=== PATIENT | female | born 1955 | race Caucasian/White ===

== ENCOUNTER 2020-03-15 11:16 | Inpatient (IN) | payer BC, MEDICARE ==
[~2020-03-15] VITALS: Ht 162.6 cm; Wt 62.5 kg
[2020-03-15] VITALS (8 sets, daily range): BP systolic 112–173; BP diastolic 43–66
--- NOTE | 2020-03-15 11:23 | PHYS DOC ---
General Adult EDM: Chief Complaint: AMS HPI: HPI: Patient is a 64 year old female who was brought here by EMS from local [facility] due to altered mental status. stated that they were out shopping when she became unresponsive, patient'S was able to catch her and let her down on the floor. Patient did not hit her head. stated that patient has been having a headache for the last 2 days. He is sure that she is not on any blood thinner. Patient's stated that she is on multiple medications but he is not sure what they are. He does not know much about her medical history except that she has been on multiple medications. EMS stated that she was able to protect her airway but her GCS was about 3 initially. Review of Systems: Review of Systems: Unable to obtain due to her condition. Heart Score: Risk Factors: Risk Factors: DM, Current or recent (<one month) smoker, HTN, HLP, family history of CAD, obesity. Risk Scores: Score 0 - 3: 2.5% MACE over next 6 weeks - Discharge Home Score 4 - 6: 20.3% MACE over next 6 weeks - Admit for Clinical Observation Score 7 - 10: 72.7% MACE over next 6 weeks - Early Invasive Strategies Physical Exam: PE: Constitutional: Well developed, well nourished,moderate acute distress, non- toxic appearance. [] HENT: Normocephalic, atraumatic, bilateral external ears normal, oropharynx moist, no oral exudates, nose normal. [] Eyes: PERRLA, EOMI, conjunctiva normal, no discharge. [] Neck: atraumatic Cardiovascular:Heart rate regular rhythm, no murmur [] Lungs & Thorax: Bilateral breath sounds clear to auscultation [] Abdomen: Bowel sounds normal, soft, no tenderness, no masses, no pulsatile masses. [] Skin: Warm, dry, no erythema, no rash. [] Back: atraumatic Extremities: No injury, no cyanosis, no clubbing, ROM intact, no edema. [] Neurologic: patient is unresponsive to pain or verbal, she was observed moving her left side but not the right side. POOR GAG REFLEX. Psychologic: not able to evaluate due to condition. Current Patient Data: Labs: Laboratory Tests Test 03/15/20 11:19 White Blood Count 11.7 x10^3/uL Red Blood Count 4.01 x10^6/uL Hemoglobin 12.3 g/dL Hematocrit 35.8 % Mean Corpuscular Volume 89 fL Mean Corpuscular Hemoglobin 31 pg Mean Corpuscular Hemoglobin Concent 34 g/dL Red Cell Distribution Width 12.5 % Platelet Count 308 x10^3/uL Neutrophils (%) (Auto) 54 % Lymphocytes (%) (Auto) 39 % Monocytes (%) (Auto) 6 % Eosinophils (%) (Auto) 1 % Basophils (%) (Auto) 0 % Neutrophils # (Auto) 6.3 x10^3/uL Lymphocytes # (Auto) 4.6 x10^3/uL Monocytes # (Auto) 0.7 x10^3/uL Eosinophils # (Auto) 0.1 x10^3/uL Basophils # (Auto) 0.0 x10^3/uL Sodium Level 138 mmol/L Potassium Level 3.3 mmol/L Chloride Level 102 mmol/L Carbon Dioxide Level 24 mmol/L Anion Gap 12 Blood Urea Nitrogen 12 mg/dL Creatinine 0.8 mg/dL Estimated GFR (Cockcroft-Gault) 72.7 BUN/Creatinine Ratio 15 Glucose Level 115 mg/dL Calcium Level 9.1 mg/dL Magnesium Level 1.7 mg/dL Total Bilirubin 0.3 mg/dL Aspartate Amino Transf (AST/SGOT) 28 U/L Alanine Aminotransferase (ALT/SGPT) 22 U/L Alkaline Phosphatase 83 U/L Troponin I Quantitative < 0.017 ng/mL DX-Gli-C-Type Natriuretic Peptide 100 pg/mL Total Protein 7.6 g/dL Albumin 4.0 g/dL Albumin/Globulin Ratio 1.1 Current Medications Medications (Trade) Dose Ordered Sig/Arnel Route PRN Reason Start Time Stop Time Status Last Admin Dose Admin Propofol (Diprivan) 200 mg 1X ONCE IV 03/15/20 11:30 03/15/20 11:31 DC 03/15/20 11:47 Propofol 50 ml @ As Directed STK-MED ONCE IV 03/15/20 11:45 03/15/20 11:45 DC Propofol 20 ml @ 0 mls/hr 1X ONCE IV 03/15/20 11:45 03/15/20 11:50 DC Potassium Chloride 40 meq/ Dextrose 1,020 ml @ 75 mls/hr [id number] PRN IV 0 03/15/20 12:00 Etomidate (Amidate) 20 mg 1X ONCE IV 03/15/20 11:40 03/15/20 12:00 DC Succinylcholine Chloride (Anectine) 100 mg 1X ONCE IV 03/15/20 11:40 03/15/20 12:00 DC EKG: EKG: [] Radiology/Procedures: Radiology/Procedures: [][facility] [address] [place] [address] IMAGING REPORT Signed PATIENT: JESSENIA CHIN ACCOUNT: [id number] : 1955 LOCATION: ER AGE: 64 SEX: F EXAM STATUS: PRE ER ORD. PHYSICIAN: JANY KRAUSE DO REASON: AMS, RIGHT SIDE WEAKNESS PROCEDURE: CT CODE STROKE HEAD WO CT head without contrast HISTORY: Code stroke. Altered mental status. Right-sided weakness. COMPARISON: CT head December 19, 2009. FINDINGS: At the left frontal lobe there is a large parenchymal hematoma which measures 5.5 cm AP by 6 cm parenchymal by 3 cm transverse with surrounding vasogenic edema, hemorrhage involvement of the white matter as well as extends to the overlying cortical enriquez matter at the superior and middle frontal gyri and extends to the dural margin of the falx cerebri. There is no obvious extra-axial extension of the hemorrhage although given the extensive cortical involvement there is likely risk of extra-axial extension. There is no extension of the ventricles. Mass effect from the hematoma and edema deforms the corpus callosum and left lateral ventricle which is mildly compressed and narrowed and results in 10 mm of [id number] subfalcine midline shift. No transtentorial herniation evident. Basilar cisterns are patent. No hydrocephalus. Orbits, mastoids and bones are unremarkable. IMPRESSION: Left frontal lobe 5.5 x 6.0 x 3.0 cm large parenchymal hematoma and surrounding edema involving both the superior and middle frontal cortical gyri as well as extensive involvement of the white matter, with mass effect and 10 mm midline shift as described above. It is possible this is hemorrhagic transformation of a cortical infarct although given the extensive white matter involvement, other etiologies such as tumoral hemorrhage, hemorrhage associated with an aneurysm or vascular anomaly, or hemorrhage due to venous or superior sagittal sinus thrombosis would also be considerations. FOR INTERNAL CODING PURPOSES Critical result: Findings discussed with JANY KRAUSE at 03/15/2020 11:30 AM. RESULT CODE: (C) Exposure: One or more of the following individualized dose reduction Intubation Procedure: Indication: Respiratory failure, AMS Consent: Unable to give consent due to emergent nature. Medications Used: ETOMIDATE, SUCCINYCHOLINE Procedure: The patient was placed in the appropriate position. Intubation was performed BY THIS physician, using [place] scope, 7.5 endotracheal tube. ET tube was secured 24 at lip, later it was pulled out to 22 at lip. Initial confirmation of placement included bilateral breath sounds, tube fogging, adequate chest rise, adequate pulse oximetry reading. A chest x-ray to verify correct placement of the tube showed ET just above the karthik, it was pulled out to 22 at lip. The patient tolerated the procedure well. Complications: none. Course & Med Decision Making: Course & Med Decision Making Pertinent Labs and Imaging studies reviewed. (See chart for details) Patient is a 64-year-old female with spontaneous left parenchymal hematoma, hypertension, has been having a headache for the last 2 days. Patient was consulted by Dr. Everette Kearney, neurosurgeon who will take patient to the operating room to have an emergent craniotomy. Patient's was updated on her condition and plan of treatment. Dr. Tucker Reece, hospitalist, agreed to admit the patient to ICU. Dragon Disclaimer: Jacoby Disclaimer: This electronic medical record was generated, in whole or in part, using a voice recognition dictation system. Departure Departure Impression: Primary Impression: Cerebral parenchymal hemorrhage Additional Impression: HTN (hypertension) Disposition: 09 ADMITTED INPATIENT Admitting Physician: LIZZY (DR. REECE) Condition: CRITICAL JIMIJANY Ho DO March 15, 2020 11:23
[2020-03-15] MEDS ORDERED: PROPOFOL 10 MG/ML (20ML) VIAL. IV ONE ×2 (11:30→12:33)
--- NOTE | 2020-03-15 11:36 | RAD ---
CT head without contrast HISTORY: Code stroke. Altered mental status. Right-sided weakness. COMPARISON: CT head December 19, 2009. FINDINGS: At the left frontal lobe there is a large parenchymal hematoma which measures 5.5 cm AP by 6 cm parenchymal by 3 cm transverse with surrounding vasogenic edema, hemorrhage involvement of the white matter as well as extends to the overlying cortical enriquez matter at the superior and middle frontal gyri and extends to the dural margin of the falx cerebri. There is no obvious extra-axial extension of the hemorrhage although given the extensive cortical involvement there is likely risk of extra-axial extension. There is no extension of the ventricles. Mass effect from the hematoma and edema deforms the corpus callosum and left lateral ventricle which is mildly compressed and narrowed and results in 10 mm of [id number]-qc-[id number] subfalcine midline shift. No transtentorial herniation evident. Basilar cisterns are patent. No hydrocephalus. Orbits, mastoids and bones are unremarkable. IMPRESSION: Left frontal lobe 5.5 x 6.0 x 3.0 cm large parenchymal hematoma and surrounding edema involving both the superior and middle frontal cortical gyri as well as extensive involvement of the white matter, with mass effect and 10 mm midline shift as described above. It is possible this is hemorrhagic transformation of a cortical infarct although given the extensive white matter involvement, other etiologies such as tumoral hemorrhage, hemorrhage associated with an aneurysm or vascular anomaly, or hemorrhage due to venous or superior sagittal sinus thrombosis would also be considerations. FOR INTERNAL CODING PURPOSES Critical result: Findings discussed with JANY KRAUSE at 03/15/2020 11:30 AM. RESULT CODE: (C) Exposure: One or more of the following individualized dose reduction techniques were utilized for this examination: 1. Automated exposure control 2. Adjustment of the mA and/or kV according to patient size 3. Use of iterative reconstruction technique Electronically signed by: Levi Smith MD (03/15/2020 11:34 AM) [id number]
[2020-03-15 11:37] LABS: BASO % 0 % (0-3); EOS # 0.1 x10^3/uL (0.0-0.7); EOS % 1 % (0-3); HEMATOCRIT 35.8 % (36.0-47.0); HEMOGLOBIN 12.3 g/dL (12.0-15.5); LYMPH # 4.6 x10^3/uL (1.0-4.8); LYMPH % 39 % (24-48); MEAN CORPUSCULAR HEMOGLOBIN 31 pg (25-35); MEAN CORPUSCULAR HGB CONC 34 g/dL (31-37); MEAN CORPUSCULAR VOLUME 89 fL (79-100); MONO # 0.7 x10^3/uL (0.0-1.1); MONO % 6 % (0-9); NEUT # 6.3 x10^3/uL (1.8-7.7); NEUT % 54 % (31-73); PLATELET COUNT 308 x10^3/uL (140-400); RED BLOOD COUNT 4.01 x10^6/uL (3.50-5.40); RED CELL DISTRIBUTION WIDTH 12.5 % (11.5-14.5); WHITE BLOOD COUNT 11.7 x10^3/uL (4.0-11.0)
[2020-03-15] MEDS ORDERED: SUCCINYLCHOLINE 200 MG/10 ML VIAL. IV ONE (11:40)
[2020-03-15] MEDS ORDERED: ETOMIDATE 20 MG/10 ML VIAL. IV ONE (11:40)
[2020-03-15] MEDS ORDERED: PROPOFOL 20 ML IV ONE (11:45)
[2020-03-15] MEDS ORDERED: PROPOFOL 50 ML IV ONE ×2 (11:45→16:02)
[2020-03-15 11:47] LABS: CALCIUM 9.1 mg/dL (8.5-10.1); CREATININE 0.8 mg/dL (0.6-1.0); GFR 72.7; POTASSIUM 3.3 mmol/L (3.5-5.1)
[2020-03-15 11:52] LABS: ALBUMIN/GLOBULIN RATIO 1.1 (1.0-1.7); MAGNESIUM 1.7 mg/dL (1.8-2.4); TOTAL BILIRUBIN 0.3 mg/dL (0.2-1.0); TOTAL PROTEIN 7.6 g/dL (6.4-8.2)
[2020-03-15 11:53] LABS: PROTHROMBIN TIME PATIENT 12.2 SEC (11.7-14.0)
--- NOTE | 2020-03-15 12:09 | RAD ---
Study: CR CHEST AP ONLY Indication: Intubation. Comparison: None. Findings: Endotracheal tube tip terminates approximately 1.2 cm from the karthik. The cardiomediastinal silhouette is within normal limits for size. Mildly plethoric central vasculature. No layering effusion, pneumothorax or dense lobar infiltrate. Probable mild basilar volume loss. Impression: 1. Endotracheal tube tip terminates approximately 1.2 cm from the karthik. Retraction of the tube by [address] the tip at the level of the clavicles. 2. Mildly plethoric central vasculature but without findings of overt failure/volume overload. Electronically signed by: LUIS EDUARDO GONGORA MD (03/15/2020 12:06 PM) [id number]
--- NOTE | 2020-03-15 12:10 | EKG ---
[facility] [address] [place] [address] Test Date: 2020-03-15 Test Time: 11:28:50 Pat Name: JESSENIA CHIN Department: Room: Gender: F Plow Shaker: : 1955 Requested By: JANY KRAUSE Order Number: [id number] Reading MD: Rex Campbell Measurements Intervals [place] Rate: 72 P: 56 DE: 192 QRS: 67 QRSD: 88 T: 60 QT: 438 QTc: 487 Interpretive Statements SINUS RHYTHM PROLONGED QT Electronically Signed On 03-16-2020 15:49:19 CDT by Rex Campbell
--- NOTE | 2020-03-15 12:12 | PDOC1 ---
History and Physical Date of Admission Date of Admission DATE: 03/15/20 TIME: 12:10 Identification/Chief Complaint Chief Complaint Syncope and collapse Source Source: Caregiver, Chart review History of Present Illness History of Present Illness Ms Mathew is a 64 yo F w/ PMHx HLD who was brought here by EMS from local [facility] due to altered mental status around 1030 on 03/15/2020. noted that they were out shopping when she became unresponsive and fell to the ground, though he was able to catch her and guide her down on the floor. Patient did not hit her head. stated that patient has been having a headache for the last 2-3 days. He is sure that she is not on any blood thinner. Patient's stated that she is on multiple medications but he is not sure what they are.. EMS stated that she was able to protect her airway but her GCS was about [address] head revealed a left frontal lobe 5.5 x 6.0 x 3.0 cm large parenchymal hematoma and surrounding edema involving both the superior and middle frontal cortical gyri as well as extensive involvement of the white matter, with mass effect and 10 mm midline shift. Neurosurgery was urgently contacted. She underwent RSI with ED with etomidate and succinylcholine with 7.5 ET tube and went urgently to OR for craniotomy and hematoma evacuation which was large and invaded the ventricular and she is transferred to ICU for closer monitoring. I was able to evaluated patient prior to intubation and after surgery. Past Medical History Cardiovascular: Hyperlipidemia Past Surgical History Past Surgical History: Other Family History Family History: Family History Unknown Social History Smoke: No ALCOHOL: none Drugs: None Current Medications Current Medications Current Medications Propofol (Diprivan) 200 mg 1X ONCE IV Last administered on 03/15/20at 11:47; Start 03/15/20 at 11:30; Stop 03/15/20 at 11:31; Status DC Propofol 50 ml @ As Directed STK-MED ONCE IV ; Start 03/15/20 at 11:45; Stop 03/15/20 at 11:45; Status DC Propofol 20 ml @ 0 mls/hr 1X ONCE IV ; Start 03/15/20 at 11:45; Stop 03/15/20 at 11:50; Status DC Potassium Chloride 40 meq/ Dextrose 1,020 ml @ 75 mls/hr [id number] PRN IV 0; Start 03/15/20 at 12:00 Etomidate (Amidate) 20 mg 1X ONCE IV ; Start 03/15/20 at 11:40; Stop 03/15/20 at 12:00; Status DC Succinylcholine Chloride (Anectine) 100 mg 1X ONCE IV ; Start 03/15/20 at 11:40; Stop 03/15/20 at 12:00; Status DC Allergies Allergies: Coded Allergies: No Known Drug Allergies (Unverified , 03/15/20) ROS Review of System Unable to obtain due to obtundation, then sedation on reevaluation Physical Exam General: Other (Obtunded, GCS 3) HEENT: Mucous membr. moist/pink Lungs: Clear to auscultation, Normal air movement Heart: S1S2, RRR, no thrills, no rubs, no gallops, no murmurs Abdomen: Normal bowel sounds, Soft, No tenderness, No hepatosplenomegaly, No masses Rectal Exam: not examined Extremities: No clubbing, No cyanosis, No edema, Normal pulses, No tenderness/swelling Skin: No rashes, No breakdown, No significant lesion Neuro: Other (GCS 3) Labs Labs Laboratory Tests Test 03/15/20 11:19 White Blood Count 11.7 x10^3/uL (4.0-11.0) Red Blood Count 4.01 x10^6/uL (3.50-5.40) Hemoglobin 12.3 g/dL (12.0-15.5) Hematocrit 35.8 % (36.0-47.0) Mean Corpuscular Volume 89 fL (79-100) Mean Corpuscular Hemoglobin 31 pg (25-35) Mean Corpuscular Hemoglobin Concent 34 g/dL (31-37) Red Cell Distribution Width 12.5 % (11.5-14.5) Platelet Count 308 x10^3/uL (140-400) Neutrophils (%) (Auto) 54 % (31-73) Lymphocytes (%) (Auto) 39 % (24-48) Monocytes (%) (Auto) 6 % (0-9) Eosinophils (%) (Auto) 1 % (0-3) Basophils (%) (Auto) 0 % (0-3) Neutrophils # (Auto) 6.3 x10^3/uL (1.8-7.7) Lymphocytes # (Auto) 4.6 x10^3/uL (1.0-4.8) Monocytes # (Auto) 0.7 x10^3/uL (0.0-1.1) Eosinophils # (Auto) 0.1 x10^3/uL (0.0-0.7) Basophils # (Auto) 0.0 x10^3/uL (0.0-0.2) Sodium Level 138 mmol/L (136-145) Potassium Level 3.3 mmol/L (3.5-5.1) Chloride Level 102 mmol/L (98-107) Carbon Dioxide Level 24 mmol/L (21-32) Anion Gap 12 (6-14) Blood Urea Nitrogen 12 mg/dL (7-20) Creatinine 0.8 mg/dL (0.6-1.0) Estimated GFR (Cockcroft-Gault) 72.7 BUN/Creatinine Ratio 15 (6-20) Glucose Level 115 mg/dL (70-99) Calcium Level 9.1 mg/dL (8.5-10.1) Magnesium Level 1.7 mg/dL (1.8-2.4) Total Bilirubin 0.3 mg/dL (0.2-1.0) Aspartate Amino Transf (AST/SGOT) 28 U/L (15-37) Alanine Aminotransferase (ALT/SGPT) 22 U/L (14-59) Alkaline Phosphatase 83 U/L (46-116) Troponin I Quantitative < 0.017 ng/mL (0.000-0.055) FM-Mub-O-Type Natriuretic Peptide 100 pg/mL (0-124) Total Protein 7.6 g/dL (6.4-8.2) Albumin 4.0 g/dL (3.4-5.0) Albumin/Globulin Ratio 1.1 (1.0-1.7) Laboratory Tests Test 03/15/20 11:19 White Blood Count 11.7 x10^3/uL (4.0-11.0) Red Blood Count 4.01 x10^6/uL (3.50-5.40) Hemoglobin 12.3 g/dL (12.0-15.5) Hematocrit 35.8 % (36.0-47.0) Mean Corpuscular Volume 89 fL (79-100) Mean Corpuscular Hemoglobin 31 pg (25-35) Mean Corpuscular Hemoglobin Concent 34 g/dL (31-37) Red Cell Distribution Width 12.5 % (11.5-14.5) Platelet Count 308 x10^3/uL (140-400) Neutrophils (%) (Auto) 54 % (31-73) Lymphocytes (%) (Auto) 39 % (24-48) Monocytes (%) (Auto) 6 % (0-9) Eosinophils (%) (Auto) 1 % (0-3) Basophils (%) (Auto) 0 % (0-3) Neutrophils # (Auto) 6.3 x10^3/uL (1.8-7.7) Lymphocytes # (Auto) 4.6 x10^3/uL (1.0-4.8) Monocytes # (Auto) 0.7 x10^3/uL (0.0-1.1) Eosinophils # (Auto) 0.1 x10^3/uL (0.0-0.7) Basophils # (Auto) 0.0 x10^3/uL (0.0-0.2) Sodium Level 138 mmol/L (136-145) Potassium Level 3.3 mmol/L (3.5-5.1) Chloride Level 102 mmol/L (98-107) Carbon Dioxide Level 24 mmol/L (21-32) Anion Gap 12 (6-14) Blood Urea Nitrogen 12 mg/dL (7-20) Creatinine 0.8 mg/dL (0.6-1.0) Estimated GFR (Cockcroft-Gault) 72.7 BUN/Creatinine Ratio 15 (6-20) Glucose Level 115 mg/dL (70-99) Calcium Level 9.1 mg/dL (8.5-10.1) Magnesium Level 1.7 mg/dL (1.8-2.4) Total Bilirubin 0.3 mg/dL (0.2-1.0) Aspartate Amino Transf (AST/SGOT) 28 U/L (15-37) Alanine Aminotransferase (ALT/SGPT) 22 U/L (14-59) Alkaline Phosphatase 83 U/L (46-116) Troponin I Quantitative < 0.017 ng/mL (0.000-0.055) MC-Ztk-O-Type Natriuretic Peptide 100 pg/mL (0-124) Total Protein 7.6 g/dL (6.4-8.2) Albumin 4.0 g/dL (3.4-5.0) Albumin/Globulin Ratio 1.1 (1.0-1.7) Images Images CT head - At the left frontal lobe there is a large parenchymal hematoma which measures 5.5 cm AP by 6 cm parenchymal by 3 cm transverse with surrounding vasogenic edema, hemorrhage involvement of the white matter as well as extends to the overlying cortical enriquez matter at the superior and middle frontal gyri and extends to the dural margin of the falx cerebri. There is no obvious extra- axial extension of the hemorrhage although given the extensive cortical involvement there is likely risk of extra-axial extension. There is no extension of the ventricles. Mass effect from the hematoma and edema deforms the corpus callosum and left lateral ventricle which is mildly compressed and narrowed and results in 10 mm of [id number]-[id number] subfalcine midline shift. No transtentorial herniation evident. Basilar cisterns are patent. No hydrocephalus. Orbits, mastoids and bones are unremarkable. IMPRESSION: Left frontal lobe 5.5 x 6.0 x 3.0 cm large parenchymal hematoma and surrounding edema involving both the superior and middle frontal cortical gyri as well as extensive involvement of the white matter, with mass effect and 10 mm midline shift as described above. It is possible this is hemorrhagic transformation of a cortical infarct although given the extensive white matter involvement, other etiologies such as tumoral hemorrhage, hemorrhage associated with an aneurysm or vascular anomaly, or hemorrhage due to venous or superior sagittal sinus thrombosis would also be considerations. VTE Prophylaxis Ordered VTE Prophylaxis Devices: Yes VTE Pharmacological Prophylaxi: Contraindicated Assessment/Plan Assessment/Plan A/P: Acute encephalopathy - due to intracranial hemorrhage Syncope and collapse - 2/2 intraparenchymal bleed Left front intracranial hemorrhage - awaiting biopsy results. per d/w neurosurgery likely aneursymal, possibly bleeding prior to presentation. left frontal lobe 5.5 x 6.0 x 3.0 cm large parenchymal hematoma and surrounding edema. S/p craniotomy. BP monitoring with a-line, hugh Ann HLD - on statin Respiratory failure - likely 2/2 intracranial bleed. Pulm to see in AM for vent management Leukocytosis - likely 2/2 bleed. will monitor Hypokalemia and hypomagnesemia - will replace IV. monitor FEN - NPO PPX - SCDs, Pepcid FULL CODE Dispo - ICU for above. Will need to reconcile home medications with . D/w neurosurgery to check CTA in AM to assess for aneursym with low threshold for tertiary center transfer if further neuro intervention is necessary. CC time 47 min GRAY REECE MD March 15, 2020 12:12
[2020-03-15] MEDS: POTASSIUM CHLORIDE 40 MEQ in IV DEXTROSE 5% 1,000 ML IV PRN ×2 (12:13→19:35)
[2020-03-15] MEDS ORDERED: FLUO40CA2 PO (12:19)
[2020-03-15] MEDS ORDERED: ESTR0.62 PO (12:19)
[2020-03-15] MEDS ORDERED: OXYB10TA26 PO (12:19)
[2020-03-15] MEDS ORDERED: ATOR40TA59 PO (12:19)
[2020-03-15] MEDS ORDERED: PENT100C PO (12:19)
[2020-03-15 12:26] LABS: BASE EXCESS COOX -1 mmol/L (-3-3); HCO3 COOX 22 mmol/L (21-28); METHEMOGLOBIN 0.3 % (0.0-1.9); OXYHEMOGLOBIN 96.6 %; PCO2 COOX 33 mmHg (35-46); PO2 COOX 471 mmHg (65-108); SAT O2 COOX 99 % (92-99)
[2020-03-15] MEDS ORDERED: ROCURONIUM 50 MG/5 ML VIAL. ONE ×2 (12:33→15:34)
[2020-03-15] MEDS ORDERED: PHENYLEPHRINE in 0.9% NACL PF 1 MG/10 ML SYRINGE. IV ONE (12:33)
[2020-03-15] MEDS ORDERED: DEXAMETHASONE SOD PHOS 20 MG/5 ML VIAL. ONE (12:36)
[2020-03-15] MEDS ORDERED: GELATIN SPONGE SIZE 100. ONE (12:42)
[2020-03-15] MEDS ORDERED: THROMBIN TOPICAL 20,000 UNIT SPRAY.SYRN KIT TP ONE (12:42)
[2020-03-15] MEDS ORDERED: SURGICEL HEMOSTAT 4X8 EACH. ONE (12:42)
[2020-03-15] MEDS ORDERED: BUPIVACAINE-EPI 0.5%-1:200000 MPF 30 ML VIAL. ONE ×2 (12:42→12:44)
[2020-03-15] MEDS ORDERED: MANNITOL 25% 12.5 G/50 ML VIAL FOR OR. ONE ×2 (12:42→14:28)
[2020-03-15 12:56] LABS: BILIRUBIN,URINE NEGATIVE (NEG); CLARITY,URINE CLEAR; COLOR,URINE YELLOW; NITRITE,URINE NEGATIVE (NEG); PH,URINE 7.5 (<5.0-8.0); PROTEIN,URINE NEGATIVE (NEG-TRACE); UROBILINOGEN,URINE 0.2 mg/dL (0.2 mg/dL)
[2020-03-15] MEDS ORDERED: BUPIVACAINE-EPI 0.5%-1:200000 MPF 30 ML VIAL. INJ ONE (13:00)
[2020-03-15] MEDS ORDERED: BACITRACIN 50,000 UNIT in IV NORMAL SALINE 1000ML BAG 1,000 ML IRR ONE (13:00)
[2020-03-15 13:05] LABS: AMORPHOUS SEDIMENT,UR PRESENT /HPF; BACTERIA,URINE 0 /HPF (0-FEW); RBC,URINE 0 /HPF (0-2); SQUAMOUS EPITHELIAL CELL,UR FEW /LPF; WBC,URINE 0 /HPF (0-4)
[2020-03-15 13:07] LABS: BARBITURATES NEG (NEG); BENZODIAZEPINES NEG (NEG); CANNABINOIDS NEG (NEG); COCAINE NEG (NEG); METHADONE NEG (NEG); OPIATES NEG (NEG); PHENCYCLIDINE NEG (NEG)
[2020-03-15 13:10] LABS: AMPHETAMINE/METHAMPHETAMINE NEG (NEG)
[2020-03-15] MEDS ORDERED: IV RINGERS,LACTATED 1000ML 1,000 ML IV SCH (13:31)
[2020-03-15] MEDS ORDERED: ONDANSETRON PF 4 MG/2 ML VIAL. IV PRN ×2 (13:45→16:45)
[2020-03-15] MEDS ORDERED: HYDROmorphone 2 MG/ML VIAL IV PRN (13:45)
[2020-03-15] MEDS ORDERED: MORPHINE SULFATE 2 MG/ML VIAL. IV PRN (13:45)
[2020-03-15] MEDS ORDERED: fentaNYL PF VIAL 100 MCG/2 ML VIAL IV PRN ×2 (13:45)
[2020-03-15] MEDS ORDERED: PROCHLORPERAZINE 10 MG/2 ML VIAL. IV PRN (13:45)
[2020-03-15] MEDS ORDERED: PHENYLEPHRINE 10 MG/ML VIAL. ONE (14:43)
[2020-03-15] MEDS ORDERED: fentaNYL PF VIAL 100 MCG/2 ML VIAL ONE (15:08)
[2020-03-15] MEDS ORDERED: SEVOFLURANE > 120 MINUTES. IH ONE (15:44)
[2020-03-15] MEDS ORDERED: POTASSIUM CL 20MEQ D5-0.45NACL 1,000 ML IV SCH (16:19)
[2020-03-15] MEDS ORDERED: 0.9 % SODIUM CHLORIDE 10 ML DISP.SYRIN. IV PRN (16:30)
[2020-03-15] MEDS ORDERED: DEXTROSE 50% 25 GM / 50ML DISP.SYRIN. IV PRN (16:30)
[2020-03-15] MEDS ORDERED: DOCUSATE SODIUM 283 MG/5 ML ENEMA. PR PRN (16:45)
[2020-03-15] MEDS ORDERED: ACETAMINOPHEN 650 MG SUPP.RECT. PR PRN (16:45)
[2020-03-15] MEDS ORDERED: MAGNESIUM SULFATE 2GM 50 ML IV ONE (17:00)
[2020-03-15 17:41] LABS: BASE EXCESS ABG -3 mmol/L (-3-3); HCO3 ABG 22 mmol/L (21-28); PCO2 ABG 38 mmHg (35-46); PO2 ABG 235 mmHg (65-108); SAT O2 ABG 99 % (92-99)
[2020-03-15 17:44] LABS: FIO2 ABG 60%+5
[2020-03-15] MEDS ORDERED: PROPOFOL 100 ML IV ONE (19:37)
[2020-03-15] MEDS: PROPOFOL 100 ML IV PRN (20:56)
[2020-03-15] MEDS: ceFAZolin SODIUM IV Push 1 GM VIAL. IVP SCH (21:40)
[2020-03-16] VITALS (24 sets, daily range): BP systolic 55–146; BP diastolic 47–58
[2020-03-16] MEDS: ceFAZolin SODIUM IV Push 1 GM VIAL. IVP SCH ×2 (05:30→14:52)
[2020-03-16 06:17] LABS: BASO % 0 % (0-3); EOS % 0 % (0-3); HEMATOCRIT 30.3 % (36.0-47.0); HEMOGLOBIN 10.3 g/dL (12.0-15.5); LYMPH # 0.9 x10^3/uL (1.0-4.8); LYMPH % 6 % (24-48); MEAN CORPUSCULAR HEMOGLOBIN 30 pg (25-35); MEAN CORPUSCULAR HGB CONC 34 g/dL (31-37); MEAN CORPUSCULAR VOLUME 90 fL (79-100); MONO # 0.8 x10^3/uL (0.0-1.1); MONO % 5 % (0-9); NEUT % 89 % (31-73); PLATELET COUNT 238 x10^3/uL (140-400); RED BLOOD COUNT 3.39 x10^6/uL (3.50-5.40); RED CELL DISTRIBUTION WIDTH 12.6 % (11.5-14.5); WHITE BLOOD COUNT 14.6 x10^3/uL (4.0-11.0)
[2020-03-16 06:28] LABS: CALCIUM 7.7 mg/dL (8.5-10.1); CREATININE 0.7 mg/dL (0.6-1.0); GFR 84.8; MAGNESIUM 1.9 mg/dL (1.8-2.4); POTASSIUM 4.1 mmol/L (3.5-5.1)
[2020-03-16 07:39] LABS: % BANDS 4 % (0-9); % LYMPHS 7 % (24-48); % MONOS 5 % (0-10); % SEGS 84 % (35-66)
[2020-03-16 07:40] LABS: PLT ESTIMATE ADEQUATE (ADEQUATE)
[2020-03-16] MEDS ORDERED: IOHEXOL 300 MG/ML 100ML VIAL. IV ONE (07:45)
[2020-03-16] MEDS ORDERED: CONTRAST GIVEN. MC PRN (08:00)
[2020-03-16 08:12] LABS: BASE EXCESS ABG -2 mmol/L (-3-3); HCO3 ABG 22 mmol/L (21-28); PCO2 ABG 33 mmHg (35-46); PO2 ABG 108 mmHg (65-108); SAT O2 ABG 98 % (92-99)
--- NOTE | 2020-03-16 09:02 | PDOC2 ---
NEUROLOGY CONSULT Date of Admission Date of Admission DATE: 03/16/20 TIME: 08:54 Reason for Consult Reason for Consult: Cerebral hemorrhage Referring Physician Referring Physician: Dr. Puente, Dr. Kearney Source Source: Chart review History of Present Illness History of Present Illness The patient is a 64-year-old female [employer] [facility] from grocery store. At about 1030 on 03/15 she was shopping with when she became unresponsive and fell to the floor. She did not hit her head. She had been complaining of headaches for the past [address] head showed a large left frontal lobe intraparenchymal hematoma for which she underwent craniotomy yesterday. There is a question of vascular malformation. No seizures have been noted. Past Medical History Cardiovascular: HTN Family History Family History: Other (Unobtainable) Social History Social History Unobtainable Current Medications Current Medications Current Medications Propofol (Diprivan) 200 mg 1X ONCE IV Last administered on 03/15/20at 11:47; Start 03/15/20 at 11:30; Stop 03/15/20 at 11:31; Status DC Propofol 50 ml @ As Directed STK-MED ONCE IV ; Start 03/15/20 at 11:45; Stop 03/15/20 at 11:45; Status DC Propofol 20 ml @ 0 mls/hr 1X ONCE IV Last administered on 03/15/20at 11:52; Start 03/15/20 at 11:45; Stop 03/15/20 at 11:50; Status DC Potassium Chloride 40 meq/ Dextrose 1,020 ml @ 75 mls/hr [id number] PRN IV 0 Last administered on 03/15/20at 19:35; Start 03/15/20 at 12:00 Etomidate (Amidate) 20 mg 1X ONCE IV Last administered on 03/15/20at 12:12; Start 03/15/20 at 11:40; Stop 03/15/20 at 12:00; Status DC Succinylcholine Chloride (Anectine) 100 mg 1X ONCE IV Last administered on 03/15/20at 12:12; Start 03/15/20 at 11:40; Stop 03/15/20 at 12:00; Status DC Bacitracin 62658 unit/Sodium Chloride 1,000 ml @ 1,000 mls/hr 1X ONCE IRR Last administered on 03/15/20 14:50; Start 03/15/20 at 13:00; Stop 03/15/20 at 14:07; Status DC Cefazolin Sodium/ Dextrose 50 ml @ 100 mls/hr 1X PREOP PRN IV PRIOR TO PROCEDURE Last administered on 03/15/20 13:25; Start 03/15/20 at 13:00; Stop 03/16/20 at 12:59 Propofol (Diprivan) 200 mg STK-MED ONCE IV ; Start 03/15/20 at 12:33; Stop 03/15/20 at 12:33; Status DC Phenylephrine HCl (PHENYLEPHRINE in 0.9% NACL PF) 1 mg STK-MED ONCE IV ; Start 03/15/20 at 12:33; Stop 03/15/20 at 12:33; Status DC Rocuronium [place] (Zemuron) 50 mg STK-MED ONCE .ROUTE ; Start 03/15/20 at 12:33; Stop 03/15/20 at 12:33; Status DC Dexamethasone Sodium Phosphate (Decadron) 20 mg STK-MED ONCE .ROUTE ; Start 03/15/20 at 12:36; Stop 03/15/20 at 12:36; Status DC Gelatin (Gelfoam Size 100) 1 each STK-MED ONCE .ROUTE Last administered on 03/15/20 13:49; Start 03/15/20 at 12:42; Stop 03/15/20 at 12:42; Status DC Bupivacaine HCl/ Epinephrine Bitart (Sensorcain-Epi 0.5%-1:194073 Mpf) 30 ml STK-MED ONCE .ROUTE ; Start 03/15/20 at 12:42; Stop 03/15/20 at 12:42; Status DC Mannitol (Mannitol) 12.5 g STK-MED ONCE .ROUTE Last administered on 03/15/20 14:41; Start 03/15/20 at 12:42; Stop 03/15/20 at 12:42; Status DC Cellulose (Surgicel Hemostat 4x8) 1 each STK-MED ONCE .ROUTE Last administered on 03/15/20 15:08; Start 03/15/20 at 12:42; Stop 03/15/20 at 12:43; Status DC Thrombin 20,000 unit STK-MED ONCE TP Last administered on 5/25/20at 13:49; Start 03/15/20 at 12:42; Stop 03/15/20 at 12:43; Status DC Bupivacaine HCl/ Epinephrine Bitart (Sensorcain-Epi 0.5%-1:483967 Mpf) 30 ml STK-MED ONCE .ROUTE Last administered on 03/15/20at 13:48; Start 03/15/20 at 12 :44; Stop 03/15/20 at 12:45; Status DC Bupivacaine HCl/ Epinephrine Bitart (Sensorcain-Epi 0.5%-1:837499 Mpf) 30 ml 1X ONCE INJ ; Start 03/15/20 at 13:00; Stop 03/15/20 at 13:01; Status DC Ondansetron HCl (Zofran) 4 mg PRN Q6HRS PRN IV NAUSEA/VOMITING; Start 03/15/20 at 13:45; Stop 03/15/20 at 16:35; Status DC Fentanyl Citrate (Fentanyl 2ml Vial) 25 mcg PRN Q5MIN PRN IV MILD PAIN 1-3; Start 03/15/20 at 13:45; Stop 03/16/20 at 13:44 Fentanyl Citrate (Fentanyl 2ml Vial) 50 mcg PRN Q5MIN PRN IV MODERATE TO SEVERE PAIN; Start 03/15/20 at 13:45; Stop 03/16/20 at 13:44 Morphine Sulfate (Morphine Sulfate) 1 mg PRN Q10MIN PRN IV SEVERE PAIN 7-10; Start 03/15/20 at 13:45; Stop 03/16/20 at 13:44 Ringer's Solution 1,000 ml @ 30 mls/hr Q24H IV ; Start 03/15/20 at 13:31; Stop 03/16/20 at 01:30; Status DC Hydromorphone HCl (Dilaudid) 0.5 mg PRN Q10MIN PRN IV SEV PAIN, Second choice; Start 03/15/20 at 13:45; Stop 03/16/20 at 13:44 Prochlorperazine Edisylate (Compazine) 5 mg PACU PRN PRN IV NAUSEA, MRX1; Start 03/15/20 at 13:45; Stop 03/16/20 at 13:44 Mannitol (Mannitol) 12.5 g STK-MED ONCE .ROUTE Last administered on 03/15/20at 14:41; Start 03/15/20 at 14:28; Stop 03/15/20 at 14:28; Status DC Phenylephrine HCl (Diego-Synephrine Inj) 10 mg STK-MED ONCE .ROUTE ; Start 03/15/20 at 14:43; Stop 03/15/20 at 14:43; Status DC Fentanyl Citrate (Fentanyl 2ml Vial) 100 mcg STK-MED ONCE .ROUTE ; Start 03/15/20 at 15:08; Stop 03/15/20 at 15:09; Status DC Rocuronium Midway (Zemuron) 50 mg STK-MED ONCE .ROUTE ; Start 03/15/20 at 15:34; Stop 03/15/20 at 15:34; Status DC Sevoflurane (Ultane) 90 ml STK-MED ONCE IH ; Start 03/15/20 at 15:44; Stop 03/15/20 at 15:44; Status DC Propofol 50 ml @ As Directed STK-MED ONCE IV ; Start 03/15/20 at 16:02; Stop 03/15/20 at 16:02; Status DC Nicardipine HCl 50 mg/Sodium Chloride 250 ml @ 25 mls/hr TITRATE PRN IV HYPERTENSION Last administered on 03/15/20at 17:56; Start 03/15/20 at 16:30 Levetiracetam 500 mg/Sodium Chloride 105 ml @ 400 mls/hr Q12HR IV Last administered on 03/15/20at 20:55; Start 03/15/20 at 21:00 Sodium Chloride (Normal Saline Flush) 3 ml QSHIFT PRN IV AFTER MEDS AND BLOOD DRAWS; Start 03/15/20 at 16:30 Potassium Chloride/Dextrose/ Sod Cl 1,000 ml @ 80 mls/hr [id number] IV ; Start 03/15/20 at 16:19; Stop 03/15/20 at 18:36; Status DC Dextrose (Dextrose 50%-Water Syringe) 12.5 gm PRN Q15MIN PRN IV SEE COMMENTS; Start 03/15/20 at 16:30 Cefazolin Sodium (Ancef) 1 gm Q8HRS IVP Last administered on 03/16/20at 05:30; Start 03/15/20 at 22:00; Stop 03/16/20 at 14:01 Ondansetron HCl (Zofran) 4 mg PRN Q4HRS PRN IV NAUSEA/VOMITING; Start 03/15/20 at 16:45 Atorvastatin Calcium (Lipitor) 40 mg DAILY PO ; Start 03/16/20 at 09:00 Acetaminophen (Tylenol Supp) 650 mg PRN Q6HRS PRN MI MILD PAIN / TEMP > 100.3'F; Start 03/15/20 at 16:45 Docusate Sodium (Enemeez) 283 mg PRN DAILY PRN MI CONSTIPATION; Start 03/15/20 at 16:45 Magnesium Sulfate 50 ml @ 25 mls/hr 1X ONCE IV Last administered on 03/15/20at 17:23; Start 03/15/20 at 17:00; Stop 03/15/20 at 18:59; Status DC Propofol 100 ml @ As Directed STK-MED ONCE IV ; Start 03/15/20 at 19:37; Stop 03/15/20 at 19:38; Status DC Propofol 100 ml @ 0.837 mls/ hr CONT PRN IV SEE I/O RECORD Last administered on 03/15/20at 20:56; Start 03/15/20 at 19:45 Iohexol (Omnipaque 300 Mg/ml) 75 ml 1X ONCE IV ; Start 03/16/20 at 07:45; Stop 03/16/20 at 07:50; Status DC Info (CONTRAST GIVEN -- Rx MONITORING) 1 each PRN DAILY PRN MC SEE COMMENTS; Start 03/16/20 at 08:00; Stop 03/18/20 at 07:59 Active Scripts Active Reported Oxybutynin Chloride Er (Oxybutynin Chloride) 10 Mg Tab.er.24 1 Tab PO DAILY Elmiron (Pentosan Polysulfate Sodium) 100 Mg Capsule 1 Cap PO TID 30 Days Atorvastatin Calcium 40 Mg Tablet 1 Tab PO DAILY Fluoxetine Hcl 40 Mg Capsule 40 Mg PO DAILY Premarin (Estrogens, Conjugated) 0.625 Mg Tablet 1 Tab PO DAILY Allergies Allergies: Coded Allergies: No Known Drug Allergies (Unverified , 03/15/20) ROS Review of System Unobtainable Physical Exam Physical Examination General: Well-developed, well-nourishedWhite female in no acute distress HEENT: Normocephalic andatraumatic, status-post craniotomy with ventricular drain. Temporal arteriespulsatile. Neck: Supple without bruit, no meningismus Musculoskeletal: Stability:see neurologic. Gait exam:see neurologic. Tone:see neurologic.Strength:see neurologic. Neurological: Mental Status:orientation, memory, attention span/concentration, language, fund of knowledge: intubated, sedated, unresponsive. Cranial Nerves:Pupils equal and reactive to light. There is no facial asymmetry. All other cranial related problems are negative except as mentioned before.Reflexes:2+ and symmetric with silent plantar responses. Motor: moves left side more than right. Coordination and gait:Not cooperative. Sensory:Not cooperative. Vitals VITALS Vital Signs Date Time Temp Pulse Resp B/P (MAP) Pulse Ox O2 Delivery O2 Flow Rate FiO2 03/16/20 07:46 100 Ventilator 03/16/20 07:00 81 16 131/48 (75) 03/16/20 04:00 98.4 98.4 Labs Labs Laboratory Tests Test 03/15/20 11:19 03/15/20 12:15 03/15/20 12:25 03/15/20 17:30 White Blood Count 11.7 x10^3/uL (4.0-11.0) Red Blood Count 4.01 x10^6/uL (3.50-5.40) Hemoglobin 12.3 g/dL (12.0-15.5) Hematocrit 35.8 % (36.0-47.0) Mean Corpuscular Volume 89 fL (79-100) Mean Corpuscular Hemoglobin 31 pg (25-35) Mean Corpuscular Hemoglobin Concent 34 g/dL (31-37) Red Cell Distribution Width 12.5 % (11.5-14.5) Platelet Count 308 x10^3/uL (140-400) Neutrophils (%) (Auto) 54 % (31-73) Lymphocytes (%) (Auto) 39 % (24-48) Monocytes (%) (Auto) 6 % (0-9) Eosinophils (%) (Auto) 1 % (0-3) Basophils (%) (Auto) 0 % (0-3) Neutrophils # (Auto) 6.3 x10^3/uL (1.8-7.7) Lymphocytes # (Auto) 4.6 x10^3/uL (1.0-4.8) Monocytes # (Auto) 0.7 x10^3/uL (0.0-1.1) Eosinophils # (Auto) 0.1 x10^3/uL (0.0-0.7) Basophils # (Auto) 0.0 x10^3/uL (0.0-0.2) Prothrombin Time 12.2 SEC (11.7-14.0) Prothromb Time International Ratio 0.9 (0.8-1.1) Activated Partial Thromboplast Time 32 SEC (24-38) Sodium Level 138 mmol/L (136-145) Potassium Level 3.3 mmol/L (3.5-5.1) Chloride Level 102 mmol/L (98-107) Carbon Dioxide Level 24 mmol/L (21-32) Anion Gap 12 (6-14) Blood Urea Nitrogen 12 mg/dL (7-20) Creatinine 0.8 mg/dL (0.6-1.0) Estimated GFR (Cockcroft-Gault) 72.7 BUN/Creatinine Ratio 15 (6-20) Glucose Level 115 mg/dL (70-99) Calcium Level 9.1 mg/dL (8.5-10.1) Magnesium Level 1.7 mg/dL (1.8-2.4) Total Bilirubin 0.3 mg/dL (0.2-1.0) Aspartate Amino Transf (AST/SGOT) 28 U/L (15-37) Alanine Aminotransferase (ALT/SGPT) 22 U/L (14-59) Alkaline Phosphatase 83 U/L (46-116) Troponin I Quantitative < 0.017 ng/mL (0.000-0.055) PC-Evn-U-Type Natriuretic Peptide 100 pg/mL (0-124) Total Protein 7.6 g/dL (6.4-8.2) Albumin 4.0 g/dL (3.4-5.0) Albumin/Globulin Ratio 1.1 (1.0-1.7) Thyroid Stimulating Hormone (TSH) 5.725 uIU/mL (0.358-3.74) Ethyl Alcohol Level < 10 mg/dL (0-10) O2 Saturation 99 % (92-99) 99 % (92-99) Arterial Blood pH 7.45 (7.35-7.45) 7.38 (7.35-7.45) Arterial Blood pCO2 at Patient Temp 33 mmHg (35-46) 38 mmHg (35-46) Arterial Blood pO2 at Patient Temp 471 mmHg (65-108) 235 mmHg (65-108) Arterial Blood HCO3 22 mmol/L (21-28) 22 mmol/L (21-28) Arterial Blood Base Excess -1 mmol/L (-3-3) -3 mmol/L (-3-3) Oxyhemoglobin 96.6 % Methemoglobin 0.3 % (0.0-1.9) Carbon Monoxide, Quantitative 2.0 % (0.0-1.9) FiO2 100 60%+5 Urine Collection Type Unknown Urine Color Yellow Urine Clarity Clear Urine pH 7.5 (<5.0-8.0) Urine Specific [place] 1.010 (1.000-1.030) Urine Protein Negative mg/dL (NEG-TRACE) Urine Glucose (UA) Negative mg/dL (NEG) Urine Ketones (Stick) Negative mg/dL (NEG) Urine Blood Negative (NEG) Urine Nitrite Negative (NEG) Urine Bilirubin Negative (NEG) Urine Urobilinogen Dipstick 0.2 mg/dL (0.2 mg/dL) Urine Leukocyte Esterase Negative (NEG) Urine RBC 0 /HPF (0-2) Urine WBC 0 /HPF (0-4) Urine Squamous Epithelial Cells Few /LPF Urine Amorphous Sediment Present /HPF Urine Bacteria 0 /HPF (0-FEW) Urine Opiates Screen Neg (NEG) Urine Methadone Screen Neg (NEG) Urine Barbiturates Neg (NEG) Urine Phencyclidine Screen Neg (NEG) Urine Amphetamine/Methamphetamine Neg (NEG) Urine Benzodiazepines Screen Neg (NEG) Urine Cocaine Screen Neg (NEG) Urine Cannabinoids Screen Neg (NEG) Urine Ethyl Alcohol Neg (NEG) Test 03/16/20 05:35 White Blood Count 14.6 x10^3/uL (4.0-11.0) Red Blood Count 3.39 x10^6/uL (3.50-5.40) Hemoglobin 10.3 g/dL (12.0-15.5) Hematocrit 30.3 % (36.0-47.0) Mean Corpuscular Volume 90 fL (79-100) Mean Corpuscular Hemoglobin 30 pg (25-35) Mean Corpuscular Hemoglobin Concent 34 g/dL (31-37) Red Cell Distribution Width 12.6 % (11.5-14.5) Platelet Count 238 x10^3/uL (140-400) Neutrophils (%) (Auto) 89 % (31-73) Lymphocytes (%) (Auto) 6 % (24-48) Monocytes (%) (Auto) 5 % (0-9) Eosinophils (%) (Auto) 0 % (0-3) Basophils (%) (Auto) 0 % (0-3) Neutrophils # (Auto) 13.0 x10^3/uL (1.8-7.7) Lymphocytes # (Auto) 0.9 x10^3/uL (1.0-4.8) Monocytes # (Auto) 0.8 x10^3/uL (0.0-1.1) Eosinophils # (Auto) 0.0 x10^3/uL (0.0-0.7) Basophils # (Auto) 0.0 x10^3/uL (0.0-0.2) Segmented Neutrophils % 84 % (35-66) Band Neutrophils % 4 % (0-9) Lymphocytes % 7 % (24-48) Monocytes % 5 % (0-10) Platelet Estimate Adequate (ADEQUATE) Sodium Level 131 mmol/L (136-145) Potassium Level 4.1 mmol/L (3.5-5.1) Chloride Level 98 mmol/L (98-107) Carbon Dioxide Level 24 mmol/L (21-32) Anion Gap 9 (6-14) Blood Urea Nitrogen 11 mg/dL (7-20) Creatinine 0.7 mg/dL (0.6-1.0) Estimated GFR (Cockcroft-Gault) 84.8 Glucose Level 145 mg/dL (70-99) Calcium Level 7.7 mg/dL (8.5-10.1) Magnesium Level 1.9 mg/dL (1.8-2.4) Laboratory Tests Test 03/15/20 11:19 03/15/20 12:15 03/15/20 12:25 03/15/20 17:30 White Blood Count 11.7 x10^3/uL (4.0-11.0) Red Blood Count 4.01 x10^6/uL (3.50-5.40) Hemoglobin 12.3 g/dL (12.0-15.5) Hematocrit 35.8 % (36.0-47.0) Mean Corpuscular Volume 89 fL (79-100) Mean Corpuscular Hemoglobin 31 pg (25-35) Mean Corpuscular Hemoglobin Concent 34 g/dL (31-37) Red Cell Distribution Width 12.5 % (11.5-14.5) Platelet Count 308 x10^3/uL (140-400) Neutrophils (%) (Auto) 54 % (31-73) Lymphocytes (%) (Auto) 39 % (24-48) Monocytes (%) (Auto) 6 % (0-9) Eosinophils (%) (Auto) 1 % (0-3) Basophils (%) (Auto) 0 % (0-3) Neutrophils # (Auto) 6.3 x10^3/uL (1.8-7.7) Lymphocytes # (Auto) 4.6 x10^3/uL (1.0-4.8) Monocytes # (Auto) 0.7 x10^3/uL (0.0-1.1) Eosinophils # (Auto) 0.1 x10^3/uL (0.0-0.7) Basophils # (Auto) 0.0 x10^3/uL (0.0-0.2) Prothrombin Time 12.2 SEC (11.7-14.0) Prothromb Time International Ratio 0.9 (0.8-1.1) Activated Partial Thromboplast Time 32 SEC (24-38) Sodium Level 138 mmol/L (136-145) Potassium Level 3.3 mmol/L (3.5-5.1) Chloride Level 102 mmol/L (98-107) Carbon Dioxide Level 24 mmol/L (21-32) Anion Gap 12 (6-14) Blood Urea Nitrogen 12 mg/dL (7-20) Creatinine 0.8 mg/dL (0.6-1.0) Estimated GFR (Cockcroft-Gault) 72.7 BUN/Creatinine Ratio 15 (6-20) Glucose Level 115 mg/dL (70-99) Calcium Level 9.1 mg/dL (8.5-10.1) Magnesium Level 1.7 mg/dL (1.8-2.4) Total Bilirubin 0.3 mg/dL (0.2-1.0) Aspartate Amino Transf (AST/SGOT) 28 U/L (15-37) Alanine Aminotransferase (ALT/SGPT) 22 U/L (14-59) Alkaline Phosphatase 83 U/L (46-116) Troponin I Quantitative < 0.017 ng/mL (0.000-0.055) MX-Vsg-P-Type Natriuretic Peptide 100 pg/mL (0-124) Total Protein 7.6 g/dL (6.4-8.2) Albumin 4.0 g/dL (3.4-5.0) Albumin/Globulin Ratio 1.1 (1.0-1.7) Thyroid Stimulating Hormone (TSH) 5.725 uIU/mL (0.358-3.74) Ethyl Alcohol Level < 10 mg/dL (0-10) O2 Saturation 99 % (92-99) 99 % (92-99) Arterial Blood pH 7.45 (7.35-7.45) 7.38 (7.35-7.45) Arterial Blood pCO2 at Patient Temp 33 mmHg (35-46) 38 mmHg (35-46) Arterial Blood pO2 at Patient Temp 471 mmHg (65-108) 235 mmHg (65-108) Arterial Blood HCO3 22 mmol/L (21-28) 22 mmol/L (21-28) Arterial Blood Base Excess -1 mmol/L (-3-3) -3 mmol/L (-3-3) Oxyhemoglobin 96.6 % Methemoglobin 0.3 % (0.0-1.9) Carbon Monoxide, Quantitative 2.0 % (0.0-1.9) FiO2 100 60%+5 Urine Collection Type Unknown Urine Color Yellow Urine Clarity Clear Urine pH 7.5 (<5.0-8.0) Urine Specific [place] 1.010 (1.000-1.030) Urine Protein Negative mg/dL (NEG-TRACE) Urine Glucose (UA) Negative mg/dL (NEG) Urine Ketones (Stick) Negative mg/dL (NEG) Urine Blood Negative (NEG) Urine Nitrite Negative (NEG) Urine Bilirubin Negative (NEG) Urine Urobilinogen Dipstick 0.2 mg/dL (0.2 mg/dL) Urine Leukocyte Esterase Negative (NEG) Urine RBC 0 /HPF (0-2) Urine WBC 0 /HPF (0-4) Urine Squamous Epithelial Cells Few /LPF Urine Amorphous Sediment Present /HPF Urine Bacteria 0 /HPF (0-FEW) Urine Opiates Screen Neg (NEG) Urine Methadone Screen Neg (NEG) Urine Barbiturates Neg (NEG) Urine Phencyclidine Screen Neg (NEG) Urine Amphetamine/Methamphetamine Neg (NEG) Urine Benzodiazepines Screen Neg (NEG) Urine Cocaine Screen Neg (NEG) Urine Cannabinoids Screen Neg (NEG) Urine Ethyl Alcohol Neg (NEG) Test 03/16/20 05:35 White Blood Count 14.6 x10^3/uL (4.0-11.0) Red Blood Count 3.39 x10^6/uL (3.50-5.40) Hemoglobin 10.3 g/dL (12.0-15.5) Hematocrit 30.3 % (36.0-47.0) Mean Corpuscular Volume 90 fL (79-100) Mean Corpuscular Hemoglobin 30 pg (25-35) Mean Corpuscular Hemoglobin Concent 34 g/dL (31-37) Red Cell Distribution Width 12.6 % (11.5-14.5) Platelet Count 238 x10^3/uL (140-400) Neutrophils (%) (Auto) 89 % (31-73) Lymphocytes (%) (Auto) 6 % (24-48) Monocytes (%) (Auto) 5 % (0-9) Eosinophils (%) (Auto) 0 % (0-3) Basophils (%) (Auto) 0 % (0-3) Neutrophils # (Auto) 13.0 x10^3/uL (1.8-7.7) Lymphocytes # (Auto) 0.9 x10^3/uL (1.0-4.8) Monocytes # (Auto) 0.8 x10^3/uL (0.0-1.1) Eosinophils # (Auto) 0.0 x10^3/uL (0.0-0.7) Basophils # (Auto) 0.0 x10^3/uL (0.0-0.2) Segmented Neutrophils % 84 % (35-66) Band Neutrophils % 4 % (0-9) Lymphocytes % 7 % (24-48) Monocytes % 5 % (0-10) Platelet Estimate Adequate (ADEQUATE) Sodium Level 131 mmol/L (136-145) Potassium Level 4.1 mmol/L (3.5-5.1) Chloride Level 98 mmol/L (98-107) Carbon Dioxide Level 24 mmol/L (21-32) Anion Gap 9 (6-14) Blood Urea Nitrogen 11 mg/dL (7-20) Creatinine 0.7 mg/dL (0.6-1.0) Estimated GFR (Cockcroft-Gault) 84.8 Glucose Level 145 mg/dL (70-99) Calcium Level 7.7 mg/dL (8.5-10.1) Magnesium Level 1.9 mg/dL (1.8-2.4) Images Images CT head without contrast, 03/15 FINDINGS: At the left frontal lobe there is a large parenchymal hematoma which measures 5.5 cm AP by 6 cm parenchymal by 3 cm transverse with surrounding vasogenic edema, hemorrhage involvement of the white matter as well as extends to the overlying cortical enriquez matter at the superior and middle frontal gyri and extends to the dural margin of the falx cerebri. There is no obvious extra-axial extension of the hemorrhage although given the extensive cortical involvement there is likely risk of extra-axial extension. There is no extension of the ventricles. Mass effect from the hematoma and edema deforms the corpus callosum and left lateral ventricle which is mildly compressed and narrowed and results in 10 mm of [id number] subfalcine midline shift. No transtentorial herniation evident. Basilar cisterns are patent. No hydrocephalus. Orbits, mastoids and bones are unremarkable. IMPRESSION: Left frontal lobe 5.5 x 6.0 x 3.0 cm large parenchymal hematoma and surrounding edema involving both the superior and middle frontal cortical gyri as well as extensive involvement of the white matter, with mass effect and 10 mm midline shift as described above. It is possible this is hemorrhagic transformation of a cortical infarct although given the extensive white matter involvement, other etiologies such as tumoral hemorrhage, hemorrhage associated with an aneurysm or vascular anomaly, or hemorrhage due to venous or superior sagittal sinus thrombosis would also be considerations. Assessment/Plan Assessment/Plan Impression: Large left intraparenchymal hemorrhage status-post evacuation Recommendations: Await head CT repeat and CT angiogram Note she is on levetiracetam Otherwise per neurosurgery Will follow Thank you for letting me help the patient's care. SON PHAM MD March 16, 2020 09:02
--- NOTE | 2020-03-16 09:39 | RAD ---
CT ANGIOGRAPHY HEAD, CT HEAD WO CONTRAST History:Postcraniotomy. Intracranial hemorrhage. Technique: Noncontrast head CT. After bolus of intravenous contrast, volumetric CT data acquisition was acquired of the head. Multiplanar reconstruction images to include MIP and 3-D reconstruction images are submitted. Exposure: One or more of the following individualized dose reduction techniques were utilized for this examination: 1. Automated exposure control 2. Adjustment of the mA and/or kV according to patient size 3. Use of iterative reconstruction technique. Comparison: March 15, 2020 Any determination of stenosis is based on NASCET criteria. Noncontrast CT head: Interval left superior parietal craniotomy for evacuation of left frontal lobe parenchymal hemorrhage. Decreased size of parenchymal hematoma. Similar adjacent edema. Decreased mass effect. Expected postoperative changes with extra-axial blood and air collection underlying the craniotomy. Small adjacent subarachnoid hemorrhage. Pneumocephalus is noted. Left frontal approach ventricular catheter with tip in the left frontal horn. Pneumocephalus. Interval visualization of small intraventricular hemorrhage. No hydrocephalus. Imaged orbits are unremarkable. Imaged paranasal sinuses and mastoid air cells are clear. Head CTA: No evidence of increased vascularity within the region of the left frontal hematoma evacuation to suggest arteriovenous malformation. No aneurysm. The superior sagittal sinus and transverse sinuses appear patent. Decreased appearance of contrast within the sigmoid and upper internal jugular veins due to contrast timing. ICA: No stenosis, occlusion or aneurysm. MCA: No stenosis, occlusion or aneurysm. BETY: No stenosis, occlusion or aneurysm. ORTHOPEDIC DENTIST: No stenosis, occlusion or aneurysm. Basilar artery: No stenosis, occlusion or aneurysm. Distal vertebral arteries: No stenosis, occlusion or aneurysm. Impression: Noncontrast head CT: 1. Interval postoperative changes left frontal hematoma evacuation with small residual hematoma. Decreased mass effect. 2. Left frontal ventricular catheter. No hydrocephalus. 3. Small interventricular hemorrhage. CT angiogram head: 1. No evidence of arteriovenous malformation or aneurysm. Electronically signed by: Corey Hoover DO (03/16/2020 9:36 AM) [id number]
--- NOTE | 2020-03-16 10:14 | CONS ---
DATE OF CONSULTATION: PULMONARY CONSULTATION ATTENDING PHYSICIAN: Tucker Carlisle MD REASON FOR CONSULTATION: Respiratory failure, cerebral hematoma. HISTORY OF PRESENT ILLNESS: The patient is a 64-year-old who was doing grocery at [employer] when she started to became unresponsive. Apparently, she has been having some headache for the last 2 days. The patient fell to the ground, but her was able to catch her and guide her to lay down on the floor. She did not hit her head. EMS was called and was brought into the Emergency Room. Her [place] Coma Scale was 3. CT head revealed left frontal lobe 5.5 x 6 cm large parenchymal hematoma and surrounding edema as well as some involvement of the white matter and mass effect. She was intubated and emergently underwent craniotomy and hematoma evacuation. Currently, she is on assist control mode. She is not following any commands. She is sedated with propofol. She has an ICP monitoring device in place. Her chest x-ray showed slight cephalization of vessels. She is currently on Cardene for blood pressure control. Her ABG showed a pH of 7.38, pCO2 of 38 and a pO2 of 235 on 60% FiO2 and 5 of PEEP. This morning, pH is 7.43, pCO2 of 33 and a pO2 of 108 with bicarbonate of 22. I have been asked to see her for further evaluation. PAST MEDICAL HISTORY: Significant for hyperlipidemia. PAST SURGICAL HISTORY: No recent surgery. ALLERGIES: None. MEDICATIONS: Reviewed as listed in the MRAD including cefazolin and Cardene drip for blood pressure control. REVIEW OF SYSTEMS: Unable to obtain from the patient. SOCIAL HISTORY: Unavailable. PHYSICAL EXAMINATION: GENERAL: She is intubated and sedated. VITAL SIGNS: Pulse ox is 100%. Pupils do react. Afebrile. HEENT: Sclerae nonicteric. NECK: Supple. LUNGS: With diminished breath sounds. CARDIOVASCULAR: Regular rate. ABDOMEN: Soft. EXTREMITIES: With no pitting edema. LABORATORY DATA: Reviewed. ABG discussed in my history of present illness. BUN 11, creatinine 0.7. TSH is 5.7. White cell count 14.6, hemoglobin 10.3 and platelets are 238. IMPRESSION: 1. Acute respiratory failure secondary to large cerebral hematoma requiring emergent evacuation. 2. Encephalopathy secondary to large left intraparenchymal hematoma. 3. Slightly mild cephalization of vessels on chest x-ray could be secondary to mild neurogenic edema. RECOMMENDATIONS: 1. Continue with present assist control mode. 2. Follow Neurosurgery recommendations. 3. Optimization of blood pressure per Neurosurgery with Cardene drip. 4. SCDs for DVT prophylaxis. 5. Once mental status improves, then we will consider a weaning trial. 6. We will start enteral nutrition. 7. Discussed with RN and RT. We will follow along with you. Critical care time 33 minutes including review of the labs, chest x-rays and decision making. ADRIANA ULLOA MD DR: RAY/alana JOB#: [id number] / [id number]
--- NOTE | 2020-03-16 10:34 | PDOC ---
[facility] PROGRESS NOTE Chief Complaint Chief Complaint Massive BREAKER HAND hemorrhage with postop day 1 craniotomy Acute encephalopathy - due to intracranial hemorrhage Syncope and collapse - 2/2 intraparenchymal bleed Left front intracranial hemorrhage Hyperlipidemia Respiratory failure - likely 2/2 intracranial bleed Leukocytosis - likely 2/2 bleed. Hypokalemia and hypomagnesemia History of Present Illness History of Present Illness 03/16/2020 Patient seen and examined in the ICU She is mechanically ventilated Assist-control/450/16/30 percent Has an OG to suction Discussed with RN Chart reviewed Her pupils are reactive Vitals/I&O Vitals/I&O: Vital Signs Date Time Temp Pulse Resp B/P (MAP) Pulse Ox O2 Delivery O2 Flow Rate FiO2 03/16/20 08:00 Mechanical Ventilator 03/16/20 08:00 76 135/54 (81) 03/16/20 08:00 98.5 16 99 98.5 I & O 03/15/20 03/15/20 03/16/20 15:00 23:00 07:00 Intake Total 105 ml 957 ml Output Total 600 ml 340 ml Balance -495 ml 617 ml Physical Exam General: Other (Sedated) Heart: Regular rate, Normal S1 Lungs: Clear Abdomen: Normal bowel sounds, Soft, No tenderness, No hepatosplenomegaly, No masses Extremities: No clubbing, No cyanosis, No edema, Normal pulses, No tenderness/swelling Skin: No rashes, No breakdown, No significant lesion Labs Labs: Laboratory Tests Test 03/15/20 11:19 03/15/20 12:15 03/15/20 12:25 03/15/20 17:30 White Blood Count 11.7 x10^3/uL (4.0-11.0) Red Blood Count 4.01 x10^6/uL (3.50-5.40) Hemoglobin 12.3 g/dL (12.0-15.5) Hematocrit 35.8 % (36.0-47.0) Mean Corpuscular Volume 89 fL (79-100) Mean Corpuscular Hemoglobin 31 pg (25-35) Mean Corpuscular Hemoglobin Concent 34 g/dL (31-37) Red Cell Distribution Width 12.5 % (11.5-14.5) Platelet Count 308 x10^3/uL (140-400) Neutrophils (%) (Auto) 54 % (31-73) Lymphocytes (%) (Auto) 39 % (24-48) Monocytes (%) (Auto) 6 % (0-9) Eosinophils (%) (Auto) 1 % (0-3) Basophils (%) (Auto) 0 % (0-3) Neutrophils # (Auto) 6.3 x10^3/uL (1.8-7.7) Lymphocytes # (Auto) 4.6 x10^3/uL (1.0-4.8) Monocytes # (Auto) 0.7 x10^3/uL (0.0-1.1) Eosinophils # (Auto) 0.1 x10^3/uL (0.0-0.7) Basophils # (Auto) 0.0 x10^3/uL (0.0-0.2) Prothrombin Time 12.2 SEC (11.7-14.0) Prothromb Time International Ratio 0.9 (0.8-1.1) Activated Partial Thromboplast Time 32 SEC (24-38) Sodium Level 138 mmol/L (136-145) Potassium Level 3.3 mmol/L (3.5-5.1) Chloride Level 102 mmol/L (98-107) Carbon Dioxide Level 24 mmol/L (21-32) Anion Gap 12 (6-14) Blood Urea Nitrogen 12 mg/dL (7-20) Creatinine 0.8 mg/dL (0.6-1.0) Estimated GFR (Cockcroft-Gault) 72.7 BUN/Creatinine Ratio 15 (6-20) Glucose Level 115 mg/dL (70-99) Calcium Level 9.1 mg/dL (8.5-10.1) Magnesium Level 1.7 mg/dL (1.8-2.4) Total Bilirubin 0.3 mg/dL (0.2-1.0) Aspartate Amino Transf (AST/SGOT) 28 U/L (15-37) Alanine Aminotransferase (ALT/SGPT) 22 U/L (14-59) Alkaline Phosphatase 83 U/L (46-116) Troponin I Quantitative < 0.017 ng/mL (0.000-0.055) [id number]-Rxb-P-Type Natriuretic Peptide 100 pg/mL (0-124) Total Protein 7.6 g/dL (6.4-8.2) Albumin 4.0 g/dL (3.4-5.0) Albumin/Globulin Ratio 1.1 (1.0-1.7) Thyroid Stimulating Hormone (TSH) 5.725 uIU/mL (0.358-3.74) Ethyl Alcohol Level < 10 mg/dL (0-10) O2 Saturation 99 % (92-99) 99 % (92-99) Arterial Blood pH 7.45 (7.35-7.45) 7.38 (7.35-7.45) Arterial Blood pCO2 at Patient Temp 33 mmHg (35-46) 38 mmHg (35-46) Arterial Blood pO2 at Patient Temp 471 mmHg (65-108) 235 mmHg (65-108) Arterial Blood HCO3 22 mmol/L (21-28) 22 mmol/L (21-28) Arterial Blood Base Excess -1 mmol/L (-3-3) -3 mmol/L (-3-3) Oxyhemoglobin 96.6 % Methemoglobin 0.3 % (0.0-1.9) Carbon Monoxide, Quantitative 2.0 % (0.0-1.9) FiO2 100 60%+5 Urine Collection Type Unknown Urine Color Yellow Urine Clarity Clear Urine pH 7.5 (<5.0-8.0) Urine Specific [place] 1.010 (1.000-1.030) Urine Protein Negative mg/dL (NEG-TRACE) Urine Glucose (UA) Negative mg/dL (NEG) Urine Ketones (Stick) Negative mg/dL (NEG) Urine Blood Negative (NEG) Urine Nitrite Negative (NEG) Urine Bilirubin Negative (NEG) Urine Urobilinogen Dipstick 0.2 mg/dL (0.2 mg/dL) Urine Leukocyte Esterase Negative (NEG) Urine RBC 0 /HPF (0-2) Urine WBC 0 /HPF (0-4) Urine Squamous Epithelial Cells Few /LPF Urine Amorphous Sediment Present /HPF Urine Bacteria 0 /HPF (0-FEW) Urine Opiates Screen Neg (NEG) Urine Methadone Screen Neg (NEG) Urine Barbiturates Neg (NEG) Urine Phencyclidine Screen Neg (NEG) Urine Amphetamine/Methamphetamine Neg (NEG) Urine Benzodiazepines Screen Neg (NEG) Urine Cocaine Screen Neg (NEG) Urine Cannabinoids Screen Neg (NEG) Urine Ethyl Alcohol Neg (NEG) Test 03/16/20 05:35 White Blood Count 14.6 x10^3/uL (4.0-11.0) Red Blood Count 3.39 x10^6/uL (3.50-5.40) Hemoglobin 10.3 g/dL (12.0-15.5) Hematocrit 30.3 % (36.0-47.0) Mean Corpuscular Volume 90 fL (79-100) Mean Corpuscular Hemoglobin 30 pg (25-35) Mean Corpuscular Hemoglobin Concent 34 g/dL (31-37) Red Cell Distribution Width 12.6 % (11.5-14.5) Platelet Count 238 x10^3/uL (140-400) Neutrophils (%) (Auto) 89 % (31-73) Lymphocytes (%) (Auto) 6 % (24-48) Monocytes (%) (Auto) 5 % (0-9) Eosinophils (%) (Auto) 0 % (0-3) Basophils (%) (Auto) 0 % (0-3) Neutrophils # (Auto) 13.0 x10^3/uL (1.8-7.7) Lymphocytes # (Auto) 0.9 x10^3/uL (1.0-4.8) Monocytes # (Auto) 0.8 x10^3/uL (0.0-1.1) Eosinophils # (Auto) 0.0 x10^3/uL (0.0-0.7) Basophils # (Auto) 0.0 x10^3/uL (0.0-0.2) Segmented Neutrophils % 84 % (35-66) Band Neutrophils % 4 % (0-9) Lymphocytes % 7 % (24-48) Monocytes % 5 % (0-10) Platelet Estimate Adequate (ADEQUATE) Sodium Level 131 mmol/L (136-145) Potassium Level 4.1 mmol/L (3.5-5.1) Chloride Level 98 mmol/L (98-107) Carbon Dioxide Level 24 mmol/L (21-32) Anion Gap 9 (6-14) Blood Urea Nitrogen 11 mg/dL (7-20) Creatinine 0.7 mg/dL (0.6-1.0) Estimated GFR (Cockcroft-Gault) 84.8 Glucose Level 145 mg/dL (70-99) Calcium Level 7.7 mg/dL (8.5-10.1) Magnesium Level 1.9 mg/dL (1.8-2.4) Review of Systems Review of Systems: Unable to obtain Assessment and Plan Assessmemt and Plan Problems Medical Problems: (1) Cerebral parenchymal hemorrhage Status: Acute (2) HTN (hypertension) Status: Acut Massive acute intracranial hemorrhage with postop day 1 craniotomy Acute encephalopathy - due to intracranial hemorrhage Syncope and collapse - 2/2 intraparenchymal bleed Left front intracranial hemorrhage - awaiting biopsy results. per d/w neurosu rgery likely aneursymal, possibly bleeding prior to presentation. left frontal lobe 5.5 x 6.0 x 3.0 cm large parenchymal hematoma and surrounding edema. S/p craniotomy. BP monitoring with a-line, cardene gtt. Marissa HLD - on statin Respiratory failure - likely 2/2 intracranial bleed. Pulm to see in AM for vent management Leukocytosis - likely 2/2 bleed. will monitor Hypokalemia and hypomagnesemia - will replace IV. monitor OG to suction DVT prophylaxis Trend labs Appreciate subspecialist input She is critically ill Prognosis guarded Total time 32-minute Comment Review of Relevant I have reviewed the following items wang (where applicable) has been applied. Medications: Current Medications Medications (Trade) Dose Ordered Sig/Arnel Route PRN Reason Start Time Stop Time Status Last Admin Dose Admin Propofol (Diprivan) 200 mg 1X ONCE IV 03/15/20 11:30 03/15/20 11:31 DC 03/15/20 11:47 Propofol 20 ml @ 0 mls/hr 1X ONCE IV 03/15/20 11:45 03/15/20 11:50 DC 03/15/20 11:52 Potassium Chloride 40 meq/ Dextrose 1,020 ml @ 75 mls/hr [id number] PRN IV 0 03/15/20 12:00 03/15/20 19:35 Etomidate (Amidate) 20 mg 1X ONCE IV 03/15/20 11:40 03/15/20 12:00 DC 03/15/20 12:12 Succinylcholine Chloride (Anectine) 100 mg 1X ONCE IV 03/15/20 11:40 03/15/20 12:00 DC 03/15/20 12:12 Bacitracin 60915 unit/Sodium Chloride 1,000 ml @ 1,000 mls/hr 1X ONCE IRR 03/15/20 13:00 03/15/20 14:07 DC 03/15/20 14:50 Cefazolin Sodium/ Dextrose 50 ml @ 100 mls/hr 1X PREOP PRN IV PRIOR TO PROCEDURE 03/15/20 13:00 03/16/20 12:59 03/15/20 13:25 Gelatin (Gelfoam Size 100) 1 each STK-MED ONCE .ROUTE 03/15/20 12:42 03/15/20 12:42 DC 03/15/20 13:49 Mannitol (Mannitol) 12.5 g STK-MED ONCE .ROUTE 03/15/20 12:42 03/15/20 12:42 DC 03/15/20 14:41 Cellulose (Surgicel Hemostat 4x8) 1 each STK-MED ONCE .ROUTE 03/15/20 12:42 03/15/20 12:43 DC 03/15/20 15:08 Thrombin 20,000 unit STK-MED ONCE TP 03/15/20 12:42 03/15/20 12:43 DC 03/15/20 13:49 Bupivacaine HCl/ Epinephrine Bitart (Sensorcain-Epi 0.5%-1:146647 Mpf) 30 ml STK-MED ONCE .ROUTE 03/15/20 12:44 03/15/20 12:45 DC 03/15/20 13:48 Mannitol (Mannitol) 12.5 g STK-MED ONCE .ROUTE 03/15/20 14:28 03/15/20 14:28 DC 03/15/20 14:41 Nicardipine HCl 50 mg/Sodium Chloride 250 ml @ 25 mls/hr TITRATE PRN IV HYPERTENSION 03/15/20 16:30 03/15/20 17:56 Levetiracetam 500 mg/Sodium Chloride 105 ml @ 400 mls/hr Q12HR IV 03/15/20 21:00 03/15/20 20:55 Cefazolin Sodium (Ancef) 1 gm Q8HRS IVP 03/15/20 22:00 03/16/20 14:01 03/16/20 05:30 Magnesium Sulfate 50 ml @ 25 mls/hr 1X ONCE IV 03/15/20 17:00 03/15/20 18:59 DC 03/15/20 17:23 Propofol 100 ml @ 0.837 mls/ hr CONT PRN IV SEE I/O RECORD 03/15/20 19:45 03/15/20 20:56 Iohexol (Omnipaque 300 Mg/ml) 75 ml 1X ONCE IV 03/16/20 07:45 03/16/20 07:50 DC 03/16/20 07:45 QASIM BAILEY III DO March 16, 2020 10:33
[2020-03-16] MEDS: ATORVASTATIN CALCIUM 40 MG TABLET. PO SCH (10:36)
--- NOTE | 2020-03-16 10:46 | NUR ---
SS following for discharge planning. SS reviewed pt chart and discussed with pt RN. Pt is from home with spouse and is currently on the vent. Per RN, pt was shopping with her at [employer] and collapsed. SS will continue to follow for discharge planning.
[2020-03-16] MEDS: PROPOFOL 100 ML IV PRN ×2 (12:24→23:08)
[2020-03-16 12:42] LABS: FIO2 ABG 30% VENT
--- NOTE | 2020-03-16 13:08 | PDOC ---
PROGRESS NOTES Subjective Subjective POD #1 S/P Craniotomy and removal of hematoma sedated on vent Objective Objective Vital Signs Date Time Temp Pulse Resp B/P (MAP) Pulse Ox O2 Delivery O2 Flow Rate FiO2 03/16/20 12:00 70 125/51 (75) 03/16/20 12:00 98.3 16 99 Ventilator 98.3 Intake and Output 03/16/20 07:00 Intake Total 1062 ml Output Total 940 ml Balance 122 ml Intake IV Total 1062 ml Output Urine Total 940 ml Physical Exam General: Other (on vent) Neuro: Other (will localize with left upper extremity, will exend right upper extremity, pupils equal and reactive) Skin: Other (dressing dry and intact, ventricular catheter in place, blood tingled fluid) Assessment Assessment Problems Medical Problems: (1) Cerebral parenchymal hemorrhage Status: Acute (2) HTN (hypertension) Status: Acute Plan Plan of Care keep sedated on vent today continue to monitor ICP and drain for > 15 cm H20 SCDs d/w RN Comment Review of Relevant I have reviewed the following items wang (where applicable) has been applied. Labs Laboratory Tests Test 03/15/20 11:19 03/15/20 12:15 03/15/20 12:25 03/15/20 17:30 White Blood Count 11.7 x10^3/uL (4.0-11.0) Red Blood Count 4.01 x10^6/uL (3.50-5.40) Hemoglobin 12.3 g/dL (12.0-15.5) Hematocrit 35.8 % (36.0-47.0) Mean Corpuscular Volume 89 fL (79-100) Mean Corpuscular Hemoglobin 31 pg (25-35) Mean Corpuscular Hemoglobin Concent 34 g/dL (31-37) Red Cell Distribution Width 12.5 % (11.5-14.5) Platelet Count 308 x10^3/uL (140-400) Neutrophils (%) (Auto) 54 % (31-73) Lymphocytes (%) (Auto) 39 % (24-48) Monocytes (%) (Auto) 6 % (0-9) Eosinophils (%) (Auto) 1 % (0-3) Basophils (%) (Auto) 0 % (0-3) Neutrophils # (Auto) 6.3 x10^3/uL (1.8-7.7) Lymphocytes # (Auto) 4.6 x10^3/uL (1.0-4.8) Monocytes # (Auto) 0.7 x10^3/uL (0.0-1.1) Eosinophils # (Auto) 0.1 x10^3/uL (0.0-0.7) Basophils # (Auto) 0.0 x10^3/uL (0.0-0.2) Prothrombin Time 12.2 SEC (11.7-14.0) Prothromb Time International Ratio 0.9 (0.8-1.1) Activated Partial Thromboplast Time 32 SEC (24-38) Sodium Level 138 mmol/L (136-145) Potassium Level 3.3 mmol/L (3.5-5.1) Chloride Level 102 mmol/L (98-107) Carbon Dioxide Level 24 mmol/L (21-32) Anion Gap 12 (6-14) Blood Urea Nitrogen 12 mg/dL (7-20) Creatinine 0.8 mg/dL (0.6-1.0) Estimated GFR (Cockcroft-Gault) 72.7 BUN/Creatinine Ratio 15 (6-20) Glucose Level 115 mg/dL (70-99) Calcium Level 9.1 mg/dL (8.5-10.1) Magnesium Level 1.7 mg/dL (1.8-2.4) Total Bilirubin 0.3 mg/dL (0.2-1.0) Aspartate Amino Transf (AST/SGOT) 28 U/L (15-37) Alanine Aminotransferase (ALT/SGPT) 22 U/L (14-59) Alkaline Phosphatase 83 U/L (46-116) Troponin I Quantitative < 0.017 ng/mL (0.000-0.055) CH-Kuy-T-Type Natriuretic Peptide 100 pg/mL (0-124) Total Protein 7.6 g/dL (6.4-8.2) Albumin 4.0 g/dL (3.4-5.0) Albumin/Globulin Ratio 1.1 (1.0-1.7) Thyroid Stimulating Hormone (TSH) 5.725 uIU/mL (0.358-3.74) Ethyl Alcohol Level < 10 mg/dL (0-10) O2 Saturation 99 % (92-99) 99 % (92-99) Arterial Blood pH 7.45 (7.35-7.45) 7.38 (7.35-7.45) Arterial Blood pCO2 at Patient Temp 33 mmHg (35-46) 38 mmHg (35-46) Arterial Blood pO2 at Patient Temp 471 mmHg (65-108) 235 mmHg (65-108) Arterial Blood HCO3 22 mmol/L (21-28) 22 mmol/L (21-28) Arterial Blood Base Excess -1 mmol/L (-3-3) -3 mmol/L (-3-3) Oxyhemoglobin 96.6 % Methemoglobin 0.3 % (0.0-1.9) Carbon Monoxide, Quantitative 2.0 % (0.0-1.9) FiO2 100 60%+5 Urine Collection Type Unknown Urine Color Yellow Urine Clarity Clear Urine pH 7.5 (<5.0-8.0) Urine Specific [place] 1.010 (1.000-1.030) Urine Protein Negative mg/dL (NEG-TRACE) Urine Glucose (UA) Negative mg/dL (NEG) Urine Ketones (Stick) Negative mg/dL (NEG) Urine Blood Negative (NEG) Urine Nitrite Negative (NEG) Urine Bilirubin Negative (NEG) Urine Urobilinogen Dipstick 0.2 mg/dL (0.2 mg/dL) Urine Leukocyte Esterase Negative (NEG) Urine RBC 0 /HPF (0-2) Urine WBC 0 /HPF (0-4) Urine Squamous Epithelial Cells Few /LPF Urine Amorphous Sediment Present /HPF Urine Bacteria 0 /HPF (0-FEW) Urine Opiates Screen Neg (NEG) Urine Methadone Screen Neg (NEG) Urine Barbiturates Neg (NEG) Urine Phencyclidine Screen Neg (NEG) Urine Amphetamine/Methamphetamine Neg (NEG) Urine Benzodiazepines Screen Neg (NEG) Urine Cocaine Screen Neg (NEG) Urine Cannabinoids Screen Neg (NEG) Urine Ethyl Alcohol Neg (NEG) Test 03/16/20 05:35 03/16/20 08:10 White Blood Count 14.6 x10^3/uL (4.0-11.0) Red Blood Count 3.39 x10^6/uL (3.50-5.40) Hemoglobin 10.3 g/dL (12.0-15.5) Hematocrit 30.3 % (36.0-47.0) Mean Corpuscular Volume 90 fL (79-100) Mean Corpuscular Hemoglobin 30 pg (25-35) Mean Corpuscular Hemoglobin Concent 34 g/dL (31-37) Red Cell Distribution Width 12.6 % (11.5-14.5) Platelet Count 238 x10^3/uL (140-400) Neutrophils (%) (Auto) 89 % (31-73) Lymphocytes (%) (Auto) 6 % (24-48) Monocytes (%) (Auto) 5 % (0-9) Eosinophils (%) (Auto) 0 % (0-3) Basophils (%) (Auto) 0 % (0-3) Neutrophils # (Auto) 13.0 x10^3/uL (1.8-7.7) Lymphocytes # (Auto) 0.9 x10^3/uL (1.0-4.8) Monocytes # (Auto) 0.8 x10^3/uL (0.0-1.1) Eosinophils # (Auto) 0.0 x10^3/uL (0.0-0.7) Basophils # (Auto) 0.0 x10^3/uL (0.0-0.2) Segmented Neutrophils % 84 % (35-66) Band Neutrophils % 4 % (0-9) Lymphocytes % 7 % (24-48) Monocytes % 5 % (0-10) Platelet Estimate Adequate (ADEQUATE) Sodium Level 131 mmol/L (136-145) Potassium Level 4.1 mmol/L (3.5-5.1) Chloride Level 98 mmol/L (98-107) Carbon Dioxide Level 24 mmol/L (21-32) Anion Gap 9 (6-14) Blood Urea Nitrogen 11 mg/dL (7-20) Creatinine 0.7 mg/dL (0.6-1.0) Estimated GFR (Cockcroft-Gault) 84.8 Glucose Level 145 mg/dL (70-99) Calcium Level 7.7 mg/dL (8.5-10.1) Magnesium Level 1.9 mg/dL (1.8-2.4) O2 Saturation 98 % (92-99) Arterial Blood pH 7.43 (7.35-7.45) Arterial Blood pCO2 at Patient Temp 33 mmHg (35-46) Arterial Blood pO2 at Patient Temp 108 mmHg (65-108) Arterial Blood HCO3 22 mmol/L (21-28) Arterial Blood Base Excess -2 mmol/L (-3-3) FiO2 30% vent Laboratory Tests Test 03/15/20 17:30 03/16/20 05:35 03/16/20 08:10 O2 Saturation 99 % (92-99) 98 % (92-99) Arterial Blood pH 7.38 (7.35-7.45) 7.43 (7.35-7.45) Arterial Blood pCO2 at Patient Temp 38 mmHg (35-46) 33 mmHg (35-46) Arterial Blood pO2 at Patient Temp 235 mmHg (65-108) 108 mmHg (65-108) Arterial Blood HCO3 22 mmol/L (21-28) 22 mmol/L (21-28) Arterial Blood Base Excess -3 mmol/L (-3-3) -2 mmol/L (-3-3) FiO2 60%+5 30% vent White Blood Count 14.6 x10^3/uL (4.0-11.0) Red Blood Count 3.39 x10^6/uL (3.50-5.40) Hemoglobin 10.3 g/dL (12.0-15.5) Hematocrit 30.3 % (36.0-47.0) Mean Corpuscular Volume 90 fL (79-100) Mean Corpuscular Hemoglobin 30 pg (25-35) Mean Corpuscular Hemoglobin Concent 34 g/dL (31-37) Red Cell Distribution Width 12.6 % (11.5-14.5) Platelet Count 238 x10^3/uL (140-400) Neutrophils (%) (Auto) 89 % (31-73) Lymphocytes (%) (Auto) 6 % (24-48) Monocytes (%) (Auto) 5 % (0-9) Eosinophils (%) (Auto) 0 % (0-3) Basophils (%) (Auto) 0 % (0-3) Neutrophils # (Auto) 13.0 x10^3/uL (1.8-7.7) Lymphocytes # (Auto) 0.9 x10^3/uL (1.0-4.8) Monocytes # (Auto) 0.8 x10^3/uL (0.0-1.1) Eosinophils # (Auto) 0.0 x10^3/uL (0.0-0.7) Basophils # (Auto) 0.0 x10^3/uL (0.0-0.2) Segmented Neutrophils % 84 % (35-66) Band Neutrophils % 4 % (0-9) Lymphocytes % 7 % (24-48) Monocytes % 5 % (0-10) Platelet Estimate Adequate (ADEQUATE) Sodium Level 131 mmol/L (136-145) Potassium Level 4.1 mmol/L (3.5-5.1) Chloride Level 98 mmol/L (98-107) Carbon Dioxide Level 24 mmol/L (21-32) Anion Gap 9 (6-14) Blood Urea Nitrogen 11 mg/dL (7-20) Creatinine 0.7 mg/dL (0.6-1.0) Estimated GFR (Cockcroft-Gault) 84.8 Glucose Level 145 mg/dL (70-99) Calcium Level 7.7 mg/dL (8.5-10.1) Magnesium Level 1.9 mg/dL (1.8-2.4) Medications Current Medications Propofol (Diprivan) 200 mg 1X ONCE IV Last administered on 03/15/20at 11:47; Start 03/15/20 at 11:30; Stop 03/15/20 at 11:31; Status DC Propofol 50 ml @ As Directed STK-MED ONCE IV ; Start 03/15/20 at 11:45; Stop 03/15/20 at 11:45; Status DC Propofol 20 ml @ 0 mls/hr 1X ONCE IV Last administered on 03/15/20at 11:52; Start 03/15/20 at 11:45; Stop 03/15/20 at 11:50; Status DC Potassium Chloride 40 meq/ Dextrose 1,020 ml @ 75 mls/hr [id number] PRN IV 0 Last administered on 03/15/20at 19:35; Start 03/15/20 at 12:00 Etomidate (Amidate) 20 mg 1X ONCE IV Last administered on 03/15/20at 12:12; Start 03/15/20 at 11:40; Stop 03/15/20 at 12:00; Status DC Succinylcholine Chloride (Anectine) 100 mg 1X ONCE IV Last administered on 03/15/20at 12:12; Start 03/15/20 at 11:40; Stop 03/15/20 at 12:00; Status DC Bacitracin 20864 unit/Sodium Chloride 1,000 ml @ 1,000 mls/hr 1X ONCE IRR Last administered on 03/15/20at 14:50; Start 03/15/20 at 13:00; Stop 03/15/20 at 14:07; Status DC Cefazolin Sodium/ Dextrose 50 ml @ 100 mls/hr 1X PREOP PRN IV PRIOR TO PROCEDURE Last administered on 03/15/20at 13:25; Start 03/15/20 at 13:00; Stop 03/16/20 at 12:59; Status DC Propofol (Diprivan) 200 mg STK-MED ONCE IV ; Start 03/15/20 at 12:33; Stop 03/15/20 at 12:33; Status DC Phenylephrine HCl (PHENYLEPHRINE in 0.9% NACL PF) 1 mg STK-MED ONCE IV ; Start 03/15/20 at 12:33; Stop 03/15/20 at 12:33; Status DC Rocuronium [place] (Zemuron) 50 mg STK-MED ONCE .ROUTE ; Start 03/15/20 at 12:33; Stop 03/15/20 at 12:33; Status DC Dexamethasone Sodium Phosphate (Decadron) 20 mg STK-MED ONCE .ROUTE ; Start 03/15/20 at 12:36; Stop 03/15/20 at 12:36; Status DC Gelatin (Gelfoam Size 100) 1 each STK-MED ONCE .ROUTE Last administered on 03/15/20at 13:49; Start 03/15/20 at 12:42; Stop 03/15/20 at 12:42; Status DC Bupivacaine HCl/ Epinephrine Bitart (Sensorcain-Epi 0.5%-1:660335 Mpf) 30 ml STK-MED ONCE .ROUTE ; Start 03/15/20 at 12:42; Stop 03/15/20 at 12:42; Status DC Mannitol (Mannitol) 12.5 g STK-MED ONCE .ROUTE Last administered on 03/15/20at 14:41; Start 03/15/20 at 12:42; Stop 03/15/20 at 12:42; Status DC Cellulose (Surgicel Hemostat 4x8) 1 each STK-MED ONCE .ROUTE Last administered on 03/15/20at 15:08; Start 03/15/20 at 12:42; Stop 03/15/20 at 12:43; Status DC Thrombin 20,000 unit STK-MED ONCE TP Last administered on 03/15/20at 13:49; Start 03/15/20 at 12:42; Stop 03/15/20 at 12:43; Status DC Bupivacaine HCl/ Epinephrine Bitart (Sensorcain-Epi 0.5%-1:032200 Mpf) 30 ml STK-MED ONCE .ROUTE Last administered on 03/15/20at 13:48; Start 03/15/20 at 12:44; Stop 03/15/20 at 12:45; Status DC Bupivacaine HCl/ Epinephrine Bitart (Sensorcain-Epi 0.5%-1:421925 Mpf) 30 ml 1X ONCE INJ ; Start 03/15/20 at 13:00; Stop 03/15/20 at 13:01; Status DC Ondansetron HCl (Zofran) 4 mg PRN Q6HRS PRN IV NAUSEA/VOMITING; Start 03/15/20 at 13:45; Stop 03/15/20 at 16:35; Status DC Fentanyl Citrate (Fentanyl 2ml Vial) 25 mcg PRN Q5MIN PRN IV MILD PAIN 1-3; Start 03/15/20 at 13:45; Stop 03/16/20 at 13:44 Fentanyl Citrate (Fentanyl 2ml Vial) 50 mcg PRN Q5MIN PRN IV MODERATE TO SEVERE PAIN; Start 03/15/20 at 13:45; Stop 03/16/20 at 13:44 Morphine Sulfate (Morphine Sulfate) 1 mg PRN Q10MIN PRN IV SEVERE PAIN 7-10; Start 03/15/20 at 13:45; Stop 03/16/20 at 13:44 Ringer's Solution 1,000 ml @ 30 mls/hr Q24H IV ; Start 03/15/20 at 13:31; Stop 03/16/20 at 01:30; Status DC Hydromorphone HCl (Dilaudid) 0.5 mg PRN Q10MIN PRN IV SEV PAIN, Second choice; Start 03/15/20 at 13:45; Stop 03/16/20 at 13:44 Prochlorperazine Edisylate (Compazine) 5 mg PACU PRN PRN IV NAUSEA, MRX1; Start 03/15/20 at 13:45; Stop 03/16/20 at 13:44 Mannitol (Mannitol) 12.5 g STK-MED ONCE .ROUTE Last administered on 03/15/20at 14:41; Start 03/15/20 at 14:28; Stop 03/15/20 at 14:28; Status DC Phenylephrine HCl (Diego-Synephrine Inj) 10 mg STK-MED ONCE .ROUTE ; Start 03/15/20 at 14:43; Stop 03/15/20 at 14:43; Status DC Fentanyl Citrate (Fentanyl 2ml Vial) 100 mcg STK-MED ONCE .ROUTE ; Start 03/15/20 at 15:08; Stop 03/15/20 at 15:09; Status DC Rocuronium [place] (Zemuron) 50 mg STK-MED ONCE .ROUTE ; Start 03/15/20 at 15:34; Stop 03/15/20 at 15:34; Status DC Sevoflurane (Ultane) 90 ml STK-MED ONCE IH ; Start 03/15/20 at 15:44; Stop 03/15/20 at 15:44; Status DC Propofol 50 ml @ As Directed STK-MED ONCE IV ; Start 03/15/20 at 16:02; Stop 03/15/20 at 16:02; Status DC Nicardipine HCl 50 mg/Sodium Chloride 250 ml @ 25 mls/hr TITRATE PRN IV HYPERTENSION Last administered on 03/16/20at 10:36; Start 03/15/20 at 16:30 Levetiracetam 500 mg/Sodium Chloride 105 ml @ 400 mls/hr Q12HR IV Last administered on 03/16/20at 10:36; Start 03/15/20 at 21:00 Sodium Chloride (Normal Saline Flush) 3 ml QSHIFT PRN IV AFTER MEDS AND BLOOD DRAWS; Start 03/15/20 at 16:30 Potassium Chloride/Dextrose/ Sod Cl 1,000 ml @ 80 mls/hr [id number] IV ; Start 03/15/20 at 16:19; Stop 03/15/20 at 18:36; Status DC Dextrose (Dextrose 50%-Water Syringe) 12.5 gm PRN Q15MIN PRN IV SEE COMMENTS; Start 03/15/20 at 16:30 Cefazolin Sodium (Ancef) 1 gm Q8HRS IVP Last administered on 03/16/20at 05:30; Start 03/15/20 at 22:00; Stop 03/16/20 at 14:01 Ondansetron HCl (Zofran) 4 mg PRN Q4HRS PRN IV NAUSEA/VOMITING; Start 03/15/20 at 16:45 Atorvastatin Calcium (Lipitor) 40 mg DAILY PO Last administered on 03/16/20at 10:36; Start 03/16/20 at 09:00 Acetaminophen (Tylenol Supp) 650 mg PRN Q6HRS PRN ME MILD PAIN / TEMP > 100.3'F; Start 03/15/20 at 16:45 Docusate Sodium (Enemeez) 283 mg PRN DAILY PRN ME CONSTIPATION; Start 03/15/20 at 16:45 Magnesium Sulfate 50 ml @ 25 mls/hr 1X ONCE IV Last administered on 03/15/20at 17:23; Start 03/15/20 at 17:00; Stop 03/15/20 at 18:59; Status DC Propofol 100 ml @ As Directed STK-MED ONCE IV ; Start 03/15/20 at 19:37; Stop 03/15/20 at 19:38; Status DC Propofol 100 ml @ 0.837 mls/ hr CONT PRN IV SEE I/O RECORD Last administered on 03/16/20at 12:24; Start 03/15/20 at 19:45 Iohexol (Omnipaque 300 Mg/ml) 75 ml 1X ONCE IV Last administered on 03/16/20at 07:45; Start 03/16/20 at 07:45; Stop 03/16/20 at 07:50; Status DC Info (CONTRAST GIVEN -- Rx MONITORING) 1 each PRN DAILY PRN MC SEE COMMENTS; Start 03/16/20 at 08:00; Stop 03/18/20 at 07:59 Active Scripts Active Reported Oxybutynin Chloride Er (Oxybutynin Chloride) 10 Mg Tab.er.24 1 Tab PO DAILY Elmiron (Pentosan Polysulfate Sodium) 100 Mg Capsule 1 Cap PO TID 30 Days Atorvastatin Calcium 40 Mg Tablet 1 Tab PO DAILY Fluoxetine Hcl 40 Mg Capsule 40 Mg PO DAILY Premarin (Estrogens, Conjugated) 0.625 Mg Tablet 1 Tab PO DAILY Vitals/I & O Vital Sign - Last 24 Hours 03/15/20 03/15/20 03/15/20 03/15/20 17:00 17:10 17:17 18:00 Temp 97.1 97.1 Pulse 70 64 75 Resp 16 16 B/P (MAP) 173/66 (101) 153/64 (93) 148/52 (84) Pulse Ox 100 100 100 O2 Delivery Ventilator Ventilator Ventilator 03/15/20 03/15/20 03/15/20 03/15/20 18:01 19:00 19:50 20:00 Pulse 76 82 Resp 16 B/P (MAP) 122/44 (70) 112/43 (66) Pulse Ox 100 100 O2 Delivery Mechanical Ventilator Ventilator Ventilator 03/15/20 03/15/20 03/15/20 03/15/20 20:00 20:00 20:59 22:00 Temp 97.7 97.7 Pulse 82 90 75 Resp 16 16 16 B/P (MAP) 112/43 (66) 139/58 (85) 140/48 (78) Pulse Ox 100 100 100 O2 Delivery Ventilator Mechanical Ventilator Ventilator Ventilator 03/15/20 03/16/20 03/16/20 03/16/20 23:00 00:00 00:00 00:00 Temp 98.6 98.6 Pulse 77 87 87 Resp 16 16 B/P (MAP) 132/47 (75) 133/47 (75) 133/47 (75) Pulse Ox 100 100 O2 Delivery Ventilator Ventilator Mechanical Ventilator 03/16/20 03/16/20 03/16/20 03/16/20 00:05 01:00 02:00 03:00 Pulse 81 96 89 Resp 16 16 16 B/P (MAP) 135/49 (77) 138/50 (79) 141/51 (81) Pulse Ox 100 100 99 99 O2 Delivery Ventilator Ventilator Ventilator Ventilator 03/16/20 03/16/20 03/16/20 03/16/20 04:00 04:00 04:00 05:00 Temp 98.4 98.4 Pulse 88 88 84 Resp 16 16 B/P (MAP) 140/50 (80) 140/50 (80) 138/49 (78) Pulse Ox 99 99 O2 Delivery Mechanical Ventilator Ventilator Ventilator 03/16/20 03/16/20 03/16/20 03/16/20 05:09 06:00 07:00 07:46 Pulse 86 81 Resp 16 16 B/P (MAP) 132/49 (76) 131/48 (75) Pulse Ox 100 99 99 100 O2 Delivery Ventilator Ventilator Ventilator Ventilator 03/16/20 03/16/20 03/16/20 03/16/20 08:00 08:00 08:00 09:00 Temp 98.5 98.5 Pulse 76 76 81 Resp 16 16 B/P (MAP) 136/54 (81) 135/54 (81) 146/57 (86) Pulse Ox 99 99 O2 Delivery Ventilator Mechanical Ventilator Ventilator 03/16/20 03/16/20 03/16/20 03/16/20 10:00 10:15 11:00 11:57 Pulse 83 73 Resp 16 16 B/P (MAP) 141/55 (83) 125/52 (76) Pulse Ox 99 100 99 100 O2 Delivery Ventilator Ventilator Ventilator Ventilator 03/16/20 03/16/20 03/16/20 12:00 12:00 12:00 Temp 98.3 98.3 Pulse 70 70 Resp 16 B/P (MAP) 121/51 (74) 125/51 (75) Pulse Ox 99 O2 Delivery Mechanical Ventilator Ventilator Intake and Output 0 03/15/20 03/15/20 03/16/20 15:00 23:00 07:00 Intake Total 105 ml 957 ml Output Total 600 ml 340 ml Balance -495 ml 617 ml ABDOULAYE GOODWIN MD March 16, 2020 13:08
[2020-03-16] MEDS: POTASSIUM CHLORIDE 40 MEQ in IV DEXTROSE 5% 1,000 ML IV PRN (15:05)
--- NOTE | 2020-03-16 18:26 | RAD ---
ABDOMEN AP Clinical Indication: OG placement. Comparison: None. Findings: There is enteric tube, tip is in the distal stomach. The visualized lung bases are clear. No dilated loops of bowel are seen. The bowel gas pattern is nonobstructive. There is a paucity of bowel gas decreasing sensitivity. There is no radiopaque foreign body or calculus. There is no acute bony abnormality. IMPRESSION: Enteric tube tip is in the distal stomach. Electronically signed by: Jonnie Kinney MD (03/16/2020 6:23 PM) [id number]
[2020-03-17] VITALS (25 sets, daily range): BP systolic 115–139; BP diastolic 45–54
[2020-03-17 00:07] LABS: HEMOGLOBIN A1C 5.2 % (4.8-5.6)
[2020-03-17] MEDS: POTASSIUM CHLORIDE 40 MEQ in IV DEXTROSE 5% 1,000 ML IV PRN (03:08)
[2020-03-17 05:54] LABS: CREATININE 0.6 mg/dL (0.6-1.0); GFR 101.3
[2020-03-17] MEDS: PROPOFOL 100 ML IV PRN ×3 (05:57→23:05)
[2020-03-17 06:18] LABS: BASO % 0 % (0-3); EOS % 0 % (0-3); HEMATOCRIT 26.5 % (36.0-47.0); HEMOGLOBIN 9.1 g/dL (12.0-15.5); LYMPH # 1.2 x10^3/uL (1.0-4.8); LYMPH % 11 % (24-48); MEAN CORPUSCULAR HEMOGLOBIN 31 pg (25-35); MEAN CORPUSCULAR HGB CONC 34 g/dL (31-37); MEAN CORPUSCULAR VOLUME 91 fL (79-100); MONO # 0.7 x10^3/uL (0.0-1.1); MONO % 7 % (0-9); NEUT % 83 % (31-73); PLATELET COUNT 196 x10^3/uL (140-400); RED BLOOD COUNT 2.91 x10^6/uL (3.50-5.40); RED CELL DISTRIBUTION WIDTH 12.7 % (11.5-14.5); WHITE BLOOD COUNT 10.9 x10^3/uL (4.0-11.0)
[2020-03-17] MEDS: ATORVASTATIN CALCIUM 40 MG TABLET. PO SCH (08:28)
--- NOTE | 2020-03-17 08:53 | PDOC ---
PROGRESS NOTES Assessment Problems Medical Problems: (1) Cerebral parenchymal hemorrhage Status: Acute (2) HTN (hypertension) Status: Acute Large left intraparenchymal hemorrhage status-post evacuation CTA negative for aneurysm or AVM Still needs EVD Plan Levetiracetam Per neurosurgery Subjective none Objective Vital Signs Date Time Temp Pulse Resp B/P (MAP) Pulse Ox O2 Delivery O2 Flow Rate FiO2 03/17/20 08:00 98.6 77 16 128/47 (74) 99 Ventilator 98.6 Intake and Output 03/17/20 07:00 Intake Total 2455.5 ml Output Total 1810 ml Balance 645.5 ml Intake IV Total 2455.5 ml Output Urine Total 1570 ml Drainage Total 140 ml Other 100 ml PHYSICAL EXAM Sedated on vent PERRL. No spontaneous extraocular movements CN: no focal findings. Muscle tone: normal. Muscle strength: withdraws left slightly to pain DTR: 2+ Plantar reflex: extensor bilaterally Gait: not examined Sensory exam: not cooperative. Cerebellar: not cooperative Review of Relevant I have reviewed the following items wang (where applicable) has been applied. Labs Laboratory Tests Test 03/15/20 11:19 03/15/20 12:15 03/15/20 12:25 03/15/20 17:30 White Blood Count 11.7 x10^3/uL (4.0-11.0) Red Blood Count 4.01 x10^6/uL (3.50-5.40) Hemoglobin 12.3 g/dL (12.0-15.5) Hematocrit 35.8 % (36.0-47.0) Mean Corpuscular Volume 89 fL (79-100) Mean Corpuscular Hemoglobin 31 pg (25-35) Mean Corpuscular Hemoglobin Concent 34 g/dL (31-37) Red Cell Distribution Width 12.5 % (11.5-14.5) Platelet Count 308 x10^3/uL (140-400) Neutrophils (%) (Auto) 54 % (31-73) Lymphocytes (%) (Auto) 39 % (24-48) Monocytes (%) (Auto) 6 % (0-9) Eosinophils (%) (Auto) 1 % (0-3) Basophils (%) (Auto) 0 % (0-3) Neutrophils # (Auto) 6.3 x10^3/uL (1.8-7.7) Lymphocytes # (Auto) 4.6 x10^3/uL (1.0-4.8) Monocytes # (Auto) 0.7 x10^3/uL (0.0-1.1) Eosinophils # (Auto) 0.1 x10^3/uL (0.0-0.7) Basophils # (Auto) 0.0 x10^3/uL (0.0-0.2) Prothrombin Time 12.2 SEC (11.7-14.0) Prothromb Time International Ratio 0.9 (0.8-1.1) Activated Partial Thromboplast Time 32 SEC (24-38) Sodium Level 138 mmol/L (136-145) Potassium Level 3.3 mmol/L (3.5-5.1) Chloride Level 102 mmol/L (98-107) Carbon Dioxide Level 24 mmol/L (21-32) Anion Gap 12 (6-14) Blood Urea Nitrogen 12 mg/dL (7-20) Creatinine 0.8 mg/dL (0.6-1.0) Estimated GFR (Cockcroft-Gault) 72.7 BUN/Creatinine Ratio 15 (6-20) Glucose Level 115 mg/dL (70-99) Hemoglobin A1c 5.2 % (4.8-5.6) Calcium Level 9.1 mg/dL (8.5-10.1) Magnesium Level 1.7 mg/dL (1.8-2.4) Total Bilirubin 0.3 mg/dL (0.2-1.0) Aspartate Amino Transf (AST/SGOT) 28 U/L (15-37) Alanine Aminotransferase (ALT/SGPT) 22 U/L (14-59) Alkaline Phosphatase 83 U/L (46-116) Troponin I Quantitative < 0.017 ng/mL (0.000-0.055) FC-Sdd-C-Type Natriuretic Peptide 100 pg/mL (0-124) Total Protein 7.6 g/dL (6.4-8.2) Albumin 4.0 g/dL (3.4-5.0) Albumin/Globulin Ratio 1.1 (1.0-1.7) Thyroid Stimulating Hormone (TSH) 5.725 uIU/mL (0.358-3.74) Ethyl Alcohol Level < 10 mg/dL (0-10) O2 Saturation 99 % (92-99) 99 % (92-99) Arterial Blood pH 7.45 (7.35-7.45) 7.38 (7.35-7.45) Arterial Blood pCO2 at Patient Temp 33 mmHg (35-46) 38 mmHg (35-46) Arterial Blood pO2 at Patient Temp 471 mmHg (65-108) 235 mmHg (65-108) Arterial Blood HCO3 22 mmol/L (21-28) 22 mmol/L (21-28) Arterial Blood Base Excess -1 mmol/L (-3-3) -3 mmol/L (-3-3) Oxyhemoglobin 96.6 % Methemoglobin 0.3 % (0.0-1.9) Carbon Monoxide, Quantitative 2.0 % (0.0-1.9) FiO2 100 60%+5 Urine Collection Type Unknown Urine Color Yellow Urine Clarity Clear Urine pH 7.5 (<5.0-8.0) Urine Specific [place] 1.010 (1.000-1.030) Urine Protein Negative mg/dL (NEG-TRACE) Urine Glucose (UA) Negative mg/dL (NEG) Urine Ketones (Stick) Negative mg/dL (NEG) Urine Blood Negative (NEG) Urine Nitrite Negative (NEG) Urine Bilirubin Negative (NEG) Urine Urobilinogen Dipstick 0.2 mg/dL (0.2 mg/dL) Urine Leukocyte Esterase Negative (NEG) Urine RBC 0 /HPF (0-2) Urine WBC 0 /HPF (0-4) Urine Squamous Epithelial Cells Few /LPF Urine Amorphous Sediment Present /HPF Urine Bacteria 0 /HPF (0-FEW) Urine Opiates Screen Neg (NEG) Urine Methadone Screen Neg (NEG) Urine Barbiturates Neg (NEG) Urine Phencyclidine Screen Neg (NEG) Urine Amphetamine/Methamphetamine Neg (NEG) Urine Benzodiazepines Screen Neg (NEG) Urine Cocaine Screen Neg (NEG) Urine Cannabinoids Screen Neg (NEG) Urine Ethyl Alcohol Neg (NEG) Test 03/16/20 05:35 03/16/20 08:10 03/17/20 05:30 White Blood Count 14.6 x10^3/uL (4.0-11.0) 10.9 x10^3/uL (4.0-11.0) Red Blood Count 3.39 x10^6/uL (3.50-5.40) 2.91 x10^6/uL (3.50-5.40) Hemoglobin 10.3 g/dL (12.0-15.5) 9.1 g/dL (12.0-15.5) Hematocrit 30.3 % (36.0-47.0) 26.5 % (36.0-47.0) Mean Corpuscular Volume 90 fL (79-100) 91 fL (79-100) Mean Corpuscular Hemoglobin 30 pg (25-35) 31 pg (25-35) Mean Corpuscular Hemoglobin Concent 34 g/dL (31-37) 34 g/dL (31-37) Red Cell Distribution Width 12.6 % (11.5-14.5) 12.7 % (11.5-14.5) Platelet Count 238 x10^3/uL (140-400) 196 x10^3/uL (140-400) Neutrophils (%) (Auto) 89 % (31-73) 83 % (31-73) Lymphocytes (%) (Auto) 6 % (24-48) 11 % (24-48) Monocytes (%) (Auto) 5 % (0-9) 7 % (0-9) Eosinophils (%) (Auto) 0 % (0-3) 0 % (0-3) Basophils (%) (Auto) 0 % (0-3) 0 % (0-3) Neutrophils # (Auto) 13.0 x10^3/uL (1.8-7.7) 9.0 x10^3/uL (1.8-7.7) Lymphocytes # (Auto) 0.9 x10^3/uL (1.0-4.8) 1.2 x10^3/uL (1.0-4.8) Monocytes # (Auto) 0.8 x10^3/uL (0.0-1.1) 0.7 x10^3/uL (0.0-1.1) Eosinophils # (Auto) 0.0 x10^3/uL (0.0-0.7) 0.0 x10^3/uL (0.0-0.7) Basophils # (Auto) 0.0 x10^3/uL (0.0-0.2) 0.0 x10^3/uL (0.0-0.2) Segmented Neutrophils % 84 % (35-66) Band Neutrophils % 4 % (0-9) Lymphocytes % 7 % (24-48) Monocytes % 5 % (0-10) Platelet Estimate Adequate (ADEQUATE) Sodium Level 131 mmol/L (136-145) 130 mmol/L (136-145) Potassium Level 4.1 mmol/L (3.5-5.1) 4.0 mmol/L (3.5-5.1) Chloride Level 98 mmol/L (98-107) 98 mmol/L (98-107) Carbon Dioxide Level 24 mmol/L (21-32) 24 mmol/L (21-32) Anion Gap 9 (6-14) 8 (6-14) Blood Urea Nitrogen 11 mg/dL (7-20) 7 mg/dL (7-20) Creatinine 0.7 mg/dL (0.6-1.0) 0.6 mg/dL (0.6-1.0) Estimated GFR (Cockcroft-Gault) 84.8 101.3 Glucose Level 145 mg/dL (70-99) 121 mg/dL (70-99) Calcium Level 7.7 mg/dL (8.5-10.1) 8.0 mg/dL (8.5-10.1) Magnesium Level 1.9 mg/dL (1.8-2.4) O2 Saturation 98 % (92-99) Arterial Blood pH 7.43 (7.35-7.45) Arterial Blood pCO2 at Patient Temp 33 mmHg (35-46) Arterial Blood pO2 at Patient Temp 108 mmHg (65-108) Arterial Blood HCO3 22 mmol/L (21-28) Arterial Blood Base Excess -2 mmol/L (-3-3) FiO2 30% vent Laboratory Tests Test 03/17/20 05:30 White Blood Count 10.9 x10^3/uL (4.0-11.0) Red Blood Count 2.91 x10^6/uL (3.50-5.40) Hemoglobin 9.1 g/dL (12.0-15.5) Hematocrit 26.5 % (36.0-47.0) Mean Corpuscular Volume 91 fL (79-100) Mean Corpuscular Hemoglobin 31 pg (25-35) Mean Corpuscular Hemoglobin Concent 34 g/dL (31-37) Red Cell Distribution Width 12.7 % (11.5-14.5) Platelet Count 196 x10^3/uL (140-400) Neutrophils (%) (Auto) 83 % (31-73) Lymphocytes (%) (Auto) 11 % (24-48) Monocytes (%) (Auto) 7 % (0-9) Eosinophils (%) (Auto) 0 % (0-3) Basophils (%) (Auto) 0 % (0-3) Neutrophils # (Auto) 9.0 x10^3/uL (1.8-7.7) Lymphocytes # (Auto) 1.2 x10^3/uL (1.0-4.8) Monocytes # (Auto) 0.7 x10^3/uL (0.0-1.1) Eosinophils # (Auto) 0.0 x10^3/uL (0.0-0.7) Basophils # (Auto) 0.0 x10^3/uL (0.0-0.2) Sodium Level 130 mmol/L (136-145) Potassium Level 4.0 mmol/L (3.5-5.1) Chloride Level 98 mmol/L (98-107) Carbon Dioxide Level 24 mmol/L (21-32) Anion Gap 8 (6-14) Blood Urea Nitrogen 7 mg/dL (7-20) Creatinine 0.6 mg/dL (0.6-1.0) Estimated GFR (Cockcroft-Gault) 101.3 Glucose Level 121 mg/dL (70-99) Calcium Level 8.0 mg/dL (8.5-10.1) Medications Current Medications Propofol (Diprivan) 200 mg 1X ONCE IV Last administered on 03/15/20at 11:47; Start 03/15/20 at 11:30; Stop 03/15/20 at 11:31; Status DC Propofol 50 ml @ As Directed STK-MED ONCE IV ; Start 03/15/20 at 11:45; Stop 03/15/20 at 11:45; Status DC Propofol 20 ml @ 0 mls/hr 1X ONCE IV Last administered on 03/15/20at 11:52; Start 03/15/20 at 11:45; Stop 03/15/20 at 11:50; Status DC Potassium Chloride 40 meq/ Dextrose 1,020 ml @ 75 mls/hr [id number] PRN IV 0 Last administered on 03/17/20at 03:08; Start 03/15/20 at 12:00 Etomidate (Amidate) 20 mg 1X ONCE IV Last administered on 03/15/20at 12:12; Start 03/15/20 at 11:40; Stop 03/15/20 at 12:00; Status DC Succinylcholine Chloride (Anectine) 100 mg 1X ONCE IV Last administered on 03/15/20at 12:12; Start 03/15/20 at 11:40; Stop 03/15/20 at 12:00; Status DC Bacitracin 17932 unit/Sodium Chloride 1,000 ml @ 1,000 mls/hr 1X ONCE IRR Last administered on 03/15/20at 14:50; Start 03/15/20 at 13:00; Stop 03/15/20 at 14:07; Status DC Cefazolin Sodium/ Dextrose 50 ml @ 100 mls/hr 1X PREOP PRN IV PRIOR TO PROCEDURE Last administered on 03/15/20at 13:25; Start 03/15/20 at 13:00; Stop 03/16/20 at 12:59; Status DC Propofol (Diprivan) 200 mg STK-MED ONCE IV ; Start 03/15/20 at 12:33; Stop 03/15/20 at 12:33; Status DC Phenylephrine HCl (PHENYLEPHRINE in 0.9% NACL PF) 1 mg STK-MED ONCE IV ; Start 03/15/20 at 12:33; Stop 03/15/20 at 12:33; Status DC Rocuronium Hawkeye (Zemuron) 50 mg STK-MED ONCE .ROUTE ; Start 03/15/20 at 12:33; Stop 03/15/20 at 12:33; Status DC Dexamethasone Sodium Phosphate (Decadron) 20 mg STK-MED ONCE .ROUTE ; Start 03/15/20 at 12:36; Stop 03/15/20 at 12:36; Status DC Gelatin (Gelfoam Size 100) 1 each STK-MED ONCE .ROUTE Last administered on 03/15/20at 13:49; Start 03/15/20 at 12:42; Stop 03/15/20 at 12:42; Status DC Bupivacaine HCl/ Epinephrine Bitart (Sensorcain-Epi 0.5%-1:103283 Mpf) 30 ml STK-MED ONCE .ROUTE ; Start 03/15/20 at 12:42; Stop 03/15/20 at 12:42; Status DC Mannitol (Mannitol) 12.5 g STK-MED ONCE .ROUTE Last administered on 03/15/20at 14:41; Start 03/15/20 at 12:42; Stop 03/15/20 at 12:42; Status DC Cellulose (Surgicel Hemostat 4x8) 1 each STK-MED ONCE .ROUTE Last administered on 03/15/20at 15:08; Start 03/15/20 at 12:42; Stop 03/15/20 at 12:43; Status DC Thrombin 20,000 unit STK-MED ONCE TP Last administered on 03/15/20at 13:49; Start 03/15/20 at 12:42; Stop 03/15/20 at 12:43; Status DC Bupivacaine HCl/ Epinephrine Bitart (Sensorcain-Epi 0.5%-1:876827 Mpf) 30 ml STK-MED ONCE .ROUTE Last administered on 03/15/20at 13:48; Start 03/15/20 at 12:44; Stop 03/15/20 at 12:45; Status DC Bupivacaine HCl/ Epinephrine Bitart (Sensorcain-Epi 0.5%-1:793419 Mpf) 30 ml 1X ONCE INJ ; Start 03/15/20 at 13:00; Stop 03/15/20 at 13:01; Status DC Ondansetron HCl (Zofran) 4 mg PRN Q6HRS PRN IV NAUSEA/VOMITING; Start 03/15/20 at 13:45; Stop 03/15/20 at 16:35; Status DC Fentanyl Citrate (Fentanyl 2ml Vial) 25 mcg PRN Q5MIN PRN IV MILD PAIN 1-3; Start 03/15/20 at 13:45; Stop 03/16/20 at 13:44; Status DC Fentanyl Citrate (Fentanyl 2ml Vial) 50 mcg PRN Q5MIN PRN IV MODERATE TO SEVERE PAIN; Start 03/15/20 at 13:45; Stop 03/16/20 at 13:44; Status DC Morphine Sulfate (Morphine Sulfate) 1 mg PRN Q10MIN PRN IV SEVERE PAIN 7-10; Start 03/15/20 at 13:45; Stop 03/16/20 at 13:44; Status DC Ringer's Solution 1,000 ml @ 30 mls/hr Q24H IV ; Start 03/15/20 at 13:31; Stop 03/16/20 at 01:30; Status DC Hydromorphone HCl (Dilaudid) 0.5 mg PRN Q10MIN PRN IV SEV PAIN, Second choice; Start 03/15/20 at 13:45; Stop 03/16/20 at 13:44; Status DC Prochlorperazine Edisylate (Compazine) 5 mg PACU PRN PRN IV NAUSEA, MRX1; Start 03/15/20 at 13:45; Stop 03/16/20 at 13:44; Status DC Mannitol (Mannitol) 12.5 g STK-MED ONCE .ROUTE Last administered on 03/15/20at 14:41; Start 03/15/20 at 14:28; Stop 03/15/20 at 14:28; Status DC Phenylephrine HCl (Diego-Synephrine Inj) 10 mg STK-MED ONCE .ROUTE ; Start 03/15/20 at 14:43; Stop 03/15/20 at 14:43; Status DC Fentanyl Citrate (Fentanyl 2ml Vial) 100 mcg STK-MED ONCE .ROUTE ; Start 03/15/20 at 15:08; Stop 03/15/20 at 15:09; Status DC Rocuronium Hawkeye (Zemuron) 50 mg STK-MED ONCE .ROUTE ; Start 03/15/20 at 15:34; Stop 03/15/20 at 15:34; Status DC Sevoflurane (Ultane) 90 ml STK-MED ONCE IH ; Start 03/15/20 at 15:44; Stop 03/15/20 at 15:44; Status DC Propofol 50 ml @ As Directed STK-MED ONCE IV ; Start 03/15/20 at 16:02; Stop 03/15/20 at 16:02; Status DC Nicardipine HCl 50 mg/Sodium Chloride 250 ml @ 25 mls/hr TITRATE PRN IV HYPERTENSION Last administered on 03/17/20at 07:15; Start 03/15/20 at 16:30 Levetiracetam 500 mg/Sodium Chloride 105 ml @ 400 mls/hr Q12HR IV Last administered on 03/17/20at 08:28; Start 03/15/20 at 21:00 Sodium Chloride (Normal Saline Flush) 3 ml QSHIFT PRN IV AFTER MEDS AND BLOOD DRAWS; Start 03/15/20 at 16:30 Potassium Chloride/Dextrose/ Sod Cl 1,000 ml @ 80 mls/hr [id number] IV ; Start at 16:19; Stop 03/15/20 at 18:36; Status DC Dextrose (Dextrose 50%-Water Syringe) 12.5 gm PRN Q15MIN PRN IV SEE COMMENTS; Start 03/15/20 at 16:30 Cefazolin Sodium (Ancef) 1 gm Q8HRS IVP Last administered on 03/16/20at 14:52; Start 03/15/20 at 22:00; Stop 03/16/20 at 14:01; Status DC Ondansetron HCl (Zofran) 4 mg PRN Q4HRS PRN IV NAUSEA/VOMITING; Start 03/15/20 at 16:45 Atorvastatin Calcium (Lipitor) 40 mg DAILY PO Last administered on 03/17/20at 08:28; Start 03/16/20 at 09:00 Acetaminophen (Tylenol Supp) 650 mg PRN Q6HRS PRN MO MILD PAIN / TEMP > 100.3'F; Start 03/15/20 at 16:45 Docusate Sodium (Enemeez) 283 mg PRN DAILY PRN MO CONSTIPATION; Start 03/15/20 at 16:45 Magnesium Sulfate 50 ml @ 25 mls/hr 1X ONCE IV Last administered on 03/15/20at 17:23; Start 03/15/20 at 17:00; Stop 03/15/20 at 18:59; Status DC Propofol 100 ml @ As Directed STK-MED ONCE IV ; Start 03/15/20 at 19:37; Stop 03/15/20 at 19:38; Status DC Propofol 100 ml @ 0.837 mls/ hr CONT PRN IV SEE I/O RECORD Last administered on 03/17/20at 05:57; Start 03/15/20 at 19:45 Iohexol (Omnipaque 300 Mg/ml) 75 ml 1X ONCE IV Last administered on 03/16/20at 07:45; Start 03/16/20 at 07:45; Stop 03/16/20 at 07:50; Status DC Info (CONTRAST GIVEN -- Rx MONITORING) 1 each PRN DAILY PRN MC SEE COMMENTS; Start 03/16/20 at 08:00; Stop 03/18/20 at 07:59 Active Scripts Active Reported Oxybutynin Chloride Er (Oxybutynin Chloride) 10 Mg Tab.er.24 1 Tab PO DAILY Elmiron (Pentosan Polysulfate Sodium) 100 Mg Capsule 1 Cap PO TID 30 Days Atorvastatin Calcium 40 Mg Tablet 1 Tab PO DAILY Fluoxetine Hcl 40 Mg Capsule 40 Mg PO DAILY Premarin (Estrogens, Conjugated) 0.625 Mg Tablet 1 Tab PO DAILY Vitals/I & O Vital Sign - Last 24 Hours 03/16/20 03/16/20 03/16/20 03/16/20 09:00 10:00 10:15 11:00 Pulse 81 83 73 Resp 16 16 16 B/P (MAP) 146/57 (86) 141/55 (83) 125/52 (76) Pulse Ox 99 99 100 99 O2 Delivery Ventilator Ventilator Ventilator Ventilator 03/16/20 03/16/20 03/16/20 03/16/20 11:57 12:00 12:00 12:00 Temp 98.3 98.3 Pulse 70 70 Resp 16 B/P (MAP) 121/51 (74) 125/51 (75) Pulse Ox 100 99 O2 Delivery Ventilator Mechanical Ventilator Ventilator 03/16/20 03/16/20 03/16/20 03/16/20 13:00 13:46 14:00 15:00 Pulse 69 75 71 Resp 16 16 16 B/P (MAP) 135/54 (81) 136/51 (79) 136/52 (80) Pulse Ox 99 100 99 99 O2 Delivery Ventilator Ventilator Ventilator Ventilator 03/16/20 03/16/20 03/16/20 03/16/20 15:40 16:00 16:00 16:00 Temp 98.5 98.5 Pulse 79 78 Resp 16 B/P (MAP) 140/53 (82) 142/54 (83) Pulse Ox 100 100 O2 Delivery Ventilator Ventilator Mechanical Ventilator 03/16/20 03/16/20 03/16/20 03/16/20 17:00 17:31 18:00 19:00 Pulse 76 72 82 Resp 16 16 20 B/P (MAP) 145/56 (85) 131/51 (77) 146/58 (87) Pulse Ox 100 100 100 100 O2 Delivery Ventilator Ventilator Ventilator Ventilator 03/16/20 03/16/20 03/16/20 03/16/20 19:45 20:00 20:00 20:00 Temp 98.4 98.4 Pulse 93 93 Resp 16 B/P (MAP) 55/ (18) 136/55 (82) Pulse Ox 100 100 O2 Delivery Ventilator Mechanical Ventilator Ventilator 03/16/20 03/16/20 03/16/20 03/16/20 21:00 21:38 22:00 23:00 Pulse 73 74 75 Resp 16 16 16 B/P (MAP) 134/53 (80) 133/53 (79) 139/54 (82) Pulse Ox 100 100 97 100 O2 Delivery Ventilator Ventilator Ventilator Ventilator 03/17/20 03/17/20 03/17/20 03/17/20 00:00 00:00 00:00 01:00 Temp 98.5 98.5 Pulse 75 74 87 Resp 16 16 B/P (MAP) 129/50 (76) 129/50 (76) 138/53 (81) Pulse Ox 100 99 O2 Delivery Ventilator Mechanical Ventilator Ventilator 03/17/20 03/17/20 03/17/20 03/17/20 01:04 02:00 03:00 04:00 Temp 98.2 98.2 Pulse 77 75 77 Resp 16 16 16 B/P (MAP) 135/54 (81) 127/49 (75) 132/50 (77) Pulse Ox 100 100 100 100 O2 Delivery Ventilator Ventilator Ventilator Ventilator 03/17/20 03/17/20 03/17/20 03/17/20 04:00 04:00 05:00 05:03 Pulse 77 74 Resp 16 B/P (MAP) 132/50 (77) 115/45 (68) Pulse Ox 100 100 O2 Delivery Mechanical Ventilator Ventilator Ventilator 03/17/20 03/17/20 03/17/20 03/17/20 06:00 07:00 07:55 08:00 Temp 98.6 98.6 Pulse 75 76 77 Resp 16 16 16 B/P (MAP) 129/49 (75) 130/48 (75) 128/47 (74) Pulse Ox 100 100 100 99 O2 Delivery Ventilator Ventilator Ventilator Ventilator Intake and Output 03/16/20 03/16/20 03/17/20 15:00 23:00 07:00 Intake Total 1178 ml 1277.5 ml Output Total 440 ml 625 ml 745 ml Balance -440 ml 553 ml 532.[address] ANGIOGRAPHY HEAD, CT HEAD WO CONTRAST History:Postcraniotomy. Intracranial hemorrhage. Technique: Noncontrast head CT. After bolus of intravenous contrast, volumetric CT data acquisition was acquired of the head. Multiplanar reconstruction images to include MIP and 3-D reconstruction images are submitted. Exposure: One or more of the following individualized dose reduction techniques were utilized for this examination: 1. Automated exposure control 2. Adjustment of the mA and/or kV according to patient size 3. Use of iterative reconstruction technique. Comparison: March 15, 2020 Any determination of stenosis is based on NASCET criteria. Noncontrast CT head: Interval left superior parietal craniotomy for evacuation of left frontal lobe parenchymal hemorrhage. Decreased size of parenchymal hematoma. Similar adjacent edema. Decreased mass effect. Expected postoperative changes with extra-axial blood and air collection underlying the craniotomy. Small adjacent subarachnoid hemorrhage. Pneumocephalus is noted. Left frontal approach ventricular catheter with tip in the left frontal horn. Pneumocephalus. Interval visualization of small intraventricular hemorrhage. No hydrocephalus. Imaged orbits are unremarkable. Imaged paranasal sinuses and mastoid air cells are clear. Head CTA: No evidence of increased vascularity within the region of the left frontal hematoma evacuation to suggest arteriovenous malformation. No aneurysm. The superior sagittal sinus and transverse sinuses appear patent. Decreased appearance of contrast within the sigmoid and upper internal jugular veins due to contrast timing. ICA: No stenosis, occlusion or aneurysm. MCA: No stenosis, occlusion or aneurysm. BETY: No stenosis, occlusion or aneurysm. ASSESSMENT EXPERT: No stenosis, occlusion or aneurysm. Basilar artery: No stenosis, occlusion or aneurysm. Distal vertebral arteries: No stenosis, occlusion or aneurysm. Impression: Noncontrast head CT: 1. Interval postoperative changes left frontal hematoma evacuation with small residual hematoma. Decreased mass effect. 2. Left frontal ventricular catheter. No hydrocephalus. 3. Small interventricular hemorrhage. CT angiogram head: 1. No evidence of arteriovenous malformation or aneurysm. SON PHAM MD March 17, 2020 08:53
[2020-03-17 08:56] LABS: BASE EXCESS ABG 0 mmol/L (-3-3); HCO3 ABG 23 mmol/L (21-28); PCO2 ABG 34 mmHg (35-46); PO2 ABG 100 mmHg (65-108); SAT O2 ABG 97 % (92-99)
[2020-03-17 09:39] LABS: FIO2 ABG 30
--- NOTE | 2020-03-17 09:39 | PDOC ---
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 Keppra Acute encephalopathy - due to intracranial hemorrhage Syncope and collapse - 2/2 intraparenchymal bleed Left front intracranial hemorrhage Hyperlipidemia Respiratory failure - likely 2/2 intracranial bleed Leukocytosis - likely 2/2 bleed. Hypokalemia and hypomagnesemia Hyponatremia 37 minutes CC time on labs, orders, images History of Present Illness History of Present Illness Ms Mathew is a 64 yo F w/ PMHx HLD who was brought here by EMS from local [facility] due to altered mental status around 1030 on 03/15/2020. noted that they were out shopping when she became unresponsive and fell to the ground, though he was able to catch her and guide her down on the floor. Patient did not hit her head. stated that patient has been having a headache for the last 2-3 days. He is sure that she is not on any blood thinner. Patient's stated that she is on multiple medications but he is not sure what they are.. EMS stated that she was able to protect her airway but her GCS was about [address] head revealed a left frontal lobe 5.5 x 6.0 x 3.0 cm large parenchymal hematoma and surrounding edema involving both the superior and middle frontal cortical gyri as well as extensive involvement of the white matter, with mass effect and 10 mm midline shift. Neurosurgery was urgently contacted. She underwent RSI with ED with etomidate and succinylcholine with 7.5 ET tube and went urgently to OR for craniotomy and hematoma evacuation which was large and invaded the ventricular and she is transferred to ICU for closer monitoring. I was able to evaluated patient prior to intubation and after surgery. 03/16: Patient seen and examined in the ICU, She is mechanically ventilated, Assist-control/450/16/30 percent, Has an OG to suction, Her pupils are reactive 03/17: Seen in ICU, sedated, intubated, on ICP monitoring and cardene GTT. Na 130. Hb 9.1. Moving left arm, posturing on pain response on right. Vitals Vitals Vital Signs Date Time Temp Pulse Resp B/P (MAP) Pulse Ox O2 Delivery O2 Flow Rate FiO2 03/17/20 08:00 98.6 77 16 128/47 (74) 99 Ventilator 98.6 Physical Exam General: Other (on vent) Heart: Regular rate, Normal S1 Lungs: Clear Abdomen: Normal bowel sounds, Soft, No tenderness, No hepatosplenomegaly, No masses Extremities: No clubbing, No cyanosis, No edema, Normal pulses, No tenderness/swelling Skin: Other (dressing dry and intact, ventricular catheter in place, blood tingled fluid) Labs LABS Laboratory Tests Test 03/17/20 05:30 White Blood Count 10.9 x10^3/uL (4.0-11.0) Red Blood Count 2.91 x10^6/uL (3.50-5.40) Hemoglobin 9.1 g/dL (12.0-15.5) Hematocrit 26.5 % (36.0-47.0) Mean Corpuscular Volume 91 fL (79-100) Mean Corpuscular Hemoglobin 31 pg (25-35) Mean Corpuscular Hemoglobin Concent 34 g/dL (31-37) Red Cell Distribution Width 12.7 % (11.5-14.5) Platelet Count 196 x10^3/uL (140-400) Neutrophils (%) (Auto) 83 % (31-73) Lymphocytes (%) (Auto) 11 % (24-48) Monocytes (%) (Auto) 7 % (0-9) Eosinophils (%) (Auto) 0 % (0-3) Basophils (%) (Auto) 0 % (0-3) Neutrophils # (Auto) 9.0 x10^3/uL (1.8-7.7) Lymphocytes # (Auto) 1.2 x10^3/uL (1.0-4.8) Monocytes # (Auto) 0.7 x10^3/uL (0.0-1.1) Eosinophils # (Auto) 0.0 x10^3/uL (0.0-0.7) Basophils # (Auto) 0.0 x10^3/uL (0.0-0.2) Sodium Level 130 mmol/L (136-145) Potassium Level 4.0 mmol/L (3.5-5.1) Chloride Level 98 mmol/L (98-107) Carbon Dioxide Level 24 mmol/L (21-32) Anion Gap 8 (6-14) Blood Urea Nitrogen 7 mg/dL (7-20) Creatinine 0.6 mg/dL (0.6-1.0) Estimated GFR (Cockcroft-Gault) 101.3 Glucose Level 121 mg/dL (70-99) Calcium Level 8.0 mg/dL (8.5-10.1) Assessment and Plan Assessmemt and Plan Problems Medical Problems: (1) Cerebral parenchymal hemorrhage Status: Acute (2) HTN (hypertension) Status: Acute Comment Review of Relevant I have reviewed the following items wang (where applicable) has been applied. Labs Laboratory Tests Test 03/15/20 11:19 03/15/20 12:15 03/15/20 12:25 03/15/20 17:30 White Blood Count 11.7 x10^3/uL (4.0-11.0) Red Blood Count 4.01 x10^6/uL (3.50-5.40) Hemoglobin 12.3 g/dL (12.0-15.5) Hematocrit 35.8 % (36.0-47.0) Mean Corpuscular Volume 89 fL (79-100) Mean Corpuscular Hemoglobin 31 pg (25-35) Mean Corpuscular Hemoglobin Concent 34 g/dL (31-37) Red Cell Distribution Width 12.5 % (11.5-14.5) Platelet Count 308 x10^3/uL (140-400) Neutrophils (%) (Auto) 54 % (31-73) Lymphocytes (%) (Auto) 39 % (24-48) Monocytes (%) (Auto) 6 % (0-9) Eosinophils (%) (Auto) 1 % (0-3) Basophils (%) (Auto) 0 % (0-3) Neutrophils # (Auto) 6.3 x10^3/uL (1.8-7.7) Lymphocytes # (Auto) 4.6 x10^3/uL (1.0-4.8) Monocytes # (Auto) 0.7 x10^3/uL (0.0-1.1) Eosinophils # (Auto) 0.1 x10^3/uL (0.0-0.7) Basophils # (Auto) 0.0 x10^3/uL (0.0-0.2) Prothrombin Time 12.2 SEC (11.7-14.0) Prothromb Time International Ratio 0.9 (0.8-1.1) Activated Partial Thromboplast Time 32 SEC (24-38) Sodium Level 138 mmol/L (136-145) Potassium Level 3.3 mmol/L (3.5-5.1) Chloride Level 102 mmol/L (98-107) Carbon Dioxide Level 24 mmol/L (21-32) Anion Gap 12 (6-14) Blood Urea Nitrogen 12 mg/dL (7-20) Creatinine 0.8 mg/dL (0.6-1.0) Estimated GFR (Cockcroft-Gault) 72.7 BUN/Creatinine Ratio 15 (6-20) Glucose Level 115 mg/dL (70-99) Hemoglobin A1c 5.2 % (4.8-5.6) Calcium Level 9.1 mg/dL (8.5-10.1) Magnesium Level 1.7 mg/dL (1.8-2.4) Total Bilirubin 0.3 mg/dL (0.2-1.0) Aspartate Amino Transf (AST/SGOT) 28 U/L (15-37) Alanine Aminotransferase (ALT/SGPT) 22 U/L (14-59) Alkaline Phosphatase 83 U/L (46-116) Troponin I Quantitative < 0.017 ng/mL (0.000-0.055) HD-Cuq-U-Type Natriuretic Peptide 100 pg/mL (0-124) Total Protein 7.6 g/dL (6.4-8.2) Albumin 4.0 g/dL (3.4-5.0) Albumin/Globulin Ratio 1.1 (1.0-1.7) Thyroid Stimulating Hormone (TSH) 5.725 uIU/mL (0.358-3.74) Ethyl Alcohol Level < 10 mg/dL (0-10) O2 Saturation 99 % (92-99) 99 % (92-99) Arterial Blood pH 7.45 (7.35-7.45) 7.38 (7.35-7.45) Arterial Blood pCO2 at Patient Temp 33 mmHg (35-46) 38 mmHg (35-46) Arterial Blood pO2 at Patient Temp 471 mmHg (65-108) 235 mmHg (65-108) Arterial Blood HCO3 22 mmol/L (21-28) 22 mmol/L (21-28) Arterial Blood Base Excess -1 mmol/L (-3-3) -3 mmol/L (-3-3) Oxyhemoglobin 96.6 % Methemoglobin 0.3 % (0.0-1.9) Carbon Monoxide, Quantitative 2.0 % (0.0-1.9) FiO2 100 60%+5 Urine Collection Type Unknown Urine Color Yellow Urine Clarity Clear Urine pH 7.5 (<5.0-8.0) Urine Specific [place] 1.010 (1.000-1.030) Urine Protein Negative mg/dL (NEG-TRACE) Urine Glucose (UA) Negative mg/dL (NEG) Urine Ketones (Stick) Negative mg/dL (NEG) Urine Blood Negative (NEG) Urine Nitrite Negative (NEG) Urine Bilirubin Negative (NEG) Urine Urobilinogen Dipstick 0.2 mg/dL (0.2 mg/dL) Urine Leukocyte Esterase Negative (NEG) Urine RBC 0 /HPF (0-2) Urine WBC 0 /HPF (0-4) Urine Squamous Epithelial Cells Few /LPF Urine Amorphous Sediment Present /HPF Urine Bacteria 0 /HPF (0-FEW) Urine Opiates Screen Neg (NEG) Urine Methadone Screen Neg (NEG) Urine Barbiturates Neg (NEG) Urine Phencyclidine Screen Neg (NEG) Urine Amphetamine/Methamphetamine Neg (NEG) Urine Benzodiazepines Screen Neg (NEG) Urine Cocaine Screen Neg (NEG) Urine Cannabinoids Screen Neg (NEG) Urine Ethyl Alcohol Neg (NEG) Test 03/16/20 05:35 03/16/20 08:10 03/17/20 05:30 White Blood Count 14.6 x10^3/uL (4.0-11.0) 10.9 x10^3/uL (4.0-11.0) Red Blood Count 3.39 x10^6/uL (3.50-5.40) 2.91 x10^6/uL (3.50-5.40) Hemoglobin 10.3 g/dL (12.0-15.5) 9.1 g/dL (12.0-15.5) Hematocrit 30.3 % (36.0-47.0) 26.5 % (36.0-47.0) Mean Corpuscular Volume 90 fL (79-100) 91 fL (79-100) Mean Corpuscular Hemoglobin 30 pg (25-35) 31 pg (25-35) Mean Corpuscular Hemoglobin Concent 34 g/dL (31-37) 34 g/dL (31-37) Red Cell Distribution Width 12.6 % (11.5-14.5) 12.7 % (11.5-14.5) Platelet Count 238 x10^3/uL (140-400) 196 x10^3/uL (140-400) Neutrophils (%) (Auto) 89 % (31-73) 83 % (31-73) Lymphocytes (%) (Auto) 6 % (24-48) 11 % (24-48) Monocytes (%) (Auto) 5 % (0-9) 7 % (0-9) Eosinophils (%) (Auto) 0 % (0-3) 0 % (0-3) Basophils (%) (Auto) 0 % (0-3) 0 % (0-3) Neutrophils # (Auto) 13.0 x10^3/uL (1.8-7.7) 9.0 x10^3/uL (1.8-7.7) Lymphocytes # (Auto) 0.9 x10^3/uL (1.0-4.8) 1.2 x10^3/uL (1.0-4.8) Monocytes # (Auto) 0.8 x10^3/uL (0.0-1.1) 0.7 x10^3/uL (0.0-1.1) Eosinophils # (Auto) 0.0 x10^3/uL (0.0-0.7) 0.0 x10^3/uL (0.0-0.7) Basophils # (Auto) 0.0 x10^3/uL (0.0-0.2) 0.0 x10^3/uL (0.0-0.2) Segmented Neutrophils % 84 % (35-66) Band Neutrophils % 4 % (0-9) Lymphocytes % 7 % (24-48) Monocytes % 5 % (0-10) Platelet Estimate Adequate (ADEQUATE) Sodium Level 131 mmol/L (136-145) 130 mmol/L (136-145) Potassium Level 4.1 mmol/L (3.5-5.1) 4.0 mmol/L (3.5-5.1) Chloride Level 98 mmol/L (98-107) 98 mmol/L (98-107) Carbon Dioxide Level 24 mmol/L (21-32) 24 mmol/L (21-32) Anion Gap 9 (6-14) 8 (6-14) Blood Urea Nitrogen 11 mg/dL (7-20) 7 mg/dL (7-20) Creatinine 0.7 mg/dL (0.6-1.0) 0.6 mg/dL (0.6-1.0) Estimated GFR (Cockcroft-Gault) 84.8 101.3 Glucose Level 145 mg/dL (70-99) 121 mg/dL (70-99) Calcium Level 7.7 mg/dL (8.5-10.1) 8.0 mg/dL (8.5-10.1) Magnesium Level 1.9 mg/dL (1.8-2.4) O2 Saturation 98 % (92-99) Arterial Blood pH 7.43 (7.35-7.45) Arterial Blood pCO2 at Patient Temp 33 mmHg (35-46) Arterial Blood pO2 at Patient Temp 108 mmHg (65-108) Arterial Blood HCO3 22 mmol/L (21-28) Arterial Blood Base Excess -2 mmol/L (-3-3) FiO2 30% vent Laboratory Tests Test 03/17/20 05:30 White Blood Count 10.9 x10^3/uL (4.0-11.0) Red Blood Count 2.91 x10^6/uL (3.50-5.40) Hemoglobin 9.1 g/dL (12.0-15.5) Hematocrit 26.5 % (36.0-47.0) Mean Corpuscular Volume 91 fL (79-100) Mean Corpuscular Hemoglobin 31 pg (25-35) Mean Corpuscular Hemoglobin Concent 34 g/dL (31-37) Red Cell Distribution Width 12.7 % (11.5-14.5) Platelet Count 196 x10^3/uL (140-400) Neutrophils (%) (Auto) 83 % (31-73) Lymphocytes (%) (Auto) 11 % (24-48) Monocytes (%) (Auto) 7 % (0-9) Eosinophils (%) (Auto) 0 % (0-3) Basophils (%) (Auto) 0 % (0-3) Neutrophils # (Auto) 9.0 x10^3/uL (1.8-7.7) Lymphocytes # (Auto) 1.2 x10^3/uL (1.0-4.8) Monocytes # (Auto) 0.7 x10^3/uL (0.0-1.1) Eosinophils # (Auto) 0.0 x10^3/uL (0.0-0.7) Basophils # (Auto) 0.0 x10^3/uL (0.0-0.2) Sodium Level 130 mmol/L (136-145) Potassium Level 4.0 mmol/L (3.5-5.1) Chloride Level 98 mmol/L (98-107) Carbon Dioxide Level 24 mmol/L (21-32) Anion Gap 8 (6-14) Blood Urea Nitrogen 7 mg/dL (7-20) Creatinine 0.6 mg/dL (0.6-1.0) Estimated GFR (Cockcroft-Gault) 101.3 Glucose Level 121 mg/dL (70-99) Calcium Level 8.0 mg/dL (8.5-10.1) Medications Current Medications Propofol (Diprivan) 200 mg 1X ONCE IV Last administered on 03/15/20at 11:47; Start 03/15/20 at 11:30; Stop 03/15/20 at 11:31; Status DC Propofol 50 ml @ As Directed STK-MED ONCE IV ; Start 03/15/20 at 11:45; Stop 03/15/20 at 11:45; Status DC Propofol 20 ml @ 0 mls/hr 1X ONCE IV Last administered on 03/15/20at 11:52; Start 03/15/20 at 11:45; Stop 03/15/20 at 11:50; Status DC Potassium Chloride 40 meq/ Dextrose 1,020 ml @ 75 mls/hr [id number] PRN IV 0 Last administered on 03/17/20at 03:08; Start 03/15/20 at 12:00 Etomidate (Amidate) 20 mg 1X ONCE IV Last administered on 03/15/20at 12:12; Start 03/15/20 at 11:40; Stop 03/15/20 at 12:00; Status DC Succinylcholine Chloride (Anectine) 100 mg 1X ONCE IV Last administered on 03/15/20at 12:12; Start 03/15/20 at 11:40; Stop 03/15/20 at 12:00; Status DC Bacitracin 65064 unit/Sodium Chloride 1,000 ml @ 1,000 mls/hr 1X ONCE IRR Last administered on 03/15/20at 14:50; Start 03/15/20 at 13:00; Stop 03/15/20 at 14:07; Status DC Cefazolin Sodium/ Dextrose 50 ml @ 100 mls/hr 1X PREOP PRN IV PRIOR TO PROCEDURE Last administered on 03/15/20at 13:25; Start 03/15/20 at 13:00; Stop 03/16/20 at 12:59; Status DC Propofol (Diprivan) 200 mg STK-MED ONCE IV ; Start 03/15/20 at 12:33; Stop 03/15/20 at 12:33; Status DC Phenylephrine HCl (PHENYLEPHRINE in 0.9% NACL PF) 1 mg STK-MED ONCE IV ; Start 03/15/20 at 12:33; Stop 03/15/20 at 12:33; Status DC Rocuronium [place] (Zemuron) 50 mg STK-MED ONCE .ROUTE ; Start 03/15/20 at 12:33; Stop 03/15/20 at 12:33; Status DC Dexamethasone Sodium Phosphate (Decadron) 20 mg STK-MED ONCE .ROUTE ; Start 03/15/20 at 12:36; Stop 03/15/20 at 12:36; Status DC Gelatin (Gelfoam Size 100) 1 each STK-MED ONCE .ROUTE Last administered on 03/15/20at 13:49; Start 03/15/20 at 12:42; Stop 03/15/20 at 12:42; Status DC Bupivacaine HCl/ Epinephrine Bitart (Sensorcain-Epi 0.5%-1:724360 Mpf) 30 ml STK-MED ONCE .ROUTE ; Start 03/15/20 at 12:42; Stop 03/15/20 at 12:42; Status DC Mannitol (Mannitol) 12.5 g STK-MED ONCE .ROUTE Last administered on 03/15/20at 14:41; Start 03/15/20 at 12:42; Stop 03/15/20 at 12:42; Status DC Cellulose (Surgicel Hemostat 4x8) 1 each STK-MED ONCE .ROUTE Last administered on 03/15/20at 15:08; Start 03/15/20 at 12:42; Stop 03/15/20 at 12:43; Status DC Thrombin 20,000 unit STK-MED ONCE TP Last administered on 03/15/20at 13:49; Start 03/15/20 at 12:42; Stop 03/15/20 at 12:43; Status DC Bupivacaine HCl/ Epinephrine Bitart (Sensorcain-Epi 0.5%-1:016472 Mpf) 30 ml STK-MED ONCE .ROUTE Last administered on 03/15/20at 13:48; Start 03/15/20 at 12:44; Stop 03/15/20 at 12:45; Status DC Bupivacaine HCl/ Epinephrine Bitart (Sensorcain-Epi 0.5%-1:494410 Mpf) 30 ml 1X ONCE INJ ; Start 03/15/20 at 13:00; Stop 03/15/20 at 13:01; Status DC Ondansetron HCl (Zofran) 4 mg PRN Q6HRS PRN IV NAUSEA/VOMITING; Start 03/15/20 at 13:45; Stop 03/15/20 at 16:35; Status DC Fentanyl Citrate (Fentanyl 2ml Vial) 25 mcg PRN Q5MIN PRN IV MILD PAIN 1-3; Start 03/15/20 at 13:45; Stop 03/16/20 at 13:44; Status DC Fentanyl Citrate (Fentanyl 2ml Vial) 50 mcg PRN Q5MIN PRN IV MODERATE TO SEVERE PAIN; Start 03/15/20 at 13:45; Stop 03/16/20 at 13:44; Status DC Morphine Sulfate (Morphine Sulfate) 1 mg PRN Q10MIN PRN IV SEVERE PAIN 7-10; Start 03/15/20 at 13:45; Stop 03/16/20 at 13:44; Status DC Ringer's Solution 1,000 ml @ 30 mls/hr Q24H IV ; Start 03/15/20 at 13:31; Stop 03/16/20 at 01:30; Status DC Hydromorphone HCl (Dilaudid) 0.5 mg PRN Q10MIN PRN IV SEV PAIN, Second choice; Start 03/15/20 at 13:45; Stop 03/16/20 at 13:44; Status DC Prochlorperazine Edisylate (Compazine) 5 mg PACU PRN PRN IV NAUSEA, MRX1; Start 03/15/20 at 13:45; Stop 03/16/20 at 13:44; Status DC Mannitol (Mannitol) 12.5 g STK-MED ONCE .ROUTE Last administered on 03/15/20at 14:41; Start 03/15/20 at 14:28; Stop 03/15/20 at 14:28; Status DC Phenylephrine HCl (Diego-Synephrine Inj) 10 mg STK-MED ONCE .ROUTE ; Start 03/15/20 at 14:43; Stop 03/15/20 at 14:43; Status DC Fentanyl Citrate (Fentanyl 2ml Vial) 100 mcg STK-MED ONCE .ROUTE ; Start 03/15/20 at 15:08; Stop 03/15/20 at 15:09; Status DC Rocuronium [place] (Zemuron) 50 mg STK-MED ONCE .ROUTE ; Start 03/15/20 at 15:34; Stop 03/15/20 at 15:34; Status DC Sevoflurane (Ultane) 90 ml STK-MED ONCE IH ; Start 03/15/20 at 15:44; Stop 03/15/20 at 15:44; Status DC Propofol 50 ml @ As Directed STK-MED ONCE IV ; Start 03/15/20 at 16:02; Stop 03/15/20 at 16:02; Status DC Nicardipine HCl 50 mg/Sodium Chloride 250 ml @ 25 mls/hr TITRATE PRN IV HYPERTENSION Last administered on 03/17/20at 07:15; Start 03/15/20 at 16:30 Levetiracetam 500 mg/Sodium Chloride 105 ml @ 400 mls/hr Q12HR IV Last administered on 03/17/20at 08:28; Start 03/15/20 at 21:00 Sodium Chloride (Normal Saline Flush) 3 ml QSHIFT PRN IV AFTER MEDS AND BLOOD DRAWS; Start 03/15/20 at 16:30 Potassium Chloride/Dextrose/ Sod Cl 1,000 ml @ 80 mls/hr [id number] IV ; Start 03/15/20 at 16:19; Stop 03/15/20 at 18:36; Status DC Dextrose (Dextrose 50%-Water Syringe) 12.5 gm PRN Q15MIN PRN IV SEE COMMENTS; Start 03/15/20 at 16:30 Cefazolin Sodium (Ancef) 1 gm Q8HRS IVP Last administered on 03/16/20at 14:52; Start 03/15/20 at 22:00; Stop 03/16/20 at 14:01; Status DC Ondansetron HCl (Zofran) 4 mg PRN Q4HRS PRN IV NAUSEA/VOMITING; Start 03/15/20 at 16:45 Atorvastatin Calcium (Lipitor) 40 mg DAILY PO Last administered on 03/17/20at 08:28; Start 03/16/20 at 09:00 Acetaminophen (Tylenol Supp) 650 mg PRN Q6HRS PRN RI MILD PAIN / TEMP > 100.3'F; Start 03/15/20 at 16:45 Docusate Sodium (Enemeez) 283 mg PRN DAILY PRN RI CONSTIPATION; Start 03/15/20 at 16:45 Magnesium Sulfate 50 ml @ 25 mls/hr 1X ONCE IV Last administered on 03/15/20at 17:23; Start 03/15/20 at 17:00; Stop 03/15/20 at 18:59; Status DC Propofol 100 ml @ As Directed STK-MED ONCE IV ; Start 03/15/20 at 19:37; Stop 03/15/20 at 19:38; Status DC Propofol 100 ml @ 0.837 mls/ hr CONT PRN IV SEE I/O RECORD Last administered on 03/17/20at 05:57; Start 03/15/20 at 19:45 Iohexol (Omnipaque 300 Mg/ml) 75 ml 1X ONCE IV Last administered on 03/16/20at 07:45; Start 03/16/20 at 07:45; Stop 03/16/20 at 07:50; Status DC Info (CONTRAST GIVEN -- Rx MONITORING) 1 each PRN DAILY PRN MC SEE COMMENTS; Start 03/16/20 at 08:00; Stop 03/18/20 at 07:59 Active Scripts Active Reported Oxybutynin Chloride Er (Oxybutynin Chloride) 10 Mg Tab.er.24 1 Tab PO DAILY Elmiron (Pentosan Polysulfate Sodium) 100 Mg Capsule 1 Cap PO TID 30 Days Atorvastatin Calcium 40 Mg Tablet 1 Tab PO DAILY Fluoxetine Hcl 40 Mg Capsule 40 Mg PO DAILY Premarin (Estrogens, Conjugated) 0.625 Mg Tablet 1 Tab PO DAILY Vitals/I & O Vital Sign - Last 24 Hours 03/16/20 03/16/20 03/16/20 03/16/20 10:00 10:15 11:00 11:57 Pulse 83 73 Resp 16 16 B/P (MAP) 141/55 (83) 125/52 (76) Pulse Ox 99 100 99 100 O2 Delivery Ventilator Ventilator Ventilator Ventilator 03/16/20 03/16/20 03/16/20 03/16/20 12:00 12:00 12:00 13:00 Temp 98.3 98.3 Pulse 70 70 69 Resp 16 16 B/P (MAP) 121/51 (74) 125/51 (75) 135/54 (81) Pulse Ox 99 99 O2 Delivery Mechanical Ventilator Ventilator Ventilator 03/16/20 03/16/20 03/16/20 03/16/20 13:46 14:00 15:00 15:40 Pulse 75 71 Resp 16 16 B/P (MAP) 136/51 (79) 136/52 (80) Pulse Ox 100 99 99 100 O2 Delivery Ventilator Ventilator Ventilator Ventilator 03/16/20 03/16/20 03/16/20 03/16/20 16:00 16:00 16:00 17:00 Temp 98.5 98.5 Pulse 79 78 76 Resp 16 16 B/P (MAP) 140/53 (82) 142/54 (83) 145/56 (85) Pulse Ox 100 100 O2 Delivery Ventilator Mechanical Ventilator Ventilator 03/16/20 03/16/20 03/16/20 03/16/20 17:31 18:00 19:00 19:45 Pulse 72 82 Resp 16 20 B/P (MAP) 131/51 (77) 146/58 (87) Pulse Ox 100 100 100 100 O2 Delivery Ventilator Ventilator Ventilator Ventilator 03/16/20 03/16/20 03/16/20 03/16/20 20:00 20:00 20:00 21:00 Temp 98.4 98.4 Pulse 93 93 73 Resp 16 16 B/P (MAP) 55/ (18) 136/55 (82) 134/53 (80) Pulse Ox 100 100 O2 Delivery Mechanical Ventilator Ventilator Ventilator 03/16/20 03/16/20 03/16/20 03/17/20 21:38 22:00 23:00 00:00 Temp 98.5 98.5 Pulse 74 75 75 Resp 16 16 16 B/P (MAP) 133/53 (79) 139/54 (82) 129/50 (76) Pulse Ox 100 97 100 100 O2 Delivery Ventilator Ventilator Ventilator Ventilator 03/17/20 03/17/20 03/17/20 03/17/20 00:00 00:00 01:00 01:04 Pulse 74 87 Resp 16 B/P (MAP) 129/50 (76) 138/53 (81) Pulse Ox 99 100 O2 Delivery Mechanical Ventilator Ventilator Ventilator 03/17/20 03/17/20 03/17/20 03/17/20 02:00 03:00 04:00 04:00 Temp 98.2 98.2 Pulse 77 75 77 77 Resp 16 16 16 B/P (MAP) 135/54 (81) 127/49 (75) 132/50 (77) 132/50 (77) Pulse Ox 100 100 100 O2 Delivery Ventilator Ventilator Ventilator 03/17/20 03/17/20 03/17/20 03/17/20 04:00 05:00 05:03 06:00 Pulse 74 75 Resp 16 16 B/P (MAP) 115/45 (68) 129/49 (75) Pulse Ox 100 100 100 O2 Delivery Mechanical Ventilator Ventilator Ventilator Ventilator 03/17/20 03/17/20 03/17/20 07:00 07:55 08:00 Temp 98.6 98.6 Pulse 76 77 Resp 16 16 B/P (MAP) 130/48 (75) 128/47 (74) Pulse Ox 100 100 99 O2 Delivery Ventilator Ventilator Ventilator Intake and Output 03/16/20 03/16/20 03/17/20 15:00 23:00 07:00 Intake Total 1178 ml 1277.5 ml Output Total 440 ml 625 ml 745 ml Balance -440 ml 553 ml 532.5 ml GRAY REECE MD March 17, 2020 09:39
[2020-03-17] MEDS ORDERED: POTASSIUM CL 20MEQ D5-0.45NACL 1,000 ML IV ONE (09:45)
--- NOTE | 2020-03-17 09:47 | PDOC ---
PULMONARY PROGRESS NOTES Subjective remains intubated/ sedated on ICP monitoring Vitals Vital Signs Date Time Temp Pulse Resp B/P (MAP) Pulse Ox O2 Delivery O2 Flow Rate FiO2 03/17/20 09:30 75 16 125/49 (74) 99 Ventilator 03/17/20 08:00 98.6 98.6 Lungs: Clear Cardiovascular: S1 Abdomen: Soft Extremities: No Edema Skin: Warm Labs Laboratory Tests Test 03/15/20 11:19 03/15/20 12:15 03/15/20 12:25 03/15/20 17:30 White Blood Count 11.7 x10^3/uL (4.0-11.0) Red Blood Count 4.01 x10^6/uL (3.50-5.40) Hemoglobin 12.3 g/dL (12.0-15.5) Hematocrit 35.8 % (36.0-47.0) Mean Corpuscular Volume 89 fL (79-100) Mean Corpuscular Hemoglobin 31 pg (25-35) Mean Corpuscular Hemoglobin Concent 34 g/dL (31-37) Red Cell Distribution Width 12.5 % (11.5-14.5) Platelet Count 308 x10^3/uL (140-400) Neutrophils (%) (Auto) 54 % (31-73) Lymphocytes (%) (Auto) 39 % (24-48) Monocytes (%) (Auto) 6 % (0-9) Eosinophils (%) (Auto) 1 % (0-3) Basophils (%) (Auto) 0 % (0-3) Neutrophils # (Auto) 6.3 x10^3/uL (1.8-7.7) Lymphocytes # (Auto) 4.6 x10^3/uL (1.0-4.8) Monocytes # (Auto) 0.7 x10^3/uL (0.0-1.1) Eosinophils # (Auto) 0.1 x10^3/uL (0.0-0.7) Basophils # (Auto) 0.0 x10^3/uL (0.0-0.2) Prothrombin Time 12.2 SEC (11.7-14.0) Prothromb Time International Ratio 0.9 (0.8-1.1) Activated Partial Thromboplast Time 32 SEC (24-38) Sodium Level 138 mmol/L (136-145) Potassium Level 3.3 mmol/L (3.5-5.1) Chloride Level 102 mmol/L (98-107) Carbon Dioxide Level 24 mmol/L (21-32) Anion Gap 12 (6-14) Blood Urea Nitrogen 12 mg/dL (7-20) Creatinine 0.8 mg/dL (0.6-1.0) Estimated GFR (Cockcroft-Gault) 72.7 BUN/Creatinine Ratio 15 (6-20) Glucose Level 115 mg/dL (70-99) Hemoglobin A1c 5.2 % (4.8-5.6) Calcium Level 9.1 mg/dL (8.5-10.1) Magnesium Level 1.7 mg/dL (1.8-2.4) Total Bilirubin 0.3 mg/dL (0.2-1.0) Aspartate Amino Transf (AST/SGOT) 28 U/L (15-37) Alanine Aminotransferase (ALT/SGPT) 22 U/L (14-59) Alkaline Phosphatase 83 U/L (46-116) Troponin I Quantitative < 0.017 ng/mL (0.000-0.055) HE-Npi-F-Type Natriuretic Peptide 100 pg/mL (0-124) Total Protein 7.6 g/dL (6.4-8.2) Albumin 4.0 g/dL (3.4-5.0) Albumin/Globulin Ratio 1.1 (1.0-1.7) Thyroid Stimulating Hormone (TSH) 5.725 uIU/mL (0.358-3.74) Ethyl Alcohol Level < 10 mg/dL (0-10) O2 Saturation 99 % (92-99) 99 % (92-99) Arterial Blood pH 7.45 (7.35-7.45) 7.38 (7.35-7.45) Arterial Blood pCO2 at Patient Temp 33 mmHg (35-46) 38 mmHg (35-46) Arterial Blood pO2 at Patient Temp 471 mmHg (65-108) 235 mmHg (65-108) Arterial Blood HCO3 22 mmol/L (21-28) 22 mmol/L (21-28) Arterial Blood Base Excess -1 mmol/L (-3-3) -3 mmol/L (-3-3) Oxyhemoglobin 96.6 % Methemoglobin 0.3 % (0.0-1.9) Carbon Monoxide, Quantitative 2.0 % (0.0-1.9) FiO2 100 60%+5 Urine Collection Type Unknown Urine Color Yellow Urine Clarity Clear Urine pH 7.5 (<5.0-8.0) Urine Specific [place] 1.010 (1.000-1.030) Urine Protein Negative mg/dL (NEG-TRACE) Urine Glucose (UA) Negative mg/dL (NEG) Urine Ketones (Stick) Negative mg/dL (NEG) Urine Blood Negative (NEG) Urine Nitrite Negative (NEG) Urine Bilirubin Negative (NEG) Urine Urobilinogen Dipstick 0.2 mg/dL (0.2 mg/dL) Urine Leukocyte Esterase Negative (NEG) Urine RBC 0 /HPF (0-2) Urine WBC 0 /HPF (0-4) Urine Squamous Epithelial Cells Few /LPF Urine Amorphous Sediment Present /HPF Urine Bacteria 0 /HPF (0-FEW) Urine Opiates Screen Neg (NEG) Urine Methadone Screen Neg (NEG) Urine Barbiturates Neg (NEG) Urine Phencyclidine Screen Neg (NEG) Urine Amphetamine/Methamphetamine Neg (NEG) Urine Benzodiazepines Screen Neg (NEG) Urine Cocaine Screen Neg (NEG) Urine Cannabinoids Screen Neg (NEG) Urine Ethyl Alcohol Neg (NEG) Test 03/16/20 05:35 03/16/20 08:10 03/17/20 05:30 03/17/20 08:30 White Blood Count 14.6 x10^3/uL (4.0-11.0) 10.9 x10^3/uL (4.0-11.0) Red Blood Count 3.39 x10^6/uL (3.50-5.40) 2.91 x10^6/uL (3.50-5.40) Hemoglobin 10.3 g/dL (12.0-15.5) 9.1 g/dL (12.0-15.5) Hematocrit 30.3 % (36.0-47.0) 26.5 % (36.0-47.0) Mean Corpuscular Volume 90 fL (79-100) 91 fL (79-100) Mean Corpuscular Hemoglobin 30 pg (25-35) 31 pg (25-35) Mean Corpuscular Hemoglobin Concent 34 g/dL (31-37) 34 g/dL (31-37) Red Cell Distribution Width 12.6 % (11.5-14.5) 12.7 % (11.5-14.5) Platelet Count 238 x10^3/uL (140-400) 196 x10^3/uL (140-400) Neutrophils (%) (Auto) 89 % (31-73) 83 % (31-73) Lymphocytes (%) (Auto) 6 % (24-48) 11 % (24-48) Monocytes (%) (Auto) 5 % (0-9) 7 % (0-9) Eosinophils (%) (Auto) 0 % (0-3) 0 % (0-3) Basophils (%) (Auto) 0 % (0-3) 0 % (0-3) Neutrophils # (Auto) 13.0 x10^3/uL (1.8-7.7) 9.0 x10^3/uL (1.8-7.7) Lymphocytes # (Auto) 0.9 x10^3/uL (1.0-4.8) 1.2 x10^3/uL (1.0-4.8) Monocytes # (Auto) 0.8 x10^3/uL (0.0-1.1) 0.7 x10^3/uL (0.0-1.1) Eosinophils # (Auto) 0.0 x10^3/uL (0.0-0.7) 0.0 x10^3/uL (0.0-0.7) Basophils # (Auto) 0.0 x10^3/uL (0.0-0.2) 0.0 x10^3/uL (0.0-0.2) Segmented Neutrophils % 84 % (35-66) Band Neutrophils % 4 % (0-9) Lymphocytes % 7 % (24-48) Monocytes % 5 % (0-10) Platelet Estimate Adequate (ADEQUATE) Sodium Level 131 mmol/L (136-145) 130 mmol/L (136-145) Potassium Level 4.1 mmol/L (3.5-5.1) 4.0 mmol/L (3.5-5.1) Chloride Level 98 mmol/L (98-107) 98 mmol/L (98-107) Carbon Dioxide Level 24 mmol/L (21-32) 24 mmol/L (21-32) Anion Gap 9 (6-14) 8 (6-14) Blood Urea Nitrogen 11 mg/dL (7-20) 7 mg/dL (7-20) Creatinine 0.7 mg/dL (0.6-1.0) 0.6 mg/dL (0.6-1.0) Estimated GFR (Cockcroft-Gault) 84.8 101.3 Glucose Level 145 mg/dL (70-99) 121 mg/dL (70-99) Calcium Level 7.7 mg/dL (8.5-10.1) 8.0 mg/dL (8.5-10.1) Magnesium Level 1.9 mg/dL (1.8-2.4) O2 Saturation 98 % (92-99) 97 % (92-99) Arterial Blood pH 7.43 (7.35-7.45) 7.46 (7.35-7.45) Arterial Blood pCO2 at Patient Temp 33 mmHg (35-46) 34 mmHg (35-46) Arterial Blood pO2 at Patient Temp 108 mmHg (65-108) 100 mmHg (65-108) Arterial Blood HCO3 22 mmol/L (21-28) 23 mmol/L (21-28) Arterial Blood Base Excess -2 mmol/L (-3-3) 0 mmol/L (-3-3) FiO2 30% vent 30 Laboratory Tests Test 03/17/20 05:30 03/17/20 08:30 White Blood Count 10.9 x10^3/uL (4.0-11.0) Red Blood Count 2.91 x10^6/uL (3.50-5.40) Hemoglobin 9.1 g/dL (12.0-15.5) Hematocrit 26.5 % (36.0-47.0) Mean Corpuscular Volume 91 fL (79-100) Mean Corpuscular Hemoglobin 31 pg (25-35) Mean Corpuscular Hemoglobin Concent 34 g/dL (31-37) Red Cell Distribution Width 12.7 % (11.5-14.5) Platelet Count 196 x10^3/uL (140-400) Neutrophils (%) (Auto) 83 % (31-73) Lymphocytes (%) (Auto) 11 % (24-48) Monocytes (%) (Auto) 7 % (0-9) Eosinophils (%) (Auto) 0 % (0-3) Basophils (%) (Auto) 0 % (0-3) Neutrophils # (Auto) 9.0 x10^3/uL (1.8-7.7) Lymphocytes # (Auto) 1.2 x10^3/uL (1.0-4.8) Monocytes # (Auto) 0.7 x10^3/uL (0.0-1.1) Eosinophils # (Auto) 0.0 x10^3/uL (0.0-0.7) Basophils # (Auto) 0.0 x10^3/uL (0.0-0.2) Sodium Level 130 mmol/L (136-145) Potassium Level 4.0 mmol/L (3.5-5.1) Chloride Level 98 mmol/L (98-107) Carbon Dioxide Level 24 mmol/L (21-32) Anion Gap 8 (6-14) Blood Urea Nitrogen 7 mg/dL (7-20) Creatinine 0.6 mg/dL (0.6-1.0) Estimated GFR (Cockcroft-Gault) 101.3 Glucose Level 121 mg/dL (70-99) Calcium Level 8.0 mg/dL (8.5-10.1) O2 Saturation 97 % (92-99) Arterial Blood pH 7.46 (7.35-7.45) Arterial Blood pCO2 at Patient Temp 34 mmHg (35-46) Arterial Blood pO2 at Patient Temp 100 mmHg (65-108) Arterial Blood HCO3 23 mmol/L (21-28) Arterial Blood Base Excess 0 mmol/L (-3-3) FiO2 30 Medications Active Scripts Medications Dose Route/Sig Max Daily Dose Days Date Category Oxybutynin Chloride Er (Oxybutynin Chloride) 10 Mg Tab.er.24 1 Tab PO DAILY 03/15/20 Reported Elmiron (Pentosan Polysulfate Sodium) 100 Mg Capsule 1 Cap PO TID 30 03/15/20 Reported Atorvastatin Calcium 40 Mg Tablet 1 Tab PO DAILY 03/15/20 Reported Fluoxetine Hcl 40 Mg Capsule 40 Mg PO DAILY 03/15/20 Reported Premarin (Estrogens, Conjugated) 0.625 Mg Tablet 1 Tab PO DAILY 03/15/20 Reported Impression . IMPRESSION: 1. Acute respiratory failure secondary to large cerebral hematoma requiring emergent evacuation. 2. Encephalopathy secondary to large left intraparenchymal hematoma. 3. Slightly mild cephalization of vessels on chest x-ray could be secondary to mild neurogenic edema. Plan . 1. Continue with present assist control mode. 2. Follow Neurosurgery recommendations. hold any weaning until awake 3. Optimization of blood pressure per Neurosurgery with Cardene drip. 4. SCDs for DVT prophylaxis. 5. Once mental status improves, then we will consider a weaning trial. 6. enteral nutrition. 7. Discussed with RN and RT. We will follow along with you. Critical care time 30 minutes including review of the labs, chest x-rays and decision making. ADRIANA ULLOA MD March 17, 2020 09:47
[2020-03-17] MEDS: PSYLLIUM HUSK (SUGAR FREE) 1 PKT PACKET PO SCH (10:15)
--- NOTE | 2020-03-17 10:49 | NUR ---
SS following up with discharge planning. SS reviewed pt chart and discussed with RN. Pt admitted for brain bleed and had craniotomy. Pt remains on the vent at this time. RN currently awaiting neurosurgery to see. Pt will need PT/OT once extubated to assess needs. SS will continue to follow for discharge planning.
--- NOTE | 2020-03-17 12:52 | PDOC ---
PROGRESS NOTES Subjective Subjective POD #2 S/P craniotomy and removal of hematoma sedated on vent at bedside Objective Objective Vital Signs Date Time Temp Pulse Resp B/P (MAP) Pulse Ox O2 Delivery O2 Flow Rate FiO2 03/17/20 12:04 98.6 76 16 128/49 (75) 100 Ventilator 98.6 Intake and Output 03/17/20 06:59 Intake Total 2455.5 ml Output Total 1840 ml Balance 615.5 ml Intake IV Total 2455.5 ml Output Urine Total 1610 ml Drainage Total 130 ml Other 100 ml Physical Exam General: Other (sedated on vent, no distress) Neuro: Other (pupils equal and reactive, dressing dry and intact, EVD in place) Assessment Assessment Problems Medical Problems: (1) Cerebral parenchymal hemorrhage Status: Acute (2) HTN (hypertension) Status: Acute Plan Plan of Care Large left intraparenchymal hemorrhage status-post evacuation CTA negative for aneurysm or AVM Still needs EVD, continue to drain for > 15 cm H2O will follow D/W and RN Comment Review of Relevant I have reviewed the following items wang (where applicable) has been applied. Labs Laboratory Tests Test 03/15/20 17:30 03/16/20 05:35 03/16/20 08:10 03/17/20 05:30 O2 Saturation 99 % (92-99) 98 % (92-99) Arterial Blood pH 7.38 (7.35-7.45) 7.43 (7.35-7.45) Arterial Blood pCO2 at Patient Temp 38 mmHg (35-46) 33 mmHg (35-46) Arterial Blood pO2 at Patient Temp 235 mmHg (65-108) 108 mmHg (65-108) Arterial Blood HCO3 22 mmol/L (21-28) 22 mmol/L (21-28) Arterial Blood Base Excess -3 mmol/L (-3-3) -2 mmol/L (-3-3) FiO2 60%+5 30% vent White Blood Count 14.6 x10^3/uL (4.0-11.0) 10.9 x10^3/uL (4.0-11.0) Red Blood Count 3.39 x10^6/uL (3.50-5.40) 2.91 x10^6/uL (3.50-5.40) Hemoglobin 10.3 g/dL (12.0-15.5) 9.1 g/dL (12.0-15.5) Hematocrit 30.3 % (36.0-47.0) 26.5 % (36.0-47.0) Mean Corpuscular Volume 90 fL (79-100) 91 fL (79-100) Mean Corpuscular Hemoglobin 30 pg (25-35) 31 pg (25-35) Mean Corpuscular Hemoglobin Concent 34 g/dL (31-37) 34 g/dL (31-37) Red Cell Distribution Width 12.6 % (11.5-14.5) 12.7 % (11.5-14.5) Platelet Count 238 x10^3/uL (140-400) 196 x10^3/uL (140-400) Neutrophils (%) (Auto) 89 % (31-73) 83 % (31-73) Lymphocytes (%) (Auto) 6 % (24-48) 11 % (24-48) Monocytes (%) (Auto) 5 % (0-9) 7 % (0-9) Eosinophils (%) (Auto) 0 % (0-3) 0 % (0-3) Basophils (%) (Auto) 0 % (0-3) 0 % (0-3) Neutrophils # (Auto) 13.0 x10^3/uL (1.8-7.7) 9.0 x10^3/uL (1.8-7.7) Lymphocytes # (Auto) 0.9 x10^3/uL (1.0-4.8) 1.2 x10^3/uL (1.0-4.8) Monocytes # (Auto) 0.8 x10^3/uL (0.0-1.1) 0.7 x10^3/uL (0.0-1.1) Eosinophils # (Auto) 0.0 x10^3/uL (0.0-0.7) 0.0 x10^3/uL (0.0-0.7) Basophils # (Auto) 0.0 x10^3/uL (0.0-0.2) 0.0 x10^3/uL (0.0-0.2) Segmented Neutrophils % 84 % (35-66) Band Neutrophils % 4 % (0-9) Lymphocytes % 7 % (24-48) Monocytes % 5 % (0-10) Platelet Estimate Adequate (ADEQUATE) Sodium Level 131 mmol/L (136-145) 130 mmol/L (136-145) Potassium Level 4.1 mmol/L (3.5-5.1) 4.0 mmol/L (3.5-5.1) Chloride Level 98 mmol/L (98-107) 98 mmol/L (98-107) Carbon Dioxide Level 24 mmol/L (21-32) 24 mmol/L (21-32) Anion Gap 9 (6-14) 8 (6-14) Blood Urea Nitrogen 11 mg/dL (7-20) 7 mg/dL (7-20) Creatinine 0.7 mg/dL (0.6-1.0) 0.6 mg/dL (0.6-1.0) Estimated GFR (Cockcroft-Gault) 84.8 101.3 Glucose Level 145 mg/dL (70-99) 121 mg/dL (70-99) Calcium Level 7.7 mg/dL (8.5-10.1) 8.0 mg/dL (8.5-10.1) Magnesium Level 1.9 mg/dL (1.8-2.4) Test 03/17/20 08:30 03/17/20 12:20 O2 Saturation 97 % (92-99) Arterial Blood pH 7.46 (7.35-7.45) Arterial Blood pCO2 at Patient Temp 34 mmHg (35-46) Arterial Blood pO2 at Patient Temp 100 mmHg (65-108) Arterial Blood HCO3 23 mmol/L (21-28) Arterial Blood Base Excess 0 mmol/L (-3-3) FiO2 30 Glucose (Fingerstick) 115 mg/dL (70-99) Laboratory Tests Test 03/17/20 05:30 03/17/20 08:30 03/17/20 12:20 White Blood Count 10.9 x10^3/uL (4.0-11.0) Red Blood Count 2.91 x10^6/uL (3.50-5.40) Hemoglobin 9.1 g/dL (12.0-15.5) Hematocrit 26.5 % (36.0-47.0) Mean Corpuscular Volume 91 fL (79-100) Mean Corpuscular Hemoglobin 31 pg (25-35) Mean Corpuscular Hemoglobin Concent 34 g/dL (31-37) Red Cell Distribution Width 12.7 % (11.5-14.5) Platelet Count 196 x10^3/uL (140-400) Neutrophils (%) (Auto) 83 % (31-73) Lymphocytes (%) (Auto) 11 % (24-48) Monocytes (%) (Auto) 7 % (0-9) Eosinophils (%) (Auto) 0 % (0-3) Basophils (%) (Auto) 0 % (0-3) Neutrophils # (Auto) 9.0 x10^3/uL (1.8-7.7) Lymphocytes # (Auto) 1.2 x10^3/uL (1.0-4.8) Monocytes # (Auto) 0.7 x10^3/uL (0.0-1.1) Eosinophils # (Auto) 0.0 x10^3/uL (0.0-0.7) Basophils # (Auto) 0.0 x10^3/uL (0.0-0.2) Sodium Level 130 mmol/L (136-145) Potassium Level 4.0 mmol/L (3.5-5.1) Chloride Level 98 mmol/L (98-107) Carbon Dioxide Level 24 mmol/L (21-32) Anion Gap 8 (6-14) Blood Urea Nitrogen 7 mg/dL (7-20) Creatinine 0.6 mg/dL (0.6-1.0) Estimated GFR (Cockcroft-Gault) 101.3 Glucose Level 121 mg/dL (70-99) Calcium Level 8.0 mg/dL (8.5-10.1) O2 Saturation 97 % (92-99) Arterial Blood pH 7.46 (7.35-7.45) Arterial Blood pCO2 at Patient Temp 34 mmHg (35-46) Arterial Blood pO2 at Patient Temp 100 mmHg (65-108) Arterial Blood HCO3 23 mmol/L (21-28) Arterial Blood Base Excess 0 mmol/L (-3-3) FiO2 30 Glucose (Fingerstick) 115 mg/dL (70-99) Medications Current Medications Propofol (Diprivan) 200 mg 1X ONCE IV Last administered on 03/15/20at 11:47; Start 03/15/20 at 11:30; Stop 03/15/20 at 11:31; Status DC Propofol 50 ml @ As Directed STK-MED ONCE IV ; Start 03/15/20 at 11:45; Stop 03/15/20 at 11:45; Status DC Propofol 20 ml @ 0 mls/hr 1X ONCE IV Last administered on 03/15/20at 11:52; Start 03/15/20 at 11:45; Stop 03/15/20 at 11:50; Status DC Potassium Chloride 40 meq/ Dextrose 1,020 ml @ 75 mls/hr [id number] PRN IV 0 Last administered on 03/17/20at 03:08; Start 03/15/20 at 12:00; Stop 03/17/20 at 09:39; Status DC Etomidate (Amidate) 20 mg 1X ONCE IV Last administered on 03/15/20at 12:12; Start 03/15/20 at 11:40; Stop 03/15/20 at 12:00; Status DC Succinylcholine Chloride (Anectine) 100 mg 1X ONCE IV Last administered on 03/15/20at 12:12; Start 03/15/20 at 11:40; Stop 03/15/20 at 12:00; Status DC Bacitracin 43144 unit/Sodium Chloride 1,000 ml @ 1,000 mls/hr 1X ONCE IRR Last administered on 03/15/20at 14:50; Start 03/15/20 at 13:00; Stop 03/15/20 at 14:07; Status DC Cefazolin Sodium/ Dextrose 50 ml @ 100 mls/hr 1X PREOP PRN IV PRIOR TO PROCEDURE Last administered on 03/15/20at 13:25; Start 03/15/20 at 13:00; Stop 03/16/20 at 12:59; Status DC Propofol (Diprivan) 200 mg STK-MED ONCE IV ; Start 03/15/20 at 12:33; Stop 03/15/20 at 12:33; Status DC Phenylephrine HCl (PHENYLEPHRINE in 0.9% NACL PF) 1 mg STK-MED ONCE IV ; Start 03/15/20 at 12:33; Stop 03/15/20 at 12:33; Status DC Rocuronium Fordyce (Zemuron) 50 mg STK-MED ONCE .ROUTE ; Start 03/15/20 at 12:33; Stop 03/15/20 at 12:33; Status DC Dexamethasone Sodium Phosphate (Decadron) 20 mg STK-MED ONCE .ROUTE ; Start 03/15/20 at 12:36; Stop 03/15/20 at 12:36; Status DC Gelatin (Gelfoam Size 100) 1 each STK-MED ONCE .ROUTE Last administered on 03/15/20at 13:49; Start 03/15/20 at 12:42; Stop 03/15/20 at 12:42; Status DC Bupivacaine HCl/ Epinephrine Bitart (Sensorcain-Epi 0.5%-1:770036 Mpf) 30 ml STK-MED ONCE .ROUTE ; Start 03/15/20 at 12:42; Stop 03/15/20 at 12:42; Status DC Mannitol (Mannitol) 12.5 g STK-MED ONCE .ROUTE Last administered on 03/15/20at 14:41; Start 03/15/20 at 12:42; Stop 03/15/20 at 12:42; Status DC Cellulose (Surgicel Hemostat 4x8) 1 each STK-MED ONCE .ROUTE Last administered on 03/15/20at 15:08; Start 03/15/20 at 12:42; Stop 03/15/20 at 12:43; Status DC Thrombin 20,000 unit STK-MED ONCE TP Last administered on 03/15/20at 13:49; Sta rt 03/15/20 at 12:42; Stop 03/15/20 at 12:43; Status DC Bupivacaine HCl/ Epinephrine Bitart (Sensorcain-Epi 0.5%-1:603903 Mpf) 30 ml STK-MED ONCE .ROUTE Last administered on 03/15/20at 13:48; Start 03/15/20 at 12:44; Stop 03/15/20 at 12:45; Status DC Bupivacaine HCl/ Epinephrine Bitart (Sensorcain-Epi 0.5%-1:212493 Mpf) 30 ml 1X ONCE INJ ; Start 03/15/20 at 13:00; Stop 03/15/20 at 13:01; Status DC Ondansetron HCl (Zofran) 4 mg PRN Q6HRS PRN IV NAUSEA/VOMITING; Start 03/15/20 at 13:45; Stop 03/15/20 at 16:35; Status DC Fentanyl Citrate (Fentanyl 2ml Vial) 25 mcg PRN Q5MIN PRN IV MILD PAIN 1-3; Start 03/15/20 at 13:45; Stop 03/16/20 at 13:44; Status DC Fentanyl Citrate (Fentanyl 2ml Vial) 50 mcg PRN Q5MIN PRN IV MODERATE TO SEVERE PAIN; Start 03/15/20 at 13:45; Stop 03/16/20 at 13:44; Status DC Morphine Sulfate (Morphine Sulfate) 1 mg PRN Q10MIN PRN IV SEVERE PAIN 7-10; Start 03/15/20 at 13:45; Stop 03/16/20 at 13:44; Status DC Ringer's Solution 1,000 ml @ 30 mls/hr Q24H IV ; Start 03/15/20 at 13:31; Stop 03/16/20 at 01:30; Status DC Hydromorphone HCl (Dilaudid) 0.5 mg PRN Q10MIN PRN IV SEV PAIN, Second choice; Start 03/15/20 at 13:45; Stop 03/16/20 at 13:44; Status DC Prochlorperazine Edisylate (Compazine) 5 mg PACU PRN PRN IV NAUSEA, MRX1; Sta rt 03/15/20 at 13:45; Stop 03/16/20 at 13:44; Status DC Mannitol (Mannitol) 12.5 g STK-MED ONCE .ROUTE Last administered on 03/15/20at 14:41; Start 03/15/20 at 14:28; Stop 03/15/20 at 14:28; Status DC Phenylephrine HCl (Diego-Synephrine Inj) 10 mg STK-MED ONCE .ROUTE ; Start 03/15/20 at 14:43; Stop 03/15/20 at 14:43; Status DC Fentanyl Citrate (Fentanyl 2ml Vial) 100 mcg STK-MED ONCE .ROUTE ; Start 03/15/20 at 15:08; Stop 03/15/20 at 15:09; Status DC Rocuronium Fordyce (Zemuron) 50 mg STK-MED ONCE .ROUTE ; Start 03/15/20 at 15:34; Stop 03/15/20 at 15:34; Status DC Sevoflurane (Ultane) 90 ml STK-MED ONCE IH ; Start 03/15/20 at 15:44; Stop 03/15/20 at 15:44; Status DC Propofol 50 ml @ As Directed STK-MED ONCE IV ; Start 03/15/20 at 16:02; Stop 03/15/20 at 16:02; Status DC Nicardipine HCl 50 mg/Sodium Chloride 250 ml @ 25 mls/hr TITRATE PRN IV HYPERTENSION Last administered on 03/17/20at 07:15; Start 03/15/20 at 16:30 Levetiracetam 500 mg/Sodium Chloride 105 ml @ 400 mls/hr Q12HR IV Last administered on 03/17/20at 08:28; Start 03/15/20 at 21:00 Sodium Chloride (Normal Saline Flush) 3 ml QSHIFT PRN IV AFTER MEDS AND BLOOD DRAWS; Start 03/15/20 at 16:30 Potassium Chloride/Dextrose/ Sod Cl 1,000 ml @ 80 mls/hr [id number] IV ; Start 03/15/20 at 16:19; Stop 03/15/20 at 18:36; Status DC Dextrose (Dextrose 50%-Water Syringe) 12.5 gm PRN Q15MIN PRN IV SEE COMMENTS; Start 03/15/20 at 16:30 Cefazolin Sodium (Ancef) 1 gm Q8HRS IVP Last administered on 03/16/20at 14:52; Start 03/15/20 at 22:00; Stop 03/16/20 at 14:01; Status DC Ondansetron HCl (Zofran) 4 mg PRN Q4HRS PRN IV NAUSEA/VOMITING; Start 03/15/20 at 16:45 Atorvastatin Calcium (Lipitor) 40 mg DAILY PO Last administered on 03/17/20at 08:28; Start 03/16/20 at 09:00 Acetaminophen (Tylenol Supp) 650 mg PRN Q6HRS PRN MD MILD PAIN / TEMP > 100.3'F; Start 03/15/20 at 16:45 Docusate Sodium (Enemeez) 283 mg PRN DAILY PRN MD CONSTIPATION; Start 03/15/20 at 16:45 Magnesium Sulfate 50 ml @ 25 mls/hr 1X ONCE IV Last administered on 03/15/20at 17:23; Start 03/15/20 at 17:00; Stop 03/15/20 at 18:59; Status DC Propofol 100 ml @ As Directed STK-MED ONCE IV ; Start 03/15/20 at 19:37; Stop 03/15/20 at 19:38; Status DC Propofol 100 ml @ 0.837 mls/ hr CONT PRN IV SEE I/O RECORD Last administered on 03/17/20at 05:57; Start 03/15/20 at 19:45 Iohexol (Omnipaque 300 Mg/ml) 75 ml 1X ONCE IV Last administered on 03/16/20at 07:45; Start 03/16/20 at 07:45; Stop 03/16/20 at 07:50; Status DC Info (CONTRAST GIVEN -- Rx MONITORING) 1 each PRN DAILY PRN MC SEE COMMENTS; Start 03/16/20 at 08:00; Stop 03/18/20 at 07:59 Potassium Chloride/Dextrose/ Sod Cl 1,000 ml @ 75 mls/hr 1X ONCE IV Last administered on 03/17/20at 10:15; Start 03/17/20 at 09:45; Stop 03/17/20 at 23:04 Psyllium Hydrophilic Mucilloid (Metamucil Fiber Packet) 1 pkt DAILY PO Last administered on 03/17/20at 10:15; Start 03/17/20 at 11:00 Active Scripts Active Reported Oxybutynin Chloride Er (Oxybutynin Chloride) 10 Mg Tab.er.24 1 Tab PO DAILY Elmiron (Pentosan Polysulfate Sodium) 100 Mg Capsule 1 Cap PO TID 30 Days Atorvastatin Calcium 40 Mg Tablet 1 Tab PO DAILY Fluoxetine Hcl 40 Mg Capsule 40 Mg PO DAILY Premarin (Estrogens, Conjugated) 0.625 Mg Tablet 1 Tab PO DAILY Vitals/I & O Vital Sign - Last 24 Hours 03/16/20 03/16/20 03/16/20 03/16/20 13:00 13:46 14:00 15:00 Pulse 69 75 71 Resp 16 16 16 B/P (MAP) 135/54 (81) 136/51 (79) 136/52 (80) Pulse Ox 99 100 99 99 O2 Delivery Ventilator Ventilator Ventilator Ventilator 03/16/20 03/16/20 03/16/20 03/16/20 15:40 16:00 16:00 16:00 Temp 98.5 98.5 Pulse 79 78 Resp 16 B/P (MAP) 140/53 (82) 142/54 (83) Pulse Ox 100 100 O2 Delivery Ventilator Ventilator Mechanical Ventilator 03/16/20 03/16/20 03/16/20 03/16/20 17:00 17:31 18:00 19:00 Pulse 76 72 82 Resp 16 16 20 B/P (MAP) 145/56 (85) 131/51 (77) 146/58 (87) Pulse Ox 100 100 100 100 O2 Delivery Ventilator Ventilator Ventilator Ventilator 03/16/20 03/16/20 03/16/20 03/16/20 19:45 20:00 20:00 20:00 Temp 98.4 98.4 Pulse 93 93 Resp 16 B/P (MAP) 55/ (18) 136/55 (82) Pulse Ox 100 100 O2 Delivery Ventilator Mechanical Ventilator Ventilator 03/16/20 03/16/20 03/16/20 03/16/20 21:00 21:38 22:00 23:00 Pulse 73 74 75 Resp 16 16 16 B/P (MAP) 134/53 (80) 133/53 (79) 139/54 (82) Pulse Ox 100 100 97 100 O2 Delivery Ventilator Ventilator Ventilator Ventilator 03/17/20 03/17/20 03/17/20 03/17/20 00:00 00:00 00:00 01:00 Temp 98.5 98.5 Pulse 75 74 87 Resp 16 16 B/P (MAP) 129/50 (76) 129/50 (76) 138/53 (81) Pulse Ox 100 99 O2 Delivery Ventilator Mechanical Ventilator Ventilator 03/17/20 03/17/20 03/17/20 03/17/20 01:04 02:00 03:00 04:00 Temp 98.2 98.2 Pulse 77 75 77 Resp 16 16 16 B/P (MAP) 135/54 (81) 127/49 (75) 132/50 (77) Pulse Ox 100 100 100 100 O2 Delivery Ventilator Ventilator Ventilator Ventilator 03/17/20 03/17/20 03/17/20 03/17/20 04:00 04:00 05:00 05:03 Pulse 77 74 Resp 16 B/P (MAP) 132/50 (77) 115/45 (68) Pulse Ox 100 100 O2 Delivery Mechanical Ventilator Ventilator Ventilator 03/17/20 03/17/20 03/17/20 03/17/20 06:00 07:00 07:55 08:00 Temp 98.6 98.6 Pulse 75 76 77 Resp 16 16 16 B/P (MAP) 129/49 (75) 130/48 (75) 128/47 (74) Pulse Ox 100 100 100 99 O2 Delivery Ventilator Ventilator Ventilator Ventilator 03/17/20 03/17/20 03/17/20 03/17/20 08:00 08:00 09:30 10:16 Pulse 84 75 77 Resp 16 16 B/P (MAP) 128/50 (76) 125/49 (74) 128/49 (75) Pulse Ox 99 100 O2 Delivery Mechanical Ventilator Ventilator Ventilator 03/17/20 03/17/20 03/17/20 03/17/20 11:03 11:18 11:49 11:49 Pulse 79 Resp 16 B/P (MAP) 131/49 (76) Pulse Ox 100 100 O2 Delivery Ventilator Ventilator Mechanical Ventilator 03/17/20 12:04 Temp 98.6 98.6 Pulse 76 Resp 16 B/P (MAP) 128/49 (75) Pulse Ox 100 O2 Delivery Ventilator Intake and Output 03/16/20 03/16/20 03/17/20 14:59 22:59 06:59 Intake Total 1178 ml 1277.5 ml Output Total 400 ml 600 ml 840 ml Balance -400 ml 578 ml 437.5 ml [facility] March 17, 2020 12:52
[2020-03-17] MEDS: POTASSIUM CL 20MEQ D5-0.45NACL 1,000 ML IV SCH (23:07)
[2020-03-18] VITALS (25 sets, daily range): BP systolic 121–147; BP diastolic 46–57
[2020-03-18] MEDS: PROPOFOL 100 ML IV PRN ×3 (05:17→21:03)
[2020-03-18 07:51] LABS: BASE EXCESS ABG -2 mmol/L (-3-3); HCO3 ABG 22 mmol/L (21-28); PCO2 ABG 32 mmHg (35-46); PO2 ABG 109 mmHg (65-108); SAT O2 ABG 97 % (92-99)
[2020-03-18 07:53] LABS: FIO2 ABG 30
[2020-03-18] MEDS: ATORVASTATIN CALCIUM 40 MG TABLET. PO SCH (09:04)
[2020-03-18] MEDS: PSYLLIUM HUSK (SUGAR FREE) 1 PKT PACKET PO SCH (09:04)
[2020-03-18 10:16] LABS: HEMATOCRIT 26.2 % (36.0-47.0); HEMOGLOBIN 9.2 g/dL (12.0-15.5); RED BLOOD COUNT 2.92 x10^6/uL (3.50-5.40); WHITE BLOOD COUNT 10.7 x10^3/uL (4.0-11.0)
--- NOTE | 2020-03-18 10:16 | PDOC ---
PULMONARY PROGRESS NOTES Subjective remains intubated/ sedated on ICP monitoring Vitals Vital Signs Date Time Temp Pulse Resp B/P (MAP) Pulse Ox O2 Delivery O2 Flow Rate FiO2 03/18/20 10:09 87 16 131/57 (81) 99 Ventilator 03/18/20 07:54 99.5 99.5 Lungs: Clear Cardiovascular: S1 Abdomen: Soft Extremities: No Edema Skin: Warm Labs Laboratory Tests Test 03/17/20 05:30 03/17/20 08:30 03/17/20 12:20 03/17/20 18:32 White Blood Count 10.9 x10^3/uL (4.0-11.0) Red Blood Count 2.91 x10^6/uL (3.50-5.40) Hemoglobin 9.1 g/dL (12.0-15.5) Hematocrit 26.5 % (36.0-47.0) Mean Corpuscular Volume 91 fL (79-100) Mean Corpuscular Hemoglobin 31 pg (25-35) Mean Corpuscular Hemoglobin Concent 34 g/dL (31-37) Red Cell Distribution Width 12.7 % (11.5-14.5) Platelet Count 196 x10^3/uL (140-400) Neutrophils (%) (Auto) 83 % (31-73) Lymphocytes (%) (Auto) 11 % (24-48) Monocytes (%) (Auto) 7 % (0-9) Eosinophils (%) (Auto) 0 % (0-3) Basophils (%) (Auto) 0 % (0-3) Neutrophils # (Auto) 9.0 x10^3/uL (1.8-7.7) Lymphocytes # (Auto) 1.2 x10^3/uL (1.0-4.8) Monocytes # (Auto) 0.7 x10^3/uL (0.0-1.1) Eosinophils # (Auto) 0.0 x10^3/uL (0.0-0.7) Basophils # (Auto) 0.0 x10^3/uL (0.0-0.2) Sodium Level 130 mmol/L (136-145) Potassium Level 4.0 mmol/L (3.5-5.1) Chloride Level 98 mmol/L (98-107) Carbon Dioxide Level 24 mmol/L (21-32) Anion Gap 8 (6-14) Blood Urea Nitrogen 7 mg/dL (7-20) Creatinine 0.6 mg/dL (0.6-1.0) Estimated GFR (Cockcroft-Gault) 101.3 Glucose Level 121 mg/dL (70-99) Calcium Level 8.0 mg/dL (8.5-10.1) O2 Saturation 97 % (92-99) Arterial Blood pH 7.46 (7.35-7.45) Arterial Blood pCO2 at Patient Temp 34 mmHg (35-46) Arterial Blood pO2 at Patient Temp 100 mmHg (65-108) Arterial Blood HCO3 23 mmol/L (21-28) Arterial Blood Base Excess 0 mmol/L (-3-3) FiO2 30 Glucose (Fingerstick) 115 mg/dL (70-99) 111 mg/dL (70-99) Test 03/18/20 07:30 O2 Saturation 97 % (92-99) Arterial Blood pH 7.45 (7.35-7.45) Arterial Blood pCO2 at Patient Temp 32 mmHg (35-46) Arterial Blood pO2 at Patient Temp 109 mmHg (65-108) Arterial Blood HCO3 22 mmol/L (21-28) Arterial Blood Base Excess -2 mmol/L (-3-3) FiO2 30 Laboratory Tests Test 03/17/20 12:20 03/17/20 18:32 03/18/20 07:30 Glucose (Fingerstick) 115 mg/dL (70-99) 111 mg/dL (70-99) O2 Saturation 97 % (92-99) Arterial Blood pH 7.45 (7.35-7.45) Arterial Blood pCO2 at Patient Temp 32 mmHg (35-46) Arterial Blood pO2 at Patient Temp 109 mmHg (65-108) Arterial Blood HCO3 22 mmol/L (21-28) Arterial Blood Base Excess -2 mmol/L (-3-3) FiO2 30 Medications Active Scripts Medications Dose Route/Sig Max Daily Dose Days Date Category Oxybutynin Chloride Er (Oxybutynin Chloride) 10 Mg Tab.er.24 1 Tab PO DAILY 03/15/20 Reported Elmiron (Pentosan Polysulfate Sodium) 100 Mg Capsule 1 Cap PO TID 30 03/15/20 Reported Atorvastatin Calcium 40 Mg Tablet 1 Tab PO DAILY 03/15/20 Reported Fluoxetine Hcl 40 Mg Capsule 40 Mg PO DAILY 03/15/20 Reported Premarin (Estrogens, Conjugated) 0.625 Mg Tablet 1 Tab PO DAILY 03/15/20 Reported Impression . IMPRESSION: 1. Acute respiratory failure secondary to large cerebral hematoma requiring emergent evacuation.ct with Large left intraparenchymal hemorrhage status-post evacuation CTA negative for aneurysm or AVM 2. Encephalopathy secondary to large left intraparenchymal hematoma. 3. Slightly mild cephalization of vessels on chest x-ray could be secondary to mild neurogenic edema. Plan . 1. Continue with present assist control mode. 2. Follow Neurosurgery recommendations. hold any weaning until awake and off Ventriculostomy. Still needs EVD, continue to drain for > 15 cm H2O 3. Optimization of blood pressure per Neurosurgery with Cardene drip. 4. SCDs for DVT prophylaxis. 5. Once mental status improves, then we will consider a weaning trial. 6. enteral nutrition. 7. Discussed with RN and RT. We will follow along with you. 8. repeat cxr today ADRIANA ULLOA MD March 18, 2020 10:16
[2020-03-18 10:38] LABS: ALBUMIN 2.5 g/dL (3.4-5.0); ALBUMIN/GLOBULIN RATIO 0.6 (1.0-1.7); CALCIUM 8.1 mg/dL (8.5-10.1); CREATININE 0.6 mg/dL (0.6-1.0); GFR 101.3; POTASSIUM 3.8 mmol/L (3.5-5.1); TOTAL BILIRUBIN 0.1 mg/dL (0.2-1.0); TOTAL PROTEIN 6.4 g/dL (6.4-8.2)
--- NOTE | 2020-03-18 11:07 | NUR ---
SS following up with discharge planning. SS reviewed pt chart and discussed with pt RN. Pt remains on the vent at this time. Per RN, there have been no changes from yesterday. SS will continue to follow for discharge planning.
--- NOTE | 2020-03-18 12:17 | PDOC ---
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 Marissa Acute encephalopathy - due to intracranial hemorrhage Syncope and collapse - 2/2 intraparenchymal bleed Left front intracranial hemorrhage Hyperlipidemia Respiratory failure - likely 2/2 intracranial bleed Leukocytosis - likely 2/2 bleed. Hypokalemia and hypomagnesemia Hyponatremia 37 minutes CC time on labs, orders, images History of Present Illness History of Present Illness 03/18/2020 Patient seen and examined in the ICU She is on the vent Assist-control// 100/30% Sedated with propofol Intracranial pressure monitor still in with an ICP of 13 Discussed with RN Chart reviewed Ms Mathew is a 64 yo F w/ PMHx HLD who was brought here by EMS from local [facility] due to altered mental status around 1030 on 03/15/2020. noted that they were out shopping when she became unresponsive and fell to the ground, though he was able to catch her and guide her down on the floor. Patient did not hit her head. stated that patient has been having a headache for th e last 2-3 days. He is sure that she is not on any blood thinner. Patient's stated that she is on multiple medications but he is not sure what they are.. EMS stated that she was able to protect her airway but her GCS was about [address] head revealed a left frontal lobe 5.5 x 6.0 x 3.0 cm large parenchymal hematoma and surrounding edema involving both the superior and middle frontal cortical gyri as well as extensive involvement of the white matter, with mass effect and 10 mm midline shift. Neurosurgery was urgently contacted. She underwent RSI with ED with etomidate and succinylcholine with 7.5 ET tube and went urgently to OR for craniotomy and hematoma evacuation which was large and invaded the ventricular and she is transferred to ICU for closer monitoring. I was able to evaluated patient prior to intubation and after surgery. 03/16: Patient seen and examined in the ICU, She is mechanically ventilated, Assist-control/450/16/30 percent, Has an OG to suction, Her pupils are reactive 03/17: Seen in ICU, sedated, intubated, on ICP monitoring and cardene GTT. Na 130. Hb 9.1. Moving left arm, posturing on pain response on right. Vitals/I&O Vitals/I&O: Vital Signs Date Time Temp Pulse Resp B/P (MAP) Pulse Ox O2 Delivery O2 Flow Rate FiO2 03/18/20 12:05 100 Ventilator 03/18/20 11:04 87 16 135/49 (77) 03/18/20 07:54 99.5 99.5 I & O 03/17/20 03/17/20 03/18/20 15:00 23:00 07:00 Intake Total 633 ml 917 ml 2279 ml Output Total 1738 ml 1209 ml 1130 ml Balance -1105 ml -292 ml 1149 ml Physical Exam General: Other (sedated on vent, no distress) Heart: Regular rate, Normal S1 Lungs: Clear Abdomen: Normal bowel sounds, Soft, No tenderness, No hepatosplenomegaly, No masses Extremities: No clubbing, No cyanosis, No edema, Normal pulses, No tenderness/swelling Skin: Other (dressing dry and intact, ventricular catheter in place, blood tingled fluid) Labs Labs: Laboratory Tests Test 03/17/20 12:20 03/17/20 18:32 03/18/20 07:30 03/18/20 10:00 Glucose (Fingerstick) 115 mg/dL (70-99) 111 mg/dL (70-99) O2 Saturation 97 % (92-99) Arterial Blood pH 7.45 (7.35-7.45) Arterial Blood pCO2 at Patient Temp 32 mmHg (35-46) Arterial Blood pO2 at Patient Temp 109 mmHg (65-108) Arterial Blood HCO3 22 mmol/L (21-28) Arterial Blood Base Excess -2 mmol/L (-3-3) FiO2 30 White Blood Count 10.7 x10^3/uL (4.0-11.0) Red Blood Count 2.92 x10^6/uL (3.50-5.40) Hemoglobin 9.2 g/dL (12.0-15.5) Hematocrit 26.2 % (36.0-47.0) Mean Corpuscular Volume 90 fL (79-100) Mean Corpuscular Hemoglobin 32 pg (25-35) Mean Corpuscular Hemoglobin Concent 35 g/dL (31-37) Red Cell Distribution Width 13.0 % (11.5-14.5) Platelet Count 224 x10^3/uL (140-400) Sodium Level 138 mmol/L (136-145) Potassium Level 3.8 mmol/L (3.5-5.1) Chloride Level 105 mmol/L (98-107) Carbon Dioxide Level 26 mmol/L (21-32) Anion Gap 7 (6-14) Blood Urea Nitrogen 9 mg/dL (7-20) Creatinine 0.6 mg/dL (0.6-1.0) Estimated GFR (Cockcroft-Gault) 101.3 BUN/Creatinine Ratio 15 (6-20) Glucose Level 114 mg/dL (70-99) Calcium Level 8.1 mg/dL (8.5-10.1) Total Bilirubin 0.1 mg/dL (0.2-1.0) Aspartate Amino Transf (AST/SGOT) 35 U/L (15-37) Alanine Aminotransferase (ALT/SGPT) 27 U/L (14-59) Alkaline Phosphatase 75 U/L (46-116) Total Protein 6.4 g/dL (6.4-8.2) Albumin 2.5 g/dL (3.4-5.0) Albumin/Globulin Ratio 0.6 (1.0-1.7) Assessment and Plan Assessmemt and Plan Problems Medical Problems: (1) Cerebral parenchymal hemorrhage Status: Acute (2) HTN (hypertension) Status: Acute 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 per d/w neurosurgery likely aneursymal, possibly bleeding prior to presentation. left frontal lobe 5.5 x 6.0 x 3.0 cm large parenchymal hematoma and surrounding edema. S/p craniotomy. BP monitoring with a-line, cardene gtt. King[place] HLD - on statin Respiratory failure - likely 2/2 intracranial bleed. Pulm to see in AM for vent management Leukocytosis - likely 2/2 bleed. will monitor Hypokalemia and hypomagnesemia - will replace IV. monitor OG to suction DVT prophylaxis Trend labs Hope to remove the intracranial monitor soon Appreciate subspecialist input She is critically ill Prognosis guarded Total time 33-minute Comment Review of Relevant I have reviewed the following items wang (where applicable) has been applied. Medications: Current Medications Medications (Trade) Dose Ordered Sig/Arnel Route PRN Reason Start Time Stop Time Status Last Admin Dose Admin Potassium Chloride/Dextrose/ Sod Cl 1,000 ml @ 75 mls/hr [id number] IV 03/17/20 23:00 03/17/20 23:07 QASIM BAILEY III DO March 18, 2020 12:17
--- NOTE | 2020-03-18 12:29 | RAD ---
Single AP view of the chest. Comparison: 03/15/2020. Indication: Patient on ventilator Findings: Endotracheal tube is in good position 3.4 cm above the karthik. Nasogastric tube is not identified. The tip is not well seen off the end of the film. The heart is not enlarged. There is no pneumothorax or effusion. No air space or interstitial disease. Impression: 1. No acute cardiopulmonary process. Electronically signed by: Vijay Son MD (03/18/2020 12:26 PM) [id number]
--- NOTE | 2020-03-18 12:36 | PDOC ---
PROGRESS NOTES Subjective Subjective POD #3 S/P craniotomy and removal of hematoma remains sedated on vent Objective Objective Vital Signs Date Time Temp Pulse Resp B/P (MAP) Pulse Ox O2 Delivery O2 Flow Rate FiO2 03/18/20 12:05 100 Ventilator 03/18/20 11:04 87 16 135/49 (77) 03/18/20 07:54 99.5 99.5 Intake and Output 03/18/20 07:00 Intake Total 3829 ml Output Total 4077 ml Balance -248 ml Intake IV Total 3079 ml Tube Feeding 750 ml Output Urine Total 3870 ml Drainage Total 207 ml Physical Exam General: Other (sedated on vent) Neuro: Other (pupils equal and reactive, moves left upper and lower extremity) Skin: Other (dressing C,D,I, EVD in place- approximately 200 cc out for 24 hours- clear) Assessment Assessment Problems Medical Problems: (1) Cerebral parenchymal hemorrhage Status: Acute (2) HTN (hypertension) Status: Acute Plan Plan of Care clamp EVD and drain for > 20 SCDs d/w RN Comment Review of Relevant I have reviewed the following items wang (where applicable) has been applied. Labs Laboratory Tests Test 03/17/20 05:30 03/17/20 08:30 03/17/20 12:20 03/17/20 18:32 White Blood Count 10.9 x10^3/uL (4.0-11.0) Red Blood Count 2.91 x10^6/uL (3.50-5.40) Hemoglobin 9.1 g/dL (12.0-15.5) Hematocrit 26.5 % (36.0-47.0) Mean Corpuscular Volume 91 fL (79-100) Mean Corpuscular Hemoglobin 31 pg (25-35) Mean Corpuscular Hemoglobin Concent 34 g/dL (31-37) Red Cell Distribution Width 12.7 % (11.5-14.5) Platelet Count 196 x10^3/uL (140-400) Neutrophils (%) (Auto) 83 % (31-73) Lymphocytes (%) (Auto) 11 % (24-48) Monocytes (%) (Auto) 7 % (0-9) Eosinophils (%) (Auto) 0 % (0-3) Basophils (%) (Auto) 0 % (0-3) Neutrophils # (Auto) 9.0 x10^3/uL (1.8-7.7) Lymphocytes # (Auto) 1.2 x10^3/uL (1.0-4.8) Monocytes # (Auto) 0.7 x10^3/uL (0.0-1.1) Eosinophils # (Auto) 0.0 x10^3/uL (0.0-0.7) Basophils # (Auto) 0.0 x10^3/uL (0.0-0.2) Sodium Level 130 mmol/L (136-145) Potassium Level 4.0 mmol/L (3.5-5.1) Chloride Level 98 mmol/L (98-107) Carbon Dioxide Level 24 mmol/L (21-32) Anion Gap 8 (6-14) Blood Urea Nitrogen 7 mg/dL (7-20) Creatinine 0.6 mg/dL (0.6-1.0) Estimated GFR (Cockcroft-Gault) 101.3 Glucose Level 121 mg/dL (70-99) Calcium Level 8.0 mg/dL (8.5-10.1) O2 Saturation 97 % (92-99) Arterial Blood pH 7.46 (7.35-7.45) Arterial Blood pCO2 at Patient Temp 34 mmHg (35-46) Arterial Blood pO2 at Patient Temp 100 mmHg (65-108) Arterial Blood HCO3 23 mmol/L (21-28) Arterial Blood Base Excess 0 mmol/L (-3-3) FiO2 30 Glucose (Fingerstick) 115 mg/dL (70-99) 111 mg/dL (70-99) Test 03/18/20 07:30 03/18/20 10:00 O2 Saturation 97 % (92-99) Arterial Blood pH 7.45 (7.35-7.45) Arterial Blood pCO2 at Patient Temp 32 mmHg (35-46) Arterial Blood pO2 at Patient Temp 109 mmHg (65-108) Arterial Blood HCO3 22 mmol/L (21-28) Arterial Blood Base Excess -2 mmol/L (-3-3) FiO2 30 White Blood Count 10.7 x10^3/uL (4.0-11.0) Red Blood Count 2.92 x10^6/uL (3.50-5.40) Hemoglobin 9.2 g/dL (12.0-15.5) Hematocrit 26.2 % (36.0-47.0) Mean Corpuscular Volume 90 fL (79-100) Mean Corpuscular Hemoglobin 32 pg (25-35) Mean Corpuscular Hemoglobin Concent 35 g/dL (31-37) Red Cell Distribution Width 13.0 % (11.5-14.5) Platelet Count 224 x10^3/uL (140-400) Sodium Level 138 mmol/L (136-145) Potassium Level 3.8 mmol/L (3.5-5.1) Chloride Level 105 mmol/L (98-107) Carbon Dioxide Level 26 mmol/L (21-32) Anion Gap 7 (6-14) Blood Urea Nitrogen 9 mg/dL (7-20) Creatinine 0.6 mg/dL (0.6-1.0) Estimated GFR (Cockcroft-Gault) 101.3 BUN/Creatinine Ratio 15 (6-20) Glucose Level 114 mg/dL (70-99) Calcium Level 8.1 mg/dL (8.5-10.1) Total Bilirubin 0.1 mg/dL (0.2-1.0) Aspartate Amino Transf (AST/SGOT) 35 U/L (15-37) Alanine Aminotransferase (ALT/SGPT) 27 U/L (14-59) Alkaline Phosphatase 75 U/L (46-116) Total Protein 6.4 g/dL (6.4-8.2) Albumin 2.5 g/dL (3.4-5.0) Albumin/Globulin Ratio 0.6 (1.0-1.7) Laboratory Tests Test 03/17/20 18:32 03/18/20 07:30 03/18/20 10:00 Glucose (Fingerstick) 111 mg/dL (70-99) O2 Saturation 97 % (92-99) Arterial Blood pH 7.45 (7.35-7.45) Arterial Blood pCO2 at Patient Temp 32 mmHg (35-46) Arterial Blood pO2 at Patient Temp 109 mmHg (65-108) Arterial Blood HCO3 22 mmol/L (21-28) Arterial Blood Base Excess -2 mmol/L (-3-3) FiO2 30 White Blood Count 10.7 x10^3/uL (4.0-11.0) Red Blood Count 2.92 x10^6/uL (3.50-5.40) Hemoglobin 9.2 g/dL (12.0-15.5) Hematocrit 26.2 % (36.0-47.0) Mean Corpuscular Volume 90 fL (79-100) Mean Corpuscular Hemoglobin 32 pg (25-35) Mean Corpuscular Hemoglobin Concent 35 g/dL (31-37) Red Cell Distribution Width 13.0 % (11.5-14.5) Platelet Count 224 x10^3/uL (140-400) Sodium Level 138 mmol/L (136-145) Potassium Level 3.8 mmol/L (3.5-5.1) Chloride Level 105 mmol/L (98-107) Carbon Dioxide Level 26 mmol/L (21-32) Anion Gap 7 (6-14) Blood Urea Nitrogen 9 mg/dL (7-20) Creatinine 0.6 mg/dL (0.6-1.0) Estimated GFR (Cockcroft-Gault) 101.3 BUN/Creatinine Ratio 15 (6-20) Glucose Level 114 mg/dL (70-99) Calcium Level 8.1 mg/dL (8.5-10.1) Total Bilirubin 0.1 mg/dL (0.2-1.0) Aspartate Amino Transf (AST/SGOT) 35 U/L (15-37) Alanine Aminotransferase (ALT/SGPT) 27 U/L (14-59) Alkaline Phosphatase 75 U/L (46-116) Total Protein 6.4 g/dL (6.4-8.2) Albumin 2.5 g/dL (3.4-5.0) Albumin/Globulin Ratio 0.6 (1.0-1.7) Medications Current Medications Propofol (Diprivan) 200 mg 1X ONCE IV Last administered on 03/15/20at 11:47; Start 03/15/20 at 11:30; Stop 03/15/20 at 11:31; Status DC Propofol 50 ml @ As Directed STK-MED ONCE IV ; Start 03/15/20 at 11:45; Stop 03/15/20 at 11:45; Status DC Propofol 20 ml @ 0 mls/hr 1X ONCE IV Last administered on 03/15/20at 11:52; Start 03/15/20 at 11:45; Stop 03/15/20 at 11:50; Status DC Potassium Chloride 40 meq/ Dextrose 1,020 ml @ 75 mls/hr [id number] PRN IV 0 Last administered on 03/17/20at 03:08; Start 03/15/20 at 12:00; Stop 03/17/20 at 09:39; Status DC Etomidate (Amidate) 20 mg 1X ONCE IV Last administered on 03/15/20at 12:12; S tart 03/15/20 at 11:40; Stop 03/15/20 at 12:00; Status DC Succinylcholine Chloride (Anectine) 100 mg 1X ONCE IV Last administered on 03/15/20at 12:12; Start 03/15/20 at 11:40; Stop 03/15/20 at 12:00; Status DC Bacitracin 10880 unit/Sodium Chloride 1,000 ml @ 1,000 mls/hr 1X ONCE IRR Last administered on 03/15/20at 14:50; Start 03/15/20 at 13:00; Stop 03/15/20 at 14:07; Status DC Cefazolin Sodium/ Dextrose 50 ml @ 100 mls/hr 1X PREOP PRN IV PRIOR TO PROCEDURE Last administered on 03/15/20at 13:25; Start 03/15/20 at 13:00; Stop 03/16/20 at 12:59; Status DC Propofol (Diprivan) 200 mg STK-MED ONCE IV ; Start 03/15/20 at 12:33; Stop 03/15/20 at 12:33; Status DC Phenylephrine HCl (PHENYLEPHRINE in 0.9% NACL PF) 1 mg STK-MED ONCE IV ; Start 03/15/20 at 12:33; Stop 03/15/20 at 12:33; Status DC Rocuronium Hampton (Zemuron) 50 mg STK-MED ONCE .ROUTE ; Start 03/15/20 at 12:33; Stop 03/15/20 at 12:33; Status DC Dexamethasone Sodium Phosphate (Decadron) 20 mg STK-MED ONCE .ROUTE ; Start 03/15/20 at 12:36; Stop 03/15/20 at 12:36; Status DC Gelatin (Gelfoam Size 100) 1 each STK-MED ONCE .ROUTE Last administered on 03/15/20at 13:49; Start 03/15/20 at 12:42; Stop 03/15/20 at 12:42; Status DC Bupivacaine HCl/ Epinephrine Bitart (Sensorcain-Epi 0.5%-1:881633 Mpf) 30 ml STK-MED ONCE .ROUTE ; Start 03/15/20 at 12:42; Stop 03/15/20 at 12:42; Status DC Mannitol (Mannitol) 12.5 g STK-MED ONCE .ROUTE Last administered on 03/15/20at 14:41; Start 03/15/20 at 12:42; Stop 03/15/20 at 12:42; Status DC Cellulose (Surgicel Hemostat 4x8) 1 each STK-MED ONCE .ROUTE Last administered on 03/15/20at 15:08; Start 03/15/20 at 12:42; Stop 03/15/20 at 12:43; Status DC Thrombin 20,000 unit STK-MED ONCE TP Last administered on 03/15/20at 13:49; Start 03/15/20 at 12:42; Stop 03/15/20 at 12:43; Status DC Bupivacaine HCl/ Epinephrine Bitart (Sensorcain-Epi 0.5%-1:232214 Mpf) 30 ml STK-MED ONCE .ROUTE Last administered on 03/15/20at 13:48; Start 03/15/20 at 12:44; Stop 03/15/20 at 12:45; Status DC Bupivacaine HCl/ Epinephrine Bitart (Sensorcain-Epi 0.5%-1:316086 Mpf) 30 ml 1X ONCE INJ ; Start 03/15/20 at 13:00; Stop 03/15/20 at 13:01; Status DC Ondansetron HCl (Zofran) 4 mg PRN Q6HRS PRN IV NAUSEA/VOMITING; Start 03/15/20 at 13:45; Stop 03/15/20 at 16:35; Status DC Fentanyl Citrate (Fentanyl 2ml Vial) 25 mcg PRN Q5MIN PRN IV MILD PAIN 1-3; Start 03/15/20 at 13:45; Stop 03/16/20 at 13:44; Status DC Fentanyl Citrate (Fentanyl 2ml Vial) 50 mcg PRN Q5MIN PRN IV MODERATE TO SEVERE PAIN; Start 03/15/20 at 13:45; Stop 03/16/20 at 13:44; Status DC Morphine Sulfate (Morphine Sulfate) 1 mg PRN Q10MIN PRN IV SEVERE PAIN 7-10; Start 03/15/20 at 13:45; Stop 03/16/20 at 13:44; Status DC Ringer's Solution 1,000 ml @ 30 mls/hr Q24H IV ; Start 03/15/20 at 13:31; Stop 03/16/20 at 01:30; Status DC Hydromorphone HCl (Dilaudid) 0.5 mg PRN Q10MIN PRN IV SEV PAIN, Second choice; Start 03/15/20 at 13:45; Stop 03/16/20 at 13:44; Status DC Prochlorperazine Edisylate (Compazine) 5 mg PACU PRN PRN IV NAUSEA, MRX1; Start 03/15/20 at 13:45; Stop 03/16/20 at 13:44; Status DC Mannitol (Mannitol) 12.5 g STK-MED ONCE .ROUTE Last administered on 03/15/20at 14:41; Start 03/15/20 at 14:28; Stop 03/15/20 at 14:28; Status DC Phenylephrine HCl (Diego-Synephrine Inj) 10 mg STK-MED ONCE .ROUTE ; Start 03/15/20 at 14:43; Stop 03/15/20 at 14:43; Status DC Fentanyl Citrate (Fentanyl 2ml Vial) 100 mcg STK-MED ONCE .ROUTE ; Start 03/15/20 at 15:08; Stop 03/15/20 at 15:09; Status DC Rocuronium Hampton (Zemuron) 50 mg STK-MED ONCE .ROUTE ; Start 03/15/20 at 15:34; Stop 03/15/20 at 15:34; Status DC Sevoflurane (Ultane) 90 ml STK-MED ONCE IH ; Start 03/15/20 at 15:44; Stop 03/15/20 at 15:44; Status DC Propofol 50 ml @ As Directed STK-MED ONCE IV ; Start 03/15/20 at 16:02; Stop 03/15/20 at 16:02; Status DC Nicardipine HCl 50 mg/Sodium Chloride 250 ml @ 25 mls/hr TITRATE PRN IV HYPERTENSION Last administered on 03/18/20at 03:51; Start 03/15/20 at 16:30 Levetiracetam 500 mg/Sodium Chloride 105 ml @ 400 mls/hr Q12HR IV Last administered on 03/18/20at 09:05; Start 03/15/20 at 21:00 Sodium Chloride (Normal Saline Flush) 3 ml QSHIFT PRN IV AFTER MEDS AND BLOOD DRAWS; Start 03/15/20 at 16:30 Potassium Chloride/Dextrose/ Sod Cl 1,000 ml @ 80 mls/hr [id number] IV ; Start 03/15/20 at 16:19; Stop 03/15/20 at 18:36; Status DC Dextrose (Dextrose 50%-Water Syringe) 12.5 gm PRN Q15MIN PRN IV SEE COMMENTS; Start 03/15/20 at 16:30 Cefazolin Sodium (Ancef) 1 gm Q8HRS IVP Last administered on 03/16/20at 14:52; Start 03/15/20 at 22:00; Stop 03/16/20 at 14:01; Status DC Ondansetron HCl (Zofran) 4 mg PRN Q4HRS PRN IV NAUSEA/VOMITING; Start 03/15/20 at 16:45 Atorvastatin Calcium (Lipitor) 40 mg DAILY PO Last administered on 03/18/20at 09:04; Start 03/16/20 at 09:00 Acetaminophen (Tylenol Supp) 650 mg PRN Q6HRS PRN [place] MILD PAIN / TEMP > 100.3'F; Start 03/15/20 at 16:45 Docusate Sodium (Enemeez) 283 mg PRN DAILY PRN [place] CONSTIPATION; Start 03/15/20 at 16:45 Magnesium Sulfate 50 ml @ 25 mls/hr 1X ONCE IV Last administered on 03/15/20at 17:23; Start 03/15/20 at 17:00; Stop 03/15/20 at 18:59; Status DC Propofol 100 ml @ As Directed STK-MED ONCE IV ; Start 03/15/20 at 19:37; Stop 03/15/20 at 19:38; Status DC Propofol 100 ml @ 0.837 mls/ hr CONT PRN IV SEE I/O RECORD Last administered on 03/18/20at 05:17; Start 03/15/20 at 19:45 Iohexol (Omnipaque 300 Mg/ml) 75 ml 1X ONCE IV Last administered on 03/16/20at 07:45; Start 03/16/20 at 07:45; Stop 03/16/20 at 07:50; Status DC Info (CONTRAST GIVEN -- Rx MONITORING) 1 each PRN DAILY PRN MC SEE COMMENTS; Start 03/16/20 at 08:00; Stop 03/18/20 at 07:59; Status DC Potassium Chloride/Dextrose/ Sod Cl 1,000 ml @ 75 mls/hr 1X ONCE IV Last administered on 03/17/20at 10:15; Start 03/17/20 at 09:45; Stop 03/17/20 at 23:04; Status DC Psyllium Hydrophilic Mucilloid (Metamucil Fiber Packet) 1 pkt DAILY PO Last administered on 03/18/20at 09:04; Start 03/17/20 at 11:00 Potassium Chloride/Dextrose/ Sod Cl 1,000 ml @ 75 mls/hr [id number] IV Last ad ministered on 03/17/20at 23:07; Start 03/17/20 at 23:00 Famotidine (Pepcid Vial) 20 mg BID IVP ; Start 03/18/20 at 21:00 Active Scripts Active Reported Oxybutynin Chloride Er (Oxybutynin Chloride) 10 Mg Tab.er.24 1 Tab PO DAILY Elmiron (Pentosan Polysulfate Sodium) 100 Mg Capsule 1 Cap PO TID 30 Days Atorvastatin Calcium 40 Mg Tablet 1 Tab PO DAILY Fluoxetine Hcl 40 Mg Capsule 40 Mg PO DAILY Premarin (Estrogens, Conjugated) 0.625 Mg Tablet 1 Tab PO DAILY Vitals/I & O Vital Sign - Last 24 Hours 03/17/20 03/17/20 03/17/20 03/17/20 13:10 14:45 15:17 16:00 Pulse 85 77 78 Resp 16 16 16 B/P (MAP) 133/53 (79) 133/50 (77) 135/51 (79) Pulse Ox 100 100 100 O2 Delivery Ventilator Ventilator Ventilator Mechanical Ventilator 03/17/20 03/17/20 03/17/20 03/17/20 16:00 16:00 16:07 17:00 Temp 99.3 99.3 Pulse 85 79 Resp 16 16 B/P (MAP) 139/51 (80) 130/48 (75) Pulse Ox 100 100 100 O2 Delivery Ventilator Ventilator Ventilator 03/17/20 03/17/20 03/17/20 03/17/20 17:53 19:00 20:00 20:00 Temp 98.2 98.2 Pulse 82 85 89 Resp 16 16 16 B/P (MAP) 127/48 (74) 131/50 (77) 139/52 (81) Pulse Ox 100 100 100 O2 Delivery Ventilator Ventilator Ventilator 03/17/20 03/17/20 03/17/20 03/17/20 20:00 20:48 21:00 22:00 Pulse 80 88 Resp 16 17 B/P (MAP) 119/46 (70) 125/47 (73) Pulse Ox 100 100 100 O2 Delivery Mechanical Ventilator Ventilator Ventilator Ventilator 03/17/20 03/17/20 03/17/20 03/17/20 23:09 23:59 23:59 23:59 Temp 98.1 98.1 Pulse 87 91 Resp 17 16 B/P (MAP) 129/50 (76) 126/47 (73) Pulse Ox 100 100 O2 Delivery Ventilator Ventilator Mechanical Ventilator 03/18/20 03/18/20 03/18/20 03/18/20 00:59 01:00 02:00 03:00 Pulse 86 90 87 Resp 17 20 16 B/P (MAP) 124/48 (73) 130/49 (76) 129/47 (74) Pulse Ox 100 100 100 100 O2 Delivery Ventilator Ventilator Ventilator Ventilator 03/18/20 03/18/20 03/18/20 03/18/20 03:49 04:00 04:00 04:00 Temp 98.5 98.5 Pulse 85 Resp 16 B/P (MAP) 130/48 (75) Pulse Ox 100 99 O2 Delivery Ventilator Ventilator Mechanical Ventilator 03/18/20 03/18/20 03/18/20 03/18/20 05:00 05:53 06:00 07:15 Pulse 85 86 85 Resp 16 16 16 B/P (MAP) 124/46 (72) 121/48 (72) 130/49 (76) Pulse Ox 99 100 98 100 O2 Delivery Ventilator Ventilator Ventilator Ventilator 03/18/20 03/18/20 03/18/20 03/18/20 07:22 07:22 07:30 07:54 B/P (MAP) Pulse Ox 100 O2 Delivery Mechanical Ventilator Ventilator 03/18/20 03/18/20 03/18/20 03/18/20 07:54 09:00 09:03 10:09 Temp 99.5 99.5 Pulse 91 87 87 Resp 16 16 16 B/P (MAP) 131/49 (76) 128/46 (73) 131/57 (81) Pulse Ox 100 99 100 99 O2 Delivery Ventilator Ventilator Ventilator Ventilator 03/18/20 03/18/20 03/18/20 11:04 11:18 12:05 Pulse 87 Resp 16 B/P (MAP) 135/49 (77) Pulse Ox 99 100 100 O2 Delivery Ventilator Ventilator Ventilator Intake and Output 03/17/20 03/17/20 03/18/20 15:00 23:00 07:00 Intake Total 633 ml 917 ml 2279 ml Output Total 1738 ml 1209 ml 1130 ml Balance -1105 ml -292 ml 1149 ml ABDOULAYE GOODWIN MD March 18, 2020 12:36
--- NOTE | 2020-03-18 12:38 | PDOC ---
PROGRESS NOTES Assessment Problems Medical Problems: (1) Cerebral parenchymal hemorrhage Status: Acute (2) HTN (hypertension) Status: Acute Large left intraparenchymal hemorrhage status-post evacuation CTA negative for aneurysm or AVM EVD clamped Plan Levetiracetam Per neurosurgery Discussed with Subjective none Objective Vital Signs Date Time Temp Pulse Resp B/P (MAP) Pulse Ox O2 Delivery O2 Flow Rate FiO2 03/18/20 12:05 100 Ventilator 03/18/20 11:04 87 16 135/49 (77) 03/18/20 07:54 99.5 99.5 Intake and Output 03/18/20 07:00 Intake Total 3829 ml Output Total 4077 ml Balance -248 ml Intake IV Total 3079 ml Tube Feeding 750 ml Output Urine Total 3870 ml Drainage Total 207 ml PHYSICAL EXAM Sedated on vent PERRL. No spontaneous extraocular movements CN: no focal findings. Muscle tone: normal. Muscle strength: withdraws left slightly to pain DTR: 2+ Plantar reflex: extensor bilaterally Gait: not examined Sensory exam: not cooperative. Cerebellar: not cooperative Review of Relevant I have reviewed the following items wang (where applicable) has been applied. Labs Laboratory Tests Test 03/17/20 05:30 03/17/20 08:30 03/17/20 12:20 03/17/20 18:32 White Blood Count 10.9 x10^3/uL (4.0-11.0) Red Blood Count 2.91 x10^6/uL (3.50-5.40) Hemoglobin 9.1 g/dL (12.0-15.5) Hematocrit 26.5 % (36.0-47.0) Mean Corpuscular Volume 91 fL (79-100) Mean Corpuscular Hemoglobin 31 pg (25-35) Mean Corpuscular Hemoglobin Concent 34 g/dL (31-37) Red Cell Distribution Width 12.7 % (11.5-14.5) Platelet Count 196 x10^3/uL (140-400) Neutrophils (%) (Auto) 83 % (31-73) Lymphocytes (%) (Auto) 11 % (24-48) Monocytes (%) (Auto) 7 % (0-9) Eosinophils (%) (Auto) 0 % (0-3) Basophils (%) (Auto) 0 % (0-3) Neutrophils # (Auto) 9.0 x10^3/uL (1.8-7.7) Lymphocytes # (Auto) 1.2 x10^3/uL (1.0-4.8) Monocytes # (Auto) 0.7 x10^3/uL (0.0-1.1) Eosinophils # (Auto) 0.0 x10^3/uL (0.0-0.7) Basophils # (Auto) 0.0 x10^3/uL (0.0-0.2) Sodium Level 130 mmol/L (136-145) Potassium Level 4.0 mmol/L (3.5-5.1) Chloride Level 98 mmol/L (98-107) Carbon Dioxide Level 24 mmol/L (21-32) Anion Gap 8 (6-14) Blood Urea Nitrogen 7 mg/dL (7-20) Creatinine 0.6 mg/dL (0.6-1.0) Estimated GFR (Cockcroft-Gault) 101.3 Glucose Level 121 mg/dL (70-99) Calcium Level 8.0 mg/dL (8.5-10.1) O2 Saturation 97 % (92-99) Arterial Blood pH 7.46 (7.35-7.45) Arterial Blood pCO2 at Patient Temp 34 mmHg (35-46) Arterial Blood pO2 at Patient Temp 100 mmHg (65-108) Arterial Blood HCO3 23 mmol/L (21-28) Arterial Blood Base Excess 0 mmol/L (-3-3) FiO2 30 Glucose (Fingerstick) 115 mg/dL (70-99) 111 mg/dL (70-99) Test 03/18/20 07:30 03/18/20 10:00 O2 Saturation 97 % (92-99) Arterial Blood pH 7.45 (7.35-7.45) Arterial Blood pCO2 at Patient Temp 32 mmHg (35-46) Arterial Blood pO2 at Patient Temp 109 mmHg (65-108) Arterial Blood HCO3 22 mmol/L (21-28) Arterial Blood Base Excess -2 mmol/L (-3-3) FiO2 30 White Blood Count 10.7 x10^3/uL (4.0-11.0) Red Blood Count 2.92 x10^6/uL (3.50-5.40) Hemoglobin 9.2 g/dL (12.0-15.5) Hematocrit 26.2 % (36.0-47.0) Mean Corpuscular Volume 90 fL (79-100) Mean Corpuscular Hemoglobin 32 pg (25-35) Mean Corpuscular Hemoglobin Concent 35 g/dL (31-37) Red Cell Distribution Width 13.0 % (11.5-14.5) Platelet Count 224 x10^3/uL (140-400) Sodium Level 138 mmol/L (136-145) Potassium Level 3.8 mmol/L (3.5-5.1) Chloride Level 105 mmol/L (98-107) Carbon Dioxide Level 26 mmol/L (21-32) Anion Gap 7 (6-14) Blood Urea Nitrogen 9 mg/dL (7-20) Creatinine 0.6 mg/dL (0.6-1.0) Estimated GFR (Cockcroft-Gault) 101.3 BUN/Creatinine Ratio 15 (6-20) Glucose Level 114 mg/dL (70-99) Calcium Level 8.1 mg/dL (8.5-10.1) Total Bilirubin 0.1 mg/dL (0.2-1.0) Aspartate Amino Transf (AST/SGOT) 35 U/L (15-37) Alanine Aminotransferase (ALT/SGPT) 27 U/L (14-59) Alkaline Phosphatase 75 U/L (46-116) Total Protein 6.4 g/dL (6.4-8.2) Albumin 2.5 g/dL (3.4-5.0) Albumin/Globulin Ratio 0.6 (1.0-1.7) Laboratory Tests Test 03/17/20 18:32 03/18/20 07:30 03/18/20 10:00 Glucose (Fingerstick) 111 mg/dL (70-99) O2 Saturation 97 % (92-99) Arterial Blood pH 7.45 (7.35-7.45) Arterial Blood pCO2 at Patient Temp 32 mmHg (35-46) Arterial Blood pO2 at Patient Temp 109 mmHg (65-108) Arterial Blood HCO3 22 mmol/L (21-28) Arterial Blood Base Excess -2 mmol/L (-3-3) FiO2 30 White Blood Count 10.7 x10^3/uL (4.0-11.0) Red Blood Count 2.92 x10^6/uL (3.50-5.40) Hemoglobin 9.2 g/dL (12.0-15.5) Hematocrit 26.2 % (36.0-47.0) Mean Corpuscular Volume 90 fL (79-100) Mean Corpuscular Hemoglobin 32 pg (25-35) Mean Corpuscular Hemoglobin Concent 35 g/dL (31-37) Red Cell Distribution Width 13.0 % (11.5-14.5) Platelet Count 224 x10^3/uL (140-400) Sodium Level 138 mmol/L (136-145) Potassium Level 3.8 mmol/L (3.5-5.1) Chloride Level 105 mmol/L (98-107) Carbon Dioxide Level 26 mmol/L (21-32) Anion Gap 7 (6-14) Blood Urea Nitrogen 9 mg/dL (7-20) Creatinine 0.6 mg/dL (0.6-1.0) Estimated GFR (Cockcroft-Gault) 101.3 BUN/Creatinine Ratio 15 (6-20) Glucose Level 114 mg/dL (70-99) Calcium Level 8.1 mg/dL (8.5-10.1) Total Bilirubin 0.1 mg/dL (0.2-1.0) Aspartate Amino Transf (AST/SGOT) 35 U/L (15-37) Alanine Aminotransferase (ALT/SGPT) 27 U/L (14-59) Alkaline Phosphatase 75 U/L (46-116) Total Protein 6.4 g/dL (6.4-8.2) Albumin 2.5 g/dL (3.4-5.0) Albumin/Globulin Ratio 0.6 (1.0-1.7) Medications Current Medications Propofol (Diprivan) 200 mg 1X ONCE IV Last administered on 03/15/20at 11:47; Start 03/15/20 at 11:30; Stop 03/15/20 at 11:31; Status DC Propofol 50 ml @ As Directed STK-MED ONCE IV ; Start 03/15/20 at 11:45; Stop 03/15/20 at 11:45; Status DC Propofol 20 ml @ 0 mls/hr 1X ONCE IV Last administered on 03/15/20at 11:52; Start 03/15/20 at 11:45; Stop 03/15/20 at 11:50; Status DC Potassium Chloride 40 meq/ Dextrose 1,020 ml @ 75 mls/hr [id number] PRN IV 0 Last administered on 03/17/20at 03:08; Start 03/15/20 at 12:00; Stop 03/17/20 at 09:39; Status DC Etomidate (Amidate) 20 mg 1X ONCE IV Last administered on 03/15/20at 12:12; Start 03/15/20 at 11:40; Stop 03/15/20 at 12:00; Status DC Succinylcholine Chloride (Anectine) 100 mg 1X ONCE IV Last administered on 03/15/20at 12:12; Start 03/15/20 at 11:40; Stop 03/15/20 at 12:00; Status DC Bacitracin 68076 unit/Sodium Chloride 1,000 ml @ 1,000 mls/hr 1X ONCE IRR Last administered on 03/15/20at 14:50; Start 03/15/20 at 13:00; Stop 03/15/20 at 14:07; Status DC Cefazolin Sodium/ Dextrose 50 ml @ 100 mls/hr 1X PREOP PRN IV PRIOR TO PROCEDURE Last administered on 03/15/20at 13:25; Start 03/15/20 at 13:00; Stop 03/16/20 at 12:59; Status DC Propofol (Diprivan) 200 mg STK-MED ONCE IV ; Start 03/15/20 at 12:33; Stop 03/15/20 at 12:33; Status DC Phenylephrine HCl (PHENYLEPHRINE in 0.9% NACL PF) 1 mg STK-MED ONCE IV ; Start 03/15/20 at 12:33; Stop 03/15/20 at 12:33; Status DC Rocuronium [place] (Zemuron) 50 mg STK-MED ONCE .ROUTE ; Start 03/15/20 at 12:33; Stop 03/15/20 at 12:33; Status DC Dexamethasone Sodium Phosphate (Decadron) 20 mg STK-MED ONCE .ROUTE ; Start 03/15/20 at 12:36; Stop 03/15/20 at 12:36; Status DC Gelatin (Gelfoam Size 100) 1 each STK-MED ONCE .ROUTE Last administered on 03/15/20at 13:49; Start 03/15/20 at 12:42; Stop 03/15/20 at 12:42; Status DC Bupivacaine HCl/ Epinephrine Bitart (Sensorcain-Epi 0.5%-1:137301 Mpf) 30 ml STK-MED ONCE .ROUTE ; Start 03/15/20 at 12:42; Stop 03/15/20 at 12:42; Status DC Mannitol (Mannitol) 12.5 g STK-MED ONCE .ROUTE Last administered on 03/15/20at 14:41; Start 03/15/20 at 12:42; Stop 03/15/20 at 12:42; Status DC Cellulose (Surgicel Hemostat 4x8) 1 each STK-MED ONCE .ROUTE Last administered on 03/15/20at 15:08; Start 03/15/20 at 12:42; Stop 03/15/20 at 12:43; Status DC Thrombin 20,000 unit STK-MED ONCE TP Last administered on 03/15/20at 13:49; Start 03/15/20 at 12:42; Stop 03/15/20 at 12:43; Status DC Bupivacaine HCl/ Epinephrine Bitart (Sensorcain-Epi 0.5%-1:731074 Mpf) 30 ml STK-MED ONCE .ROUTE Last administered on 03/15/20at 13:48; Start 03/15/20 at 12:44; Stop 03/15/20 at 12:45; Status DC Bupivacaine HCl/ Epinephrine Bitart (Sensorcain-Epi 0.5%-1:650649 Mpf) 30 ml 1X ONCE INJ ; Start 03/15/20 at 13:00; Stop 03/15/20 at 13:01; Status DC Ondansetron HCl (Zofran) 4 mg PRN Q6HRS PRN IV NAUSEA/VOMITING; Start 03/15/20 at 13:45; Stop 03/15/20 at 16:35; Status DC Fentanyl Citrate (Fentanyl 2ml Vial) 25 mcg PRN Q5MIN PRN IV MILD PAIN 1-3; Start 03/15/20 at 13:45; Stop 03/16/20 at 13:44; Status DC Fentanyl Citrate (Fentanyl 2ml Vial) 50 mcg PRN Q5MIN PRN IV MODERATE TO SEVERE PAIN; Start 03/15/20 at 13:45; Stop 03/16/20 at 13:44; Status DC Morphine Sulfate (Morphine Sulfate) 1 mg PRN Q10MIN PRN IV SEVERE PAIN 7-10; Start 03/15/20 at 13:45; Stop 03/16/20 at 13:44; Status DC Ringer's Solution 1,000 ml @ 30 mls/hr Q24H IV ; Start 03/15/20 at 13:31; Stop 03/16/20 at 01:30; Status DC Hydromorphone HCl (Dilaudid) 0.5 mg PRN Q10MIN PRN IV SEV PAIN, Second choice; Start 03/15/20 at 13:45; Stop 03/16/20 at 13:44; Status DC Prochlorperazine Edisylate (Compazine) 5 mg PACU PRN PRN IV NAUSEA, MRX1; Start 03/15/20 at 13:45; Stop 03/16/20 at 13:44; Status DC Mannitol (Mannitol) 12.5 g STK-MED ONCE .ROUTE Last administered on 03/15/20at 14:41; Start 03/15/20 at 14:28; Stop 03/15/20 at 14:28; Status DC Phenylephrine HCl (Diego-Synephrine Inj) 10 mg STK-MED ONCE .ROUTE ; Start 03/15/20 at 14:43; Stop 03/15/20 at 14:43; Status DC Fentanyl Citrate (Fentanyl 2ml Vial) 100 mcg STK-MED ONCE .ROUTE ; Start 03/15/20 at 15:08; Stop 03/15/20 at 15:09; Status DC Rocuronium [place] (Zemuron) 50 mg STK-MED ONCE .ROUTE ; Start 03/15/20 at 15:34; Stop 03/15/20 at 15:34; Status DC Sevoflurane (Ultane) 90 ml STK-MED ONCE IH ; Start 03/15/20 at 15:44; Stop 03/15/20 at 15:44; Status DC Propofol 50 ml @ As Directed STK-MED ONCE IV ; Start 03/15/20 at 16:02; Stop 03/15/20 at 16:02; Status DC Nicardipine HCl 50 mg/Sodium Chloride 250 ml @ 25 mls/hr TITRATE PRN IV HYPERTENSION Last administered on 03/18/20at 03:51; Start 03/15/20 at 16:30 Levetiracetam 500 mg/Sodium Chloride 105 ml @ 400 mls/hr Q12HR IV Last administered on 03/18/20at 09:05; Start 03/15/20 at 21:00 Sodium Chloride (Normal Saline Flush) 3 ml QSHIFT PRN IV AFTER MEDS AND BLOOD DRAWS; Start 03/15/20 at 16:30 Potassium Chloride/Dextrose/ Sod Cl 1,000 ml @ 80 mls/hr [id number] IV ; Start at 16:19; Stop 03/15/20 at 18:36; Status DC Dextrose (Dextrose 50%-Water Syringe) 12.5 gm PRN Q15MIN PRN IV SEE COMMENTS; Start 03/15/20 at 16:30 Cefazolin Sodium (Ancef) 1 gm Q8HRS IVP Last administered on 03/16/20at 14:52; Start 03/15/20 at 22:00; Stop 03/16/20 at 14:01; Status DC Ondansetron HCl (Zofran) 4 mg PRN Q4HRS PRN IV NAUSEA/VOMITING; Start 03/15/20 at 16:45 Atorvastatin Calcium (Lipitor) 40 mg DAILY PO Last administered on 03/18/20at 09:04; Start 03/16/20 at 09:00 Acetaminophen (Tylenol Supp) 650 mg PRN Q6HRS PRN AL MILD PAIN / TEMP > 100.3'F; Start 03/15/20 at 16:45 Docusate Sodium (Enemeez) 283 mg PRN DAILY PRN AL CONSTIPATION; Start 03/15/20 at 16:45 Magnesium Sulfate 50 ml @ 25 mls/hr 1X ONCE IV Last administered on 03/15/20at 17:23; Start 03/15/20 at 17:00; Stop 03/15/20 at 18:59; Status DC Propofol 100 ml @ As Directed STK-MED ONCE IV ; Start 03/15/20 at 19:37; Stop 03/15/20 at 19:38; Status DC Propofol 100 ml @ 0.837 mls/ hr CONT PRN IV SEE I/O RECORD Last administered on 03/18/20at 05:17; Start 03/15/20 at 19:45 Iohexol (Omnipaque 300 Mg/ml) 75 ml 1X ONCE IV Last administered on 03/16/20at 07:45; Start 03/16/20 at 07:45; Stop 03/16/20 at 07:50; Status DC Info (CONTRAST GIVEN -- Rx MONITORING) 1 each PRN DAILY PRN MC SEE COMMENTS; Start 03/16/20 at 08:00; Stop 03/18/20 at 07:59; Status DC Potassium Chloride/Dextrose/ Sod Cl 1,000 ml @ 75 mls/hr 1X ONCE IV Last administered on 03/17/20at 10:15; Start 03/17/20 at 09:45; Stop 03/17/20 at 23:04; Status DC Psyllium Hydrophilic Mucilloid (Metamucil Fiber Packet) 1 pkt DAILY PO Last administered on 03/18/20at 09:04; Start 03/17/20 at 11:00 Potassium Chloride/Dextrose/ Sod Cl 1,000 ml @ 75 mls/hr [id number] IV Last administered on 03/17/20at 23:07; Start 03/17/20 at 23:00 Famotidine (Pepcid Vial) 20 mg BID IVP ; Start 03/18/20 at 21:00 Active Scripts Active Reported Oxybutynin Chloride Er (Oxybutynin Chloride) 10 Mg Tab.er.24 1 Tab PO DAILY Elmiron (Pentosan Polysulfate Sodium) 100 Mg Capsule 1 Cap PO TID 30 Days Atorvastatin Calcium 40 Mg Tablet 1 Tab PO DAILY Fluoxetine Hcl 40 Mg Capsule 40 Mg PO DAILY Premarin (Estrogens, Conjugated) 0.625 Mg Tablet 1 Tab PO DAILY Vitals/I & O Vital Sign - Last 24 Hours 03/17/20 03/17/20 03/17/20 03/17/20 13:10 14:45 15:17 16:00 Pulse 85 77 78 Resp 16 16 16 B/P (MAP) 133/53 (79) 133/50 (77) 135/51 (79) Pulse Ox 100 100 100 O2 Delivery Ventilator Ventilator Ventilator Mechanical Ventilator 03/17/20 03/17/20 03/17/20 03/17/20 16:00 16:00 16:07 17:00 Temp 99.3 99.3 Pulse 85 79 Resp 16 16 B/P (MAP) 139/51 (80) 130/48 (75) Pulse Ox 100 100 100 O2 Delivery Ventilator Ventilator Ventilator 03/17/20 03/17/20 03/17/20 03/17/20 17:53 19:00 20:00 20:00 Temp 98.2 98.2 Pulse 82 85 89 Resp 16 16 16 B/P (MAP) 127/48 (74) 131/50 (77) 139/52 (81) Pulse Ox 100 100 100 O2 Delivery Ventilator Ventilator Ventilator 03/17/20 03/17/20 03/17/20 03/17/20 20:00 20:48 21:00 22:00 Pulse 80 88 Resp 16 17 B/P (MAP) 119/46 (70) 125/47 (73) Pulse Ox 100 100 100 O2 Delivery Mechanical Ventilator Ventilator Ventilator Ventilator 03/17/20 03/17/20 03/17/20 03/17/20 23:09 23:59 23:59 23:59 Temp 98.1 98.1 Pulse 87 91 Resp 17 16 B/P (MAP) 129/50 (76) 126/47 (73) Pulse Ox 100 100 O2 Delivery Ventilator Ventilator Mechanical Ventilator 03/18/20 03/18/20 03/18/20 03/18/20 00:59 01:00 02:00 03:00 Pulse 86 90 87 Resp 17 20 16 B/P (MAP) 124/48 (73) 130/49 (76) 129/47 (74) Pulse Ox 100 100 100 100 O2 Delivery Ventilator Ventilator Ventilator Ventilator 03/18/20 03/18/20 03/18/20 03/18/20 03:49 04:00 04:00 04:00 Temp 98.5 98.5 Pulse 85 Resp 16 B/P (MAP) 130/48 (75) Pulse Ox 100 99 O2 Delivery Ventilator Ventilator Mechanical Ventilator 03/18/20 03/18/20 03/18/20 03/18/20 05:00 05:53 06:00 07:15 Pulse 85 86 85 Resp 16 16 16 B/P (MAP) 124/46 (72) 121/48 (72) 130/49 (76) Pulse Ox 99 100 98 100 O2 Delivery Ventilator Ventilator Ventilator Ventilator 03/18/20 03/18/20 03/18/20 03/18/20 07:22 07:22 07:30 07:54 B/P (MAP) Pulse Ox 100 O2 Delivery Mechanical Ventilator Ventilator 03/18/20 03/18/20 03/18/20 03/18/20 07:54 09:00 09:03 10:09 Temp 99.5 99.5 Pulse 91 87 87 Resp 16 16 16 B/P (MAP) 131/49 (76) 128/46 (73) 131/57 (81) Pulse Ox 100 99 100 99 O2 Delivery Ventilator Ventilator Ventilator Ventilator 03/18/20 03/18/20 03/18/20 11:04 11:18 12:05 Pulse 87 Resp 16 B/P (MAP) 135/49 (77) Pulse Ox 99 100 100 O2 Delivery Ventilator Ventilator Ventilator Intake and Output 03/17/20 03/17/20 03/18/20 15:00 23:00 07:00 Intake Total 633 ml 917 ml 2279 ml Output Total 1738 ml 1209 ml 1130 ml Balance -1105 ml -292 ml 1149 ml SON PHAM MD March 18, 2020 12:38
[2020-03-18] MEDS: POTASSIUM CL 20MEQ D5-0.45NACL 1,000 ML IV SCH (14:26)
--- NOTE | 2020-03-18 18:06 | PATHOLOGY ---
[facility] Accession Number: [id number] . 01 Material submitted: . head - AVM. Modifiers: frontal . 01 Clinical history: . AVM . 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 . (JPM:mml; 03/17/2020) [facility] 03/17/2020 1532 Local . 02 Comment: There is no evidence of malignancy. The results are reported to Dr. Kearney on 03/18/20 at 4:00 PM. . (JPM:mml; 03/17/2020) . 02 Electronically signed: . Shaun Forman MD, Pathologist NPI- [id number] . 01 Gross description: . The specimen is received in formalin, labeled "Dyche, Munira, AVM" and consists of blood clot measuring 2.8 x 2.2 x 0.8 cm in aggregate which is entirely submitted in A1. (SDY; 03/16/2020) [facility] 03/16/2020 1548 Local . 02 Pathologist provided ICD-10: I62.9 . 02 CPT . 914773 Specimen Comment: A courtesy copy of this report has been sent to [phone] Specimen Comment: [phone], Specimen Comment: Report sent to ,DR REECE / DR KRAUSE Performed at: 01 [facility] [address], [place] [id number] MD Tamir Anders MD Phone: [phone] Performed at: 02 [facility] [id number] MD Shaun Forman MD Phone: [phone]
[2020-03-18] MEDS: FAMOTIDINE 20 MG/2 ML VIAL IVP SCH (21:03)
[2020-03-19] VITALS (27 sets, daily range): BP systolic 130–150; BP diastolic 42–52
[2020-03-19] MEDS: PROPOFOL 100 ML IV PRN ×2 (04:26→12:40)
[2020-03-19] MEDS: POTASSIUM CL 20MEQ D5-0.45NACL 1,000 ML IV SCH ×2 (04:26→18:13)
[2020-03-19 08:01] LABS: BASE EXCESS ABG -1 mmol/L (-3-3); HCO3 ABG 23 mmol/L (21-28); PCO2 ABG 34 mmHg (35-46); PO2 ABG 107 mmHg (65-108); SAT O2 ABG 97 % (92-99)
[2020-03-19 08:09] LABS: FIO2 ABG 30%
--- NOTE | 2020-03-19 08:12 | PDOC ---
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 Hypokalemia and hypomagnesemia Hyponatremia 37 minutes CC time on labs, orders, images History of Present Illness History of Present Illness 03/19/2020 Patient seen and examined in the ICU She remains mechanically ventilated Assist-control/04/02 50/30% with 5 of PEEP She still has an intracranial pressure monitor current pressure is 10 On nicardipine drip She has SCDs She has a Batista to bedside drainage Has an art line Chart reviewed Discussed with RN She is still critically ill 03/18/2020 Patient seen and examined in the ICU She is on the vent Assist-control/04/02 100/30% Sedated with propofol Intracranial pressure monitor still in with an ICP of 13 Discussed with RN Chart reviewed Ms Mathew is a 64 yo F w/ PMHx HLD who was brought here by EMS from local [facility] due to altered mental status around 1030 on 03/15/2020. noted that they were out shopping when she became unresponsive and fell to the ground, though he was able to catch her and guide her down on the floor. Patient did not hit her head. stated that patient has been having a headache for the last 2-3 days. He is sure that she is not on any blood thinner. Patient's stated that she is on multiple medications but he is not sure what they are.. EMS stated that she was able to protect her airway but her GCS was about [address] head revealed a left frontal lobe 5.5 x 6.0 x 3.0 cm large parenchymal hematoma and surrounding edema involving both the superior and middle frontal cortical gyri as well as extensive involvement of the white matter, with mass effect and 10 mm midline shift. Neurosurgery was urgently contacted. She underwent RSI with ED with etomidate and succinylcholine with 7.5 ET tube and went urgently to OR for craniotomy and hematoma evacuation which was large and invaded the ventricular and she is transferred to ICU for closer monitoring. I was able to evaluated patient prior to intubation and after surgery. 03/16: Patient seen and examined in the ICU, She is mechanically ventilated, A ssist-control/450/16/30 percent, Has an OG to suction, Her pupils are reactive 03/17: Seen in ICU, sedated, intubated, on ICP monitoring and cardene GTT. Na 130. Hb 9.1. Moving left arm, posturing on pain response on right. Vitals/I&O Vitals/I&O: Vital Signs Date Time Temp Pulse Resp B/P (MAP) Pulse Ox O2 Delivery O2 Flow Rate FiO2 03/19/20 08:00 90 16 134/44 (74) 100 Ventilator 03/19/20 04:00 99.0 99.0 I & O 03/18/20 03/18/20 03/19/20 14:59 22:59 06:59 Intake Total 355 ml 1394 ml 2187 ml Output Total 1162 ml 964 ml 1018 ml Balance -807 ml 430 ml 1169 ml Physical Exam General: Other (sedated on vent) Heart: Regular rate, Normal S1 Lungs: Clear Abdomen: Normal bowel sounds, Soft, No tenderness, No hepatosplenomegaly, No masses Extremities: No clubbing, No cyanosis, No edema, Normal pulses, No tenderness/swelling Skin: Other (dressing C,D,I, EVD in place- approximately 200 cc out for 24 hours- clear) Labs Labs: Laboratory Tests Test 03/18/20 10:00 03/19/20 07:50 White Blood Count 10.7 x10^3/uL (4.0-11.0) Red Blood Count 2.92 x10^6/uL (3.50-5.40) Hemoglobin 9.2 g/dL (12.0-15.5) Hematocrit 26.2 % (36.0-47.0) Mean Corpuscular Volume 90 fL (79-100) Mean Corpuscular Hemoglobin 32 pg (25-35) Mean Corpuscular Hemoglobin Concent 35 g/dL (31-37) Red Cell Distribution Width 13.0 % (11.5-14.5) Platelet Count 224 x10^3/uL (140-400) Sodium Level 138 mmol/L (136-145) Potassium Level 3.8 mmol/L (3.5-5.1) Chloride Level 105 mmol/L (98-107) Carbon Dioxide Level 26 mmol/L (21-32) Anion Gap 7 (6-14) Blood Urea Nitrogen 9 mg/dL (7-20) Creatinine 0.6 mg/dL (0.6-1.0) Estimated GFR (Cockcroft-Gault) 101.3 BUN/Creatinine Ratio 15 (6-20) Glucose Level 114 mg/dL (70-99) Calcium Level 8.1 mg/dL (8.5-10.1) Total Bilirubin 0.1 mg/dL (0.2-1.0) Aspartate Amino Transf (AST/SGOT) 35 U/L (15-37) Alanine Aminotransferase (ALT/SGPT) 27 U/L (14-59) Alkaline Phosphatase 75 U/L (46-116) Total Protein 6.4 g/dL (6.4-8.2) Albumin 2.5 g/dL (3.4-5.0) Albumin/Globulin Ratio 0.6 (1.0-1.7) O2 Saturation 97 % (92-99) Arterial Blood pH 7.45 (7.35-7.45) Arterial Blood pCO2 at Patient Temp 34 mmHg (35-46) Arterial Blood pO2 at Patient Temp 107 mmHg (65-108) Arterial Blood HCO3 23 mmol/L (21-28) Arterial Blood Base Excess -1 mmol/L (-3-3) FiO2 30% Assessment and Plan Assessmemt and Plan Problems Medical Problems: (1) Cerebral parenchymal hemorrhage Status: Acute (2) HTN (hypertension) Status: Acute 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 per d/w neurosurgery likely aneursymal, possibly bleeding prior to presentation. left frontal lobe 5.5 x 6.0 x 3.0 cm large parenchymal hematoma and surrounding edema. S/p craniotomy. BP monitoring with a-line, hugh gtt. Marissa HLD - on statin Respiratory failure - likely 2/2 intracranial bleed. Pulm to see in AM for vent management Leukocytosis - likely 2/2 bleed. will monitor Hypokalemia and hypomagnesemia - will replace IV. monitor OG to suction DVT prophylaxis Trend labs Hope to remove the intracranial monitor soon Appreciate subspecialist input She is critically ill Prognosis guarded Total time 31-minute Comment Review of Relevant I have reviewed the following items wang (where applicable) has been applied. Medications: Current Medications Medications (Trade) Dose Ordered Sig/Arnel Route PRN Reason Start Time Stop Time Status Last Admin Dose Admin Famotidine (Pepcid Vial) 20 mg BID IVP 03/18/20 21:00 03/18/20 21:03 QASIM BAILEY III DO March 19, 2020 08:12
--- NOTE | 2020-03-19 09:35 | PDOC ---
PROGRESS NOTES Assessment Problems Medical Problems: (1) Cerebral parenchymal hemorrhage Status: Acute (2) HTN (hypertension) Status: Acute Large left intraparenchymal hemorrhage status-post evacuation CTA negative for aneurysm or AVM EVD clamped yesterday, intracranial pressure eugenia above 20, I understand neurosurgery plans to clamp again today Plan Levetiracetam Per neurosurgery, including timing of repeat head CT Subjective None Objective Vital Signs Date Time Temp Pulse Resp B/P (MAP) Pulse Ox O2 Delivery O2 Flow Rate FiO2 03/19/20 08:26 99 Ventilator 03/19/20 08:10 98.8 98.8 03/19/20 08:00 90 16 134/44 (74) Intake and Output 03/19/20 06:59 Intake Total 3936 ml Output Total 3144 ml Balance 792 ml Intake IV Total 1855 ml Tube Feeding 1956 ml Other 125 ml Output Urine Total 2930 ml Drainage Total 214 ml # Bowel Movements 1 PHYSICAL EXAM Sedated on vent PERRL. No spontaneous extraocular movements CN: no focal findings. Muscle tone: normal. Muscle strength: withdraws left slightly to pain DTR: 2+ Plantar reflex: extensor bilaterally Gait: not examined Sensory exam: not cooperative. Cerebellar: not cooperative Review of Relevant I have reviewed the following items wang (where applicable) has been applied. Labs Laboratory Tests Test 03/17/20 12:20 03/17/20 18:32 03/18/20 07:30 03/18/20 10:00 Glucose (Fingerstick) 115 mg/dL (70-99) 111 mg/dL (70-99) O2 Saturation 97 % (92-99) Arterial Blood pH 7.45 (7.35-7.45) Arterial Blood pCO2 at Patient Temp 32 mmHg (35-46) Arterial Blood pO2 at Patient Temp 109 mmHg (65-108) Arterial Blood HCO3 22 mmol/L (21-28) Arterial Blood Base Excess -2 mmol/L (-3-3) FiO2 30 White Blood Count 10.7 x10^3/uL (4.0-11.0) Red Blood Count 2.92 x10^6/uL (3.50-5.40) Hemoglobin 9.2 g/dL (12.0-15.5) Hematocrit 26.2 % (36.0-47.0) Mean Corpuscular Volume 90 fL (79-100) Mean Corpuscular Hemoglobin 32 pg (25-35) Mean Corpuscular Hemoglobin Concent 35 g/dL (31-37) Red Cell Distribution Width 13.0 % (11.5-14.5) Platelet Count 224 x10^3/uL (140-400) Sodium Level 138 mmol/L (136-145) Potassium Level 3.8 mmol/L (3.5-5.1) Chloride Level 105 mmol/L (98-107) Carbon Dioxide Level 26 mmol/L (21-32) Anion Gap 7 (6-14) Blood Urea Nitrogen 9 mg/dL (7-20) Creatinine 0.6 mg/dL (0.6-1.0) Estimated GFR (Cockcroft-Gault) 101.3 BUN/Creatinine Ratio 15 (6-20) Glucose Level 114 mg/dL (70-99) Calcium Level 8.1 mg/dL (8.5-10.1) Total Bilirubin 0.1 mg/dL (0.2-1.0) Aspartate Amino Transf (AST/SGOT) 35 U/L (15-37) Alanine Aminotransferase (ALT/SGPT) 27 U/L (14-59) Alkaline Phosphatase 75 U/L (46-116) Total Protein 6.4 g/dL (6.4-8.2) Albumin 2.5 g/dL (3.4-5.0) Albumin/Globulin Ratio 0.6 (1.0-1.7) Test 03/19/20 07:50 O2 Saturation 97 % (92-99) Arterial Blood pH 7.45 (7.35-7.45) Arterial Blood pCO2 at Patient Temp 34 mmHg (35-46) Arterial Blood pO2 at Patient Temp 107 mmHg (65-108) Arterial Blood HCO3 23 mmol/L (21-28) Arterial Blood Base Excess -1 mmol/L (-3-3) FiO2 30% Laboratory Tests Test 03/18/20 10:00 03/19/20 07:50 White Blood Count 10.7 x10^3/uL (4.0-11.0) Red Blood Count 2.92 x10^6/uL (3.50-5.40) Hemoglobin 9.2 g/dL (12.0-15.5) Hematocrit 26.2 % (36.0-47.0) Mean Corpuscular Volume 90 fL (79-100) Mean Corpuscular Hemoglobin 32 pg (25-35) Mean Corpuscular Hemoglobin Concent 35 g/dL (31-37) Red Cell Distribution Width 13.0 % (11.5-14.5) Platelet Count 224 x10^3/uL (140-400) Sodium Level 138 mmol/L (136-145) Potassium Level 3.8 mmol/L (3.5-5.1) Chloride Level 105 mmol/L (98-107) Carbon Dioxide Level 26 mmol/L (21-32) Anion Gap 7 (6-14) Blood Urea Nitrogen 9 mg/dL (7-20) Creatinine 0.6 mg/dL (0.6-1.0) Estimated GFR (Cockcroft-Gault) 101.3 BUN/Creatinine Ratio 15 (6-20) Glucose Level 114 mg/dL (70-99) Calcium Level 8.1 mg/dL (8.5-10.1) Total Bilirubin 0.1 mg/dL (0.2-1.0) Aspartate Amino Transf (AST/SGOT) 35 U/L (15-37) Alanine Aminotransferase (ALT/SGPT) 27 U/L (14-59) Alkaline Phosphatase 75 U/L (46-116) Total Protein 6.4 g/dL (6.4-8.2) Albumin 2.5 g/dL (3.4-5.0) Albumin/Globulin Ratio 0.6 (1.0-1.7) O2 Saturation 97 % (92-99) Arterial Blood pH 7.45 (7.35-7.45) Arterial Blood pCO2 at Patient Temp 34 mmHg (35-46) Arterial Blood pO2 at Patient Temp 107 mmHg (65-108) Arterial Blood HCO3 23 mmol/L (21-28) Arterial Blood Base Excess -1 mmol/L (-3-3) FiO2 30% Medications Current Medications Propofol (Diprivan) 200 mg 1X ONCE IV Last administered on 03/15/20at 11:47; Start 03/15/20 at 11:30; Stop 03/15/20 at 11:31; Status DC Propofol 50 ml @ As Directed STK-MED ONCE IV ; Start 03/15/20 at 11:45; Stop 03/15/20 at 11:45; Status DC Propofol 20 ml @ 0 mls/hr 1X ONCE IV Last administered on 03/15/20at 11:52; Start 03/15/20 at 11:45; Stop 03/15/20 at 11:50; Status DC Potassium Chloride 40 meq/ Dextrose 1,020 ml @ 75 mls/hr [id number] PRN IV 0 Last administered on 03/17/20at 03:08; Start 03/15/20 at 12:00; Stop 03/17/20 at 09:39; Status DC Etomidate (Amidate) 20 mg 1X ONCE IV Last administered on 03/15/20at 12:12; Start 03/15/20 at 11:40; Stop 03/15/20 at 12:00; Status DC Succinylcholine Chloride (Anectine) 100 mg 1X ONCE IV Last administered on 03/15/20at 12:12; Start 03/15/20 at 11:40; Stop 03/15/20 at 12:00; Status DC Bacitracin 84571 unit/Sodium Chloride 1,000 ml @ 1,000 mls/hr 1X ONCE IRR Last administered on 03/15/20at 14:50; Start 03/15/20 at 13:00; Stop 03/15/20 at 14:07; Status DC Cefazolin Sodium/ Dextrose 50 ml @ 100 mls/hr 1X PREOP PRN IV PRIOR TO PROCEDURE Last administered on 03/15/20at 13:25; Start 03/15/20 at 13:00; Stop 03/16/20 at 12:59; Status DC Propofol (Diprivan) 200 mg STK-MED ONCE IV ; Start 03/15/20 at 12:33; Stop 03/15/20 at 12:33; Status DC Phenylephrine HCl (PHENYLEPHRINE in 0.9% NACL PF) 1 mg STK-MED ONCE IV ; Start 03/15/20 at 12:33; Stop 03/15/20 at 12:33; Status DC Rocuronium [place] (Zemuron) 50 mg STK-MED ONCE .ROUTE ; Start 03/15/20 at 12:33; Stop 03/15/20 at 12:33; Status DC Dexamethasone Sodium Phosphate (Decadron) 20 mg STK-MED ONCE .ROUTE ; Start 03/15/20 at 12:36; Stop 03/15/20 at 12:36; Status DC Gelatin (Gelfoam Size 100) 1 each STK-MED ONCE .ROUTE Last administered on 03/15/20 13:49; Start 03/15/20 at 12:42; Stop 03/15/20 at 12:42; Status DC Bupivacaine HCl/ Epinephrine Bitart (Sensorcain-Epi 0.5%-1:485793 Mpf) 30 ml STK-MED ONCE .ROUTE ; Start 03/15/20 at 12:42; Stop 03/15/20 at 12:42; Status DC Mannitol (Mannitol) 12.5 g STK-MED ONCE .ROUTE Last administered on 03/15/20at 14:41; Start 03/15/20 at 12:42; Stop 03/15/20 at 12:42; Status DC Cellulose (Surgicel Hemostat 4x8) 1 each STK-MED ONCE .ROUTE Last administered on 03/15/20at 15:08; Start 03/15/20 at 12:42; Stop 03/15/20 at 12:43; Status DC Thrombin 20,000 unit STK-MED ONCE TP Last administered on 03/15/20 13:49; Start 03/15/20 at 12:42; Stop 03/15/20 at 12:43; Status DC Bupivacaine HCl/ Epinephrine Bitart (Sensorcain-Epi 0.5%-1:997393 Mpf) 30 ml STK-MED ONCE .ROUTE Last administered on 03/15/20at 13:48; Start 03/15/20 at 12:44; Stop 03/15/20 at 12:45; Status DC Bupivacaine HCl/ Epinephrine Bitart (Sensorcain-Epi 0.5%-1:016092 Mpf) 30 ml 1X ONCE INJ ; Start 03/15/20 at 13:00; Stop 03/15/20 at 13:01; Status DC Ondansetron HCl (Zofran) 4 mg PRN Q6HRS PRN IV NAUSEA/VOMITING; Start 03/15/20 at 13:45; Stop 03/15/20 at 16:35; Status DC Fentanyl Citrate (Fentanyl 2ml Vial) 25 mcg PRN Q5MIN PRN IV MILD PAIN 1-3; Start 03/15/20 at 13:45; Stop 03/16/20 at 13:44; Status DC Fentanyl Citrate (Fentanyl 2ml Vial) 50 mcg PRN Q5MIN PRN IV MODERATE TO SEVERE PAIN; Start 03/15/20 at 13:45; Stop 03/16/20 at 13:44; Status DC Morphine Sulfate (Morphine Sulfate) 1 mg PRN Q10MIN PRN IV SEVERE PAIN 7-10; Start 03/15/20 at 13:45; Stop 03/16/20 at 13:44; Status DC Ringer's Solution 1,000 ml @ 30 mls/hr Q24H IV ; Start 03/15/20 at 13:31; Stop 03/16/20 at 01:30; Status DC Hydromorphone HCl (Dilaudid) 0.5 mg PRN Q10MIN PRN IV SEV PAIN, Second choice; Start 03/15/20 at 13:45; Stop 03/16/20 at 13:44; Status DC Prochlorperazine Edisylate (Compazine) 5 mg PACU PRN PRN IV NAUSEA, MRX1; Start 03/15/20 at 13:45; Stop 03/16/20 at 13:44; Status DC Mannitol (Mannitol) 12.5 g STK-MED ONCE .ROUTE Last administered on 03/15/20at 14:41; Start 03/15/20 at 14:28; Stop 03/15/20 at 14:28; Status DC Phenylephrine HCl (Diego-Synephrine Inj) 10 mg STK-MED ONCE .ROUTE ; Start 03/15/20 at 14:43; Stop 03/15/20 at 14:43; Status DC Fentanyl Citrate (Fentanyl 2ml Vial) 100 mcg STK-MED ONCE .ROUTE ; Start 03/15/20 at 15:08; Stop 03/15/20 at 15:09; Status DC Rocuronium [place] (Zemuron) 50 mg STK-MED ONCE .ROUTE ; Start 03/15/20 at 15:34; Stop 03/15/20 at 15:34; Status DC Sevoflurane (Ultane) 90 ml STK-MED ONCE IH ; Start 03/15/20 at 15:44; Stop 03/15/20 at 15:44; Status DC Propofol 50 ml @ As Directed STK-MED ONCE IV ; Start 03/15/20 at 16:02; Stop 03/15/20 at 16:02; Status DC Nicardipine HCl 50 mg/Sodium Chloride 250 ml @ 25 mls/hr TITRATE PRN IV HYPERTENSION Last administered on 03/19/20at 06:12; Start 03/15/20 at 16:30 Levetiracetam 500 mg/Sodium Chloride 105 ml @ 400 mls/hr Q12HR IV Last admin istered on 03/18/20at 21:04; Start 03/15/20 at 21:00 Sodium Chloride (Normal Saline Flush) 3 ml QSHIFT PRN IV AFTER MEDS AND BLOOD DRAWS; Start 03/15/20 at 16:30 Potassium Chloride/Dextrose/ Sod Cl 1,000 ml @ 80 mls/hr [id number] IV ; Start 03/15/20 at 16:19; Stop 03/15/20 at 18:36; Status DC Dextrose (Dextrose 50%-Water Syringe) 12.5 gm PRN Q15MIN PRN IV SEE COMMENTS; Start 03/15/20 at 16:30 Cefazolin Sodium (Ancef) 1 gm Q8HRS IVP Last administered on 03/16/20at 14:52; Start 03/15/20 at 22:00; Stop 03/16/20 at 14:01; Status DC Ondansetron HCl (Zofran) 4 mg PRN Q4HRS PRN IV NAUSEA/VOMITING; Start 03/15/20 at 16:45 Atorvastatin Calcium (Lipitor) 40 mg DAILY PO Last administered on 03/18/20at 09:04; Start 03/16/20 at 09:00 Acetaminophen (Tylenol Supp) 650 mg PRN Q6HRS PRN SC MILD PAIN / TEMP > 100.3'F; Start 03/15/20 at 16:45 Docusate Sodium (Enemeez) 283 mg PRN DAILY PRN SC CONSTIPATION; Start 03/15/20 at 16:45 Magnesium Sulfate 50 ml @ 25 mls/hr 1X ONCE IV Last administered on 03/15/20at 17:23; Start 03/15/20 at 17:00; Stop 03/15/20 at 18:59; Status DC Propofol 100 ml @ As Directed STK-MED ONCE IV ; Start 03/15/20 at 19:37; Stop 03/15/20 at 19:38; Status DC Propofol 100 ml @ 0.837 mls/ hr CONT PRN IV SEE I/O RECORD Last administered on 03/19/20at 04:26; Start 03/15/20 at 19:45 Iohexol (Omnipaque 300 Mg/ml) 75 ml 1X ONCE IV Last administered on 03/16/20at 07:45; Start 03/16/20 at 07:45; Stop 03/16/20 at 07:50; Status DC Info (CONTRAST GIVEN -- Rx MONITORING) 1 each PRN DAILY PRN MC SEE COMMENTS; Start 03/16/20 at 08:00; Stop 03/18/20 at 07:59; Status DC Potassium Chloride/Dextrose/ Sod Cl 1,000 ml @ 75 mls/hr 1X ONCE IV Last administered on 03/17/20at 10:15; Start 03/17/20 at 09:45; Stop 03/17/20 at 23:04; Status DC Psyllium Hydrophilic Mucilloid (Metamucil Fiber Packet) 1 pkt DAILY PO Last administered on 03/18/20at 09:04; Start 03/17/20 at 11:00 Potassium Chloride/Dextrose/ Sod Cl 1,000 ml @ 75 mls/hr [id number] IV Last administered on 03/19/20at 04:26; Start 03/17/20 at 23:00 Famotidine (Pepcid Vial) 20 mg BID IVP Last administered on 03/18/20at 21:03; Start 03/18/20 at 21:00 Active Scripts Active Reported Oxybutynin Chloride Er (Oxybutynin Chloride) 10 Mg Tab.er.24 1 Tab PO DAILY Elmiron (Pentosan Polysulfate Sodium) 100 Mg Capsule 1 Cap PO TID 30 Days Atorvastatin Calcium 40 Mg Tablet 1 Tab PO DAILY Fluoxetine Hcl 40 Mg Capsule 40 Mg PO DAILY Premarin (Estrogens, Conjugated) 0.625 Mg Tablet 1 Tab PO DAILY Vitals/I & O Vital Sign - Last 24 Hours 03/18/20 03/18/20 03/18/20 03/18/20 10:09 11:04 11:18 12:00 Temp 98.9 98.9 Pulse 87 87 86 Resp 16 16 16 B/P (MAP) 131/57 (81) 135/49 (77) 138/50 (79) Pulse Ox 99 99 100 100 O2 Delivery Ventilator Ventilator Ventilator Ventilator 03/18/20 03/18/20 03/18/20 03/18/20 12:00 12:00 12:05 13:15 Pulse 86 Resp 16 B/P (MAP) 142/50 (80) Pulse Ox 100 100 O2 Delivery Mechanical Ventilator Ventilator Ventilator 03/18/20 03/18/20 03/18/20 03/18/20 14:15 15:00 15:37 16:00 Pulse 86 84 Resp 16 16 B/P (MAP) 142/49 (80) 138/49 (78) Pulse Ox 100 100 100 O2 Delivery Ventilator Ventilator Ventilator Mechanical Ventilator 03/18/20 03/18/20 03/18/20 03/18/20 16:00 16:00 17:04 17:56 Temp 99.2 99.2 Pulse 84 84 82 Resp 16 16 16 B/P (MAP) 144/51 (82) 140/49 (79) 140/48 (78) Pulse Ox 100 100 100 O2 Delivery Ventilator Ventilator Ventilator 03/18/20 03/18/20 03/18/20 03/18/20 19:00 20:00 20:00 20:00 Temp 100.0 100.0 Pulse 92 91 91 Resp 16 16 B/P (MAP) 140/48 (78) 138/50 (79) 138/50 (79) Pulse Ox 100 100 O2 Delivery Ventilator Mechanical Ventilator Ventilator 03/18/20 03/18/20 03/18/20 03/18/20 20:38 21:00 21:15 21:45 Pulse 84 84 94 Resp 16 16 16 B/P (MAP) 142/48 (79) 138/48 (78) 144/53 (83) Pulse Ox 100 100 100 100 O2 Delivery Ventilator Ventilator Ventilator Ventilator 03/18/20 03/18/20 03/18/20 03/19/20 22:00 23:00 23:50 00:00 Pulse 88 100 88 Resp 16 19 B/P (MAP) 135/48 (77) 147/53 (84) 133/50 (77) Pulse Ox 100 100 100 O2 Delivery Ventilator Ventilator Ventilator 03/19/20 03/19/20 03/19/20 03/19/20 00:00 00:00 01:00 02:00 Temp 99.3 99.3 Pulse 88 87 86 Resp 16 16 16 B/P (MAP) 133/50 (77) 139/50 (79) 140/49 (79) Pulse Ox 100 100 100 O2 Delivery Mechanical Ventilator Ventilator Ventilator Ventilator 03/19/20 03/19/20 03/19/2003/19/20 03:00 03:45 04:00 04:00 Temp 99.0 99.0 Pulse 86 86 85 85 Resp 16 16 16 B/P (MAP) 146/52 (83) 150/52 (84) 139/50 (79) 139/50 (79) Pulse Ox 100 100 100 O2 Delivery Ventilator Ventilator Ventilator 03/19/20 03/19/20 03/19/20 03/19/20 04:00 04:34 05:00 06:00 Pulse 90 87 Resp 16 16 B/P (MAP) 141/49 (79) 136/46 (76) Pulse Ox 100 100 100 O2 Delivery Mechanical Ventilator Ventilator Ventilator Ventilator 03/19/20 03/19/20 03/19/20 03/19/20 07:00 07:31 08:00 08:00 Pulse 90 Resp 16 B/P (MAP) 138/46 (76) Pulse Ox 100 100 O2 Delivery Ventilator Ventilator Mechanical Ventilator 03/19/20 03/19/20 03/19/20 08:00 08:10 08:26 Temp 98.8 98.8 Pulse 90 Resp 16 B/P (MAP) 134/44 (74) Pulse Ox 100 99 O2 Delivery Ventilator Ventilator Intake and Output 03/18/20 03/18/20 03/19/20 14:59 22:59 06:59 Intake Total 355 ml 1394 ml 2187 ml Output Total 1162 ml 964 ml 1018 ml Balance -807 ml 430 ml 1169 ml SON PHAM MD March 19, 2020 09:35
[2020-03-19] MEDS: FAMOTIDINE 20 MG/2 ML VIAL IVP SCH ×2 (10:16→20:54)
[2020-03-19] MEDS: ATORVASTATIN CALCIUM 40 MG TABLET. PO SCH (10:16)
[2020-03-19] MEDS: PSYLLIUM HUSK (SUGAR FREE) 1 PKT PACKET PO SCH (10:16)
--- NOTE | 2020-03-19 10:45 | PDOC ---
PROGRESS NOTES Subjective Subjective patient seen and examined at 0945 POD #4 s/p crani and removal of hematoma sedated on vent Objective Objective Vital Signs Date Time Temp Pulse Resp B/P (MAP) Pulse Ox O2 Delivery O2 Flow Rate FiO2 03/19/20 08:26 99 Ventilator 03/19/20 08:10 98.8 98.8 03/19/20 08:00 90 16 134/44 (74) Intake and Output 03/19/20 07:00 Intake Total 3936 ml Output Total 3144 ml Balance 792 ml Intake IV Total 1855 ml Tube Feeding 1956 ml Other 125 ml Output Urine Total 2930 ml Drainage Total 214 ml # Bowel Movements 1 Physical Exam Neuro: Other (weakly attempt to localize with left upper extremity, pupils equal and reactive) Skin: Other (dressing dry and intact, EVD in place- output noted) Assessment Assessment Problems Medical Problems: (1) Cerebral parenchymal hemorrhage Status: Acute (2) HTN (hypertension) Status: Acute Plan Plan of Care ICP re zeroed, pressure now 1-2 will attempt to keep clamped and monitor ICP wean sedation as tolerated D/W RN Comment Review of Relevant I have reviewed the following items wang (where applicable) has been applied. Labs Laboratory Tests Test 03/17/20 12:20 03/17/20 18:32 03/18/20 07:30 03/18/20 10:00 Glucose (Fingerstick) 115 mg/dL (70-99) 111 mg/dL (70-99) O2 Saturation 97 % (92-99) Arterial Blood pH 7.45 (7.35-7.45) Arterial Blood pCO2 at Patient Temp 32 mmHg (35-46) Arterial Blood pO2 at Patient Temp 109 mmHg (65-108) Arterial Blood HCO3 22 mmol/L (21-28) Arterial Blood Base Excess -2 mmol/L (-3-3) FiO2 30 White Blood Count 10.7 x10^3/uL (4.0-11.0) Red Blood Count 2.92 x10^6/uL (3.50-5.40) Hemoglobin 9.2 g/dL (12.0-15.5) Hematocrit 26.2 % (36.0-47.0) Mean Corpuscular Volume 90 fL (79-100) Mean Corpuscular Hemoglobin 32 pg (25-35) Mean Corpuscular Hemoglobin Concent 35 g/dL (31-37) Red Cell Distribution Width 13.0 % (11.5-14.5) Platelet Count 224 x10^3/uL (140-400) Sodium Level 138 mmol/L (136-145) Potassium Level 3.8 mmol/L (3.5-5.1) Chloride Level 105 mmol/L (98-107) Carbon Dioxide Level 26 mmol/L (21-32) Anion Gap 7 (6-14) Blood Urea Nitrogen 9 mg/dL (7-20) Creatinine 0.6 mg/dL (0.6-1.0) Estimated GFR (Cockcroft-Gault) 101.3 BUN/Creatinine Ratio 15 (6-20) Glucose Level 114 mg/dL (70-99) Calcium Level 8.1 mg/dL (8.5-10.1) Total Bilirubin 0.1 mg/dL (0.2-1.0) Aspartate Amino Transf (AST/SGOT) 35 U/L (15-37) Alanine Aminotransferase (ALT/SGPT) 27 U/L (14-59) Alkaline Phosphatase 75 U/L (46-116) Total Protein 6.4 g/dL (6.4-8.2) Albumin 2.5 g/dL (3.4-5.0) Albumin/Globulin Ratio 0.6 (1.0-1.7) Test 03/19/20 07:50 O2 Saturation 97 % (92-99) Arterial Blood pH 7.45 (7.35-7.45) Arterial Blood pCO2 at Patient Temp 34 mmHg (35-46) Arterial Blood pO2 at Patient Temp 107 mmHg (65-108) Arterial Blood HCO3 23 mmol/L (21-28) Arterial Blood Base Excess -1 mmol/L (-3-3) FiO2 30% Laboratory Tests Test 03/19/20 07:50 O2 Saturation 97 % (92-99) Arterial Blood pH 7.45 (7.35-7.45) Arterial Blood pCO2 at Patient Temp 34 mmHg (35-46) Arterial Blood pO2 at Patient Temp 107 mmHg (65-108) Arterial Blood HCO3 23 mmol/L (21-28) Arterial Blood Base Excess -1 mmol/L (-3-3) FiO2 30% Medications Current Medications Propofol (Diprivan) 200 mg 1X ONCE IV Last administered on 03/15/20at 11:47; Start 03/15/20 at 11:30; Stop 03/15/20 at 11:31; Status DC Propofol 50 ml @ As Directed STK-MED ONCE IV ; Start 03/15/20 at 11:45; Stop 03/15/20 at 11:45; Status DC Propofol 20 ml @ 0 mls/hr 1X ONCE IV Last administered on 03/15/20at 11:52; Start 03/15/20 at 11:45; Stop 03/15/20 at 11:50; Status DC Potassium Chloride 40 meq/ Dextrose 1,020 ml @ 75 mls/hr [id number] PRN IV 0 Last administered on 03/17/20at 03:08; Start 03/15/20 at 12:00; Stop 03/17/20 at 09:39; Status DC Etomidate (Amidate) 20 mg 1X ONCE IV Last administered on 03/15/20at 12:12; Start 03/15/20 at 11:40; Stop 03/15/20 at 12:00; Status DC Succinylcholine Chloride (Anectine) 100 mg 1X ONCE IV Last administered on 03/15/20at 12:12; Start 03/15/20 at 11:40; Stop 03/15/20 at 12:00; Status DC Bacitracin 86783 unit/Sodium Chloride 1,000 ml @ 1,000 mls/hr 1X ONCE IRR Last administered on 03/15/20at 14:50; Start 03/15/20 at 13:00; Stop 03/15/20 at 14:07; Status DC Cefazolin Sodium/ Dextrose 50 ml @ 100 mls/hr 1X PREOP PRN IV PRIOR TO PROCEDURE Last administered on 03/15/20at 13:25; Start 03/15/20 at 13:00; Stop 03/16/20 at 12:59; Status DC Propofol (Diprivan) 200 mg STK-MED ONCE IV ; Start 03/15/20 at 12:33; Stop 03/15/20 at 12:33; Status DC Phenylephrine HCl (PHENYLEPHRINE in 0.9% NACL PF) 1 mg STK-MED ONCE IV ; Start 03/15/20 at 12:33; Stop 03/15/20 at 12:33; Status DC Rocuronium [place] (Zemuron) 50 mg STK-MED ONCE .ROUTE ; Start 03/15/20 at 12:33; Stop 03/15/20 at 12:33; Status DC Dexamethasone Sodium Phosphate (Decadron) 20 mg STK-MED ONCE .ROUTE ; Start 03/15/20 at 12:36; Stop 03/15/20 at 12:36; Status DC Gelatin (Gelfoam Size 100) 1 each STK-MED ONCE .ROUTE Last administered on at 13:49; Start 03/15/20 at 12:42; Stop 03/15/20 at 12:42; Status DC Bupivacaine HCl/ Epinephrine Bitart (Sensorcain-Epi 0.5%-1:[id number] Mpf) 30 ml STK-MED ONCE .ROUTE ; Start 03/15/20 at 12:42; Stop 03/15/20 at 12:42; Status DC Mannitol (Mannitol) 12.5 g STK-MED ONCE .ROUTE Last administered on 03/15/20at 14:41; Start 03/15/20 at 12:42; Stop 03/15/20 at 12:42; Status DC Cellulose (Surgicel Hemostat 4x8) 1 each STK-MED ONCE .ROUTE Last administered on 03/15/20at 15:08; Start 03/15/20 at 12:42; Stop 03/15/20 at 12:43; Status DC Thrombin 20,000 unit STK-MED ONCE TP Last administered on 03/15/20 13:49; Start 03/15/20 at 12:42; Stop 03/15/20 at 12:43; Status DC Bupivacaine HCl/ Epinephrine Bitart (Sensorcain-Epi 0.5%-1:143145 Mpf) 30 ml STK-MED ONCE .ROUTE Last administered on 03/15/20at 13:48; Start 03/15/20 at 12:44; Stop 03/15/20 at 12:45; Status DC Bupivacaine HCl/ Epinephrine Bitart (Sensorcain-Epi 0.5%-1:262541 Mpf) 30 ml 1X ONCE INJ ; Start 03/15/20 at 13:00; Stop 03/15/20 at 13:01; Status DC Ondansetron HCl (Zofran) 4 mg PRN Q6HRS PRN IV NAUSEA/VOMITING; Start 03/15/20 at 13:45; Stop 03/15/20 at 16:35; Status DC Fentanyl Citrate (Fentanyl 2ml Vial) 25 mcg PRN Q5MIN PRN IV MILD PAIN 1-3; Start 03/15/20 at 13:45; Stop 03/16/20 at 13:44; Status DC Fentanyl Citrate (Fentanyl 2ml Vial) 50 mcg PRN Q5MIN PRN IV MODERATE TO SEVERE PAIN; Start 03/15/20 at 13:45; Stop 03/16/20 at 13:44; Status DC Morphine Sulfate (Morphine Sulfate) 1 mg PRN Q10MIN PRN IV SEVERE PAIN 7-10; Start 03/15/20 at 13:45; Stop 03/16/20 at 13:44; Status DC Ringer's Solution 1,000 ml @ 30 mls/hr Q24H IV ; Start 03/15/20 at 13:31; Stop 03/16/20 at 01:30; Status DC Hydromorphone HCl (Dilaudid) 0.5 mg PRN Q10MIN PRN IV SEV PAIN, Second choice; Start 03/15/20 at 13:45; Stop 03/16/20 at 13:44; Status DC Prochlorperazine Edisylate (Compazine) 5 mg PACU PRN PRN IV NAUSEA, MRX1; Start 03/15/20 at 13:45; Stop 03/16/20 at 13:44; Status DC Mannitol (Mannitol) 12.5 g STK-MED ONCE .ROUTE Last administered on 03/15/20at 14:41; Start 03/15/20 at 14:28; Stop 03/15/20 at 14:28; Status DC Phenylephrine HCl (Diego-Synephrine Inj) 10 mg STK-MED ONCE .ROUTE ; Start 03/15/20 at 14:43; Stop 03/15/20 at 14:43; Status DC Fentanyl Citrate (Fentanyl 2ml Vial) 100 mcg STK-MED ONCE .ROUTE ; Start at 15:08; Stop 03/15/20 at 15:09; Status DC Rocuronium [place] (Zemuron) 50 mg STK-MED ONCE .ROUTE ; Start 03/15/20 at 1 5:34; Stop 03/15/20 at 15:34; Status DC Sevoflurane (Ultane) 90 ml STK-MED ONCE IH ; Start 03/15/20 at 15:44; Stop 03/15/20 at 15:44; Status DC Propofol 50 ml @ As Directed STK-MED ONCE IV ; Start 03/15/20 at 16:02; Stop 03/15/20 at 16:02; Status DC Nicardipine HCl 50 mg/Sodium Chloride 250 ml @ 25 mls/hr TITRATE PRN IV HYPERTENSION Last administered on 03/19/20at 06:12; Start 03/15/20 at 16:30 Levetiracetam 500 mg/Sodium Chloride 105 ml @ 400 mls/hr Q12HR IV Last administered on 03/19/20at 10:12; Start 03/15/20 at 21:00 Sodium Chloride (Normal Saline Flush) 3 ml QSHIFT PRN IV AFTER MEDS AND BLOOD DRAWS; Start 03/15/20 at 16:30 Potassium Chloride/Dextrose/ Sod Cl 1,000 ml @ 80 mls/hr [id number] IV ; Start 03/15/20 at 16:19; Stop 03/15/20 at 18:36; Status DC Dextrose (Dextrose 50%-Water Syringe) 12.5 gm PRN Q15MIN PRN IV SEE COMMENTS; Start 03/15/20 at 16:30 Cefazolin Sodium (Ancef) 1 gm Q8HRS IVP Last administered on 03/16/20at 14:52; Start 03/15/20 at 22:00; Stop 03/16/20 at 14:01; Status DC Ondansetron HCl (Zofran) 4 mg PRN Q4HRS PRN IV NAUSEA/VOMITING; Start 03/15/20 at 16:45 Atorvastatin Calcium (Lipitor) 40 mg DAILY PO Last administered on 03/19/20at 10:16; Start 03/16/20 at 09:00 Acetaminophen (Tylenol Supp) 650 mg PRN Q6HRS PRN DC MILD PAIN / TEMP > 100.3'F; Start 03/15/20 at 16:45 Docusate Sodium (Enemeez) 283 mg PRN DAILY PRN DC CONSTIPATION; Start 03/15/20 at 16:45 Magnesium Sulfate 50 ml @ 25 mls/hr 1X ONCE IV Last administered on 03/15/20at 17:23; Start 03/15/20 at 17:00; Stop 03/15/20 at 18:59; Status DC Propofol 100 ml @ As Directed STK-MED ONCE IV ; Start 03/15/20 at 19:37; Stop 03/15/20 at 19:38; Status DC Propofol 100 ml @ 0.837 mls/ hr CONT PRN IV SEE I/O RECORD Last administered on 03/19/20at 04:26; Start 03/15/20 at 19:45 Iohexol (Omnipaque 300 Mg/ml) 75 ml 1X ONCE IV Last administered on 03/16/20at 07:45; Start 03/16/20 at 07:45; Stop 03/16/20 at 07:50; Status DC Info (CONTRAST GIVEN -- Rx MONITORING) 1 each PRN DAILY PRN MC SEE COMMENTS; Start 03/16/20 at 08:00; Stop 03/18/20 at 07:59; Status DC Potassium Chloride/Dextrose/ Sod Cl 1,000 ml @ 75 mls/hr 1X ONCE IV Last administered on 03/17/20at 10:15; Start 03/17/20 at 09:45; Stop 03/17/20 at 23:04; Status DC Psyllium Hydrophilic Mucilloid (Metamucil Fiber Packet) 1 pkt DAILY PO Last administered on 03/19/20at 10:16; Start 03/17/20 at 11:00 Potassium Chloride/Dextrose/ Sod Cl 1,000 ml @ 75 mls/hr [id number] IV Last administered on 03/19/20at 04:26; Start 03/17/20 at 23:00 Famotidine (Pepcid Vial) 20 mg BID IVP Last administered on 03/19/20at 10:16; Start 03/18/20 at 21:00 Active Scripts Active Reported Oxybutynin Chloride Er (Oxybutynin Chloride) 10 Mg Tab.er.24 1 Tab PO DAILY Elmiron (Pentosan Polysulfate Sodium) 100 Mg Capsule 1 Cap PO TID 30 Days Atorvastatin Calcium 40 Mg Tablet 1 Tab PO DAILY Fluoxetine Hcl 40 Mg Capsule 40 Mg PO DAILY Premarin (Estrogens, Conjugated) 0.625 Mg Tablet 1 Tab PO DAILY Vitals/I & O Vital Sign - Last 24 Hours 03/18/20 03/18/20 03/18/20 03/18/20 11:04 11:18 12:00 12:00 Temp 98.9 98.9 Pulse 87 86 Resp 16 16 B/P (MAP) 135/49 (77) 138/50 (79) Pulse Ox 99 100 100 O2 Delivery Ventilator Ventilator Ventilator 03/18/20 03/18/20 03/18/20 03/18/20 12:00 12:05 13:15 14:15 Pulse 86 86 Resp 16 16 B/P (MAP) 142/50 (80) 142/49 (80) Pulse Ox 100 100 100 O2 Delivery Mechanical Ventilator Ventilator Ventilator Ventilator 03/18/20 03/18/20 03/18/20 03/18/20 15:00 15:37 16:00 16:00 Temp 99.2 99.2 Pulse 84 84 Resp 16 16 B/P (MAP) 138/49 (78) 144/51 (82) Pulse Ox 100 100 100 O2 Delivery Ventilator Ventilator Mechanical Ventilator Ventilator 03/18/20 03/18/20 03/18/20 03/18/20 16:00 17:04 17:56 19:00 Pulse 84 82 92 Resp 16 16 16 B/P (MAP) 140/49 (79) 140/48 (78) 140/48 (78) Pulse Ox 100 100 100 O2 Delivery Ventilator Ventilator Ventilator 03/18/20 03/18/20 03/18/20 03/18/20 20:00 20:00 20:00 20:38 Temp 100.0 100.0 Pulse 91 91 Resp 16 B/P (MAP) 138/50 (79) 138/50 (79) Pulse Ox 100 100 O2 Delivery Mechanical Ventilator Ventilator Ventilator 03/18/20 03/18/20 03/18/20 03/18/20 21:00 21:15 21:45 22:00 Pulse 84 84 94 88 Resp 16 16 16 16 B/P (MAP) 142/48 (79) 138/48 (78) 144/53 (83) 135/48 (77) Pulse Ox 100 100 100 100 O2 Delivery Ventilator Ventilator Ventilator Ventilator 03/18/20 03/18/20 03/19/20 03/19/20 23:00 23:50 00:00 00:00 Pulse 100 88 Resp 19 B/P (MAP) 147/53 (84) 133/50 (77) Pulse Ox 100 100 O2 Delivery Ventilator Ventilator Mechanical Ventilator 03/19/20 03/19/20 03/19/20 03/19/20 00:00 01:00 02:00 03:00 Temp 99.3 99.3 Pulse 88 87 86 86 Resp 16 16 16 16 B/P (MAP) 133/50 (77) 139/50 (79) 140/49 (79) 146/52 (83) Pulse Ox 100 100 100 100 O2 Delivery Ventilator Ventilator Ventilator Ventilator 03/19/20 03/19/20 03/19/20 03/19/20 03:45 04:00 04:00 04:00 Temp 99.0 99.0 Pulse 86 85 85 Resp 16 16 B/P (MAP) 150/52 (84) 139/50 (79) 139/50 (79) Pulse Ox 100 100 O2 Delivery Ventilator Ventilator Mechanical Ventilator 03/19/20 03/19/20 03/19/20 03/19/20 04:34 05:00 06:00 07:00 Pulse 90 87 90 Resp 16 16 16 B/P (MAP) 141/49 (79) 136/46 (76) 138/46 (76) Pulse Ox 100 100 100 100 O2 Delivery Ventilator Ventilator Ventilator Ventilator 03/19/20 03/19/20 03/19/20 03/19/20 07:31 08:00 08:00 08:00 Pulse 90 Resp 16 B/P (MAP) 134/44 (74) Pulse Ox 100 100 O2 Delivery Ventilator Mechanical Ventilator Ventilator 03/19/20 03/19/20 08:10 08:26 Temp 98.8 98.8 Pulse Ox 99 O2 Delivery Ventilator Intake and Output 03/18/20 03/18/20 03/19/20 15:00 23:00 07:00 Intake Total 355 ml 1394 ml 2187 ml Output Total 1211 ml 1001 ml 932 ml Balance -856 ml 393 ml 1255 ml ABDOULAYE GOODWIN MD March 19, 2020 10:45
--- NOTE | 2020-03-19 10:50 | PDOC ---
PULMONARY PROGRESS NOTES Subjective remains intubated/ sedated on ICP monitoring Vitals Vital Signs Date Time Temp Pulse Resp B/P (MAP) Pulse Ox O2 Delivery O2 Flow Rate FiO2 03/19/20 10:00 93 16 136/46 (76) 100 Ventilator 03/19/20 08:10 98.8 98.8 Lungs: Clear Cardiovascular: S1 Abdomen: Soft Extremities: No Edema Skin: Warm Labs Laboratory Tests Test 03/17/20 12:20 03/17/20 18:32 03/18/20 07:30 03/18/20 10:00 Glucose (Fingerstick) 115 mg/dL (70-99) 111 mg/dL (70-99) O2 Saturation 97 % (92-99) Arterial Blood pH 7.45 (7.35-7.45) Arterial Blood pCO2 at Patient Temp 32 mmHg (35-46) Arterial Blood pO2 at Patient Temp 109 mmHg (65-108) Arterial Blood HCO3 22 mmol/L (21-28) Arterial Blood Base Excess -2 mmol/L (-3-3) FiO2 30 White Blood Count 10.7 x10^3/uL (4.0-11.0) Red Blood Count 2.92 x10^6/uL (3.50-5.40) Hemoglobin 9.2 g/dL (12.0-15.5) Hematocrit 26.2 % (36.0-47.0) Mean Corpuscular Volume 90 fL (79-100) Mean Corpuscular Hemoglobin 32 pg (25-35) Mean Corpuscular Hemoglobin Concent 35 g/dL (31-37) Red Cell Distribution Width 13.0 % (11.5-14.5) Platelet Count 224 x10^3/uL (140-400) Sodium Level 138 mmol/L (136-145) Potassium Level 3.8 mmol/L (3.5-5.1) Chloride Level 105 mmol/L (98-107) Carbon Dioxide Level 26 mmol/L (21-32) Anion Gap 7 (6-14) Blood Urea Nitrogen 9 mg/dL (7-20) Creatinine 0.6 mg/dL (0.6-1.0) Estimated GFR (Cockcroft-Gault) 101.3 BUN/Creatinine Ratio 15 (6-20) Glucose Level 114 mg/dL (70-99) Calcium Level 8.1 mg/dL (8.5-10.1) Total Bilirubin 0.1 mg/dL (0.2-1.0) Aspartate Amino Transf (AST/SGOT) 35 U/L (15-37) Alanine Aminotransferase (ALT/SGPT) 27 U/L (14-59) Alkaline Phosphatase 75 U/L (46-116) Total Protein 6.4 g/dL (6.4-8.2) Albumin 2.5 g/dL (3.4-5.0) Albumin/Globulin Ratio 0.6 (1.0-1.7) Test 03/19/20 07:50 O2 Saturation 97 % (92-99) Arterial Blood pH 7.45 (7.35-7.45) Arterial Blood pCO2 at Patient Temp 34 mmHg (35-46) Arterial Blood pO2 at Patient Temp 107 mmHg (65-108) Arterial Blood HCO3 23 mmol/L (21-28) Arterial Blood Base Excess -1 mmol/L (-3-3) FiO2 30% Laboratory Tests Test 03/19/20 07:50 O2 Saturation 97 % (92-99) Arterial Blood pH 7.45 (7.35-7.45) Arterial Blood pCO2 at Patient Temp 34 mmHg (35-46) Arterial Blood pO2 at Patient Temp 107 mmHg (65-108) Arterial Blood HCO3 23 mmol/L (21-28) Arterial Blood Base Excess -1 mmol/L (-3-3) FiO2 30% Medications Active Scripts Medications Dose Route/Sig Max Daily Dose Days Date Category Oxybutynin Chloride Er (Oxybutynin Chloride) 10 Mg Tab.er.24 1 Tab PO DAILY 03/15/20 Reported Elmiron (Pentosan Polysulfate Sodium) 100 Mg Capsule 1 Cap PO TID 30 03/15/20 Reported Atorvastatin Calcium 40 Mg Tablet 1 Tab PO DAILY 03/15/20 Reported Fluoxetine Hcl 40 Mg Capsule 40 Mg PO DAILY 03/15/20 Reported Premarin (Estrogens, Conjugated) 0.625 Mg Tablet 1 Tab PO DAILY 03/15/20 Reported Impression . IMPRESSION: 1. Acute respiratory failure secondary to large cerebral hematoma requiring emergent evacuation.ct with Large left intraparenchymal hemorrhage status-post evacuation CTA negative for aneurysm or AVM 2. Encephalopathy secondary to large left intraparenchymal hematoma. 3. Slightly mild cephalization of vessels on chest x-ray could be secondary to mild neurogenic edema. Plan . 1. Continue with present assist control mode. 2. Follow Neurosurgery recommendations. hold any weaning until awake and off Ventriculostomy. Decrease sedation per NS 3. Optimization of blood pressure per Neurosurgery with Cardene drip. 4. SCDs for DVT prophylaxis. 5. Once mental status improves, then we will consider a weaning trial. 6. enteral nutrition. 7. Discussed with RN and RT. We will follow along with you. 8. repeat cxr 03/18 ADRIANA Jauregui MD March 19, 2020 10:50
[2020-03-19] MEDS ORDERED: MINERAL OIL/PETROLATUM,WHITE OPHTH OINT 3.5GM TUBE. OU PRN (16:15)
--- NOTE | 2020-03-19 16:35 | NUR ---
SS following up with discharge planning. SS reviewed pt chart and discussed with RN, Jaimie. Pt remains on the vent at this time. SS will continue to follow for discharge planning.
[2020-03-20] VITALS (24 sets, daily range): BP systolic 112–160; BP diastolic 44–88
[2020-03-20] MEDS: POTASSIUM CL 20MEQ D5-0.45NACL 1,000 ML IV SCH ×2 (07:23→18:11)
[2020-03-20 08:29] LABS: BASE EXCESS ABG -2 mmol/L (-3-3); HCO3 ABG 21 mmol/L (21-28); PCO2 ABG 29 mmHg (35-46); PO2 ABG 87 mmHg (65-108); SAT O2 ABG 96 % (92-99)
[2020-03-20 08:33] LABS: FIO2 ABG 30% VENT
[2020-03-20] MEDS: ATORVASTATIN CALCIUM 40 MG TABLET. PO SCH (09:00)
[2020-03-20] MEDS: FAMOTIDINE 20 MG/2 ML VIAL IVP SCH ×2 (09:00→21:24)
--- NOTE | 2020-03-20 10:28 | PDOC ---
PULMONARY PROGRESS NOTES Subjective remains intubated/ off sedation was on propofol over night, small ett secretion, on cardene on ICP monitoring Vitals Vital Signs Date Time Temp Pulse Resp B/P (MAP) Pulse Ox O2 Delivery O2 Flow Rate FiO2 03/20/20 08:34 98 Ventilator 03/20/20 06:00 100 16 122/44 (70) 03/20/20 04:00 100.2 100.2 Comments ros unable to obtain on vent not responsive HEENT: Other (nc at perrl nose clear orally intubated neck no lad no thyromegaly) Lungs: Clear Cardiovascular: S1, S2 Abdomen: Soft, Non-tender, Other (no mass) Extremities: No Edema Skin: Warm Labs Laboratory Tests Test 03/19/20 07:50 03/19/20 18:26 03/20/20 09:00 O2 Saturation 97 % (92-99) 96 % (92-99) Arterial Blood pH 7.45 (7.35-7.45) 7.47 (7.35-7.45) Arterial Blood pCO2 at Patient Temp 34 mmHg (35-46) 29 mmHg (35-46) Arterial Blood pO2 at Patient Temp 107 mmHg (65-108) 87 mmHg (65-108) Arterial Blood HCO3 23 mmol/L (21-28) 21 mmol/L (21-28) Arterial Blood Base Excess -1 mmol/L (-3-3) -2 mmol/L (-3-3) FiO2 30% 30% vent Glucose (Fingerstick) 129 mg/dL (70-99) Laboratory Tests Test 03/19/20 18:26 03/20/20 09:00 Glucose (Fingerstick) 129 mg/dL (70-99) O2 Saturation 96 % (92-99) Arterial Blood pH 7.47 (7.35-7.45) Arterial Blood pCO2 at Patient Temp 29 mmHg (35-46) Arterial Blood pO2 at Patient Temp 87 mmHg (65-108) Arterial Blood HCO3 21 mmol/L (21-28) Arterial Blood Base Excess -2 mmol/L (-3-3) FiO2 30% vent Medications Active Scripts Medications Dose Route/Sig Max Daily Dose Days Date Category Oxybutynin Chloride Er (Oxybutynin Chloride) 10 Mg Tab.er.24 1 Tab PO DAILY 03/15/20 Reported Elmiron (Pentosan Polysulfate Sodium) 100 Mg Capsule 1 Cap PO TID 30 03/15/20 Reported Atorvastatin Calcium 40 Mg Tablet 1 Tab PO DAILY 03/15/20 Reported Fluoxetine Hcl 40 Mg Capsule 40 Mg PO DAILY 03/15/20 Reported Premarin (Estrogens, Conjugated) 0.625 Mg Tablet 1 Tab PO DAILY 03/15/20 Reported Comments cxr reviewed no infit ett ok Impression . IMPRESSION: 1. Acute respiratory failure secondary to large cerebral hematoma requiring emergent evacuation.ct with Large left intraparenchymal hemorrhage status-post evacuation CTA negative for aneurysm or AVM 2. Encephalopathy secondary to large left intraparenchymal hematoma. 3. leukocytosis 4. htn on cardene Plan . 1. Continue with present assist control mode. vent setting reviewed 2. Follow Neurosurgery recommendations. hold any weaning until awake and off Ventriculostomy. off sedation per NS on cardene 3. Optimization of blood pressure per Neurosurgery with Cardene drip. 4. SCDs for DVT prophylaxis. 5. Once mental status improves, then we will consider a weaning trial. 6. enteral nutrition. 7. Discussed with RN and RT. We will follow along with you. 8. repeat cxr 03/18 RONY Ballesteros MD March 20, 2020 10:28
--- NOTE | 2020-03-20 12:13 | PDOC ---
PROGRESS NOTES Subjective Subjective POD # 5 S/P craniotomy and removal of hematoma off sedation this morning Objective Objective Vital Signs Date Time Temp Pulse Resp B/P (MAP) Pulse Ox O2 Delivery O2 Flow Rate FiO2 03/20/20 11:35 94 Ventilator 03/20/20 06:00 100 16 122/44 (70) 03/20/20 04:00 100.2 100.2 Intake and Output 03/20/20 07:00 Intake Total 4879 ml Output Total 1255 ml Balance 3624 ml Intake IV Total 2555 ml Tube Feeding 2074 ml Other 250 ml Output Urine Total 1230 ml Drainage Total 25 ml # Bowel Movements 1 Physical Exam General: Other (on vent) Neuro: Other (pupils equal and reactive, dressing intact, EVD output noted, ICP 9-10) Assessment Assessment Problems Medical Problems: (1) Cerebral parenchymal hemorrhage Status: Acute (2) HTN (hypertension) Status: Acute Plan Plan of Care hold sedation as tolerated EVD removed wean from vent as mental status improved D/W RN discussed with pathologist, likely AVM Comment Review of Relevant I have reviewed the following items wang (where applicable) has been applied. Labs Laboratory Tests Test 03/19/20 07:50 03/19/20 18:26 03/20/20 09:00 O2 Saturation 97 % (92-99) 96 % (92-99) Arterial Blood pH 7.45 (7.35-7.45) 7.47 (7.35-7.45) Arterial Blood pCO2 at Patient Temp 34 mmHg (35-46) 29 mmHg (35-46) Arterial Blood pO2 at Patient Temp 107 mmHg (65-108) 87 mmHg (65-108) Arterial Blood HCO3 23 mmol/L (21-28) 21 mmol/L (21-28) Arterial Blood Base Excess -1 mmol/L (-3-3) -2 mmol/L (-3-3) FiO2 30% 30% vent Glucose (Fingerstick) 129 mg/dL (70-99) Laboratory Tests Test 03/19/20 18:26 03/20/20 09:00 Glucose (Fingerstick) 129 mg/dL (70-99) O2 Saturation 96 % (92-99) Arterial Blood pH 7.47 (7.35-7.45) Arterial Blood pCO2 at Patient Temp 29 mmHg (35-46) Arterial Blood pO2 at Patient Temp 87 mmHg (65-108) Arterial Blood HCO3 21 mmol/L (21-28) Arterial Blood Base Excess -2 mmol/L (-3-3) FiO2 30% vent Medications Current Medications Propofol (Diprivan) 200 mg 1X ONCE IV Last administered on 03/15/20at 11:47; Start 03/15/20 at 11:30; Stop 03/15/20 at 11:31; Status DC Propofol 50 ml @ As Directed STK-MED ONCE IV ; Start 03/15/20 at 11:45; Stop 03/15/20 at 11:45; Status DC Propofol 20 ml @ 0 mls/hr 1X ONCE IV Last administered on 03/15/20at 11:52; Start 03/15/20 at 11:45; Stop 03/15/20 at 11:50; Status DC Potassium Chloride 40 meq/ Dextrose 1,020 ml @ 75 mls/hr [id number] PRN IV 0 Last administered on 03/17/20at 03:08; Start 03/15/20 at 12:00; Stop 03/17/20 at 09:39; Status DC Etomidate (Amidate) 20 mg 1X ONCE IV Last administered on 03/15/20at 12:12; Start 03/15/20 at 11:40; Stop 03/15/20 at 12:00; Status DC Succinylcholine Chloride (Anectine) 100 mg 1X ONCE IV Last administered on 03/15/20at 12:12; Start 03/15/20 at 11:40; Stop 03/15/20 at 12:00; Status DC Bacitracin 18057 unit/Sodium Chloride 1,000 ml @ 1,000 mls/hr 1X ONCE IRR Last administered on 03/15/20at 14:50; Start 03/15/20 at 13:00; Stop 03/15/20 at 14:07; Status DC Cefazolin Sodium/ Dextrose 50 ml @ 100 mls/hr 1X PREOP PRN IV PRIOR TO PROCEDURE Last administered on 03/15/20at 13:25; Start 03/15/20 at 13:00; Stop 03/16/20 at 12:59; Status DC Propofol (Diprivan) 200 mg STK-MED ONCE IV ; Start 03/15/20 at 12:33; Stop 03/15/20 at 12:33; Status DC Phenylephrine HCl (PHENYLEPHRINE in 0.9% NACL PF) 1 mg STK-MED ONCE IV ; Start 03/15/20 at 12:33; Stop 03/15/20 at 12:33; Status DC Rocuronium [place] (Zemuron) 50 mg STK-MED ONCE .ROUTE ; Start 03/15/20 at 12:33; Stop 03/15/20 at 12:33; Status DC Dexamethasone Sodium Phosphate (Decadron) 20 mg STK-MED ONCE .ROUTE ; Start 03/15/20 at 12:36; Stop 03/15/20 at 12:36; Status DC Gelatin (Gelfoam Size 100) 1 each STK-MED ONCE .ROUTE Last administered on 03/15/20at 13:49; Start 03/15/20 at 12:42; Stop 03/15/20 at 12:42; Status DC Bupivacaine HCl/ Epinephrine Bitart (Sensorcain-Epi 0.5%-1:098128 Mpf) 30 ml STK-MED ONCE .ROUTE ; Start 03/15/20 at 12:42; Stop 03/15/20 at 12:42; Status DC Mannitol (Mannitol) 12.5 g STK-MED ONCE .ROUTE Last administered on 03/15/20at 14:41; Start 03/15/20 at 12:42; Stop 03/15/20 at 12:42; Status DC Cellulose (Surgicel Hemostat 4x8) 1 each STK-MED ONCE .ROUTE Last administered on 03/15/20at 15:08; Start 03/15/20 at 12:42; Stop 03/15/20 at 12:43; Status DC Thrombin 20,000 unit STK-MED ONCE TP Last administered on 03/15/20at 13:49; Start 03/15/20 at 12:42; Stop 03/15/20 at 12:43; Status DC Bupivacaine HCl/ Epinephrine Bitart (Sensorcain-Epi 0.5%-1:906250 Mpf) 30 ml STK-MED ONCE .ROUTE Last administered on 03/15/20at 13:48; Start 03/15/20 at 12:44; Stop 03/15/20 at 12:45; Status DC Bupivacaine HCl/ Epinephrine Bitart (Sensorcain-Epi 0.5%-1:569061 Mpf) 30 ml 1X ONCE INJ ; Start 03/15/20 at 13:00; Stop 03/15/20 at 13:01; Status DC Ondansetron HCl (Zofran) 4 mg PRN Q6HRS PRN IV NAUSEA/VOMITING; Start 03/15/20 at 13:45; Stop 03/15/20 at 16:35; Status DC Fentanyl Citrate (Fentanyl 2ml Vial) 25 mcg PRN Q5MIN PRN IV MILD PAIN 1-3; Start 03/15/20 at 13:45; Stop 03/16/20 at 13:44; Status DC Fentanyl Citrate (Fentanyl 2ml Vial) 50 mcg PRN Q5MIN PRN IV MODERATE TO SEVERE PAIN; Start 03/15/20 at 13:45; Stop 03/16/20 at 13:44; Status DC Morphine Sulfate (Morphine Sulfate) 1 mg PRN Q10MIN PRN IV SEVERE PAIN 7-10; Start 03/15/20 at 13:45; Stop 03/16/20 at 13:44; Status DC Ringer's Solution 1,000 ml @ 30 mls/hr Q24H IV ; Start 03/15/20 at 13:31; Stop 03/16/20 at 01:30; Status DC Hydromorphone HCl (Dilaudid) 0.5 mg PRN Q10MIN PRN IV SEV PAIN, Second choice; Start 03/15/20 at 13:45; Stop 03/16/20 at 13:44; Status DC Prochlorperazine Edisylate (Compazine) 5 mg PACU PRN PRN IV NAUSEA, MRX1; Start 03/15/20 at 13:45; Stop 03/16/20 at 13:44; Status DC Mannitol (Mannitol) 12.5 g STK-MED ONCE .ROUTE Last administered on 03/15/20at 14:41; Start 03/15/20 at 14:28; Stop 03/15/20 at 14:28; Status DC Phenylephrine HCl (Diego-Synephrine Inj) 10 mg STK-MED ONCE .ROUTE ; Start 03/15/20 at 14:43; Stop 03/15/20 at 14:43; Status DC Fentanyl Citrate (Fentanyl 2ml Vial) 100 mcg STK-MED ONCE .ROUTE ; Start 03/15/20 at 15:08; Stop 03/15/20 at 15:09; Status DC Rocuronium [place] (Zemuron) 50 mg STK-MED ONCE .ROUTE ; Start 03/15/20 at 15:34; Stop 03/15/20 at 15:34; Status DC Sevoflurane (Ultane) 90 ml STK-MED ONCE IH ; Start 03/15/20 at 15:44; Stop 03/15/20 at 15:44; Status DC Propofol 50 ml @ As Directed STK-MED ONCE IV ; Start 03/15/20 at 16:02; Stop 03/15/20 at 16:02; Status DC Nicardipine HCl 50 mg/Sodium Chloride 250 ml @ 25 mls/hr TITRATE PRN IV HYPERTENSION Last administered on 03/20/20at 03:17; Start 03/15/20 at 16:30 Levetiracetam 500 mg/Sodium Chloride 105 ml @ 400 mls/hr Q12HR IV Last administered on 03/19/20at 20:54; Start 03/15/20 at 21:00 Sodium Chloride (Normal Saline Flush) 3 ml QSHIFT PRN IV AFTER MEDS AND BLOOD DRAWS; Start 03/15/20 at 16:30 Potassium Chloride/Dextrose/ Sod Cl 1,000 ml @ 80 mls/hr [id number] IV ; Start 03/15/20 at 16:19; Stop 03/15/20 at 18:36; Status DC Dextrose (Dextrose 50%-Water Syringe) 12.5 gm PRN Q15MIN PRN IV SEE COMMENTS; Start 03/15/20 at 16:30 Cefazolin Sodium (Ancef) 1 gm Q8HRS IVP Last administered on 03/16/20at 14:52; Start 03/15/20 at 22:00; Stop 03/16/20 at 14:01; Status DC Ondansetron HCl (Zofran) 4 mg PRN Q4HRS PRN IV NAUSEA/VOMITING; Start 03/15/20 at 16:45 Atorvastatin Calcium (Lipitor) 40 mg DAILY PO Last administered on 03/19/20at 10:16; Start 03/16/20 at 09:00 Acetaminophen (Tylenol Supp) 650 mg PRN Q6HRS PRN PA MILD PAIN / TEMP > 100.3'F; Start 03/15/20 at 16:45 Docusate Sodium (Enemeez) 283 mg PRN DAILY PRN PA CONSTIPATION; Start 03/15/20 at 16:45 Magnesium Sulfate 50 ml @ 25 mls/hr 1X ONCE IV Last administered on 03/15/20at 17:23; Start 03/15/20 at 17:00; Stop 03/15/20 at 18:59; Status DC Propofol 100 ml @ As Directed STK-MED ONCE IV ; Start 03/15/20 at 19:37; Stop 03/15/20 at 19:38; Status DC Propofol 100 ml @ 0.837 mls/ hr CONT PRN IV SEE I/O RECORD Last administered o n 03/19/20at 12:40; Start 03/15/20 at 19:45 Iohexol (Omnipaque 300 Mg/ml) 75 ml 1X ONCE IV Last administered on 03/16/20at 07:45; Start 03/16/20 at 07:45; Stop 03/16/20 at 07:50; Status DC Info (CONTRAST GIVEN -- Rx MONITORING) 1 each PRN DAILY PRN MC SEE COMMENTS; Start 03/16/20 at 08:00; Stop 03/18/20 at 07:59; Status DC Potassium Chloride/Dextrose/ Sod Cl 1,000 ml @ 75 mls/hr 1X ONCE IV Last administered on 03/17/20at 10:15; Start 03/17/20 at 09:45; Stop 03/17/20 at 23:04; Status DC Psyllium Hydrophilic Mucilloid (Metamucil Fiber Packet) 1 pkt DAILY PO Last administered on 03/19/20at 10:16; Start 03/17/20 at 11:00 Potassium Chloride/Dextrose/ Sod Cl 1,000 ml @ 75 mls/hr [id number] IV Last administered on 03/20/20at 07:23; Start 03/17/20 at 23:00 Famotidine (Pepcid Vial) 20 mg BID IVP Last administered on 03/19/20at 20:54; Start 03/18/20 at 21:00 Multi-Ingred Cream/Lotion/Oil/ Oint (Artificial Tears Eye Ointment) 1 ayala PRN Q1HR PRN OU DRY EYE; Start 03/19/20 at 16:15 Active Scripts Active Reported Oxybutynin Chloride Er (Oxybutynin Chloride) 10 Mg Tab.er.24 1 Tab PO DAILY Elmiron (Pentosan Polysulfate Sodium) 100 Mg Capsule 1 Cap PO TID 30 Days Atorvastatin Calcium 40 Mg Tablet 1 Tab PO DAILY Fluoxetine Hcl 40 Mg Capsule 40 Mg PO DAILY Premarin (Estrogens, Conjugated) 0.625 Mg Tablet 1 Tab PO DAILY Vitals/I & O Vital Sign - Last 24 Hours 03/19/20 03/19/20 03/19/20 03/19/20 12:19 13:00 14:00 14:57 Temp 99.5 99.5 Pulse 95 93 93 Resp 16 16 16 B/P (MAP) 132/45 (74) 135/45 (75) 132/46 (74) Pulse Ox 100 100 100 99 O2 Delivery Ventilator Ventilator Ventilator Ventilator 03/19/20 03/19/20 03/19/20 03/19/20 15:00 16:00 16:00 16:00 Pulse 96 95 95 Resp 16 16 B/P (MAP) 138/46 (76) 134/45 (74) 134/45 (74) Pulse Ox 97 99 O2 Delivery Ventilator Ventilator Mechanical Ventilator 03/19/20 03/19/20 03/19/20 03/19/20 16:42 17:00 17:00 18:00 Temp 99.6 99.6 Pulse 97 92 95 Resp 16 16 16 B/P (MAP) 133/45 (74) 130/42 (71) 133/45 (74) Pulse Ox 99 99 99 99 O2 Delivery Ventilator Ventilator Ventilator Ventilator 03/19/20 03/19/20 03/19/20 03/19/20 19:00 19:34 20:00 20:00 Pulse 93 92 Resp 16 B/P (MAP) 135/45 (75) 132/47 (75) Pulse Ox 99 99 O2 Delivery Ventilator Ventilator Mechanical Ventilator 03/19/20 03/19/20 03/19/20 03/19/20 20:00 21:00 22:00 23:00 Temp 99.3 99.3 Pulse 92 93 91 94 Resp 16 16 16 16 B/P (MAP) 132/47 (75) 130/43 (72) 137/44 (75) 133/43 (73) Pulse Ox 99 98 98 98 O2 Delivery Ventilator Ventilator Ventilator Ventilator 03/19/20 03/19/20 03/20/20 03/20/20 23:37 23:37 00:00 00:00 Pulse 92 92 B/P (MAP) 132/47 (75) Pulse Ox 99 O2 Delivery Mechanical Ventilator Ventilator 03/20/20 03/20/20 03/20/20 03/20/20 00:00 01:00 02:00 03:00 Temp 99.0 99.0 Pulse 97 98 98 94 Resp 16 16 16 16 B/P (MAP) 134/45 (74) 134/45 (74) 134/46 (75) 134/46 (75) Pulse Ox 98 98 98 99 O2 Delivery Ventilator Ventilator Ventilator Ventilator 03/20/20 03/20/20 03/20/20 03/20/20 04:00 04:00 04:00 04:51 Temp 100.2 100.2 Pulse 97 94 Resp 16 B/P (MAP) 131/46 (74) Pulse Ox 98 99 O2 Delivery Mechanical Ventilator Ventilator Ventilator 03/20/20 03/20/20 03/20/20 03/20/20 05:00 06:00 07:43 08:34 Pulse 96 100 Resp 16 16 B/P (MAP) 130/44 (72) 122/44 (70) Pulse Ox 98 97 97 98 O2 Delivery Ventilator Ventilator Ventilator Ventilator 03/20/20 11:35 Pulse Ox 94 O2 Delivery Ventilator Intake and Output 03/19/20 03/19/20 03/20/20 15:00 23:00 07:00 Intake Total 480 ml 1830 ml 2569 ml Output Total 600 ml 330 ml 325 ml Balance -120 ml 1500 ml 2244 ml ABDOULAYE GOODWIN MD March 20, 2020 12:13
--- NOTE | 2020-03-20 12:44 | PDOC ---
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 Hypokalemia and hypomagnesemia Hyponatremia 37 minutes CC time on labs, orders, images History of Present Illness History of Present Illness 03/20/2020 Patient seen and examined in the ICU She is still mechanically ventilated Assist-control/04/02 50/30% Dr. Patel just arrived he is removing the intracranial pressure monitor tube right now She remains critically ill Chart reviewed Discussed with RN We hope to change her sedation regimen as she gets agitated and then her blood pressure climbs If we can get her pressures under control then we can extubate hopefully? 03/19/2020 Patient seen and examined in the ICU She remains mechanically ventilated Assist-control/04/02 50/30% with 5 of PEEP She still has an intracranial pressure monitor current pressure is 10 On nicardipine drip She has SCDs She has a Batista to bedside drainage Has an art line Chart reviewed Discussed with RN She is still critically ill 03/18/2020 Patient seen and examined in the ICU She is on the vent Assist-control/04/02 100/30% Sedated with propofol Intracranial pressure monitor still in with an ICP of 13 Discussed with RN Chart reviewed Ms Mathew is a 64 yo F w/ PMHx HLD who was brought here by EMS from [facility] due to altered mental status around 1030 on 03/15/2020. noted that they were out shopping when she became unresponsive and fell to the ground, though he was able to catch her and guide her down on the floor. Patient did not hit her head. stated that patient has been having a headache for the last 2-3 days. He is sure that she is not on any blood thinner. Patient's stated that she is on multiple medications but he is not sure what they are.. EMS stated that she was able to protect her airway but her GCS was about [address] head revealed a left frontal lobe 5.5 x 6.0 x 3.0 cm large parenchymal hematoma and surrounding edema involving both the superior and middle frontal cortical gyri as well as extensive involvement of the white matter, with mass effect and 10 mm midline shift. Neurosurgery was urgently contacted. She underwent RSI with ED with etomidate and succinylcholine with 7.5 ET tube and went urgently to OR for craniotomy and hematoma evacuation which was large and invaded the ventricular and she is transferred to ICU for closer monitoring. I was able to evaluated patient prior to intubation and after surgery. 03/16: Patient seen and examined in the ICU, She is mechanically ventilated, Assist-control/450/16/30 percent, Has an OG to suction, Her pupils are reactive 03/17: Seen in ICU, sedated, intubated, on ICP monitoring and cardene GTT. Na 130. Hb 9.1. Moving left arm, posturing on pain response on right. Vitals/I&O Vitals/I&O: Vital Signs Date Time Temp Pulse Resp B/P (MAP) Pulse Ox O2 Delivery O2 Flow Rate FiO2 03/20/20 12:36 91 Ventilator 03/20/20 06:00 100 16 122/44 (70) 03/20/20 04:00 100.2 100.2 I & O 03/19/20 03/19/20 03/20/20 15:00 23:00 07:00 Intake Total 480 ml 1830 ml 2569 ml Output Total 600 ml 330 ml 325 ml Balance -120 ml 1500 ml 2244 ml Physical Exam General: Other (on vent) Heart: Regular rate, Normal S1 Lungs: Clear Abdomen: Normal bowel sounds, Soft, No tenderness, No hepatosplenomegaly, No masses Extremities: No clubbing, No cyanosis, No edema, Normal pulses, No tenderness/swelling Skin: Other (dressing dry and intact, EVD in place- output noted) Labs Labs: Laboratory Tests Test 03/19/20 18:26 03/20/20 09:00 Glucose (Fingerstick) 129 mg/dL (70-99) O2 Saturation 96 % (92-99) Arterial Blood pH 7.47 (7.35-7.45) Arterial Blood pCO2 at Patient Temp 29 mmHg (35-46) Arterial Blood pO2 at Patient Temp 87 mmHg (65-108) Arterial Blood HCO3 21 mmol/L (21-28) Arterial Blood Base Excess -2 mmol/L (-3-3) FiO2 30% vent Assessment and Plan Assessmemt and Plan Problems Medical Problems: (1) Cerebral parenchymal hemorrhage Status: Acute (2) HTN (hypertension) Status: Acute 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 per d/w neurosurgery likely aneursymal, possibly bleeding prior to presentation. left frontal lobe 5.5 x 6.0 x 3.0 cm large parenchymal hematoma and surrounding edema. S/p craniotomy. BP monitoring with a-line, cardene gtt. Marissa HLD - on statin Respiratory failure - likely 2/2 intracranial bleed. Pulm to see in AM for vent management Leukocytosis - likely 2/2 bleed. will monitor Hypokalemia and hypomagnesemia - will replace IV. monitor OG to suction DVT prophylaxis Trend labs Intracranial pressure monitor was just removed a few minutes ago As per above we are going to change her sedation regimen in hopes of keeping her from getting agitated and raising her blood pressure and then hopefully we can extubate Appreciate subspecialist input She is critically ill Prognosis guarded Total time 33-minute Comment Review of Relevant I have reviewed the following items wang (where applicable) has been applied. QASIM BAILEY III DO March 20, 2020 12:44
[2020-03-20] MEDS: fentaNYL PF VIAL 100 MCG/2 ML VIAL IVP PRN ×3 (18:08→22:12)
[2020-03-20] MEDS: PSYLLIUM HUSK (SUGAR FREE) 1 PKT PACKET PO SCH (18:09)
[2020-03-20 20:20] LABS: BASE EXCESS ABG -4 mmol/L (-3-3); HCO3 ABG 20 mmol/L (21-28); PCO2 ABG 33 mmHg (35-46); PO2 ABG 71 mmHg (65-108); SAT O2 ABG 92 % (92-99)
[2020-03-20 20:21] LABS: FIO2 ABG 100
--- NOTE | 2020-03-20 22:57 | RAD ---
EXAM: PORTABLE CHEST 1V INDICATION: Reason: increasing oxygen needs / Spl. Instructions: / History: . TECHNIQUE: Single view COMPARISON: 03/18/2020 chest x-ray at 11:53 AM FINDINGS: Continued endotracheal intubation with the ET tube tip terminating approximately 2.3 cm above the karthik. Stable appearance to partially visualized enteric tube passing below the diaphragms. The heart size is normal. Great vessels again show aortic calcification without pathologic mediastinal widening or shift. No hilar or mediastinal masses identified. Lungs show interval development of bilateral patchy airspace opacities more confluence in the right inferior hilar region and at the left lung base. There is no pleural effusion or pneumothorax. There are no significant osseous abnormalities. IMPRESSION: Marked interval worsening of airspace aeration with patchy bilateral airspace opacities noted. Differential considerations include pulmonary edema, hemorrhage, ARDS and multifocal pneumonia. Electronically signed by: Sandee Wallace MD (03/20/2020 10:54 PM) [facility] [place]
[2020-03-20] MEDS ORDERED: DEXMEDETOMIDINE 400 MCG in IV NORMAL SALINE 100ML 96 ML IV PRN (23:15)
[2020-03-20] MEDS ORDERED: FUROSEMIDE 20 MG/2 ML VIAL. IVP ONE (23:15)
--- NOTE | 2020-03-20 23:15 | NUR ---
pt has been having increasing work breathing, overbreathing the vent and desatting into the 80s. increased FiO2 from 60% to 100% over the course of the shift so far. then pt began to desat to 83% on 100% on the vent and when suctioned, minimal secretions observed from ET tube. attempted to bolus her with Propofol and gave Fentanyl per PRN order with no change. ABG and CXR obtained then Dr Flood paged and notified of change in pt's condition, vitals and results of ABG and CXR. new orders received and noted. will pass on in report, will continue to closely monitor.
[2020-03-21] VITALS (24 sets, daily range): BP systolic 98–175; BP diastolic 47–94
[2020-03-21 00:45] LABS: BASE EXCESS ABG -7 mmol/L (-3-3); HCO3 ABG 21 mmol/L (21-28); PCO2 ABG 50 mmHg (35-46); PO2 ABG 54 mmHg (65-108); SAT O2 ABG 78 % (92-99)
--- NOTE | 2020-03-21 00:45 | NUR ---
pt's continues to desat into the 70s despite meds given, vent settings changed and pt suctioned via ET tube. neuro status still intact; PERRL, cough/gag present, overbreathing the vent in the mid 20s, other VSS. Dr Flood paged again and notified of continuing change in pt condition. new orders received and noted. will pass on in report, will continue to closely monitor.
[2020-03-21 00:50] LABS: FIO2 ABG 100
[2020-03-21] MEDS ORDERED: FUROSEMIDE 20 MG/2 ML VIAL. IVP ONE (01:00)
[2020-03-21] MEDS ORDERED: methylPREDNISolone SOD SUCC PF 125 MG/2 ML VIAL. IV ONE (01:00)
[2020-03-21] MEDS: IPRATRPIUM/ALBUTEROL 0.5/2.5MG 3 ML NEBU. NEB SCH ×6 (01:15→19:19)
[2020-03-21 08:03] LABS: BASE EXCESS ABG -6 mmol/L (-3-3); HCO3 ABG 18 mmol/L (21-28); PCO2 ABG 29 mmHg (35-46); PO2 ABG 121 mmHg (65-108); SAT O2 ABG 98 % (92-99)
--- NOTE | 2020-03-21 11:49 | RAD ---
CHEST AP ONLY Clinical indications: Respiratory failure. Follow-up study. COMPARISON: March 20, 2020. Findings: Again seen are bilateral lung infiltrates or pulmonary edema which have improved. No pleural effusion or pneumothorax is evident. ET tube and NG tube remain in place. Heart size and mediastinum are stable. IMPRESSION: Improvement of bilateral lung infiltrates or pulmonary edema. Electronically signed by: Gerald De Jesus MD (03/21/2020 11:46 AM) [id number]
--- NOTE | 2020-03-21 11:49 | PDOC ---
PULMONARY PROGRESS NOTES Subjective remains intubated/ overnight had worsening resp fail, unable to ventilate, oxygenate, placed on propofol, precedex, fentanyl, sedated now, on cardene, abg much improved icp monitor dced Vitals Vital Signs Date Time Temp Pulse Resp B/P (MAP) Pulse Ox O2 Delivery O2 Flow Rate FiO2 03/21/20 11:18 100 Ventilator 03/21/20 08:00 03/21/20 06:16 24 03/21/20 06:00 75 03/21/20 04:00 100.0 100.0 Comments ros unable to obtain sedated on vent not responsive HEENT: Other (nc at perrl nose clear orally intubated neck no lad no thyromegaly) Lungs: Crackles Cardiovascular: S1, S2 Abdomen: Soft, Non-tender, Other (no mass) Extremities: No Edema Skin: Warm Labs Laboratory Tests Test 03/19/20 18:26 03/20/20 09:00 03/20/20 20:15 03/21/20 00:42 Glucose (Fingerstick) 129 mg/dL (70-99) O2 Saturation 96 % (92-99) 92 % (92-99) 78 % (92-99) Arterial Blood pH 7.47 (7.35-7.45) 7.40 (7.35-7.45) 7.23 (7.35-7.45) Arterial Blood pCO2 at Patient Temp 29 mmHg (35-46) 33 mmHg (35-46) 50 mmHg (35-46) Arterial Blood pO2 at Patient Temp 87 mmHg (65-108) 71 mmHg (65-108) 54 mmHg (65-108) Arterial Blood HCO3 21 mmol/L (21-28) 20 mmol/L (21-28) 21 mmol/L (21-28) Arterial Blood Base Excess -2 mmol/L (-3-3) -4 mmol/L (-3-3) -7 mmol/L (-3-3) FiO2 30% vent 100 100 Test 03/21/20 09:00 O2 Saturation 98 % (92-99) Arterial Blood pH 7.40 (7.35-7.45) Arterial Blood pCO2 at Patient Temp 29 mmHg (35-46) Arterial Blood pO2 at Patient Temp 121 mmHg (65-108) Arterial Blood HCO3 18 mmol/L (21-28) Arterial Blood Base Excess -6 mmol/L (-3-3) FiO2 2l n.c. Laboratory Tests Test 03/20/20 20:15 03/21/20 00:42 03/21/20 09:00 O2 Saturation 92 % (92-99) 78 % (92-99) 98 % (92-99) Arterial Blood pH 7.40 (7.35-7.45) 7.23 (7.35-7.45) 7.40 (7.35-7.45) Arterial Blood pCO2 at Patient Temp 33 mmHg (35-46) 50 mmHg (35-46) 29 mmHg (35-46) Arterial Blood pO2 at Patient Temp 71 mmHg (65-108) 54 mmHg (65-108) 121 mmHg (65-108) Arterial Blood HCO3 20 mmol/L (21-28) 21 mmol/L (21-28) 18 mmol/L (21-28) Arterial Blood Base Excess -4 mmol/L (-3-3) -7 mmol/L (-3-3) -6 mmol/L (-3-3) FiO2 100 100 2l n.c. Medications Active Scripts Medications Dose Route/Sig Max Daily Dose Days Date Category Oxybutynin Chloride Er (Oxybutynin Chloride) 10 Mg Tab.er.24 1 Tab PO DAILY 03/15/20 Reported Elmiron (Pentosan Polysulfate Sodium) 100 Mg Capsule 1 Cap PO TID 30 03/15/20 Reported Atorvastatin Calcium 40 Mg Tablet 1 Tab PO DAILY 03/15/20 Reported Fluoxetine Hcl 40 Mg Capsule 40 Mg PO DAILY 03/15/20 Reported Premarin (Estrogens, Conjugated) 0.625 Mg Tablet 1 Tab PO DAILY 03/15/20 Reported Comments cxrs reviewed 03/20, b lat infilt ett ok 03/21, b lat infilt better, ett ok Impression . IMPRESSION: 1. Acute respiratory failure multifactorial in etiology 2. large cerebral hematoma requiring emergent evacuation.ct with Large left intraparenchymal hemorrhage status-post evacuation CTA negative for aneurysm or AVM 2. Encephalopathy secondary to large left intraparenchymal hematoma. 3. leukocytosis 4. htn on cardene 5. abnl cxr, suspect acute pulm edema/acute diastolic chf, ? pneumonia, has low grade fever, cxr better w lasix but still there is b lat infilt Plan . 1. Continue with present assist control mode. vent setting reviewed, now on fio2 50%, peep 7 2. Follow Neurosurgery recommendations. weaning until awake and resp status better. 3. Optimization of blood pressure per Neurosurgery with Cardene drip. 4. SCDs for DVT prophylaxis. 5. Once mental status improves, then we will consider a weaning trial. 6. enteral nutrition. 7. Discussed with RN. We will follow along with you. 8. low grade fever, cxr b lat infilt will do sputum cx, start zosyn discussed w rn critically ill, cc time 30 min no overlap RONY PEREZ MD March 21, 2020 11:49
[2020-03-21] MEDS ORDERED: PIP/TAZO PER PHARMACY MC PRN (12:00)
--- NOTE | 2020-03-21 12:15 | PDOC ---
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 Hypokalemia and hypomagnesemia Hyponatremia History of Present Illness History of Present Illness 03/21/2020 Patient seen and examined in the ICU again She apparently decompensated overnight and had to be placed on several sedatives and had to increase her PEEP Chart reviewed Discussed with RN She remains critically ill Mechanically ventilated /14/03 100/60% 03/20/2020 Patient seen and examined in the ICU She is still mechanically ventilated Assist-control/04/02 50/30% Dr. Patel just arrived he is removing the intracranial pressure monitor tube right now She remains critically ill Chart reviewed Discussed with RN We hope to change her sedation regimen as she gets agitated and then her blood pressure climbs If we can get her pressures under control then we can extubate hopefully? 03/19/2020 Patient seen and examined in the ICU She remains mechanically ventilated Assist-control/04/02 50/30% with 5 of PEEP She still has an intracranial pressure monitor current pressure is 10 On nicardipine drip She has SCDs She has a Batista to bedside drainage Has an art line Chart reviewed Discussed with RN She is still critically ill 03/18/2020 Patient seen and examined in the ICU She is on the vent Assist-control/04/02 100/30% Sedated with propofol Intracranial pressure monitor still in with an ICP of 13 Discussed with RN Chart reviewed Ms Mathew is a 64 yo F w/ PMHx HLD who was brought here by EMS from [facility] due to altered mental status around 1030 on 03/15/2020. noted that they were out shopping when she became unresponsive and fell to the ground, though he was able to catch her and guide her down on the floor. Patient did not hit her head. stated that patient has been having a headache for the last 2-3 days. He is sure that she is not on any blood thinner. Patient's stated that she is on multiple medications but he is not sure what they are.. EMS stated that she was able to protect her airway but her GCS was about [address] head revealed a left frontal lobe 5.5 x 6.0 x 3.0 cm large parenchymal hematoma and surrounding edema involving both the superior and middle frontal cortical gyri as well as extensive involvement of the white matter, with mass effect and 10 mm midline shift. Neurosurgery was urgently co ntacted. She underwent RSI with ED with etomidate and succinylcholine with 7.5 ET tube and went urgently to OR for craniotomy and hematoma evacuation which was large and invaded the ventricular and she is transferred to ICU for closer monitoring. I was able to evaluated patient prior to intubation and after surgery. 03/16: Patient seen and examined in the ICU, She is mechanically ventilated, Assist-control/450/16/30 percent, Has an OG to suction, Her pupils are reactive 03/17: Seen in ICU, sedated, intubated, on ICP monitoring and cardene GTT. Na 130. Hb 9.1. Moving left arm, posturing on pain response on right. Vitals/I&O Vitals/I&O: Vital Signs Date Time Temp Pulse Resp B/P (MAP) Pulse Ox O2 Delivery O2 Flow Rate FiO2 03/21/20 11:18 100 Ventilator 03/21/20 08:00 03/21/20 06:16 24 03/21/20 06:00 75 03/21/20 04:00 100.0 100.0 I & O 03/20/20 03/20/20 03/21/20 15:00 23:00 07:00 Intake Total 250 ml 2489 ml 2230.0 ml Output Total 870 ml 425 ml 1375 ml Balance -620 ml 2064 ml 855.0 ml Physical Exam General: Other (on vent) Heart: Regular rate, Normal S1 Lungs: Clear Abdomen: Normal bowel sounds, Soft, No tenderness, No hepatosplenomegaly, No masses Extremities: No clubbing, No cyanosis, No edema, Normal pulses, No tenderness/swelling Skin: Other (dressing dry and intact, EVD in place- output noted) Labs Labs: Laboratory Tests Test 03/20/20 20:15 03/21/20 00:42 03/21/20 09:00 O2 Saturation 92 % (92-99) 78 % (92-99) 98 % (92-99) Arterial Blood pH 7.40 (7.35-7.45) 7.23 (7.35-7.45) 7.40 (7.35-7.45) Arterial Blood pCO2 at Patient Temp 33 mmHg (35-46) 50 mmHg (35-46) 29 mmHg (35-46) Arterial Blood pO2 at Patient Temp 71 mmHg (65-108) 54 mmHg (65-108) 121 mmHg (65-108) Arterial Blood HCO3 20 mmol/L (21-28) 21 mmol/L (21-28) 18 mmol/L (21-28) Arterial Blood Base Excess -4 mmol/L (-3-3) -7 mmol/L (-3-3) -6 mmol/L (-3-3) FiO2 100 100 2l n.c. 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 left frontal lobe 5.5 x 6.0 x 3.0 cm large parenchymal hematoma and surrounding edema. S/p craniotomy with hematoma evacuation. BP monitoring with a-line, hugh WILEY - on statin Respiratory failure - likely 2/2 intracranial bleed. Pulm to see in AM for vent management Leukocytosis - likely 2/2 bleed. will monitor Hypokalemia and hypomagnesemia - will replace IV. monitor OG to suction DVT prophylaxis Trend labs Intracranial pressure monitor was removed on 03/20/2020 Appreciate subspecialist input Vent weaning She is critically ill Prognosis guarded 32 Comment Review of Relevant I have reviewed the following items wang (where applicable) has been applied. Medications: Current Medications Medications (Trade) Dose Ordered Sig/Arnel Route PRN Reason Start Time Stop Time Status Last Admin Dose Admin Fentanyl Citrate (Fentanyl 2ml Vial) 50 mcg PRN Q2HR PRN IVP PAIN 03/20/20 18:00 03/20/20 22:12 Fentanyl Citrate 30 ml @ 0 mls/hr CONT PRN IV SEE PROTOCOL 03/20/20 23:15 03/21/20 05:26 Dexmedetomidine HCl 400 mcg/ Sodium Chloride 100 ml @ 0 mls/hr CONT PRN IV PER PROTOCOL 03/20/20 23:15 03/21/20 00:38 Furosemide (Lasix) 20 mg 1X ONCE IVP 03/20/20 23:15 03/20/20 23:16 DC 03/20/20 23:20 Furosemide (Lasix) 20 mg 1X ONCE IVP 03/21/20 01:00 03/21/20 01:01 DC 03/21/20 01:20 Methylprednisolone Sodium Succinate (SOLU-Medrol 125MG VIAL) 125 mg 1X ONCE IV 03/21/20 01:00 03/21/20 01:01 DC 03/21/20 01:20 Albuterol/ Ipratropium (Duoneb) 3 ml Q4HRS NEB 03/21/20 01:15 03/21/20 11:22 QASIM BAILEY III DO March 21, 2020 12:15
--- NOTE | 2020-03-21 14:46 | PDOC ---
PROGRESS NOTES Subjective Subjective Patient seen at 1300 POD #6 S/P craniotomy and removal of hematoma sedated on vent Objective Objective Vital Signs Date Time Temp Pulse Resp B/P (MAP) Pulse Ox O2 Delivery O2 Flow Rate FiO2 03/21/20 13:12 100 Ventilator 03/21/20 12:00 03/21/20 06:16 24 03/21/20 06:00 75 03/21/20 04:00 100.0 100.0 Intake and Output 03/21/20 07:00 Intake Total 4969.0 ml Output Total 2670 ml Balance 2299.0 ml Intake IV Total 3242.0 ml Tube Feeding 1227 ml Other 500 ml Output Urine Total 2650 ml Gastric Drainage Total 0 ml Drainage Total 20 ml Physical Exam General: Other (sedated on vent) Neuro: Other (pupils equal and reactive) Skin: Other (dressing C,D,I) Assessment Assessment Problems Medical Problems: (1) Cerebral parenchymal hemorrhage Status: Acute (2) HTN (hypertension) Status: Acute Plan Plan of Care continue to wean sedation as tolerated follow CT head in AM d/w RN Comment Review of Relevant I have reviewed the following items wang (where applicable) has been applied. Labs Laboratory Tests Test 03/19/20 18:26 03/20/20 09:00 03/20/20 20:15 03/21/20 00:42 Glucose (Fingerstick) 129 mg/dL (70-99) O2 Saturation 96 % (92-99) 92 % (92-99) 78 % (92-99) Arterial Blood pH 7.47 (7.35-7.45) 7.40 (7.35-7.45) 7.23 (7.35-7.45) Arterial Blood pCO2 at Patient Temp 29 mmHg (35-46) 33 mmHg (35-46) 50 mmHg (35-46) Arterial Blood pO2 at Patient Temp 87 mmHg (65-108) 71 mmHg (65-108) 54 mmHg (65-108) Arterial Blood HCO3 21 mmol/L (21-28) 20 mmol/L (21-28) 21 mmol/L (21-28) Arterial Blood Base Excess -2 mmol/L (-3-3) -4 mmol/L (-3-3) -7 mmol/L (-3-3) FiO2 30% vent 100 100 Test 03/21/20 09:00 O2 Saturation 98 % (92-99) Arterial Blood pH 7.40 (7.35-7.45) Arterial Blood pCO2 at Patient Temp 29 mmHg (35-46) Arterial Blood pO2 at Patient Temp 121 mmHg (65-108) Arterial Blood HCO3 18 mmol/L (21-28) Arterial Blood Base Excess -6 mmol/L (-3-3) FiO2 2l n.c. Laboratory Tests Test 03/20/20 20:15 03/21/20 00:42 03/21/20 09:00 O2 Saturation 92 % (92-99) 78 % (92-99) 98 % (92-99) Arterial Blood pH 7.40 (7.35-7.45) 7.23 (7.35-7.45) 7.40 (7.35-7.45) Arterial Blood pCO2 at Patient Temp 33 mmHg (35-46) 50 mmHg (35-46) 29 mmHg (35-46) Arterial Blood pO2 at Patient Temp 71 mmHg (65-108) 54 mmHg (65-108) 121 mmHg (65-108) Arterial Blood HCO3 20 mmol/L (21-28) 21 mmol/L (21-28) 18 mmol/L (21-28) Arterial Blood Base Excess -4 mmol/L (-3-3) -7 mmol/L (-3-3) -6 mmol/L (-3-3) FiO2 100 100 2l n.c. Medications Current Medications Propofol (Diprivan) 200 mg 1X ONCE IV Last administered on 03/15/20at 11:47; Start 03/15/20 at 11:30; Stop 03/15/20 at 11:31; Status DC Propofol 50 ml @ As Directed STK-MED ONCE IV ; Start 03/15/20 at 11:45; Stop 03/15/20 at 11:45; Status DC Propofol 20 ml @ 0 mls/hr 1X ONCE IV Last administered on 03/15/20at 11:52; Start 03/15/20 at 11:45; Stop 03/15/20 at 11:50; Status DC Potassium Chloride 40 meq/ Dextrose 1,020 ml @ 75 mls/hr [id number] PRN IV 0 Last administered on 03/17/20at 03:08; Start 03/15/20 at 12:00; Stop 5/27/20 at 09:39; Status DC Etomidate (Amidate) 20 mg 1X ONCE IV Last administered on 03/15/20at 12:12; Start 03/15/20 at 11:40; Stop 03/15/20 at 12:00; Status DC Succinylcholine Chloride (Anectine) 100 mg 1X ONCE IV Last administered on 03/15/20at 12:12; Start 03/15/20 at 11:40; Stop 03/15/20 at 12:00; Status DC Bacitracin 24898 unit/Sodium Chloride 1,000 ml @ 1,000 mls/hr 1X ONCE IRR Last administered on 03/15/20at 14:50; Start 03/15/20 at 13:00; Stop 03/15/20 at 14:07; Status DC Cefazolin Sodium/ Dextrose 50 ml @ 100 mls/hr 1X PREOP PRN IV PRIOR TO PROCEDURE Last administered on 03/15/20at 13:25; Start 03/15/20 at 13:00; Stop 03/16/20 at 12:59; Status DC Propofol (Diprivan) 200 mg STK-MED ONCE IV ; Start 03/15/20 at 12:33; Stop 03/15/20 at 12:33; Status DC Phenylephrine HCl (PHENYLEPHRINE in 0.9% NACL PF) 1 mg STK-MED ONCE IV ; Start 03/15/20 at 12:33; Stop 03/15/20 at 12:33; Status DC Rocuronium [place] (Zemuron) 50 mg STK-MED ONCE .ROUTE ; Start 03/15/20 at 12:33; Stop 03/15/20 at 12:33; Status DC Dexamethasone Sodium Phosphate (Decadron) 20 mg STK-MED ONCE .ROUTE ; Start 03/15/20 at 12:36; Stop 03/15/20 at 12:36; Status DC Gelatin (Gelfoam Size 100) 1 each STK-MED ONCE .ROUTE Last administered on 03/15/20at 13:49; Start 03/15/20 at 12:42; Stop 03/15/20 at 12:42; Status DC Bupivacaine HCl/ Epinephrine Bitart (Sensorcain-Epi 0.5%-1:080440 Mpf) 30 ml STK-MED ONCE .ROUTE ; Start 03/15/20 at 12:42; Stop 03/15/20 at 12:42; Status DC Mannitol (Mannitol) 12.5 g STK-MED ONCE .ROUTE Last administered on 03/15/20at 14:41; Start 03/15/20 at 12:42; Stop 03/15/20 at 12:42; Status DC Cellulose (Surgicel Hemostat 4x8) 1 each STK-MED ONCE .ROUTE Last administered on 03/15/20at 15:08; Start 03/15/20 at 12:42; Stop 03/15/20 at 12:43; Status DC Thrombin 20,000 unit STK-MED ONCE TP Last administered on 03/15/20at 13:49; Start 03/15/20 at 12:42; Stop 03/15/20 at 12:43; Status DC Bupivacaine HCl/ Epinephrine Bitart (Sensorcain-Epi 0.5%-1:627634 Mpf) 30 ml STK-MED ONCE .ROUTE Last administered on 03/15/20at 13:48; Start 03/15/20 at 12:44; Stop 03/15/20 at 12:45; Status DC Bupivacaine HCl/ Epinephrine Bitart (Sensorcain-Epi 0.5%-1:798692 Mpf) 30 ml 1X ONCE INJ ; Start 03/15/20 at 13:00; Stop 03/15/20 at 13:01; Status DC Ondansetron HCl (Zofran) 4 mg PRN Q6HRS PRN IV NAUSEA/VOMITING; Start 03/15/20 at 13:45; Stop 03/15/20 at 16:35; Status DC Fentanyl Citrate (Fentanyl 2ml Vial) 25 mcg PRN Q5MIN PRN IV MILD PAIN 1-3; St art 03/15/20 at 13:45; Stop 03/16/20 at 13:44; Status DC Fentanyl Citrate (Fentanyl 2ml Vial) 50 mcg PRN Q5MIN PRN IV MODERATE TO SEVERE PAIN; Start 03/15/20 at 13:45; Stop 03/16/20 at 13:44; Status DC Morphine Sulfate (Morphine Sulfate) 1 mg PRN Q10MIN PRN IV SEVERE PAIN 7-10; Start 03/15/20 at 13:45; Stop 03/16/20 at 13:44; Status DC Ringer's Solution 1,000 ml @ 30 mls/hr Q24H IV ; Start 03/15/20 at 13:31; Stop 03/16/20 at 01:30; Status DC Hydromorphone HCl (Dilaudid) 0.5 mg PRN Q10MIN PRN IV SEV PAIN, Second choice; Start 03/15/20 at 13:45; Stop 03/16/20 at 13:44; Status DC Prochlorperazine Edisylate (Compazine) 5 mg PACU PRN PRN IV NAUSEA, MRX1; Start 03/15/20 at 13:45; Stop 03/16/20 at 13:44; Status DC Mannitol (Mannitol) 12.5 g STK-MED ONCE .ROUTE Last administered on 03/15/20at 14:41; Start 03/15/20 at 14:28; Stop 03/15/20 at 14:28; Status DC Phenylephrine HCl (Diego-Synephrine Inj) 10 mg STK-MED ONCE .ROUTE ; Start 03/15/20 at 14:43; Stop 03/15/20 at 14:43; Status DC Fentanyl Citrate (Fentanyl 2ml Vial) 100 mcg STK-MED ONCE .ROUTE ; Start 03/15/20 at 15:08; Stop 03/15/20 at 15:09; Status DC Rocuronium [place] (Zemuron) 50 mg STK-MED ONCE .ROUTE ; Start 03/15/20 at 15:34; Stop 03/15/20 at 15:34; Status DC Sevoflurane (Ultane) 90 ml STK-MED ONCE IH ; Start 03/15/20 at 15:44; Stop 03/15/20 at 15:44; Status DC Propofol 50 ml @ As Directed STK-MED ONCE IV ; Start 03/15/20 at 16:02; Stop 03/15/20 at 16:02; Status DC Nicardipine HCl 50 mg/Sodium Chloride 250 ml @ 25 mls/hr TITRATE PRN IV HYPERT ENSION Last administered on 03/21/20at 00:39; Start 03/15/20 at 16:30 Levetiracetam 500 mg/Sodium Chloride 105 ml @ 400 mls/hr Q12HR IV Last administered on 03/20/20at 21:24; Start 03/15/20 at 21:00 Sodium Chloride (Normal Saline Flush) 3 ml QSHIFT PRN IV AFTER MEDS AND BLOOD DRAWS; Start 03/15/20 at 16:30 Potassium Chloride/Dextrose/ Sod Cl 1,000 ml @ 80 mls/hr [id number] IV ; Start 03/15/20 at 16:19; Stop 03/15/20 at 18:36; Status DC Dextrose (Dextrose 50%-Water Syringe) 12.5 gm PRN Q15MIN PRN IV SEE COMMENTS; Start 03/15/20 at 16:30 Cefazolin Sodium (Ancef) 1 gm Q8HRS IVP Last administered on 03/16/20at 14:52; Start 03/15/20 at 22:00; Stop 03/16/20 at 14:01; Status DC Ondansetron HCl (Zofran) 4 mg PRN Q4HRS PRN IV NAUSEA/VOMITING; Start 03/15/20 at 16:45 Atorvastatin Calcium (Lipitor) 40 mg DAILY PO Last administered on 03/20/20at 09:00; Start 03/16/20 at 09:00 Acetaminophen (Tylenol Supp) 650 mg PRN Q6HRS PRN NC MILD PAIN / TEMP > 100.3'F Last administered on 03/20/20at 18:27; Start 03/15/20 at 16:45 Docusate Sodium (Enemeez) 283 mg PRN DAILY PRN NC CONSTIPATION; Start 03/15/20 at 16:45 Magnesium Sulfate 50 ml @ 25 mls/hr 1X ONCE IV Last administered on 03/15/20at 17:23; Start 03/15/20 at 17:00; Stop 03/15/20 at 18:59; Status DC Propofol 100 ml @ As Directed STK-MED ONCE IV ; Start 03/15/20 at 19:37; Stop 03/15/20 at 19:38; Status DC Propofol 100 ml @ 0.837 mls/ hr CONT PRN IV SEE I/O RECORD Last administered on 03/19/20at 12:40; Start 03/15/20 at 19:45 Iohexol (Omnipaque 300 Mg/ml) 75 ml 1X ONCE IV Last administered on 03/16/20at 07:45; Start 03/16/20 at 07:45; Stop 03/16/20 at 07:50; Status DC Info (CONTRAST GIVEN -- Rx MONITORING) 1 each PRN DAILY PRN MC SEE COMMENTS; Start 03/16/20 at 08:00; Stop 03/18/20 at 07:59; Status DC Potassium Chloride/Dextrose/ Sod Cl 1,000 ml @ 75 mls/hr 1X ONCE IV Last administered on 03/17/20at 10:15; Start 03/17/20 at 09:45; Stop 03/17/20 at 23:04; Status DC Psyllium Hydrophilic Mucilloid (Metamucil Fiber Packet) 1 pkt DAILY PO Last administered on 03/20/20at 18:09; Start 03/17/20 at 11:00 Potassium Chloride/Dextrose/ Sod Cl 1,000 ml @ 75 mls/hr [id number] IV Last administered on 03/20/20at 18:11; Start 03/17/20 at 23:00 Famotidine (Pepcid Vial) 20 mg BID IVP Last administered on 03/20/20at 21:24; Start 03/18/20 at 21:00 Multi-Ingred Cream/Lotion/Oil/ Oint (Artificial Tears Eye Ointment) 1 ayala PRN Q1HR PRN OU DRY EYE Last administered on 03/20/20at 18:23; Start 03/19/20 at 16:15 Fentanyl Citrate (Fentanyl 2ml Vial) 50 mcg PRN Q2HR PRN IVP PAIN Last administered on 03/20/20at 22:12; Start 03/20/20 at 18:00 Fentanyl Citrate 30 ml @ 0 mls/hr CONT PRN IV SEE PROTOCOL Last administered on 03/21/20at 05:26; Start 03/20/20 at 23:15 Dexmedetomidine HCl 400 mcg/ Sodium Chloride 100 ml @ 0 mls/hr CONT PRN IV PER PROTOCOL Last administered on 03/21/20at 00:38; Start 03/20/20 at 23:15 Furosemide (Lasix) 20 mg 1X ONCE IVP Last administered on 03/20/20at 23:20; Start 03/20/20 at 23:15; Stop 03/20/20 at 23:16; Status DC Furosemide (Lasix) 20 mg 1X ONCE IVP Last administered on 03/21/20at 01:20; Start 03/21/20 at 01:00; Stop 03/21/20 at 01:01; Status DC Methylprednisolone Sodium Succinate (SOLU-Medrol 125MG VIAL) 125 mg 1X ONCE IV Last administered on 03/21/20at 01:20; Start 03/21/20 at 01:00; Stop 03/21/20 at 01:01; Status DC Albuterol/ Ipratropium (Duoneb) 3 ml Q4HRS NEB Last administered on 03/21/20at 11:22; Start 03/21/20 at 01:15 Piperacillin Sod/ Tazobactam Sod (Zosyn Per Pharmacy) 1 each PRN DAILY PRN MC SEE COMMENTS; Start 03/21/20 at 12:00 Piperacillin Sod/ Tazobactam Sod 4.5 gm/Sodium Chloride 100 ml @ 200 mls/hr Q6HRS IV ; Start 03/21/20 at 12:00 Active Scripts Active Reported Oxybutynin Chloride Er (Oxybutynin Chloride) 10 Mg Tab.er.24 1 Tab PO DAILY Elmiron (Pentosan Polysulfate Sodium) 100 Mg Capsule 1 Cap PO TID 30 Days Atorvastatin Calcium 40 Mg Tablet 1 Tab PO DAILY Fluoxetine Hcl 40 Mg Capsule 40 Mg PO DAILY Premarin (Estrogens, Conjugated) 0.625 Mg Tablet 1 Tab PO DAILY Vitals/I & O Vital Sign - Last 24 Hours 03/20/20 03/20/20 03/20/20 03/20/20 15:00 15:00 15:17 16:00 Temp 101.0 101.0 Pulse 118 110 118 Resp 28 33 25 B/P (MAP) 142/50 (80) 136/50 (78) 142/52 (82) Pulse Ox 91 92 92 88 O2 Delivery Ventilator Ventilator Ventilator Ventilator 03/20/20 03/20/20 03/20/20 03/20/20 16:00 16:25 17:00 18:00 Pulse 114 132 112 Resp 25 26 B/P (MAP) 160/88 (112) 142/65 (90) Pulse Ox 93 96 91 O2 Delivery Ventilator Ventilator Ventilator 03/20/20 03/20/20 03/20/20 03/20/20 18:08 18:35 19:00 19:42 Pulse 110 Resp 25 24 25 B/P (MAP) 123/54 (77) Pulse Ox 92 92 88 91 O2 Delivery Ventilator Ventilator 03/20/20 03/20/20 03/20/20 03/20/20 20:00 20:00 20:00 20:00 Temp 100.9 100.9 Pulse 108 Resp 24 B/P (MAP) 125/67 (86) Pulse Ox 95 89 O2 Delivery Ventilator Mechanical Ventilator Ventilator 03/20/20 03/20/20 03/20/20 03/20/20 20:14 21:00 22:00 22:12 Pulse 105 109 Resp 24 29 B/P (MAP) 132/62 (85) 134/74 (94) Pulse Ox 95 94 88 87 O2 Delivery Ventilator Ventilator Ventilator Ventilator 03/20/20 03/20/20 03/20/20 03/21/20 22:45 23:00 23:32 00:00 Pulse 115 Resp B/P (MAP) 112/54 (73) Pulse Ox 87 84 88 O2 Delivery Ventilator Ventilator Ventilator 03/21/20 03/21/20 03/21/20 03/21/20 00:00 00:00 00:18 00:35 Temp 100.7 100.7 Pulse 97 Resp 24 24 B/P (MAP) 117/50 (72) Pulse Ox 79 79 78 O2 Delivery Mechanical Ventilator Ventilator Ventilator Ventilator 03/21/20 03/21/20 03/21/20 03/21/20 01:00 02:00 03:00 04:00 Temp 100.0 100.0 Pulse 95 85 79 74 Resp 20 22 20 24 B/P (MAP) 98/47 (64) 98/49 (65) 112/50 (70) 112/57 (75) Pulse Ox 92 94 95 97 O2 Delivery Ventilator Ventilator Ventilator Ventilator 03/21/20 03/21/20 03/21/20 03/21/20 04:00 04:00 04:25 05:00 Pulse 77 Resp 24 B/P (MAP) 115/53 (73) Pulse Ox 96 100 O2 Delivery Mechanical Ventilator Ventilator Ventilator 03/21/20 03/21/20 03/21/20 03/21/20 05:26 06:00 06:16 07:37 Pulse 75 Resp 24 24 24 B/P (MAP) 120/67 (84) Pulse Ox 100 100 100 98 O2 Delivery Ventilator Ventilator Ventilator Ventilator 03/21/20 03/21/20 03/21/20 03/21/20 08:00 08:00 09:15 11:18 B/P (MAP) Pulse Ox 98 100 O2 Delivery Mechanical Ventilator Ventilator Ventilator 03/21/20 03/21/20 03/21/20 12:00 12:00 13:12 B/P (MAP) Pulse Ox 100 O2 Delivery Mechanical Ventilator Ventilator Intake and Output 0 03/20/20 03/20/20 03/21/20 15:00 23:00 07:00 Intake Total 250 ml 2489 ml 2230.0 ml Output Total 870 ml 425 ml 1375 ml Balance -620 ml 2064 ml 855.0 ml JOLENE BUTLER [employer] March 21, 2020 14:46
[2020-03-21] MEDS: FAMOTIDINE 20 MG/2 ML VIAL IVP SCH ×2 (15:54→21:24)
[2020-03-21] MEDS: PSYLLIUM HUSK (SUGAR FREE) 1 PKT PACKET PO SCH (15:54)
[2020-03-21] MEDS: ATORVASTATIN CALCIUM 40 MG TABLET. PO SCH (15:54)
[2020-03-21] MEDS: POTASSIUM CL 20MEQ D5-0.45NACL 1,000 ML IV SCH ×2 (15:59→21:25)
[2020-03-21] MEDS: PIPERACILLIN/TAZOBACTAM 4.5 GM in IV NORMAL SALINE 100ML 100 ML IV SCH ×2 (16:00→18:00)
[2020-03-22] VITALS (24 sets, daily range): BP systolic 124–164; BP diastolic 47–84
[2020-03-22] MEDS: IPRATRPIUM/ALBUTEROL 0.5/2.5MG 3 ML NEBU. NEB SCH ×6 (00:34→19:40)
[2020-03-22] MEDS: PIPERACILLIN/TAZOBACTAM 4.5 GM in IV NORMAL SALINE 100ML 100 ML IV SCH ×4 (00:39→18:09)
[2020-03-22] MEDS: PROPOFOL 100 ML IV PRN ×2 (00:40→17:23)
[2020-03-22 08:06] LABS: BASE EXCESS ABG -3 mmol/L (-3-3); HCO3 ABG 20 mmol/L (21-28); PCO2 ABG 27 mmHg (35-46); PO2 ABG 124 mmHg (65-108); SAT O2 ABG 98 % (92-99)
[2020-03-22 08:12] LABS: FIO2 ABG 40
[2020-03-22] MEDS: FAMOTIDINE 20 MG/2 ML VIAL IVP SCH ×2 (09:06→20:36)
[2020-03-22] MEDS: PSYLLIUM HUSK (SUGAR FREE) 1 PKT PACKET PO SCH (09:06)
[2020-03-22] MEDS: ATORVASTATIN CALCIUM 40 MG TABLET. PO SCH (09:06)
--- NOTE | 2020-03-22 10:22 | PDOC ---
PROGRESS NOTES Assessment Problems Medical Problems: (1) Cerebral parenchymal hemorrhage Status: Acute (2) HTN (hypertension) Status: Acute Large left intraparenchymal hemorrhage status-post evacuation CTA negative for aneurysm or AVM EVD out Plan Levetiracetam Repeat head CT today Subjective None Objective Vital Signs Date Time Temp Pulse Resp B/P (MAP) Pulse Ox O2 Delivery O2 Flow Rate FiO2 03/22/20 10:00 92 24 143/60 (87) 100 Ventilator 03/22/20 08:00 98.3 98.3 Intake and Output 03/22/20 07:00 Intake Total 3175.8 ml Output Total 2620 ml Balance 555.8 ml Intake Oral 0 ml IV Total 1745.8 ml Tube Feeding 955 ml Other 475 ml Output Urine Total 2620 ml Gastric Drainage Total 0 ml PHYSICAL EXAM Sedated on vent PERRL. No spontaneous extraocular movements CN: no focal findings. Muscle tone: normal. Muscle strength: withdraws left slightly to pain DTR: 2+ Plantar reflex: extensor bilaterally Gait: not examined Sensory exam: not cooperative. Cerebellar: not cooperative Review of Relevant I have reviewed the following items wang (where applicable) has been applied. Labs Laboratory Tests Test 03/20/20 20:15 03/21/20 00:42 03/21/20 09:00 03/22/20 06:06 O2 Saturation 92 % (92-99) 78 % (92-99) 98 % (92-99) Arterial Blood pH 7.40 (7.35-7.45) 7.23 (7.35-7.45) 7.40 (7.35-7.45) Arterial Blood pCO2 at Patient Temp 33 mmHg (35-46) 50 mmHg (35-46) 29 mmHg (35-46) Arterial Blood pO2 at Patient Temp 71 mmHg (65-108) 54 mmHg (65-108) 121 mmHg (65-108) Arterial Blood HCO3 20 mmol/L (21-28) 21 mmol/L (21-28) 18 mmol/L (21-28) Arterial Blood Base Excess -4 mmol/L (-3-3) -7 mmol/L (-3-3) -6 mmol/L (-3-3) FiO2 100 100 2l n.c. Triglycerides Level 44 mg/dL (0-150) Test 03/22/20 08:00 O2 Saturation 98 % (92-99) Arterial Blood pH 7.48 (7.35-7.45) Arterial Blood pCO2 at Patient Temp 27 mmHg (35-46) Arterial Blood pO2 at Patient Temp 124 mmHg (65-108) Arterial Blood HCO3 20 mmol/L (21-28) Arterial Blood Base Excess -3 mmol/L (-3-3) FiO2 40 Laboratory Tests Test 03/22/20 06:06 03/22/20 08:00 Triglycerides Level 44 mg/dL (0-150) O2 Saturation 98 % (92-99) Arterial Blood pH 7.48 (7.35-7.45) Arterial Blood pCO2 at Patient Temp 27 mmHg (35-46) Arterial Blood pO2 at Patient Temp 124 mmHg (65-108) Arterial Blood HCO3 20 mmol/L (21-28) Arterial Blood Base Excess -3 mmol/L (-3-3) FiO2 40 Medications Current Medications Propofol (Diprivan) 200 mg 1X ONCE IV Last administered on 03/15/20at 11:47; Start 03/15/20 at 11:30; Stop 03/15/20 at 11:31; Status DC Propofol 50 ml @ As Directed STK-MED ONCE IV ; Start 03/15/20 at 11:45; Stop 03/15/20 at 11:45; Status DC Propofol 20 ml @ 0 mls/hr 1X ONCE IV Last administered on 03/15/20at 11:52; Start 03/15/20 at 11:45; Stop 03/15/20 at 11:50; Status DC Potassium Chloride 40 meq/ Dextrose 1,020 ml @ 75 mls/hr [id number] PRN IV 0 Last administered on 03/17/20at 03:08; Start 03/15/20 at 12:00; Stop 03/17/20 at 09:39; Status DC Etomidate (Amidate) 20 mg 1X ONCE IV Last administered on 03/15/20at 12:12; Start 03/15/20 at 11:40; Stop 03/15/20 at 12:00; Status DC Succinylcholine Chloride (Anectine) 100 mg 1X ONCE IV Last administered on 03/15/20at 12:12; Start 03/15/20 at 11:40; Stop 03/15/20 at 12:00; Status DC Bacitracin 93956 unit/Sodium Chloride 1,000 ml @ 1,000 mls/hr 1X ONCE IRR Last administered on 03/15/20at 14:50; Start 03/15/20 at 13:00; Stop 03/15/20 at 14:07; Status DC Cefazolin Sodium/ Dextrose 50 ml @ 100 mls/hr 1X PREOP PRN IV PRIOR TO PROCEDURE Last administered on 03/15/20at 13:25; Start 03/15/20 at 13:00; Stop 03/16/20 at 12:59; Status DC Propofol (Diprivan) 200 mg STK-MED ONCE IV ; Start 03/15/20 at 12:33; Stop 03/15/20 at 12:33; Status DC Phenylephrine HCl (PHENYLEPHRINE in 0.9% NACL PF) 1 mg STK-MED ONCE IV ; Start 03/15/20 at 12:33; Stop 03/15/20 at 12:33; Status DC Rocuronium [place] (Zemuron) 50 mg STK-MED ONCE .ROUTE ; Start 03/15/20 at 12:33; Stop 03/15/20 at 12:33; Status DC Dexamethasone Sodium Phosphate (Decadron) 20 mg STK-MED ONCE .ROUTE ; Start 03/15/20 at 12:36; Stop 03/15/20 at 12:36; Status DC Gelatin (Gelfoam Size 100) 1 each STK-MED ONCE .ROUTE Last administered on 03/15/20at 13:49; Start 03/15/20 at 12:42; Stop 03/15/20 at 12:42; Status DC Bupivacaine HCl/ Epinephrine Bitart (Sensorcain-Epi 0.5%-1:[id number] Mpf) 30 ml STK-MED ONCE .ROUTE ; Start 03/15/20 at 12:42; Stop 03/15/20 at 12:42; Status DC Mannitol (Mannitol) 12.5 g STK-MED ONCE .ROUTE Last administered on 03/15/20at 14:41; Start 03/15/20 at 12:42; Stop 03/15/20 at 12:42; Status DC Cellulose (Surgicel Hemostat 4x8) 1 each STK-MED ONCE .ROUTE Last administered on 03/15/20at 15:08; Start 03/15/20 at 12:42; Stop 03/15/20 at 12:43; Status DC Thrombin 20,000 unit STK-MED ONCE TP Last administered on 03/15/20at 13:49; Start 03/15/20 at 12:42; Stop 03/15/20 at 12:43; Status DC Bupivacaine HCl/ Epinephrine Bitart (Sensorcain-Epi 0.5%-1:027492 Mpf) 30 ml STK-MED ONCE .ROUTE Last administered on 03/15/20at 13:48; Start 03/15/20 at 12:44; Stop 03/15/20 at 12:45; Status DC Bupivacaine HCl/ Epinephrine Bitart (Sensorcain-Epi 0.5%-1:190209 Mpf) 30 ml 1X ONCE INJ ; Start 03/15/20 at 13:00; Stop 03/15/20 at 13:01; Status DC Ondansetron HCl (Zofran) 4 mg PRN Q6HRS PRN IV NAUSEA/VOMITING; Start 03/15/20 at 13:45; Stop 03/15/20 at 16:35; Status DC Fentanyl Citrate (Fentanyl 2ml Vial) 25 mcg PRN Q5MIN PRN IV MILD PAIN 1-3; Start 03/15/20 at 13:45; Stop 03/16/20 at 13:44; Status DC Fentanyl Citrate (Fentanyl 2ml Vial) 50 mcg PRN Q5MIN PRN IV MODERATE TO SEVERE PAIN; Start 03/15/20 at 13:45; Stop 03/16/20 at 13:44; Status DC Morphine Sulfate (Morphine Sulfate) 1 mg PRN Q10MIN PRN IV SEVERE PAIN 7-10; Start 03/15/20 at 13:45; Stop 03/16/20 at 13:44; Status DC Ringer's Solution 1,000 ml @ 30 mls/hr Q24H IV ; Start 03/15/20 at 13:31; Stop 03/16/20 at 01:30; Status DC Hydromorphone HCl (Dilaudid) 0.5 mg PRN Q10MIN PRN IV SEV PAIN, Second choice; Start 03/15/20 at 13:45; Stop 03/16/20 at 13:44; Status DC Prochlorperazine Edisylate (Compazine) 5 mg PACU PRN PRN IV NAUSEA, MRX1; Star t 03/15/20 at 13:45; Stop 03/16/20 at 13:44; Status DC Mannitol (Mannitol) 12.5 g STK-MED ONCE .ROUTE Last administered on 03/15/20at 14:41; Start 03/15/20 at 14:28; Stop 03/15/20 at 14:28; Status DC Phenylephrine HCl (Diego-Synephrine Inj) 10 mg STK-MED ONCE .ROUTE ; Start 03/15/20 at 14:43; Stop 03/15/20 at 14:43; Status DC Fentanyl Citrate (Fentanyl 2ml Vial) 100 mcg STK-MED ONCE .ROUTE ; Start 03/15/20 at 15:08; Stop 03/15/20 at 15:09; Status DC Rocuronium [place] (Zemuron) 50 mg STK-MED ONCE .ROUTE ; Start 03/15/20 at 15:34; Stop 03/15/20 at 15:34; Status DC Sevoflurane (Ultane) 90 ml STK-MED ONCE IH ; Start 03/15/20 at 15:44; Stop 03/15/20 at 15:44; Status DC Propofol 50 ml @ As Directed STK-MED ONCE IV ; Start 03/15/20 at 16:02; Stop 03/15/20 at 16:02; Status DC Nicardipine HCl 50 mg/Sodium Chloride 250 ml @ 25 mls/hr TITRATE PRN IV HYPERTENSION Last administered on 03/21/20at 00:39; Start 03/15/20 at 16:30 Levetiracetam 500 mg/Sodium Chloride 105 ml @ 400 mls/hr Q12HR IV Last administered on 03/22/20at 09:06; Start 03/15/20 at 21:00 Sodium Chloride (Normal Saline Flush) 3 ml QSHIFT PRN IV AFTER MEDS AND BLOOD DRAWS; Start 03/15/20 at 16:30 Potassium Chloride/Dextrose/ Sod Cl 1,000 ml @ 80 mls/hr [id number] IV ; Start 03/15/20 at 16:19; Stop 03/15/20 at 18:36; Status DC Dextrose (Dextrose 50%-Water Syringe) 12.5 gm PRN Q15MIN PRN IV SEE COMMENTS; Start 03/15/20 at 16:30 Cefazolin Sodium (Ancef) 1 gm Q8HRS IVP Last administered on 03/16/20at 14:52; Start 03/15/20 at 22:00; Stop 03/16/20 at 14:01; Status DC Ondansetron HCl (Zofran) 4 mg PRN Q4HRS PRN IV NAUSEA/VOMITING; Start 03/15/20 at 16:45 Atorvastatin Calcium (Lipitor) 40 mg DAILY PO Last administered on 03/22/20at 09:06; Start 03/16/20 at 09:00 Acetaminophen (Tylenol Supp) 650 mg PRN Q6HRS PRN MI MILD PAIN / TEMP > 100.3'F Last administered on 03/20/20at 18:27; Start 03/15/20 at 16:45 Docusate Sodium (Enemeez) 283 mg PRN DAILY PRN MI CONSTIPATION; Start 03/15/20 at 16:45 Magnesium Sulfate 50 ml @ 25 mls/hr 1X ONCE IV Last administered on 03/15/20at 17:23; Start 03/15/20 at 17:00; Stop 03/15/20 at 18:59; Status DC Propofol 100 ml @ As Directed STK-MED ONCE IV ; Start 03/15/20 at 19:37; Stop 03/15/20 at 19:38; Status DC Propofol 100 ml @ 0.837 mls/ hr CONT PRN IV SEE I/O RECORD Last administered on 03/22/20at 00:40; Start 03/15/20 at 19:45 Iohexol (Omnipaque 300 Mg/ml) 75 ml 1X ONCE IV Last administered on 03/16/20at 07:45; Start 03/16/20 at 07:45; Stop 03/16/20 at 07:50; Status DC Info (CONTRAST GIVEN -- Rx MONITORING) 1 each PRN DAILY PRN MC SEE COMMENTS; Start 03/16/20 at 08:00; Stop 03/18/20 at 07:59; Status DC Potassium Chloride/Dextrose/ Sod Cl 1,000 ml @ 75 mls/hr 1X ONCE IV Last administered on 03/17/20at 10:15; Start 03/17/20 at 09:45; Stop 03/17/20 at 23:04; Status DC Psyllium Hydrophilic Mucilloid (Metamucil Fiber Packet) 1 pkt DAILY PO Last administered on 03/22/20at 09:06; Start 03/17/20 at 11:00 Potassium Chloride/Dextrose/ Sod Cl 1,000 ml @ 75 mls/hr [id number] IV Last administered on 03/21/20at 21:25; Start 03/17/20 at 23:00 Famotidine (Pepcid Vial) 20 mg BID IVP Last administered on 03/22/20at 09:06; Start 03/18/20 at 21:00 Multi-Ingred Cream/Lotion/Oil/ Oint (Artificial Tears Eye Ointment) 1 ayala PRN Q1HR PRN OU DRY EYE Last administered on 03/20/20at 18:23; Start 03/19/20 at 1 6:15 Fentanyl Citrate (Fentanyl 2ml Vial) 50 mcg PRN Q2HR PRN IVP PAIN Last administered on 03/20/20at 22:12; Start 03/20/20 at 18:00 Fentanyl Citrate 30 ml @ 0 mls/hr CONT PRN IV SEE PROTOCOL Last administered on 03/21/20at 21:26; Start 03/20/20 at 23:15 Dexmedetomidine HCl 400 mcg/ Sodium Chloride 100 ml @ 0 mls/hr CONT PRN IV PER PROTOCOL Last administered on 03/21/20at 00:38; Start 03/20/20 at 23:15 Furosemide (Lasix) 20 mg 1X ONCE IVP Last administered on 03/20/20at 23:20; Start 03/20/20 at 23:15; Stop 03/20/20 at 23:16; Status DC Furosemide (Lasix) 20 mg 1X ONCE IVP Last administered on 03/21/20at 01:20; Start 03/21/20 at 01:00; Stop 03/21/20 at 01:01; Status DC Methylprednisolone Sodium Succinate (SOLU-Medrol 125MG VIAL) 125 mg 1X ONCE IV Last administered on 03/21/20at 01:20; Start 03/21/20 at 01:00; Stop 03/21/20 at 01:01; Status DC Albuterol/ Ipratropium (Duoneb) 3 ml Q4HRS NEB Last administered on 03/22/20at 07:46; Start 03/21/20 at 01:15 Piperacillin Sod/ Tazobactam Sod (Zosyn Per Pharmacy) 1 each PRN DAILY PRN MC SEE COMMENTS; Start 03/21/20 at 12:00 Piperacillin Sod/ Tazobactam Sod 4.5 gm/Sodium Chloride 100 ml @ 200 mls/hr Q6HRS IV Last administered on 03/22/20at 05:54; Start 03/21/20 at 12:00 Active Scripts Active Reported Oxybutynin Chloride Er (Oxybutynin Chloride) 10 Mg Tab.er.24 1 Tab PO DAILY Elmiron (Pentosan Polysulfate Sodium) 100 Mg Capsule 1 Cap PO TID 30 Days Atorvastatin Calcium 40 Mg Tablet 1 Tab PO DAILY Fluoxetine Hcl 40 Mg Capsule 40 Mg PO DAILY Premarin (Estrogens, Conjugated) 0.625 Mg Tablet 1 Tab PO DAILY Vitals/I & O Vital Sign - Last 24 Hours 03/21/20 03/21/20 03/21/20 03/21/20 11:00 11:18 12:00 12:00 Temp 98.8 98.8 Pulse 74 74 Resp 24 24 B/P (MAP) 129/50 (76) 126/57 (80) Pulse Ox 98 100 100 O2 Delivery Ventilator Ventilator Ventilator 03/21/20 03/21/20 03/21/20 03/21/20 12:00 13:00 13:12 14:00 Pulse 74 74 Resp 24 24 B/P (MAP) 100/65 (77) 116/56 (76) Pulse Ox 99 100 99 O2 Delivery Mechanical Ventilator Ventilator Ventilator Ventilator 03/21/20 03/21/20 03/21/20 03/21/20 15:00 15:51 16:00 16:00 Temp 98.0 98.0 Pulse 70 74 Resp 24 24 B/P (MAP) 136/56 (82) 136/54 (81) Pulse Ox 100 100 100 O2 Delivery Ventilator Ventilator Ventilator 03/21/20 03/21/20 03/21/20 03/21/20 17:00 17:28 18:00 19:00 Pulse 80 78 75 Resp 24 24 24 B/P (MAP) 142/54 (83) 140/51 (80) 175/94 (121) Pulse Ox 100 100 100 100 O2 Delivery Ventilator Ventilator Ventilator Ventilator 03/21/20 03/21/20 03/21/20 03/21/20 19:19 20:00 20:00 20:00 Temp 98.4 98.4 Pulse 76 Resp 24 B/P (MAP) 150/68 (95) Pulse Ox 100 100 O2 Delivery Ventilator Ventilator Mechanical Ventilator 03/21/20 03/21/20 03/21/20 03/21/20 21:00 21:26 21:50 21:56 Pulse 79 Resp 24 24 24 B/P (MAP) 138/57 (84) Pulse Ox 100 100 100 100 O2 Delivery Ventilator Ventilator Ventilator Ventilator 03/21/20 03/21/20 03/22/20 03/22/20 22:00 23:00 00:00 00:00 Temp 98.9 98.9 Pulse 82 84 89 Resp 24 24 24 B/P (MAP) 142/67 (92) 138/59 (85) 138/84 (102) Pulse Ox 100 100 100 O2 Delivery Ventilator Ventilator Ventilator Mechanical Ventilator 03/22/20 03/22/20 03/22/20 03/22/20 00:00 00:32 01:00 02:00 Pulse 94 96 Resp 24 24 B/P (MAP) 124/48 (73) 142/79 (100) Pulse Ox 100 100 100 O2 Delivery Ventilator Ventilator Ventilator 03/22/20 03/22/20 03/22/20 03/22/20 03:00 04:00 04:00 04:00 Temp 99.2 99.2 Pulse 95 98 Resp 24 24 B/P (MAP) 136/52 (80) 137/60 (85) Pulse Ox 100 100 O2 Delivery Ventilator Mechanical Ventilator Ventilator 03/22/20 03/22/20 03/22/20 03/22/20 04:40 05:00 06:00 07:00 Pulse 90 87 84 Resp 24 24 24 B/P (MAP) 141/52 (81) 138/47 (77) 138/52 (80) Pulse Ox 100 100 100 100 O2 Delivery Ventilator Ventilator Ventilator Ventilator 03/22/20 03/22/20 03/22/20 03/22/20 07:46 08:00 08:00 09:00 Temp 98.3 98.3 Pulse 96 100 Resp 24 24 B/P (MAP) 158/58 (91) 164/58 (93) Pulse Ox 100 100 100 O2 Delivery Ventilator Ventilator Ventilator 03/22/20 10:00 Pulse 92 Resp 24 B/P (MAP) 143/60 (87) Pulse Ox 100 O2 Delivery Ventilator Intake and Output 03/21/20 03/21/20 03/22/20 15:00 23:00 07:00 Intake Total 965 ml 2210.8 ml Output Total 1275 ml 595 ml 750 ml Balance -1275 ml 370 ml 1460.8 ml SON PHAM MD Mar 22, 2020 10:22
--- NOTE | 2020-03-22 11:23 | PDOC ---
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 Hypokalemia and hypomagnesemia Hyponatremia History of Present Illness History of Present Illness 03/22/2020 Patient seen and examined She is mechanically ventilated Assist-control/500/20 4/40% with 7 of PEEP On IV nicardipine On IV Keppra Sedated with propofol She has an NG to suction Chart reviewed Discussed with 03/21/2020 Patient seen and examined in the ICU again She apparently decompensated overnight and had to be placed on several sedatives and had to increase her PEEP Chart reviewed Discussed with RN She remains critically ill Mechanically ventilated /14/03 100/60% 03/20/2020 Patient seen and examined in the ICU She is still mechanically ventilated Assist-control/04/02 50/30% Dr. Patel just arrived he is removing the intracranial pressure monitor tube right now She remains critically ill Chart reviewed Discussed with RN We hope to change her sedation regimen as she gets agitated and then her blood pressure climbs If we can get her pressures under control then we can extubate hopefully? 03/19/2020 Patient seen and examined in the ICU She remains mechanically ventilated Assist-control/16/ 50/30% with 5 of PEEP She still has an intracranial pressure monitor current pressure is 10 On nicardipine drip She has SCDs She has a Batista to bedside drainage Has an art line Chart reviewed Discussed with RN She is still critically ill 03/18/2020 Patient seen and examined in the ICU She is on the vent Assist-control/04/02 100/30% Sedated with propofol Intracranial pressure monitor still in with an ICP of 13 Discussed with RN Chart reviewed Ms Mathew is a 64 yo F w/ PMHx HLD who was brought here by EMS from [facility] due to altered mental status around 1030 on 03/15/2020. noted that they were out shopping when she became unresponsive and fell to the ground, though he was able to catch her and guide her down on the floor. Patient did not hit her head. stated that patient has been having a headache for the last 2-3 days. He is sure that she is not on any blood thinner. Patient's stated that she is on multiple medications but he is not sure what they are.. EMS stated that she was able to protect her airway but her GCS was about [address] head revealed a left frontal lobe 5.5 x 6.0 x 3.0 cm large parenchymal hematoma and surrounding edema involving both the superior and middle frontal cortical gyri as well as extensive involvement of the white matter, with mass effect and 10 mm midline shift. Neurosurgery was urgently contacted. She underwent RSI with ED with etomidate and succinylcholine with 7.5 ET tube and went urgently to OR for craniotomy and hematoma evacuation which was large and invaded the ventricular and she is transferred to ICU for closer monitoring. I was able to evaluated patient prior to intubation and after surgery. 03/16: Patient seen and examined in the ICU, She is mechanically ventilated, Assist-control/450/16/30 percent, Has an OG to suction, Her pupils are reactive 03/17: Seen in ICU, sedated, intubated, on ICP monitoring and cardene GTT. Na 130. Hb 9.1. Moving left arm, posturing on pain response on right. Vitals/I&O Vitals/I&O: Vital Signs Date Time Temp Pulse Resp B/P (MAP) Pulse Ox O2 Delivery O2 Flow Rate FiO2 03/22/20 11:00 92 16 135/63 (87) 100 Ventilator 03/22/20 08:00 98.3 98.3 I & O 03/21/20 03/21/20 03/22/20 15:00 23:00 07:00 Intake Total 965 ml 2210.8 ml Output Total 1275 ml 595 ml 750 ml Balance -1275 ml 370 ml 1460.8 ml Physical Exam General: Other (sedated on vent) Heart: Regular rate, Normal S1 Lungs: Crackles Abdomen: Normal bowel sounds, Soft, No tenderness, No hepatosplenomegaly, No masses Extremities: No clubbing, No cyanosis, No edema, Normal pulses, No tenderness/swelling Skin: Other (dressing C,D,I) Labs Labs: Laboratory Tests Test 03/22/20 06:06 03/22/20 08:00 Triglycerides Level 44 mg/dL (0-150) O2 Saturation 98 % (92-99) Arterial Blood pH 7.48 (7.35-7.45) Arterial Blood pCO2 at Patient Temp 27 mmHg (35-46) Arterial Blood pO2 at Patient Temp 124 mmHg (65-108) Arterial Blood HCO3 20 mmol/L (21-28) Arterial Blood Base Excess -3 mmol/L (-3-3) FiO2 40 Assessment and Plan Assessmemt and Plan Problems Medical Problems: (1) Cerebral parenchymal hemorrhage Status: Acute (2) HTN (hypertension) Status: Acute 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 Keppra Acute encephalopathy - due to intracranial hemorrhage Syncope and collapse - 2/2 intraparenchymal bleed Left front intracranial hemorrhage Hyperlipidemia Respiratory failure - likely 2/2 intracranial bleed Leukocytosis - likely 2/2 bleed. Hypokalemia and hypomagnesemia Hyponatremia Plan ICU monitoring Vent weaning Trying to wean off the IV nicardipine Repeat CT head today per Dr. Strong Wound care IV Keppra NG suctioning/feeds Trend labs DVT prophylaxis Prognosis extremely guarded She remains critically ill Total time 32 Comment Review of Relevant I have reviewed the following items wang (where applicable) has been applied. Medications: Current Medications Medications (Trade) Dose Ordered Sig/Arnel Route PRN Reason Start Time Stop Time Status Last Admin Dose Admin Piperacillin Sod/ Tazobactam Sod 4.5 gm/Sodium Chloride 100 ml @ 200 mls/hr Q6HRS IV 03/21/20 12:00 03/22/20 05:54 Justicifation of Admission Dx: Justifications for Admission: Justification of Admission Dx: Yes Acute Hemorrhagic Stroke: Acute Hemorrhagic Stroke QASIM BAILEY III DO Mar 22, 2020 11:23
--- NOTE | 2020-03-22 11:33 | PDOC ---
PULMONARY PROGRESS NOTES Subjective remains intubated/ sedated, placed on propofol,, fentanyl, sedated now, on cardene, abg much improved icp monitor dced Vitals Vital Signs Date Time Temp Pulse Resp B/P (MAP) Pulse Ox O2 Delivery O2 Flow Rate FiO2 03/22/20 11:00 92 16 135/63 (87) 100 Ventilator 03/22/20 08:00 98.3 98.3 Comments ros unable to obtain sedated on vent not responsive HEENT: Other (nc at perrl nose clear orally intubated neck no lad no thyromegaly) Lungs: Crackles Cardiovascular: S1, S2 Abdomen: Soft, Non-tender, Other (no mass) Extremities: No Edema Skin: Warm Labs Laboratory Tests Test 03/20/20 20:15 03/21/20 00:42 03/21/20 09:00 03/22/20 06:06 O2 Saturation 92 % (92-99) 78 % (92-99) 98 % (92-99) Arterial Blood pH 7.40 (7.35-7.45) 7.23 (7.35-7.45) 7.40 (7.35-7.45) Arterial Blood pCO2 at Patient Temp 33 mmHg (35-46) 50 mmHg (35-46) 29 mmHg (35-46) Arterial Blood pO2 at Patient Temp 71 mmHg (65-108) 54 mmHg (65-108) 121 mmHg (65-108) Arterial Blood HCO3 20 mmol/L (21-28) 21 mmol/L (21-28) 18 mmol/L (21-28) Arterial Blood Base Excess -4 mmol/L (-3-3) -7 mmol/L (-3-3) -6 mmol/L (-3-3) FiO2 100 100 2l n.c. Triglycerides Level 44 mg/dL (0-150) Test 03/22/20 08:00 O2 Saturation 98 % (92-99) Arterial Blood pH 7.48 (7.35-7.45) Arterial Blood pCO2 at Patient Temp 27 mmHg (35-46) Arterial Blood pO2 at Patient Temp 124 mmHg (65-108) Arterial Blood HCO3 20 mmol/L (21-28) Arterial Blood Base Excess -3 mmol/L (-3-3) FiO2 40 Laboratory Tests Test 03/22/20 06:06 03/22/20 08:00 Triglycerides Level 44 mg/dL (0-150) O2 Saturation 98 % (92-99) Arterial Blood pH 7.48 (7.35-7.45) Arterial Blood pCO2 at Patient Temp 27 mmHg (35-46) Arterial Blood pO2 at Patient Temp 124 mmHg (65-108) Arterial Blood HCO3 20 mmol/L (21-28) Arterial Blood Base Excess -3 mmol/L (-3-3) FiO2 40 Medications Active Scripts Medications Dose Route/Sig Max Daily Dose Days Date Category Oxybutynin Chloride Er (Oxybutynin Chloride) 10 Mg Tab.er.24 1 Tab PO DAILY 03/15/20 Reported Elmiron (Pentosan Polysulfate Sodium) 100 Mg Capsule 1 Cap PO TID 30 03/15/20 Reported Atorvastatin Calcium 40 Mg Tablet 1 Tab PO DAILY 03/15/20 Reported Fluoxetine Hcl 40 Mg Capsule 40 Mg PO DAILY 03/15/20 Reported Premarin (Estrogens, Conjugated) 0.625 Mg Tablet 1 Tab PO DAILY 03/15/20 Reported Comments cxrs reviewed 03/20, b lat infilt ett ok 03/21, b lat infilt better, ett ok Impression . IMPRESSION: 1. Acute respiratory failure multifactorial in etiology 2. large cerebral hematoma requiring emergent evacuation.ct with Large left intraparenchymal hemorrhage status-post evacuation CTA negative for aneurysm or AVM 2. Encephalopathy secondary to large left intraparenchymal hematoma. 3. leukocytosis 4. htn on cardene 5. abnl cxr, suspect acute pulm edema/acute diastolic chf, ? pneumonia, has low grade fever, cxr better w lasix but still there is b lat infilt , will repeat cxr in am Plan . 1. Continue with present assist control mode. vent setting reviewed, now on fio2 40%, reduce R/R and PEEP to 5 , extra lasix today and repeat cxr in am 2. Follow Neurosurgery recommendations. weaning until awake and resp status better. repeat ct head today 3. Optimization of blood pressure per Neurosurgery with Cardene drip. 4. SCDs for DVT prophylaxis. 5. Once mental status improves, then we will consider a weaning trial. 6. enteral nutrition. 7. Discussed with RN. We will follow along with you. 8. low grade fever, cxr b lat infilt will do sputum cx, started on zosyn discussed w rn critically ill, cc time 30 min no overlap ADRIANA ULLOA MD Mar 22, 2020 11:33
[2020-03-22] MEDS ORDERED: FUROSEMIDE 40 MG/4 ML VIAL. IVP ONE (11:45)
--- NOTE | 2020-03-22 12:15 | NUR ---
Pt down to Head CT w/ RN & RT. Monitor in place. Line secured and stable
--- NOTE | 2020-03-22 12:41 | PDOC ---
PROGRESS NOTES Subjective Subjective POD #7 s/p craniotomy and removal of Large left intraparenchymal hemorrhage, likely AVM remains on vent with propofol Objective Objective Vital Signs Date Time Temp Pulse Resp B/P (MAP) Pulse Ox O2 Delivery O2 Flow Rate FiO2 03/22/20 12:00 03/22/20 12:00 98.6 87 17 100 Ventilator 98.6 Intake and Output 03/22/20 07:00 Intake Total 3175.8 ml Output Total 2620 ml Balance 555.8 ml Intake Oral 0 ml IV Total 1745.8 ml Tube Feeding 955 ml Other 475 ml Output Urine Total 2620 ml Gastric Drainage Total 0 ml Physical Exam General: Other (sedated) Neuro: Other (Withdrawls slightly with left upper extremity) Skin: Other (dressing C,D,I) Assessment Assessment Problems Medical Problems: (1) Cerebral parenchymal hemorrhage Status: Acute (2) HTN (hypertension) Status: Acute Plan Plan of Care CT Head pending will likely need trach Comment Review of Relevant I have reviewed the following items wang (where applicable) has been applied. Labs Laboratory Tests Test 03/20/20 20:15 03/21/20 00:42 03/21/20 09:00 03/22/20 06:06 O2 Saturation 92 % (92-99) 78 % (92-99) 98 % (92-99) Arterial Blood pH 7.40 (7.35-7.45) 7.23 (7.35-7.45) 7.40 (7.35-7.45) Arterial Blood pCO2 at Patient Temp 33 mmHg (35-46) 50 mmHg (35-46) 29 mmHg (35-46) Arterial Blood pO2 at Patient Temp 71 mmHg (65-108) 54 mmHg (65-108) 121 mmHg (65-108) Arterial Blood HCO3 20 mmol/L (21-28) 21 mmol/L (21-28) 18 mmol/L (21-28) Arterial Blood Base Excess -4 mmol/L (-3-3) -7 mmol/L (-3-3) -6 mmol/L (-3-3) FiO2 100 100 2l n.c. Triglycerides Level 44 mg/dL (0-150) Test 03/22/20 08:00 O2 Saturation 98 % (92-99) Arterial Blood pH 7.48 (7.35-7.45) Arterial Blood pCO2 at Patient Temp 27 mmHg (35-46) Arterial Blood pO2 at Patient Temp 124 mmHg (65-108) Arterial Blood HCO3 20 mmol/L (21-28) Arterial Blood Base Excess -3 mmol/L (-3-3) FiO2 40 Laboratory Tests Test 03/22/20 06:06 03/22/20 08:00 Triglycerides Level 44 mg/dL (0-150) O2 Saturation 98 % (92-99) Arterial Blood pH 7.48 (7.35-7.45) Arterial Blood pCO2 at Patient Temp 27 mmHg (35-46) Arterial Blood pO2 at Patient Temp 124 mmHg (65-108) Arterial Blood HCO3 20 mmol/L (21-28) Arterial Blood Base Excess -3 mmol/L (-3-3) FiO2 40 Medications Current Medications Propofol (Diprivan) 200 mg 1X ONCE IV Last administered on 03/15/20at 11:47; Start 03/15/20 at 11:30; Stop 03/15/20 at 11:31; Status DC Propofol 50 ml @ As Directed STK-MED ONCE IV ; Start 03/15/20 at 11:45; Stop 03/15/20 at 11:45; Status DC Propofol 20 ml @ 0 mls/hr 1X ONCE IV Last administered on 03/15/20at 11:52; Start 03/15/20 at 11:45; Stop 03/15/20 at 11:50; Status DC Potassium Chloride 40 meq/ Dextrose 1,020 ml @ 75 mls/hr [id number] PRN IV 0 Last administered on 03/17/20at 03:08; Start 03/15/20 at 12:00; Stop 03/17/20 at 09:39; Status DC Etomidate (Amidate) 20 mg 1X ONCE IV Last administered on 03/15/20at 12:12; Start 03/15/20 at 11:40; Stop 03/15/20 at 12:00; Status DC Succinylcholine Chloride (Anectine) 100 mg 1X ONCE IV Last administered on 03/15/20at 12:12; Start 03/15/20 at 11:40; Stop 03/15/20 at 12:00; Status DC Bacitracin 18956 unit/Sodium Chloride 1,000 ml @ 1,000 mls/hr 1X ONCE IRR Last administered on 03/15/20at 14:50; Start 03/15/20 at 13:00; Stop 03/15/20 at 14:07; Status DC Cefazolin Sodium/ Dextrose 50 ml @ 100 mls/hr 1X PREOP PRN IV PRIOR TO PROCEDURE Last administered on 03/15/20 13:25; Start 03/15/20 at 13:00; Stop 03/16/20 at 12:59; Status DC Propofol (Diprivan) 200 mg STK-MED ONCE IV ; Start 03/15/20 at 12:33; Stop 03/15/20 at 12:33; Status DC Phenylephrine HCl (PHENYLEPHRINE in 0.9% NACL PF) 1 mg STK-MED ONCE IV ; Start 03/15/20 at 12:33; Stop 03/15/20 at 12:33; Status DC Rocuronium Patterson (Zemuron) 50 mg STK-MED ONCE .ROUTE ; Start 03/15/20 at 12:33; Stop 03/15/20 at 12:33; Status DC Dexamethasone Sodium Phosphate (Decadron) 20 mg STK-MED ONCE .ROUTE ; Start 03/15/20 at 12:36; Stop 03/15/20 at 12:36; Status DC Gelatin (Gelfoam Size 100) 1 each STK-MED ONCE .ROUTE Last administered on 03/15/20 13:49; Start 03/15/20 at 12:42; Stop 03/15/20 at 12:42; Status DC Bupivacaine HCl/ Epinephrine Bitart (Sensorcain-Epi 0.5%-1:229048 Mpf) 30 ml STK-MED ONCE .ROUTE ; Start 03/15/20 at 12:42; Stop 03/15/20 at 12:42; Status DC Mannitol (Mannitol) 12.5 g STK-MED ONCE .ROUTE Last administered on 03/15/20 14:41; Start 03/15/20 at 12:42; Stop 03/15/20 at 12:42; Status DC Cellulose (Surgicel Hemostat 4x8) 1 each STK-MED ONCE .ROUTE Last administered on 03/15/20at 15:08; Start 03/15/20 at 12:42; Stop 03/15/20 at 12:43; Status DC Thrombin 20,000 unit STK-MED ONCE TP Last administered on 03/15/20 13:49; Start 03/15/20 at 12:42; Stop 03/15/20 at 12:43; Status DC Bupivacaine HCl/ Epinephrine Bitart (Sensorcain-Epi 0.5%-1:163080 Mpf) 30 ml STK-MED ONCE .ROUTE Last administered on 03/15/20at 13:48; Start 03/15/20 at 12:44; Stop 03/15/20 at 12:45; Status DC Bupivacaine HCl/ Epinephrine Bitart (Sensorcain-Epi 0.5%-1:450326 Mpf) 30 ml 1X ONCE INJ ; Start 03/15/20 at 13:00; Stop 03/15/20 at 13:01; Status DC Ondansetron HCl (Zofran) 4 mg PRN Q6HRS PRN IV NAUSEA/VOMITING; Start 03/15/20 at 13:45; Stop 03/15/20 at 16:35; Status DC Fentanyl Citrate (Fentanyl 2ml Vial) 25 mcg PRN Q5MIN PRN IV MILD PAIN 1-3; S tart 03/15/20 at 13:45; Stop 03/16/20 at 13:44; Status DC Fentanyl Citrate (Fentanyl 2ml Vial) 50 mcg PRN Q5MIN PRN IV MODERATE TO SEVERE PAIN; Start 03/15/20 at 13:45; Stop 03/16/20 at 13:44; Status DC Morphine Sulfate (Morphine Sulfate) 1 mg PRN Q10MIN PRN IV SEVERE PAIN 7-10; Start 03/15/20 at 13:45; Stop 03/16/20 at 13:44; Status DC Ringer's Solution 1,000 ml @ 30 mls/hr Q24H IV ; Start 03/15/20 at 13:31; Stop 03/16/20 at 01:30; Status DC Hydromorphone HCl (Dilaudid) 0.5 mg PRN Q10MIN PRN IV SEV PAIN, Second choice; Start 03/15/20 at 13:45; Stop 03/16/20 at 13:44; Status DC Prochlorperazine Edisylate (Compazine) 5 mg PACU PRN PRN IV NAUSEA, MRX1; Start 03/15/20 at 13:45; Stop 03/16/20 at 13:44; Status DC Mannitol (Mannitol) 12.5 g STK-MED ONCE .ROUTE Last administered on 03/15/20at 14:41; Start 03/15/20 at 14:28; Stop 03/15/20 at 14:28; Status DC Phenylephrine HCl (Diego-Synephrine Inj) 10 mg STK-MED ONCE .ROUTE ; Start 03/15/20 at 14:43; Stop 03/15/20 at 14:43; Status DC Fentanyl Citrate (Fentanyl 2ml Vial) 100 mcg STK-MED ONCE .ROUTE ; Start 03/15/20 at 15:08; Stop 03/15/20 at 15:09; Status DC Rocuronium Patterson (Zemuron) 50 mg STK-MED ONCE .ROUTE ; Start 03/15/20 at 15:34; Stop 03/15/20 at 15:34; Status DC Sevoflurane (Ultane) 90 ml STK-MED ONCE IH ; Start 03/15/20 at 15:44; Stop 03/15/20 at 15:44; Status DC Propofol 50 ml @ As Directed STK-MED ONCE IV ; Start 03/15/20 at 16:02; Stop 03/15/20 at 16:02; Status DC Nicardipine HCl 50 mg/Sodium Chloride 250 ml @ 25 mls/hr TITRATE PRN IV HYPER TENSION Last administered on 03/21/20at 00:39; Start 03/15/20 at 16:30 Levetiracetam 500 mg/Sodium Chloride 105 ml @ 400 mls/hr Q12HR IV Last administered on 03/22/20at 09:06; Start 03/15/20 at 21:00 Sodium Chloride (Normal Saline Flush) 3 ml QSHIFT PRN IV AFTER MEDS AND BLOOD DRAWS; Start 03/15/20 at 16:30 Potassium Chloride/Dextrose/ Sod Cl 1,000 ml @ 80 mls/hr [id number] IV ; Start 03/15/20 at 16:19; Stop 03/15/20 at 18:36; Status DC Dextrose (Dextrose 50%-Water Syringe) 12.5 gm PRN Q15MIN PRN IV SEE COMMENTS; Start 03/15/20 at 16:30 Cefazolin Sodium (Ancef) 1 gm Q8HRS IVP Last administered on 03/16/20at 14:52; Start 03/15/20 at 22:00; Stop 03/16/20 at 14:01; Status DC Ondansetron HCl (Zofran) 4 mg PRN Q4HRS PRN IV NAUSEA/VOMITING; Start 03/15/20 at 16:45 Atorvastatin Calcium (Lipitor) 40 mg DAILY PO Last administered on 03/22/20at 09:06; Start 03/16/20 at 09:00 Acetaminophen (Tylenol Supp) 650 mg PRN Q6HRS PRN SD MILD PAIN / TEMP > 100.3'F Last administered on 03/20/20at 18:27; Start 03/15/20 at 16:45 Docusate Sodium (Enemeez) 283 mg PRN DAILY PRN SD CONSTIPATION; Start 03/15/20 at 16:45 Magnesium Sulfate 50 ml @ 25 mls/hr 1X ONCE IV Last administered on 03/15/20at 17:23; Start 03/15/20 at 17:00; Stop 03/15/20 at 18:59; Status DC Propofol 100 ml @ As Directed STK-MED ONCE IV ; Start 03/15/20 at 19:37; Stop 03/15/20 at 19:38; Status DC Propofol 100 ml @ 0.837 mls/ hr CONT PRN IV SEE I/O RECORD Last administered on 03/22/20at 00:40; Start 03/15/20 at 19:45 Iohexol (Omnipaque 300 Mg/ml) 75 ml 1X ONCE IV Last administered on 03/16/20at 07:45; Start 03/16/20 at 07:45; Stop 03/16/20 at 07:50; Status DC Info (CONTRAST GIVEN -- Rx MONITORING) 1 each PRN DAILY PRN MC SEE COMMENTS; Start 03/16/20 at 08:00; Stop 03/18/20 at 07:59; Status DC Potassium Chloride/Dextrose/ Sod Cl 1,000 ml @ 75 mls/hr 1X ONCE IV Last administered on 03/17/20at 10:15; Start 03/17/20 at 09:45; Stop 03/17/20 at 23:04; Status DC Psyllium Hydrophilic Mucilloid (Metamucil Fiber Packet) 1 pkt DAILY PO Last administered on 03/22/20at 09:06; Start 03/17/20 at 11:00 Potassium Chloride/Dextrose/ Sod Cl 1,000 ml @ 75 mls/hr [id number] IV Last administered on 03/21/20at 21:25; Start 03/17/20 at 23:00 Famotidine (Pepcid Vial) 20 mg BID IVP Last administered on 03/22/20at 09:06; Start 03/18/20 at 21:00 Multi-Ingred Cream/Lotion/Oil/ Oint (Artificial Tears Eye Ointment) 1 ayala PRN Q1HR PRN OU DRY EYE Last administered on 03/20/20at 18:23; Start 03/19/20 at 16:15 Fentanyl Citrate (Fentanyl 2ml Vial) 50 mcg PRN Q2HR PRN IVP PAIN Last administered on 03/20/20at 22:12; Start 03/20/20 at 18:00 Fentanyl Citrate 30 ml @ 0 mls/hr CONT PRN IV SEE PROTOCOL Last administered on 03/21/20at 21:26; Start 03/20/20 at 23:15 Dexmedetomidine HCl 400 mcg/ Sodium Chloride 100 ml @ 0 mls/hr CONT PRN IV PER PROTOCOL Last administered on 03/21/20at 00:38; Start 03/20/20 at 23:15 Furosemide (Lasix) 20 mg 1X ONCE IVP Last administered on 03/20/20at 23:20; Start 03/20/20 at 23:15; Stop 03/20/20 at 23:16; Status DC Furosemide (Lasix) 20 mg 1X ONCE IVP Last administered on 03/21/20at 01:20; Start 03/21/20 at 01:00; Stop 03/21/20 at 01:01; Status DC Methylprednisolone Sodium Succinate (SOLU-Medrol 125MG VIAL) 125 mg 1X ONCE IV Last administered on 03/21/20at 01:20; Start 03/21/20 at 01:00; Stop 03/21/20 at 01:01; Status DC Albuterol/ Ipratropium (Duoneb) 3 ml Q4HRS NEB Last administered on 03/22/20at 11:39; Start 03/21/20 at 01:15 Piperacillin Sod/ Tazobactam Sod (Zosyn Per Pharmacy) 1 each PRN DAILY PRN MC SEE COMMENTS; Start 03/21/20 at 12:00 Piperacillin Sod/ Tazobactam Sod 4.5 gm/Sodium Chloride 100 ml @ 200 mls/hr Q6HRS IV Last administered on 03/22/20at 11:23; Start 03/21/20 at 12:00 Furosemide (Lasix) 40 mg 1X ONCE IVP Last administered on 03/22/20at 12:03; Start 03/22/20 at 11:45; Stop 03/22/20 at 11:46; Status DC Active Scripts Active Reported Oxybutynin Chloride Er (Oxybutynin Chloride) 10 Mg Tab.er.24 1 Tab PO DAILY Elmiron (Pentosan Polysulfate Sodium) 100 Mg Capsule 1 Cap PO TID 30 Days Atorvastatin Calcium 40 Mg Tablet 1 Tab PO DAILY Fluoxetine Hcl 40 Mg Capsule 40 Mg PO DAILY Premarin (Estrogens, Conjugated) 0.625 Mg Tablet 1 Tab PO DAILY Vitals/I & O Vital Sign - Last 24 Hours 03/21/20 03/21/20 03/21/20 03/21/20 13:00 13:12 14:00 15:00 Pulse 74 74 70 Resp 24 24 24 B/P (MAP) 100/65 (77) 116/56 (76) 136/56 (82) Pulse Ox 99 100 99 100 O2 Delivery Ventilator Ventilator Ventilator Ventilator 03/21/20 03/21/20 03/21/20 03/21/20 15:51 16:00 16:00 17:00 Temp 98.0 98.0 Pulse 74 80 Resp 24 24 B/P (MAP) 136/54 (81) 142/54 (83) Pulse Ox 100 100 100 O2 Delivery Ventilator Ventilator Ventilator 03/21/20 03/21/20 03/21/20 03/21/20 17:28 18:00 19:00 19:19 Pulse 78 75 Resp 24 24 B/P (MAP) 140/51 (80) 175/94 (121) Pulse Ox 100 100 100 100 O2 Delivery Ventilator Ventilator Ventilator Ventilator 03/21/20 03/21/20 03/21/20 03/21/20 20:00 20:00 20:00 21:00 Temp 98.4 98.4 Pulse 76 79 Resp 24 24 B/P (MAP) 150/68 (95) 138/57 (84) Pulse Ox 100 100 O2 Delivery Ventilator Mechanical Ventilator Ventilator 03/21/20 03/21/20 03/21/20 03/21/20 21:26 21:50 21:56 22:00 Pulse 82 Resp 24 24 24 B/P (MAP) 142/67 (92) Pulse Ox 100 100 100 100 O2 Delivery Ventilator Ventilator Ventilator Ventilator 03/21/20 03/22/20 03/22/20 03/22/20 23:00 00:00 00:00 00:00 Temp 98.9 98.9 Pulse 84 89 Resp 24 24 B/P (MAP) 138/59 (85) 138/84 (102) Pulse Ox 100 100 O2 Delivery Ventilator Ventilator Mechanical Ventilator 03/22/20 03/22/20 03/22/20 03/22/20 00:32 01:00 02:00 03:00 Pulse 94 96 95 Resp 24 24 24 B/P (MAP) 124/48 (73) 142/79 (100) 136/52 (80) Pulse Ox 100 100 100 100 O2 Delivery Ventilator Ventilator Ventilator Ventilator 03/22/20 03/22/20 03/22/20 03/22/20 04:00 04:00 04:00 04:40 Temp 99.2 99.2 Pulse 98 Resp 24 B/P (MAP) 137/60 (85) Pulse Ox 100 100 O2 Delivery Mechanical Ventilator Ventilator Ventilator 03/22/20 03/22/20 03/22/20 03/22/20 05:00 06:00 07:00 07:46 Pulse 90 87 84 Resp 24 24 24 B/P (MAP) 141/52 (81) 138/47 (77) 138/52 (80) Pulse Ox 100 100 100 100 O2 Delivery Ventilator Ventilator Ventilator Ventilator 03/22/20 03/22/20 03/22/20 03/22/20 08:00 08:00 08:00 09:00 Temp 98.3 98.3 Pulse 96 100 Resp 24 24 B/P (MAP) 158/58 (91) 164/58 (93) Pulse Ox 100 100 O2 Delivery Ventilator Mechanical Ventilator Ventilator 03/22/20 03/22/20 03/22/20 03/22/20 10:00 11:00 11:39 12:00 Pulse 92 92 Resp 24 16 B/P (MAP) 143/60 (87) 135/63 (87) Pulse Ox 100 100 100 O2 Delivery Ventilator Ventilator Ventilator Mechanical Ventilator 03/22/20 03/22/20 12:00 12:00 Temp 98.6 98.6 Pulse 87 Resp 17 B/P (MAP) 146/55 (85) Pulse Ox 100 O2 Delivery Ventilator Intake and Output 03/21/20 03/21/20 03/22/20 15:00 23:00 07:00 Intake Total 965 ml 2210.8 ml Output Total 1275 ml 595 ml 750 ml Balance -1275 ml 370 ml 1460.8 ml ABDOULAYE GOODWIN MD Mar 22, 2020 12:41
--- NOTE | 2020-03-22 12:50 | NUR ---
SS following up with discharge planning. SS reviewed pt chart and discussed with pt RN. Pt is currently on the vent and IV Zosyn. Pt getting CT of head today. Possible extubation soon. SS will continue to follow for discharge planning.
[2020-03-22] MEDS ORDERED: POTASSIUM BICARB 20 MEQ EFFERVESCENT TABLET. PEG ONE (14:00)
--- NOTE | 2020-03-22 14:42 | RAD ---
CT HEAD WO CONTRAST History: Reason: f/u ICH, EVD now removed / Spl. Instructions: / History: Comparison: March 16, 2020 Technique: Noncontrast CT imaging was performed of the head. Exposure: One or more of the following individualized dose reduction techniques were utilized for this examination: 1. Automated exposure control 2. Adjustment of the mA and/or kV according to patient size 3. Use of iterative reconstruction technique. Findings: Interval removal of left frontal ventricular drain. Evolving postoperative changes left parietal craniotomy for left frontal hematoma evacuation. Decreased pneumocephalus. Decreased left frontal residual hematoma. Decreased intraventricular hemorrhage and subarachnoid hemorrhage. Decreased adjacent mass effect. No hydrocephalus. Unchanged adjacent vasogenic edema. Bilateral preseptal periorbital soft tissue swelling, right greater than left. Imaged orbits are unremarkable. Scattered paranasal sinus mucosal thickening with secretions in the left maxillary sinus. Minimal left mastoid fluid. No acute calvarial fracture. Impression: 1. Evolving postoperative changes left parietal craniotomy for left frontal parenchymal hematoma evacuation. Decreased residual hematoma and pneumocephalus compared to prior. 2. Decreased intraventricular hemorrhage. 3. Interval removal of left frontal approach ventricular drain. No hydrocephalus. Electronically signed by: Corey Hoover DO (03/22/2020 2:39 PM) [id number]
[2020-03-22] MEDS: POTASSIUM CL 20MEQ D5-0.45NACL 1,000 ML IV SCH (15:15)
--- NOTE | 2020-03-22 16:45 | OP ---
DATE OF SURGERY: 03/15/2020 This is an emergency surgery done on 03/15/2020. PREOPERATIVE DIAGNOSES: Left parafalcine intracranial hemorrhage with significant mass effect and neurologic compromise. POSTOPERATIVE DIAGNOSES: Left parafalcine intracranial hemorrhage with significant mass effect and neurologic compromise. 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 SURGEON: Everette Goodwin M.D. MAIN LINE ASSEMBLER: MANUEL Arnett, who assisted with all aspects of the surgery. OPERATIVE INDICATIONS: The patient is a pleasant 64-year-old woman who was with her , shopping late in the morning when she collapsed. According to him, she had problems with headaches intermittently for the last few days and then suddenly said she felt woozy and collapsed. She was brought to the Emergency Room, obtunded and she was intubated and scan of the head was obtained and then we were called. Imaging studies were as above. There was a central left-sided large hemorrhage with significant transfalcine herniation, the hemorrhage extended from the midline and adjacent to the sagittal sinus. The central portion of the sinus and then extended down to the ventricle. DESCRIPTION OF PROCEDURE: Following general endotracheal anesthesia, the patient was positioned supine with a roll beneath her shoulder and her head was turned to the right. She was clipped, prepped and draped in the standard fashion and a midline incision was made curving down each end down the left side and I reflected the skin and placed self-retaining retractors. I placed several holes just adjacent to the midline and then further laterally and elevated a trapezoidal type bone flap. There was obvious blood beneath the dura adjacent to the midline, which appeared old. I incised the dura laterally and flapped it medially and entered large blood clots. I tacked the dura medially. I began to remove some older blood and then some more recent blood. As I gently suctioned down into the hemorrhage. There was a spontaneous egress of blood under pressure and there was a mass adjacent to the falx and extending up to the sagittal sinus, which was bleeding. There appeared to be a cluster of large dilated blood vessels. I began to coagulate and worked to stop the hemorrhaging. I did cut the majority of the blood vessel away and submitted that for pathologic evaluation. I then began to obtain hemostasis adjacent to the falx and then began to remove the clot, which extended all the way down to the ventricle. This accomplished, then I had an excellent decompression. I did spend some time obtaining hemostasis. Once the hemostasis was obtained of the mass, which appeared to be an arteriovenous malformation. The remainder of the removal of clot was not associated with significant hemorrhaging. I did place a ventricular catheter into the ventricle, which I could visualize and brought this out through a separate stab incision. I irrigated copiously. I tacked the dura back together and then placed Duragen over the craniotomy site. The craniotomy bone was then replaced and secured with microplates. The skin was closed in layers, skin surface was closed with skin amira. The operation went very well and the patient was taken to the Intensive Care Unit. I was quite pleased with the surgery. EVERETTE GOODWIN MD DR: KORTNEY/alana JOB#: [id number] / [id number] ERIC
[2020-03-22 16:50] LABS: BASE EXCESS ABG 0 mmol/L (-3-3); HCO3 ABG 24 mmol/L (21-28); PCO2 ABG 36 mmHg (35-46); PO2 ABG 102 mmHg (65-108); SAT O2 ABG 97 % (92-99)
[2020-03-22 16:51] LABS: FIO2 ABG 40
[2020-03-23] VITALS (24 sets, daily range): BP systolic 135–176; BP diastolic 52–69
[2020-03-23] MEDS: IPRATRPIUM/ALBUTEROL 0.5/2.5MG 3 ML NEBU. NEB SCH ×7 (00:05→23:11)
[2020-03-23] MEDS: PIPERACILLIN/TAZOBACTAM 4.5 GM in IV NORMAL SALINE 100ML 100 ML IV SCH ×2 (00:17→05:42)
[2020-03-23] MEDS: POTASSIUM CL 20MEQ D5-0.45NACL 1,000 ML IV SCH ×3 (05:41→21:17)
[2020-03-23] MEDS: PROPOFOL 100 ML IV PRN (05:44)
[2020-03-23 07:43] LABS: HEMATOCRIT 24.1 % (36.0-47.0); HEMOGLOBIN 8.2 g/dL (12.0-15.5); RED BLOOD COUNT 2.69 x10^6/uL (3.50-5.40); RED CELL DISTRIBUTION WIDTH 13.1 % (11.5-14.5)
--- NOTE | 2020-03-23 08:01 | RAD ---
Single AP view of the chest. Comparison: 03/21/2020. Indication: Respiratory failure and CHF Findings: Endotracheal tube and nasogastric tube are stable. The heart size is normal. No pneumothorax or effusion. Increasing consolidative changes of the retrocardiac left lung base. The bony structures are intact. Impression: 1. Increasing consolidative changes of the retrocardiac left lung base. Electronically signed by: Vijay Son MD (03/23/2020 7:59 AM) [id number]
[2020-03-23] MEDS: ATORVASTATIN CALCIUM 40 MG TABLET. PO SCH (08:02)
[2020-03-23] MEDS: FAMOTIDINE 20 MG/2 ML VIAL IVP SCH ×2 (08:02→22:38)
[2020-03-23] MEDS: PSYLLIUM HUSK (SUGAR FREE) 1 PKT PACKET PO SCH (08:03)
[2020-03-23 08:04] LABS: ALBUMIN 1.7 g/dL (3.4-5.0); ALBUMIN/GLOBULIN RATIO 0.4 (1.0-1.7); CALCIUM 7.8 mg/dL (8.5-10.1); CREATININE 0.6 mg/dL (0.6-1.0); GFR 101.3; POTASSIUM 3.9 mmol/L (3.5-5.1); TOTAL BILIRUBIN 0.4 mg/dL (0.2-1.0); TOTAL PROTEIN 5.9 g/dL (6.4-8.2)
[2020-03-23 08:25] LABS: BASE EXCESS ABG 0 mmol/L (-3-3); HCO3 ABG 24 mmol/L (21-28); PCO2 ABG 37 mmHg (35-46); PO2 ABG 116 mmHg (65-108); SAT O2 ABG 98 % (92-99)
[2020-03-23 08:44] LABS: FIO2 ABG 40% VENT
--- NOTE | 2020-03-23 10:08 | PDOC ---
PROGRESS NOTES Assessment Problems Medical Problems: (1) Cerebral parenchymal hemorrhage Status: Acute (2) HTN (hypertension) Status: Acute Large left intraparenchymal hemorrhage status-post evacuation CTA negative for aneurysm or AVM EVD out, no hydrocephalus on followup CT Plan Levetiracetam Try lifting sedation Subjective None Objective Vital Signs Date Time Temp Pulse Resp B/P (MAP) Pulse Ox O2 Delivery O2 Flow Rate FiO2 03/23/20 10:00 83 16 155/61 (92) 100 Ventilator 03/23/20 07:00 100.1 100.1 Intake and Output 03/23/20 07:00 Intake Total 4617 ml Output Total 5075 ml Balance -458 ml Tube Feeding 1814 ml Blood Product IV Normal Saline Flush 2303 ml Other 500 ml Output Urine Total 5075 ml Gastric Drainage Total 0 ml PHYSICAL EXAM Sedated on vent PERRL. No spontaneous extraocular movements CN: no focal findings. Muscle tone: normal. Muscle strength: withdraws left slightly to pain DTR: 2+ Plantar reflex: extensor bilaterally Gait: not examined Sensory exam: not cooperative. Cerebellar: not cooperative Review of Relevant I have reviewed the following items wang (where applicable) has been applied. Labs Laboratory Tests Test 03/22/20 06:06 03/22/20 08:00 03/22/20 16:24 03/23/20 00:07 Triglycerides Level 44 mg/dL (0-150) O2 Saturation 98 % (92-99) 97 % (92-99) Arterial Blood pH 7.48 (7.35-7.45) 7.44 (7.35-7.45) Arterial Blood pCO2 at Patient Temp 27 mmHg (35-46) 36 mmHg (35-46) Arterial Blood pO2 at Patient Temp 124 mmHg (65-108) 102 mmHg (65-108) Arterial Blood HCO3 20 mmol/L (21-28) 24 mmol/L (21-28) Arterial Blood Base Excess -3 mmol/L (-3-3) 0 mmol/L (-3-3) FiO2 40 40 Glucose (Fingerstick) 105 mg/dL (70-99) Test 03/23/20 07:33 03/23/20 08:00 White Blood Count 9.0 x10^3/uL (4.0-11.0) Red Blood Count 2.69 x10^6/uL (3.50-5.40) Hemoglobin 8.2 g/dL (12.0-15.5) Hematocrit 24.1 % (36.0-47.0) Mean Corpuscular Volume 90 fL (79-100) Mean Corpuscular Hemoglobin 31 pg (25-35) Mean Corpuscular Hemoglobin Concent 34 g/dL (31-37) Red Cell Distribution Width 13.1 % (11.5-14.5) Platelet Count 365 x10^3/uL (140-400) Sodium Level 142 mmol/L (136-145) Potassium Level 3.9 mmol/L (3.5-5.1) Chloride Level 108 mmol/L (98-107) Carbon Dioxide Level 24 mmol/L (21-32) Anion Gap 10 (6-14) Blood Urea Nitrogen 22 mg/dL (7-20) Creatinine 0.6 mg/dL (0.6-1.0) Estimated GFR (Cockcroft-Gault) 101.3 BUN/Creatinine Ratio 37 (6-20) Glucose Level 105 mg/dL (70-99) Calcium Level 7.8 mg/dL (8.5-10.1) Total Bilirubin 0.4 mg/dL (0.2-1.0) Aspartate Amino Transf (AST/SGOT) 284 U/L (15-37) Alanine Aminotransferase (ALT/SGPT) 352 U/L (14-59) Alkaline Phosphatase 178 U/L (46-116) Total Protein 5.9 g/dL (6.4-8.2) Albumin 1.7 g/dL (3.4-5.0) Albumin/Globulin Ratio 0.4 (1.0-1.7) O2 Saturation 98 % (92-99) Arterial Blood pH 7.43 (7.35-7.45) Arterial Blood pCO2 at Patient Temp 37 mmHg (35-46) Arterial Blood pO2 at Patient Temp 116 mmHg (65-108) Arterial Blood HCO3 24 mmol/L (21-28) Arterial Blood Base Excess 0 mmol/L (-3-3) FiO2 40% vent Laboratory Tests Test 03/22/20 16:24 03/23/20 00:07 03/23/20 07:33 03/23/20 08:00 O2 Saturation 97 % (92-99) 98 % (92-99) Arterial Blood pH 7.44 (7.35-7.45) 7.43 (7.35-7.45) Arterial Blood pCO2 at Patient Temp 36 mmHg (35-46) 37 mmHg (35-46) Arterial Blood pO2 at Patient Temp 102 mmHg (65-108) 116 mmHg (65-108) Arterial Blood HCO3 24 mmol/L (21-28) 24 mmol/L (21-28) Arterial Blood Base Excess 0 mmol/L (-3-3) 0 mmol/L (-3-3) FiO2 40 40% vent Glucose (Fingerstick) 105 mg/dL (70-99) White Blood Count 9.0 x10^3/uL (4.0-11.0) Red Blood Count 2.69 x10^6/uL (3.50-5.40) Hemoglobin 8.2 g/dL (12.0-15.5) Hematocrit 24.1 % (36.0-47.0) Mean Corpuscular Volume 90 fL (79-100) Mean Corpuscular Hemoglobin 31 pg (25-35) Mean Corpuscular Hemoglobin Concent 34 g/dL (31-37) Red Cell Distribution Width 13.1 % (11.5-14.5) Platelet Count 365 x10^3/uL (140-400) Sodium Level 142 mmol/L (136-145) Potassium Level 3.9 mmol/L (3.5-5.1) Chloride Level 108 mmol/L (98-107) Carbon Dioxide Level 24 mmol/L (21-32) Anion Gap 10 (6-14) Blood Urea Nitrogen 22 mg/dL (7-20) Creatinine 0.6 mg/dL (0.6-1.0) Estimated GFR (Cockcroft-Gault) 101.3 BUN/Creatinine Ratio 37 (6-20) Glucose Level 105 mg/dL (70-99) Calcium Level 7.8 mg/dL (8.5-10.1) Total Bilirubin 0.4 mg/dL (0.2-1.0) Aspartate Amino Transf (AST/SGOT) 284 U/L (15-37) Alanine Aminotransferase (ALT/SGPT) 352 U/L (14-59) Alkaline Phosphatase 178 U/L (46-116) Total Protein 5.9 g/dL (6.4-8.2) Albumin 1.7 g/dL (3.4-5.0) Albumin/Globulin Ratio 0.4 (1.0-1.7) Microbiology 03/21/20 Gram Stain Evaluation - Final, Resulted 03/21/20 Respiratory Culture - Preliminary, Resulted Medications Current Medications Propofol (Diprivan) 200 mg 1X ONCE IV Last administered on 03/15/20at 11:47; Start 03/15/20 at 11:30; Stop 03/15/20 at 11:31; Status DC Propofol 50 ml @ As Directed STK-MED ONCE IV ; Start 03/15/20 at 11:45; Stop 03/15/20 at 11:45; Status DC Propofol 20 ml @ 0 mls/hr 1X ONCE IV Last administered on 03/15/20at 11:52; Start 03/15/20 at 11:45; Stop 03/15/20 at 11:50; Status DC Potassium Chloride 40 meq/ Dextrose 1,020 ml @ 75 mls/hr [id number] PRN IV 0 Last administered on 03/17/20at 03:08; Start 03/15/20 at 12:00; Stop 03/17/20 at 09: 39; Status DC Etomidate (Amidate) 20 mg 1X ONCE IV Last administered on 03/15/20at 12:12; Start 03/15/20 at 11:40; Stop 03/15/20 at 12:00; Status DC Succinylcholine Chloride (Anectine) 100 mg 1X ONCE IV Last administered on 03/15/20at 12:12; Start 03/15/20 at 11:40; Stop 03/15/20 at 12:00; Status DC Bacitracin 88596 unit/Sodium Chloride 1,000 ml @ 1,000 mls/hr 1X ONCE IRR L ast administered on 03/15/20at 14:50; Start 03/15/20 at 13:00; Stop 03/15/20 at 14:07; Status DC Cefazolin Sodium/ Dextrose 50 ml @ 100 mls/hr 1X PREOP PRN IV PRIOR TO PROCEDURE Last administered on 03/15/20at 13:25; Start 03/15/20 at 13:00; Stop 03/16/20 at 12:59; Status DC Propofol (Diprivan) 200 mg STK-MED ONCE IV ; Start 03/15/20 at 12:33; Stop 03/15/20 at 12:33; Status DC Phenylephrine HCl (PHENYLEPHRINE in 0.9% NACL PF) 1 mg STK-MED ONCE IV ; Start 03/15/20 at 12:33; Stop 03/15/20 at 12:33; Status DC Rocuronium Girard (Zemuron) 50 mg STK-MED ONCE .ROUTE ; Start 03/15/20 at 12:33; Stop 03/15/20 at 12:33; Status DC Dexamethasone Sodium Phosphate (Decadron) 20 mg STK-MED ONCE .ROUTE ; Start 03/15/20 at 12:36; Stop 03/15/20 at 12:36; Status DC Gelatin (Gelfoam Size 100) 1 each STK-MED ONCE .ROUTE Last administered on 03/15/20 13:49; Start 03/15/20 at 12:42; Stop 03/15/20 at 12:42; Status DC Bupivacaine HCl/ Epinephrine Bitart (Sensorcain-Epi 0.5%-1:142351 Mpf) 30 ml STK-MED ONCE .ROUTE ; Start 03/15/20 at 12:42; Stop 03/15/20 at 12:42; Status DC Mannitol (Mannitol) 12.5 g STK-MED ONCE .ROUTE Last administered on 03/15/20at 14:41; Start 03/15/20 at 12:42; Stop 03/15/20 at 12:42; Status DC Cellulose (Surgicel Hemostat 4x8) 1 each STK-MED ONCE .ROUTE Last administered on 03/15/20at 15:08; Start 03/15/20 at 12:42; Stop 03/15/20 at 12:43; Status DC Thrombin 20,000 unit STK-MED ONCE TP Last administered on 03/15/20at 13:49; Start 03/15/20 at 12:42; Stop 03/15/20 at 12:43; Status DC Bupivacaine HCl/ Epinephrine Bitart (Sensorcain-Epi 0.5%-1:587884 Mpf) 30 ml STK-MED ONCE .ROUTE Last administered on 03/15/20at 13:48; Start 03/15/20 at 12:44; Stop 03/15/20 at 12:45; Status DC Bupivacaine HCl/ Epinephrine Bitart (Sensorcain-Epi 0.5%-1:139261 Mpf) 30 ml 1X ONCE INJ ; Start 03/15/20 at 13:00; Stop 03/15/20 at 13:01; Status DC Ondansetron HCl (Zofran) 4 mg PRN Q6HRS PRN IV NAUSEA/VOMITING; Start 03/15/20 at 13:45; Stop 03/15/20 at 16:35; Status DC Fentanyl Citrate (Fentanyl 2ml Vial) 25 mcg PRN Q5MIN PRN IV MILD PAIN 1-3; Start 03/15/20 at 13:45; Stop 03/16/20 at 13:44; Status DC Fentanyl Citrate (Fentanyl 2ml Vial) 50 mcg PRN Q5MIN PRN IV MODERATE TO SEVERE PAIN; Start 03/15/20 at 13:45; Stop 03/16/20 at 13:44; Status DC Morphine Sulfate (Morphine Sulfate) 1 mg PRN Q10MIN PRN IV SEVERE PAIN 7-10; Start 03/15/20 at 13:45; Stop 03/16/20 at 13:44; Status DC Ringer's Solution 1,000 ml @ 30 mls/hr Q24H IV ; Start 03/15/20 at 13:31; Stop 03/16/20 at 01:30; Status DC Hydromorphone HCl (Dilaudid) 0.5 mg PRN Q10MIN PRN IV SEV PAIN, Second choice; Start 03/15/20 at 13:45; Stop 03/16/20 at 13:44; Status DC Prochlorperazine Edisylate (Compazine) 5 mg PACU PRN PRN IV NAUSEA, MRX1; Start 03/15/20 at 13:45; Stop 03/16/20 at 13:44; Status DC Mannitol (Mannitol) 12.5 g STK-MED ONCE .ROUTE Last administered on 03/15/20at 14:41; Start 03/15/20 at 14:28; Stop 03/15/20 at 14:28; Status DC Phenylephrine HCl (Diego-Synephrine Inj) 10 mg STK-MED ONCE .ROUTE ; Start 03/15/20 at 14:43; Stop 03/15/20 at 14:43; Status DC Fentanyl Citrate (Fentanyl 2ml Vial) 100 mcg STK-MED ONCE .ROUTE ; Start 03/15/20 at 15:08; Stop 03/15/20 at 15:09; Status DC Rocuronium Girard (Zemuron) 50 mg STK-MED ONCE .ROUTE ; Start 03/15/20 at 15:34; Stop 03/15/20 at 15:34; Status DC Sevoflurane (Ultane) 90 ml STK-MED ONCE IH ; Start 03/15/20 at 15:44; Stop 03/15/20 at 15:44; Status DC Propofol 50 ml @ As Directed STK-MED ONCE IV ; Start 03/15/20 at 16:02; Stop 03/15/20 at 16:02; Status DC Nicardipine HCl 50 mg/Sodium Chloride 250 ml @ 25 mls/hr TITRATE PRN IV HYPERTENSION Last administered on 03/23/20at 01:24; Start 03/15/20 at 16:30 Levetiracetam 500 mg/Sodium Chloride 105 ml @ 400 mls/hr Q12HR IV Last administered on 03/23/20at 08:03; Start 03/15/20 at 21:00 Sodium Chloride (Normal Saline Flush) 3 ml QSHIFT PRN IV AFTER MEDS AND BLOOD DRAWS; Start 03/15/20 at 16:30 Potassium Chloride/Dextrose/ Sod Cl 1,000 ml @ 80 mls/hr [id number] IV ; Start 03/15/20 at 16:19; Stop 03/15/20 at 18:36; Status DC Dextrose (Dextrose 50%-Water Syringe) 12.5 gm PRN Q15MIN PRN IV SEE COMMENTS; Start 03/15/20 at 16:30 Cefazolin Sodium (Ancef) 1 gm Q8HRS IVP Last administered on 03/16/20at 14:52; Start 03/15/20 at 22:00; Stop 03/16/20 at 14:01; Status DC Ondansetron HCl (Zofran) 4 mg PRN Q4HRS PRN IV NAUSEA/VOMITING; Start 03/15/20 at 16:45 Atorvastatin Calcium (Lipitor) 40 mg DAILY PO Last administered on 03/23/20at 08:02; Start 03/16/20 at 09:00; Stop 03/23/20 at 09:23; Status DC Acetaminophen (Tylenol Supp) 650 mg PRN Q6HRS PRN OK MILD PAIN / TEMP > 100.3'F Last administered on 03/20/20at 18:27; Start 03/15/20 at 16:45 Docusate Sodium (Enemeez) 283 mg PRN DAILY PRN OK CONSTIPATION; Start 03/15/20 at 16:45 Magnesium Sulfate 50 ml @ 25 mls/hr 1X ONCE IV Last administered on 03/15/20at 17:23; Start 03/15/20 at 17:00; Stop 03/15/20 at 18:59; Status DC Propofol 100 ml @ As Directed STK-MED ONCE IV ; Start 03/15/20 at 19:37; Stop 03/15/20 at 19:38; Status DC Propofol 100 ml @ 0.837 mls/ hr CONT PRN IV SEE I/O RECORD Last administered on 03/23/20at 05:44; Start 03/15/20 at 19:45 Iohexol (Omnipaque 300 Mg/ml) 75 ml 1X ONCE IV Last administered on 03/16/20at 07:45; Start 03/16/20 at 07:45; Stop 03/16/20 at 07:50; Status DC Info (CONTRAST GIVEN -- Rx MONITORING) 1 each PRN DAILY PRN MC SEE COMMENTS; Start 03/16/20 at 08:00; Stop 03/18/20 at 07:59; Status DC Potassium Chloride/Dextrose/ Sod Cl 1,000 ml @ 75 mls/hr 1X ONCE IV Last administered on 03/17/20at 10:15; Start 03/17/20 at 09:45; Stop 03/17/20 at 23:04; Status DC Psyllium Hydrophilic Mucilloid (Metamucil Fiber Packet) 1 pkt DAILY PO Last administered on 03/23/20at 08:03; Start 03/17/20 at 11:00 Potassium Chloride/Dextrose/ Sod Cl 1,000 ml @ 75 mls/hr [id number] IV Last administered on 03/23/20at 05:41; Start 03/17/20 at 23:00 Famotidine (Pepcid Vial) 20 mg BID IVP Last administered on 03/23/20at 08:02; Start 03/18/20 at 21:00 Multi-Ingred Cream/Lotion/Oil/ Oint (Artificial Tears Eye Ointment) 1 ayala PRN Q1HR PRN OU DRY EYE Last administered on 03/20/20at 18:23; Start 03/19/20 at 16:15 Fentanyl Citrate (Fentanyl 2ml Vial) 50 mcg PRN Q2HR PRN IVP PAIN Last administered on 03/20/20at 22:12; Start 03/20/20 at 18:00 Fentanyl Citrate 30 ml @ 0 mls/hr CONT PRN IV SEE PROTOCOL Last administered on 03/22/20at 19:15; Start 03/20/20 at 23:15 Dexmedetomidine HCl 400 mcg/ Sodium Chloride 100 ml @ 0 mls/hr CONT PRN IV PER PROTOCOL Last administered on 03/21/20at 00:38; Start 03/20/20 at 23:15 Furosemide (Lasix) 20 mg 1X ONCE IVP Last administered on 03/20/20at 23:20; Start 03/20/20 at 23:15; Stop 03/20/20 at 23:16; Status DC Furosemide (Lasix) 20 mg 1X ONCE IVP Last administered on 03/21/20at 01:20; Start 03/21/20 at 01:00; Stop 03/21/20 at 01:01; Status DC Methylprednisolone Sodium Succinate (SOLU-Medrol 125MG VIAL) 125 mg 1X ONCE IV Last administered on 03/21/20at 01:20; Start 03/21/20 at 01:00; Stop 03/21/20 at 01:01; Status DC Albuterol/ Ipratropium (Duoneb) 3 ml Q4HRS NEB Last administered on 03/23/20at 08:03; Start 03/21/20 at 01:15 Piperacillin Sod/ Tazobactam Sod (Zosyn Per Pharmacy) 1 each PRN DAILY PRN MC SEE COMMENTS; Start 03/21/20 at 12:00 Piperacillin Sod/ Tazobactam Sod 4.5 gm/Sodium Chloride 100 ml @ 200 mls/hr Q6HRS IV Last administered on 03/23/20at 05:42; Start 03/21/20 at 12:00 Furosemide (Lasix) 40 mg 1X ONCE IVP Last administered on 03/22/20at 12:03; Start 03/22/20 at 11:45; Stop 03/22/20 at 11:46; Status DC Potassium Bicarbonate (Potassium Effervescent Tablet) 40 meq 1X ONCE PEG Last administered on 03/22/20at 14:00; Start 03/22/20 at 14:00; Stop 03/22/20 at 14:01; Status DC Active Scripts Active Reported Oxybutynin Chloride Er (Oxybutynin Chloride) 10 Mg Tab.er.24 1 Tab PO DAILY Elmiron (Pentosan Polysulfate Sodium) 100 Mg Capsule 1 Cap PO TID 30 Days Atorvastatin Calcium 40 Mg Tablet 1 Tab PO DAILY Fluoxetine Hcl 40 Mg Capsule 40 Mg PO DAILY Premarin (Estrogens, Conjugated) 0.625 Mg Tablet 1 Tab PO DAILY Vitals/I & O Vital Sign - Last 24 Hours 03/22/20 03/22/20 03/22/20 03/22/20 11:00 11:39 12:00 12:00 Temp 98.6 98.6 Pulse 92 87 Resp 16 17 B/P (MAP) 135/63 (87) 146/55 (85) Pulse Ox 100 100 100 O2 Delivery Ventilator Ventilator Mechanical Ventilator Ventilator 03/22/20 03/22/20 03/22/20 03/22/20 12:00 13:00 14:00 15:00 Pulse 84 86 87 Resp 16 15 15 B/P (MAP) 150/58 (88) 162/60 (94) 139/61 (87) Pulse Ox 99 100 100 O2 Delivery Ventilator Ventilator Ventilator 03/22/20 03/22/20 03/22/20 03/22/20 16:00 16:00 16:00 16:26 Temp 98.4 98.4 Pulse 99 Resp 18 B/P (MAP) 144/64 (90) Pulse Ox 98 99 O2 Delivery Mechanical Ventilator Ventilator Ventilator 03/22/20 03/22/20 03/22/20 03/22/20 17:00 18:00 19:00 19:15 Pulse 96 108 86 Resp 16 20 16 B/P (MAP) 138/69 (92) 146/62 (90) 142/54 (83) Pulse Ox 100 99 100 100 O2 Delivery Ventilator Ventilator Ventilator Ventilator 03/22/20 03/22/20 03/22/20 03/22/20 19:40 19:45 20:00 20:00 Temp 99.0 99.0 Pulse 88 Resp 15 16 B/P (MAP) 140/54 (82) Pulse Ox 100 100 100 O2 Delivery Ventilator Ventilator Ventilator 03/22/20 03/22/20 03/22/20 03/22/20 20:01 21:00 21:39 22:00 Pulse 88 80 Resp 16 16 B/P (MAP) 150/58 (88) 152/60 (90) Pulse Ox 100 100 100 O2 Delivery Mechanical Ventilator Ventilator Ventilator Ventilator 03/22/20 03/23/20 03/23/20 03/23/20 23:00 00:00 00:00 00:00 Temp 100.0 100.0 Pulse 80 80 Resp 15 B/P (MAP) 146/58 (87) 152/60 (90) Pulse Ox 100 100 O2 Delivery Ventilator Mechanical Ventilator Ventilator 03/23/20 03/23/20 03/23/20 03/23/20 00:31 01:00 02:03 03:00 Pulse 80 80 80 Resp 16 16 20 B/P (MAP) 150/56 (87) 146/56 (86) 152/56 (88) Pulse Ox 100 100 100 100 O2 Delivery Ventilator Ventilator Ventilator Ventilator 03/23/20 03/23/20 03/23/20 03/23/20 04:00 04:00 04:00 04:40 Temp 100.4 100.4 Pulse 80 Resp 28 B/P (MAP) 136/54 (81) Pulse Ox 100 100 O2 Delivery Mechanical Ventilator Ventilator Ventilator 03/23/20 03/23/20 03/23/20 03/23/20 05:00 06:00 07:00 08:00 Temp 100.1 100.1 Pulse 78 82 78 Resp 16 16 16 B/P (MAP) 136/54 (81) 150/56 (87) 136/52 (80) Pulse Ox 100 100 O2 Delivery Ventilator Ventilator Ventilator 03/23/20 03/23/20 03/23/20 03/23/20 08:00 08:00 08:03 09:08 Pulse 80 81 Resp 16 16 B/P (MAP) 156/60 (92) 149/59 (89) Pulse Ox 100 100 100 O2 Delivery Ventilator Mechanical Ventilator Ventilator Ventilator 03/23/20 03/23/20 09:13 10:00 Pulse 83 Resp 16 B/P (MAP) 155/61 (92) Pulse Ox 100 100 O2 Delivery Ventilator Ventilator Intake and Output 03/22/20 03/22/20 03/23/20 15:00 23:00 07:00 Intake Total 250 ml 1114 ml 3253 ml Output Total 2925 ml 1555 ml 595 ml Balance -2675 ml -441 ml [address] HEAD WO CONTRAST History: Reason: f/u ICH, EVD now removed / Spl. Instructions: / History: Comparison: March 16, 2020 Technique: Noncontrast CT imaging was performed of the head. Exposure: One or more of the following individualized dose reduction techniques were utilized for this examination: 1. Automated exposure control 2. Adjustment of the mA and/or kV according to patient size 3. Use of iterative reconstruction technique. Findings: Interval removal of left frontal ventricular drain. Evolving postoperative changes left parietal craniotomy for left frontal hematoma evacuation. Decreased pneumocephalus. Decreased left frontal residual hematoma. Decreased intraventricular hemorrhage and subarachnoid hemorrhage. Decreased adjacent mass effect. No hydrocephalus. Unchanged adjacent vasogenic edema. Bilateral preseptal periorbital soft tissue swelling, right greater than left. Imaged orbits are unremarkable. Scattered paranasal sinus mucosal thickening with secretions in the left maxillary sinus. Minimal left mastoid fluid. No acute calvarial fracture. Impression: 1. Evolving postoperative changes left parietal craniotomy for left frontal parenchymal hematoma evacuation. Decreased residual hematoma and pneumocephalus compared to prior. 2. Decreased intraventricular hemorrhage. 3. Interval removal of left frontal approach ventricular drain. No hydrocephalus. Justicifation of Admission Dx: Justifications for Admission: Justification of Admission Dx: Yes Acute Hemorrhagic Stroke: Acute Hemorrhagic Stroke SON PHAM MD Mar 23, 2020 10:08
[2020-03-23 10:10] LABS: PROTHROMBIN TIME PATIENT 13.3 SEC (11.7-14.0)
--- NOTE | 2020-03-23 10:17 | PDOC ---
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 Keppra Acute encephalopathy - due to intracranial hemorrhage Syncope and collapse - 2/2 intraparenchymal bleed Left front intracranial hemorrhage Hyperlipidemia Respiratory failure - likely 2/2 intracranial bleed Leukocytosis - likely 2/2 bleed. Hypokalemia and hypomagnesemia Hyponatremia History of Present Illness History of Present Illness 03/23/2020 Patient seen and examined in the ICU She is mechanically ventilated Assist-control/06/03 100/40% Chart reviewed discussed with RN Discussed with pharmacy regarding elevated liver function test (we think it might be her statin or even perhaps the Cardene drip) We currently have her fentanyl off and she is starting to wake up a little bit Getting OG feeds Getting IV Keppra Not moving her right side but the left leg moves a little She is becoming quite edematous 03/22/2020 Patient seen and examined She is mechanically ventilated Assist-control/500/20 4/40% with 7 of PEEP On IV nicardipine On IV Keppra Sedated with propofol She has an NG to suction Chart reviewed Discussed with 03/21/2020 Patient seen and examined in the ICU again She apparently decompensated overnight and had to be placed on several sedatives and had to increase her PEEP Chart reviewed Discussed with RN She remains critically ill Mechanically ventilated 100/60% 03/20/2020 Patient seen and examined in the ICU She is still mechanically ventilated Assist-control/04/02 50/30% Dr. Patel just arrived he is removing the intracranial pressure monitor tube right now She remains critically ill Chart reviewed Discussed with RN We hope to change her sedation regimen as she gets agitated and then her blood pressure climbs If we can get her pressures under control then we can extubate hopefully? 03/19/2020 Patient seen and examined in the ICU She remains mechanically ventilated Assist-control/04/02 50/30% with 5 of PEEP She still has an intracranial pressure monitor current pressure is 10 On nicardipine drip She has SCDs She has a Batista to bedside drainage Has an art line Chart reviewed Discussed with RN She is still critically ill 03/18/2020 Patient seen and examined in the ICU She is on the vent Assist-control/04/02 100/30% Sedated with propofol Intracranial pressure monitor still in with an ICP of 13 Discussed with RN Chart reviewed Ms Mathew is a 64 yo F w/ PMHx HLD who was brought here by EMS from local [facility] due to altered mental status around 1030 on 03/15/2020. noted that they were out shopping when she became unresponsive and fell to the ground, though he was able to catch her and guide her down on the floor. Patient did not hit her head. stated that patient has been having a headache for the last 2-3 days. He is sure that she is not on any blood thinner. Patient's stated that she is on multiple medications but he is not sure what they are.. EMS stated that she was able to protect her airway but her GCS was about [address] head revealed a left frontal lobe 5.5 x 6.0 x 3.0 cm large parenchymal hematoma and surrounding edema involving both the superior and middle frontal cortical gyri as well as extensive involvement of the white matter, with mass effect and 10 mm midline shift. Neurosurgery was urgently contacted. She underwent RSI with ED with etomidate and succinylcholine with 7.5 ET tube and went urgently to OR for craniotomy and hematoma evacuation which was large and invaded the ventricular and she is transferred to ICU for closer monitoring. I was able to evaluated patient prior to intubation and after surgery. 03/16: Patient seen and examined in the ICU, She is mechanically ventilated, Assist-control/450/16/30 percent, Has an OG to suction, Her pupils are reactive 03/17: Seen in ICU, sedated, intubated, on ICP monitoring and cardene GTT. Na 130. Hb 9.1. Moving left arm, posturing on pain response on right. Vitals/I&O Vitals/I&O: Vital Signs Date Time Temp Pulse Resp B/P (MAP) Pulse Ox O2 Delivery O2 Flow Rate FiO2 03/23/20 10:00 83 16 155/61 (92) 100 Ventilator 03/23/20 07:00 100.1 100.1 I & O 03/22/20 03/22/20 03/23/20 15:00 23:00 07:00 Intake Total 250 ml 1114 ml 3253 ml Output Total 2925 ml 1555 ml 595 ml Balance -2675 ml -441 ml 2658 ml Physical Exam General: Other (sedated) Heart: Regular rate, Normal S1 Lungs: Crackles Abdomen: Normal bowel sounds, Soft, No tenderness, No hepatosplenomegaly, No masses Extremities: No clubbing, No cyanosis, No edema, Normal pulses, No tenderness/swelling Skin: Other (2+ edema) Labs Labs: Laboratory Tests Test 03/22/20 16:24 03/23/20 00:07 03/23/20 07:33 03/23/20 08:00 O2 Saturation 97 % (92-99) 98 % (92-99) Arterial Blood pH 7.44 (7.35-7.45) 7.43 (7.35-7.45) Arterial Blood pCO2 at Patient Temp 36 mmHg (35-46) 37 mmHg (35-46) Arterial Blood pO2 at Patient Temp 102 mmHg (65-108) 116 mmHg (65-108) Arterial Blood HCO3 24 mmol/L (21-28) 24 mmol/L (21-28) Arterial Blood Base Excess 0 mmol/L (-3-3) 0 mmol/L (-3-3) FiO2 40 40% vent Glucose (Fingerstick) 105 mg/dL (70-99) White Blood Count 9.0 x10^3/uL (4.0-11.0) Red Blood Count 2.69 x10^6/uL (3.50-5.40) Hemoglobin 8.2 g/dL (12.0-15.5) Hematocrit 24.1 % (36.0-47.0) Mean Corpuscular Volume 90 fL (79-100) Mean Corpuscular Hemoglobin 31 pg (25-35) Mean Corpuscular Hemoglobin Concent 34 g/dL (31-37) Red Cell Distribution Width 13.1 % (11.5-14.5) Platelet Count 365 x10^3/uL (140-400) Sodium Level 142 mmol/L (136-145) Potassium Level 3.9 mmol/L (3.5-5.1) Chloride Level 108 mmol/L (98-107) Carbon Dioxide Level 24 mmol/L (21-32) Anion Gap 10 (6-14) Blood Urea Nitrogen 22 mg/dL (7-20) Creatinine 0.6 mg/dL (0.6-1.0) Estimated GFR (Cockcroft-Gault) 101.3 BUN/Creatinine Ratio 37 (6-20) Glucose Level 105 mg/dL (70-99) Calcium Level 7.8 mg/dL (8.5-10.1) Total Bilirubin 0.4 mg/dL (0.2-1.0) Aspartate Amino Transf (AST/SGOT) 284 U/L (15-37) Alanine Aminotransferase (ALT/SGPT) 352 U/L (14-59) Alkaline Phosphatase 178 U/L (46-116) Total Protein 5.9 g/dL (6.4-8.2) Albumin 1.7 g/dL (3.4-5.0) Albumin/Globulin Ratio 0.4 (1.0-1.7) Assessment and Plan Assessmemt and Plan Problems Medical Problems: (1) Cerebral parenchymal hemorrhage Status: Acute (2) HTN (hypertension) Status: Acute Massive HAND PICKER 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 Keppra Acute encephalopathy - due to intracranial hemorrhage Syncope and collapse - 2/2 intraparenchymal bleed Left front intracranial hemorrhage Hyperlipidemia Respiratory failure - likely 2/2 intracranial bleed Leukocytosis - likely 2/2 bleed. Hypokalemia and hypomagnesemia Hyponatremia Plan ICU monitoring Vent weaning Trying to wean off the IV nicardipine Repeat CT head today per Dr. Strong Wound care IV Keppra We are in the process of lifting her sedation NG suctioning/feeds Trend labs DVT prophylaxis Prognosis extremely guarded She remains critically ill Total time 33 Comment Review of Relevant I have reviewed the following items wang (where applicable) has been applied. Medications: Current Medications Medications (Trade) Dose Ordered Sig/Arnel Route PRN Reason Start Time Stop Time Status Last Admin Dose Admin Furosemide (Lasix) 40 mg 1X ONCE IVP 03/22/20 11:45 03/22/20 11:46 DC 03/22/20 12:03 Potassium Bicarbonate (Potassium Effervescent Tablet) 40 meq 1X ONCE PEG 03/22/20 14:00 03/22/20 14:01 DC 03/22/20 14:00 Justicifation of Admission Dx: Justifications for Admission: Justification of Admission Dx: Yes Acute Hemorrhagic Stroke: Acute Hemorrhagic Stroke QASIM BAILEY III DO Mar 23, 2020 10:17
--- NOTE | 2020-03-23 11:02 | NUR ---
SS following up with discharge planning. SS reviewed pt chart and discussed with RN. Pt is currently on IV Zosyn and remains on the vent. Per RN, Dr. Hdez reaching out to family to discuss possible trach placement. SS will continue to follow for discharge planning.
--- NOTE | 2020-03-23 11:09 | PDOC ---
PULMONARY PROGRESS NOTES Subjective remains intubated/ sedated, on propofol,, off fentanyl, does not follow commands, on cardene, abg much improved icp monitor dced cxr improved. positive secretions Vitals Vital Signs Date Time Temp Pulse Resp B/P (MAP) Pulse Ox O2 Delivery O2 Flow Rate FiO2 03/23/20 10:00 83 16 155/61 (92) 100 Ventilator 03/23/20 07:00 100.1 100.1 Comments ros unable to obtain sedated on vent not responsive HEENT: Other (nc at perrl nose clear orally intubated neck no lad no thyromegaly) Lungs: Other (rhonchi) Cardiovascular: S1, S2 Abdomen: Soft, Non-tender, Other (no mass) Extremities: No Edema Skin: Warm Labs Laboratory Tests Test 03/22/20 06:06 03/22/20 08:00 03/22/20 16:24 03/23/20 00:07 Triglycerides Level 44 mg/dL (0-150) O2 Saturation 98 % (92-99) 97 % (92-99) Arterial Blood pH 7.48 (7.35-7.45) 7.44 (7.35-7.45) Arterial Blood pCO2 at Patient Temp 27 mmHg (35-46) 36 mmHg (35-46) Arterial Blood pO2 at Patient Temp 124 mmHg (65-108) 102 mmHg (65-108) Arterial Blood HCO3 20 mmol/L (21-28) 24 mmol/L (21-28) Arterial Blood Base Excess -3 mmol/L (-3-3) 0 mmol/L (-3-3) FiO2 40 40 Glucose (Fingerstick) 105 mg/dL (70-99) Test 03/23/20 07:33 03/23/20 08:00 03/23/20 09:50 White Blood Count 9.0 x10^3/uL (4.0-11.0) Red Blood Count 2.69 x10^6/uL (3.50-5.40) Hemoglobin 8.2 g/dL (12.0-15.5) Hematocrit 24.1 % (36.0-47.0) Mean Corpuscular Volume 90 fL (79-100) Mean Corpuscular Hemoglobin 31 pg (25-35) Mean Corpuscular Hemoglobin Concent 34 g/dL (31-37) Red Cell Distribution Width 13.1 % (11.5-14.5) Platelet Count 365 x10^3/uL (140-400) Sodium Level 142 mmol/L (136-145) Potassium Level 3.9 mmol/L (3.5-5.1) Chloride Level 108 mmol/L (98-107) Carbon Dioxide Level 24 mmol/L (21-32) Anion Gap 10 (6-14) Blood Urea Nitrogen 22 mg/dL (7-20) Creatinine 0.6 mg/dL (0.6-1.0) Estimated GFR (Cockcroft-Gault) 101.3 BUN/Creatinine Ratio 37 (6-20) Glucose Level 105 mg/dL (70-99) Calcium Level 7.8 mg/dL (8.5-10.1) Total Bilirubin 0.4 mg/dL (0.2-1.0) Aspartate Amino Transf (AST/SGOT) 284 U/L (15-37) Alanine Aminotransferase (ALT/SGPT) 352 U/L (14-59) Alkaline Phosphatase 178 U/L (46-116) Total Protein 5.9 g/dL (6.4-8.2) Albumin 1.7 g/dL (3.4-5.0) Albumin/Globulin Ratio 0.4 (1.0-1.7) O2 Saturation 98 % (92-99) Arterial Blood pH 7.43 (7.35-7.45) Arterial Blood pCO2 at Patient Temp 37 mmHg (35-46) Arterial Blood pO2 at Patient Temp 116 mmHg (65-108) Arterial Blood HCO3 24 mmol/L (21-28) Arterial Blood Base Excess 0 mmol/L (-3-3) FiO2 40% vent Prothrombin Time 13.3 SEC (11.7-14.0) Prothromb Time International Ratio 1.1 (0.8-1.1) Laboratory Tests Test 03/22/20 16:24 03/23/20 00:07 03/23/20 07:33 03/23/20 08:00 O2 Saturation 97 % (92-99) 98 % (92-99) Arterial Blood pH 7.44 (7.35-7.45) 7.43 (7.35-7.45) Arterial Blood pCO2 at Patient Temp 36 mmHg (35-46) 37 mmHg (35-46) Arterial Blood pO2 at Patient Temp 102 mmHg (65-108) 116 mmHg (65-108) Arterial Blood HCO3 24 mmol/L (21-28) 24 mmol/L (21-28) Arterial Blood Base Excess 0 mmol/L (-3-3) 0 mmol/L (-3-3) FiO2 40 40% vent Glucose (Fingerstick) 105 mg/dL (70-99) White Blood Count 9.0 x10^3/uL (4.0-11.0) Red Blood Count 2.69 x10^6/uL (3.50-5.40) Hemoglobin 8.2 g/dL (12.0-15.5) Hematocrit 24.1 % (36.0-47.0) Mean Corpuscular Volume 90 fL (79-100) Mean Corpuscular Hemoglobin 31 pg (25-35) Mean Corpuscular Hemoglobin Concent 34 g/dL (31-37) Red Cell Distribution Width 13.1 % (11.5-14.5) Platelet Count 365 x10^3/uL (140-400) Sodium Level 142 mmol/L (136-145) Potassium Level 3.9 mmol/L (3.5-5.1) Chloride Level 108 mmol/L (98-107) Carbon Dioxide Level 24 mmol/L (21-32) Anion Gap 10 (6-14) Blood Urea Nitrogen 22 mg/dL (7-20) Creatinine 0.6 mg/dL (0.6-1.0) Estimated GFR (Cockcroft-Gault) 101.3 BUN/Creatinine Ratio 37 (6-20) Glucose Level 105 mg/dL (70-99) Calcium Level 7.8 mg/dL (8.5-10.1) Total Bilirubin 0.4 mg/dL (0.2-1.0) Aspartate Amino Transf (AST/SGOT) 284 U/L (15-37) Alanine Aminotransferase (ALT/SGPT) 352 U/L (14-59) Alkaline Phosphatase 178 U/L (46-116) Total Protein 5.9 g/dL (6.4-8.2) Albumin 1.7 g/dL (3.4-5.0) Albumin/Globulin Ratio 0.4 (1.0-1.7) Test 03/23/20 09:50 Prothrombin Time 13.3 SEC (11.7-14.0) Prothromb Time International Ratio 1.1 (0.8-1.1) Medications Active Scripts Medications Dose Route/Sig Max Daily Dose Days Date Category Oxybutynin Chloride Er (Oxybutynin Chloride) 10 Mg Tab.er.24 1 Tab PO DAILY 03/15/20 Reported Elmiron (Pentosan Polysulfate Sodium) 100 Mg Capsule 1 Cap PO TID 30 03/15/20 Reported Atorvastatin Calcium 40 Mg Tablet 1 Tab PO DAILY 03/15/20 Reported Fluoxetine Hcl 40 Mg Capsule 40 Mg PO DAILY 03/15/20 Reported Premarin (Estrogens, Conjugated) 0.625 Mg Tablet 1 Tab PO DAILY 03/15/20 Reported Comments cxrs reviewed 03/23 resolved infiltrates Impression . IMPRESSION: 1. Acute respiratory failure multifactorial in etiology 2. large cerebral hematoma requiring emergent evacuation.ct with Large left intraparenchymal hemorrhage status-post evacuation CTA negative for aneurysm or AVM 2. Encephalopathy secondary to large left intraparenchymal hematoma. 3. leukocytosis 4. HTN, on cardene 5. abnl cxr, suspect acute pulm edema/acute diastolic chf, ? pneumonia, has low grade fever, cxr better w lasix repeat cxr 03/23, resolved infiltrates 6. Increase LFT. NO recent h/o hypotension.? drug induced. will dc Zosyn, change to rocephin. Plan . 1. Continue with present assist control mode. vent setting reviewed, now on fio2 40%, and PEEP to 5 , dc propofol if ok with NS to assess MS 2. Follow Neurosurgery recommendations. weaning until awake and resp status better. repeat ct head reviewed. May need Trach 3. Optimization of blood pressure per Neurosurgery with Cardene drip. 4. SCDs for DVT prophylaxis. 5. Once mental status improves, then we will consider a weaning trial. 6. enteral nutrition. 7. Discussed with RN. We will follow along with you. 8. dc zosyn, add rocephin 9. Monitor LFT, GI consult? discussed w rn critically ill, cc time 30 min no overlap ADRIANA ULLOA MD Mar 23, 2020 11:09
[2020-03-23] MEDS: amLODIPine BESYLATE 5 MG TABLET PO SCH (12:22)
[2020-03-23] MEDS: cefTRIAXone IV Push 1 GM VIAL. IVP SCH (12:22)
--- NOTE | 2020-03-23 13:01 | PDOC ---
PROGRESS NOTES Subjective Subjective POD #8 s/p craniotomy and removal of Large left intraparenchymal hemorrhage, likely AVM remains on vent with propofol Objective Objective Vital Signs Date Time Temp Pulse Resp B/P (MAP) Pulse Ox O2 Delivery O2 Flow Rate FiO2 03/23/20 12:22 86 161/60 03/23/20 12:02 97 Ventilator 03/23/20 12:00 100.5 20 100.5 Intake and Output 03/23/20 07:00 Intake Total 4617 ml Output Total 5075 ml Balance -458 ml Tube Feeding 1814 ml Blood Product IV Normal Saline Flush 2303 ml Other 500 ml Output Urine Total 5075 ml Gastric Drainage Total 0 ml Physical Exam General: Other (on vent, sedated) Neuro: Other (pupils equal and reactive, withdraws on left slightly to pain) Skin: Other (dressing C,D,I) Assessment Assessment Problems Medical Problems: (1) Cerebral parenchymal hemorrhage Status: Acute (2) HTN (hypertension) Status: Acute Plan Plan of Care CT head reviewed- no hydrocephalus continue to wean sedation as tolerated D/W RN Comment Review of Relevant I have reviewed the following items wang (where applicable) has been applied. Labs Laboratory Tests Test 03/22/20 06:06 03/22/20 08:00 03/22/20 16:24 03/23/20 00:07 Triglycerides Level 44 mg/dL (0-150) O2 Saturation 98 % (92-99) 97 % (92-99) Arterial Blood pH 7.48 (7.35-7.45) 7.44 (7.35-7.45) Arterial Blood pCO2 at Patient Temp 27 mmHg (35-46) 36 mmHg (35-46) Arterial Blood pO2 at Patient Temp 124 mmHg (65-108) 102 mmHg (65-108) Arterial Blood HCO3 20 mmol/L (21-28) 24 mmol/L (21-28) Arterial Blood Base Excess -3 mmol/L (-3-3) 0 mmol/L (-3-3) FiO2 40 40 Glucose (Fingerstick) 105 mg/dL (70-99) Test 03/23/20 07:33 03/23/20 08:00 03/23/20 09:50 White Blood Count 9.0 x10^3/uL (4.0-11.0) Red Blood Count 2.69 x10^6/uL (3.50-5.40) Hemoglobin 8.2 g/dL (12.0-15.5) Hematocrit 24.1 % (36.0-47.0) Mean Corpuscular Volume 90 fL (79-100) Mean Corpuscular Hemoglobin 31 pg (25-35) Mean Corpuscular Hemoglobin Concent 34 g/dL (31-37) Red Cell Distribution Width 13.1 % (11.5-14.5) Platelet Count 365 x10^3/uL (140-400) Sodium Level 142 mmol/L (136-145) Potassium Level 3.9 mmol/L (3.5-5.1) Chloride Level 108 mmol/L (98-107) Carbon Dioxide Level 24 mmol/L (21-32) Anion Gap 10 (6-14) Blood Urea Nitrogen 22 mg/dL (7-20) Creatinine 0.6 mg/dL (0.6-1.0) Estimated GFR (Cockcroft-Gault) 101.3 BUN/Creatinine Ratio 37 (6-20) Glucose Level 105 mg/dL (70-99) Calcium Level 7.8 mg/dL (8.5-10.1) Total Bilirubin 0.4 mg/dL (0.2-1.0) Aspartate Amino Transf (AST/SGOT) 284 U/L (15-37) Alanine Aminotransferase (ALT/SGPT) 352 U/L (14-59) Alkaline Phosphatase 178 U/L (46-116) Total Protein 5.9 g/dL (6.4-8.2) Albumin 1.7 g/dL (3.4-5.0) Albumin/Globulin Ratio 0.4 (1.0-1.7) O2 Saturation 98 % (92-99) Arterial Blood pH 7.43 (7.35-7.45) Arterial Blood pCO2 at Patient Temp 37 mmHg (35-46) Arterial Blood pO2 at Patient Temp 116 mmHg (65-108) Arterial Blood HCO3 24 mmol/L (21-28) Arterial Blood Base Excess 0 mmol/L (-3-3) FiO2 40% vent Prothrombin Time 13.3 SEC (11.7-14.0) Prothromb Time International Ratio 1.1 (0.8-1.1) Laboratory Tests Test 03/22/20 16:24 6/2/20 00:07 03/23/20 07:33 03/23/20 08:00 O2 Saturation 97 % (92-99) 98 % (92-99) Arterial Blood pH 7.44 (7.35-7.45) 7.43 (7.35-7.45) Arterial Blood pCO2 at Patient Temp 36 mmHg (35-46) 37 mmHg (35-46) Arterial Blood pO2 at Patient Temp 102 mmHg (65-108) 116 mmHg (65-108) Arterial Blood HCO3 24 mmol/L (21-28) 24 mmol/L (21-28) Arterial Blood Base Excess 0 mmol/L (-3-3) 0 mmol/L (-3-3) FiO2 40 40% vent Glucose (Fingerstick) 105 mg/dL (70-99) White Blood Count 9.0 x10^3/uL (4.0-11.0) Red Blood Count 2.69 x10^6/uL (3.50-5.40) Hemoglobin 8.2 g/dL (12.0-15.5) Hematocrit 24.1 % (36.0-47.0) Mean Corpuscular Volume 90 fL (79-100) Mean Corpuscular Hemoglobin 31 pg (25-35) Mean Corpuscular Hemoglobin Concent 34 g/dL (31-37) Red Cell Distribution Width 13.1 % (11.5-14.5) Platelet Count 365 x10^3/uL (140-400) Sodium Level 142 mmol/L (136-145) Potassium Level 3.9 mmol/L (3.5-5.1) Chloride Level 108 mmol/L (98-107) Carbon Dioxide Level 24 mmol/L (21-32) Anion Gap 10 (6-14) Blood Urea Nitrogen 22 mg/dL (7-20) Creatinine 0.6 mg/dL (0.6-1.0) Estimated GFR (Cockcroft-Gault) 101.3 BUN/Creatinine Ratio 37 (6-20) Glucose Level 105 mg/dL (70-99) Calcium Level 7.8 mg/dL (8.5-10.1) Total Bilirubin 0.4 mg/dL (0.2-1.0) Aspartate Amino Transf (AST/SGOT) 284 U/L (15-37) Alanine Aminotransferase (ALT/SGPT) 352 U/L (14-59) Alkaline Phosphatase 178 U/L (46-116) Total Protein 5.9 g/dL (6.4-8.2) Albumin 1.7 g/dL (3.4-5.0) Albumin/Globulin Ratio 0.4 (1.0-1.7) Test 03/23/20 09:50 Prothrombin Time 13.3 SEC (11.7-14.0) Prothromb Time International Ratio 1.1 (0.8-1.1) Microbiology 03/21/20 Gram Stain Evaluation - Final, Resulted 03/21/20 Respiratory Culture - Preliminary, Resulted Medications Current Medications Propofol (Diprivan) 200 mg 1X ONCE IV Last administered on 03/15/20at 11:47; Start 03/15/20 at 11:30; Stop 03/15/20 at 11:31; Status DC Propofol 50 ml @ As Directed STK-MED ONCE IV ; Start 03/15/20 at 11:45; Stop 03/15/20 at 11:45; Status DC Propofol 20 ml @ 0 mls/hr 1X ONCE IV Last administered on 03/15/20at 11:52; Start 03/15/20 at 11:45; Stop 03/15/20 at 11:50; Status DC Potassium Chloride 40 meq/ Dextrose 1,020 ml @ 75 mls/hr [id number] PRN IV 0 Last administered on 03/17/20at 03:08; Start 03/15/20 at 12:00; Stop 03/17/20 at 09:39; Status DC Etomidate (Amidate) 20 mg 1X ONCE IV Last administered on 03/15/20at 12:12; Start 03/15/20 at 11:40; Stop 03/15/20 at 12:00; Status DC Succinylcholine Chloride (Anectine) 100 mg 1X ONCE IV Last administered on 03/15/20at 12:12; Start 03/15/20 at 11:40; Stop 03/15/20 at 12:00; Status DC Bacitracin [id number] unit/Sodium Chloride 1,000 ml @ 1,000 mls/hr 1X ONCE IRR Last administered on 03/15/20at 14:50; Start 03/15/20 at 13:00; Stop 03/15/20 at 14:07; Status DC Cefazolin Sodium/ Dextrose 50 ml @ 100 mls/hr 1X PREOP PRN IV PRIOR TO PROCEDURE Last administered on 03/15/20 13:25; Start 03/15/20 at 13:00; Stop 03/16/20 at 12:59; Status DC Propofol (Diprivan) 200 mg STK-MED ONCE IV ; Start 03/15/20 at 12:33; Stop 03/15/20 at 12:33; Status DC Phenylephrine HCl (PHENYLEPHRINE in 0.9% NACL PF) 1 mg STK-MED ONCE IV ; Start 03/15/20 at 12:33; Stop 03/15/20 at 12:33; Status DC Rocuronium Sandstone (Zemuron) 50 mg STK-MED ONCE .ROUTE ; Start 03/15/20 at 12:33; Stop 03/15/20 at 12:33; Status DC Dexamethasone Sodium Phosphate (Decadron) 20 mg STK-MED ONCE .ROUTE ; Start 03/15/20 at 12:36; Stop 03/15/20 at 12:36; Status DC Gelatin (Gelfoam Size 100) 1 each STK-MED ONCE .ROUTE Last administered on 03/15/20 13:49; Start 03/15/20 at 12:42; Stop 03/15/20 at 12:42; Status DC Bupivacaine HCl/ Epinephrine Bitart (Sensorcain-Epi 0.5%-1:159145 Mpf) 30 ml STK-MED ONCE .ROUTE ; Start 03/15/20 at 12:42; Stop 03/15/20 at 12:42; Status DC Mannitol (Mannitol) 12.5 g STK-MED ONCE .ROUTE Last administered on 03/15/20at 14:41; Start 03/15/20 at 12:42; Stop 03/15/20 at 12:42; Status DC Cellulose (Surgicel Hemostat 4x8) 1 each STK-MED ONCE .ROUTE Last administered on 03/15/20 15:08; Start 03/15/20 at 12:42; Stop 03/15/20 at 12:43; Status DC Thrombin 20,000 unit STK-MED ONCE TP Last administered on 03/15/20 13:49; Start 03/15/20 at 12:42; Stop 03/15/20 at 12:43; Status DC Bupivacaine HCl/ Epinephrine Bitart (Sensorcain-Epi 0.5%-1:332541 Mpf) 30 ml STK-MED ONCE .ROUTE Last administered on 03/15/20at 13:48; Start 03/15/20 at 12:44; Stop 03/15/20 at 12:45; Status DC Bupivacaine HCl/ Epinephrine Bitart (Sensorcain-Epi 0.5%-1:609053 Mpf) 30 ml 1X ONCE INJ ; Start 03/15/20 at 13:00; Stop 03/15/20 at 13:01; Status DC Ondansetron HCl (Zofran) 4 mg PRN Q6HRS PRN IV NAUSEA/VOMITING; Start 03/15/20 at 13:45; Stop 03/15/20 at 16:35; Status DC Fentanyl Citrate (Fentanyl 2ml Vial) 25 mcg PRN Q5MIN PRN IV MILD PAIN 1-3; Start 03/15/20 at 13:45; Stop 03/16/20 at 13:44; Status DC Fentanyl Citrate (Fentanyl 2ml Vial) 50 mcg PRN Q5MIN PRN IV MODERATE TO SEVERE PAIN; Start 03/15/20 at 13:45; Stop 03/16/20 at 13:44; Status DC Morphine Sulfate (Morphine Sulfate) 1 mg PRN Q10MIN PRN IV SEVERE PAIN 7-10; Start 03/15/20 at 13:45; Stop 03/16/20 at 13:44; Status DC Ringer's Solution 1,000 ml @ 30 mls/hr Q24H IV ; Start 03/15/20 at 13:31; Stop 03/16/20 at 01:30; Status DC Hydromorphone HCl (Dilaudid) 0.5 mg PRN Q10MIN PRN IV SEV PAIN, Second choice; Start 03/15/20 at 13:45; Stop 03/16/20 at 13:44; Status DC Prochlorperazine Edisylate (Compazine) 5 mg PACU PRN PRN IV NAUSEA, MRX1; Start 03/15/20 at 13:45; Stop 03/16/20 at 13:44; Status DC Mannitol (Mannitol) 12.5 g STK-MED ONCE .ROUTE Last administered on 03/15/20at 14:41; Start 03/15/20 at 14:28; Stop 03/15/20 at 14:28; Status DC Phenylephrine HCl (Diego-Synephrine Inj) 10 mg STK-MED ONCE .ROUTE ; Start 03/15/20 at 14:43; Stop 03/15/20 at 14:43; Status DC Fentanyl Citrate (Fentanyl 2ml Vial) 100 mcg STK-MED ONCE .ROUTE ; Start 03/15/20 at 15:08; Stop 03/15/20 at 15:09; Status DC Rocuronium Sandstone (Zemuron) 50 mg STK-MED ONCE .ROUTE ; Start 03/15/20 at 15:34; Stop 03/15/20 at 15:34; Status DC Sevoflurane (Ultane) 90 ml STK-MED ONCE IH ; Start 03/15/20 at 15:44; Stop 03/15/20 at 15:44; Status DC Propofol 50 ml @ As Directed STK-MED ONCE IV ; Start 03/15/20 at 16:02; Stop 03/15/20 at 16:02; Status DC Nicardipine HCl 50 mg/Sodium Chloride 250 ml @ 25 mls/hr TITRATE PRN IV HYPERTENSION Last administered on 03/23/20at 11:15; Start 03/15/20 at 16:30; Stop 03/23/20 at 11:51; Status DC Levetiracetam 500 mg/Sodium Chloride 105 ml @ 400 mls/hr Q12HR IV Last administered on 03/23/20at 08:03; Start 03/15/20 at 21:00 Sodium Chloride (Normal Saline Flush) 3 ml QSHIFT PRN IV AFTER MEDS AND BLOOD DRAWS; Start 03/15/20 at 16:30 Potassium Chloride/Dextrose/ Sod Cl 1,000 ml @ 80 mls/hr [id number] IV ; Start 03/15/20 at 16:19; Stop 03/15/20 at 18:36; Status DC Dextrose (Dextrose 50%-Water Syringe) 12.5 gm PRN Q15MIN PRN IV SEE COMMENTS; Start 03/15/20 at 16:30 Cefazolin Sodium (Ancef) 1 gm Q8HRS IVP Last administered on 03/16/20at 14:52; Start 03/15/20 at 22:00; Stop 03/16/20 at 14:01; Status DC Ondansetron HCl (Zofran) 4 mg PRN Q4HRS PRN IV NAUSEA/VOMITING; Start 03/15/20 at 16:45 Atorvastatin Calcium (Lipitor) 40 mg DAILY PO Last administered on 03/23/20at 08:02; Start 03/16/20 at 09:00; Stop 03/23/20 at 09:23; Status DC Acetaminophen (Tylenol Supp) 650 mg PRN Q6HRS PRN [place] MILD PAIN / TEMP > 100.3'F Last administered on 03/20/20at 18:27; Start 03/15/20 at 16:45 Docusate Sodium (Enemeez) 283 mg PRN DAILY PRN [place] CONSTIPATION; Start 03/15/20 at 16:45 Magnesium Sulfate 50 ml @ 25 mls/hr 1X ONCE IV Last administered on 03/15/20at 17:23; Start 03/15/20 at 17:00; Stop 03/15/20 at 18:59; Status DC Propofol 100 ml @ As Directed STK-MED ONCE IV ; Start 03/15/20 at 19:37; Stop 03/15/20 at 19:38; Status DC Propofol 100 ml @ 0.837 mls/ hr CONT PRN IV SEE I/O RECORD Last administered on 03/23/20at 05:44; Start 03/15/20 at 19:45 Iohexol (Omnipaque 300 Mg/ml) 75 ml 1X ONCE IV Last administered on 03/16/20at 07:45; Start 03/16/20 at 07:45; Stop 03/16/20 at 07:50; Status DC Info (CONTRAST GIVEN -- Rx MONITORING) 1 each PRN DAILY PRN MC SEE COMMENTS; Start 03/16/20 at 08:00; Stop 03/18/20 at 07:59; Status DC Potassium Chloride/Dextrose/ Sod Cl 1,000 ml @ 75 mls/hr 1X ONCE IV Last administered on 03/17/20at 10:15; Start 03/17/20 at 09:45; Stop 03/17/20 at 23:04; Status DC Psyllium Hydrophilic Mucilloid (Metamucil Fiber Packet) 1 pkt DAILY PO Last administered on 03/23/20at 08:03; Start 03/17/20 at 11:00 Potassium Chloride/Dextrose/ Sod Cl 1,000 ml @ 75 mls/hr [id number] IV Last administered on 03/23/20at 05:41; Start 03/17/20 at 23:00 Famotidine (Pepcid Vial) 20 mg BID IVP Last administered on 03/23/20at 08:02; Start 03/18/20 at 21:00 Multi-Ingred Cream/Lotion/Oil/ Oint (Artificial Tears Eye Ointment) 1 ayala PRN Q1HR PRN OU DRY EYE Last administered on 03/20/20at 18:23; Start 03/19/20 at 16:15 Fentanyl Citrate (Fentanyl 2ml Vial) 50 mcg PRN Q2HR PRN IVP PAIN Last administered on 03/20/20at 22:12; Start 03/20/20 at 18:00 Fentanyl Citrate 30 ml @ 0 mls/hr CONT PRN IV SEE PROTOCOL Last administered on 03/22/20at 19:15; Start 03/20/20 at 23:15 Dexmedetomidine HCl 400 mcg/ Sodium Chloride 100 ml @ 0 mls/hr CONT PRN IV PER PROTOCOL Last administered on 03/21/20at 00:38; Start 03/20/20 at 23:15 Furosemide (Lasix) 20 mg 1X ONCE IVP Last administered on 03/20/20at 23:20; Start 03/20/20 at 23:15; Stop 03/20/20 at 23:16; Status DC Furosemide (Lasix) 20 mg 1X ONCE IVP Last administered on 03/21/20at 01:20; Start 03/21/20 at 01:00; Stop 03/21/20 at 01:01; Status DC Methylprednisolone Sodium Succinate (SOLU-Medrol 125MG VIAL) 125 mg 1X ONCE IV Last administered on 03/21/20at 01:20; Start 03/21/20 at 01:00; Stop 03/21/20 at 01:01; Status DC Albuterol/ Ipratropium (Duoneb) 3 ml Q4HRS NEB Last administered on 03/23/20at 12:01; Start 03/21/20 at 01:15 Piperacillin Sod/ Tazobactam Sod (Zosyn Per Pharmacy) 1 each PRN DAILY PRN MC SEE COMMENTS; Start 03/21/20 at 12:00; Stop 03/23/20 at 11:10; Status DC Piperacillin Sod/ Tazobactam Sod 4.5 gm/Sodium Chloride 100 ml @ 200 mls/hr Q6HRS IV Last administered on 03/23/20at 05:42; Start 03/21/20 at 12:00; Stop 03/23/20 at 11:11; Status DC Furosemide (Lasix) 40 mg 1X ONCE IVP Last administered on 03/22/20at 12:03; Start 03/22/20 at 11:45; Stop 03/22/20 at 11:46; Status DC Potassium Bicarbonate (Potassium Effervescent Tablet) 40 meq 1X ONCE PEG Last administered on 03/22/20at 14:00; Start 03/22/20 at 14:00; Stop 03/22/20 at 14:01; Status DC Ceftriaxone Sodium (Rocephin) 1 gm Q24H IVP Last administered on 03/23/20at 12:22; Start 03/23/20 at 12:00 Amlodipine Besylate (Norvasc) 5 mg DAILY PO Last administered on 03/23/20at 12:22; Start 03/23/20 at 12:00 Active Scripts Active Reported Oxybutynin Chloride Er (Oxybutynin Chloride) 10 Mg Tab.er.24 1 Tab PO DAILY Elmiron (Pentosan Polysulfate Sodium) 100 Mg Capsule 1 Cap PO TID 30 Days Atorvastatin Calcium 40 Mg Tablet 1 Tab PO DAILY Fluoxetine Hcl 40 Mg Capsule 40 Mg PO DAILY Premarin (Estrogens, Conjugated) 0.625 Mg Tablet 1 Tab PO DAILY Vitals/I & O Vital Sign - Last 24 Hours 03/22/20 03/22/20 03/22/20 03/22/20 13:00 14:00 15:00 16:00 Pulse 84 86 87 Resp 16 15 15 B/P (MAP) 150/58 (88) 162/60 (94) 139/61 (87) Pulse Ox 99 100 100 O2 Delivery Ventilator Ventilator Ventilator Mechanical Ventilator 03/22/20 03/22/20 03/22/20 03/22/20 16:00 16:00 16:26 17:00 Temp 98.4 98.4 Pulse 99 96 Resp 18 16 B/P (MAP) 144/64 (90) 138/69 (92) Pulse Ox 98 99 100 O2 Delivery Ventilator Ventilator Ventilator 03/22/20 03/22/20 03/22/20 03/22/20 18:00 19:00 19:15 19:40 Pulse 108 86 Resp 20 16 B/P (MAP) 146/62 (90) 142/54 (83) Pulse Ox 99 100 100 100 O2 Delivery Ventilator Ventilator Ventilator Ventilator 03/22/20 03/22/20 03/22/20 03/22/20 19:45 20:00 20:00 20:01 Temp 99.0 99.0 Pulse 88 Resp 15 16 B/P (MAP) 140/54 (82) Pulse Ox 100 100 O2 Delivery Ventilator Ventilator Mechanical Ventilator 03/22/20 03/22/20 03/22/20 03/22/20 21:00 21:39 22:00 23:00 Pulse 88 80 80 Resp 16 16 B/P (MAP) 150/58 (88) 152/60 (90) 146/58 (87) Pulse Ox 100 100 100 100 O2 Delivery Ventilator Ventilator Ventilator Ventilator 03/23/20 03/23/20 03/23/20 03/23/20 00:00 00:00 00:00 00:31 Temp 100.0 100.0 Pulse 80 Resp 15 B/P (MAP) 152/60 (90) Pulse Ox 100 100 O2 Delivery Mechanical Ventilator Ventilator Ventilator 03/23/20 03/23/20 03/23/20 03/23/20 01:00 02:03 03:00 04:00 Pulse 80 80 80 Resp 16 16 20 B/P (MAP) 150/56 (87) 146/56 (86) 152/56 (88) Pulse Ox 100 100 100 O2 Delivery Ventilator Ventilator Ventilator Mechanical Ventilator 03/23/20 03/23/20 03/23/20 03/23/20 04:00 04:00 04:40 05:00 Temp 100.4 100.4 Pulse 80 78 Resp 28 16 B/P (MAP) 136/54 (81) 136/54 (81) Pulse Ox 100 100 O2 Delivery Ventilator Ventilator Ventilator 03/23/20 03/23/20 03/23/20 03/23/20 06:00 07:00 08:00 08:00 Temp 100.1 100.1 Pulse 82 78 80 Resp 16 16 16 B/P (MAP) 150/56 (87) 136/52 (80) 156/60 (92) Pulse Ox 100 100 100 O2 Delivery Ventilator Ventilator Ventilator 03/23/20 03/23/20 03/23/20 03/23/20 08:00 08:03 09:08 09:13 Pulse 81 Resp 16 B/P (MAP) 149/59 (89) Pulse Ox 100 100 100 O2 Delivery Mechanical Ventilator Ventilator Ventilator Ventilator 03/23/20 03/23/20 03/23/20 03/23/20 10:00 11:00 12:00 12:00 Pulse 83 86 Resp 16 20 B/P (MAP) 155/61 (92) 144/56 (85) Pulse Ox 100 100 O2 Delivery Ventilator Ventilator Mechanical Ventilator 03/23/20 03/23/20 03/23/20 12:00 12:02 12:22 Temp 100.5 100.5 Pulse 82 86 Resp 20 B/P (MAP) 156/58 (90) 161/60 Pulse Ox 100 97 O2 Delivery Ventilator Ventilator Intake and Output 03/22/20 03/22/20 03/23/20 15:00 23:00 07:00 Intake Total 250 ml 1114 ml 3253 ml Output Total 2925 ml 1555 ml 595 ml Balance -2675 ml -441 ml 2658 ml ABDOULAYE GOODWIN MD Mar 23, 2020 13:01
[2020-03-23] MEDS: LABETALOL 20 MG/4 ML DISP.SYRIN. IVP PRN ×2 (15:39→23:32)
[2020-03-23] MEDS ORDERED: ACETAMINOPHEN 650 MG/20.3 ML SOLUTION. PEG PRN (16:30)
--- NOTE | 2020-03-23 18:43 | NUR ---
Pt's sister on the unit and had multiple questions about what we discussed with Minh () today. Dr. Vance was at bedside this AM and discussed plan of care with Minh (). Tracheostomy was mentioned if pt's neuro status does not improve enough to extubate by next week. Sister was concerned that we were trying to place the tracheostomy without trying to extubate pt. This RN and Matti RN were at bedside explaining what Dr. Vance mentioned today. All questions answered. Sister brought up the idea of transferring to to see if they could get her better. We re-integrated that we were treating her aggressively and in the next few days we could see how she improves neurologically off of sedation medications. Sister seemed to understand.
[2020-03-24] VITALS (24 sets, daily range): BP systolic 150–179; BP diastolic 47–69
[2020-03-24] MEDS: IPRATRPIUM/ALBUTEROL 0.5/2.5MG 3 ML NEBU. NEB SCH ×5 (02:48→20:06)
--- NOTE | 2020-03-24 08:16 | PDOC ---
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 Keppra Acute encephalopathy - due to intracranial hemorrhage Syncope and collapse - 2/2 intraparenchymal bleed Left front intracranial hemorrhage Hyperlipidemia Respiratory failure - likely 2/2 intracranial bleed Leukocytosis - likely 2/2 bleed. Hypokalemia and hypomagnesemia Hyponatremia History of Present Illness History of Present Illness 03/24/2020 Patient seen and examined in the ICU she remains intubated and mechanically ventilated AC/06/03 100/40% with 5 of PEEP Has OG feeds Chart reviewed Discussed with RN She remains critically ill 03/23/2020 Patient seen and examined in the ICU She is mechanically ventilated Assist-control/06/03 100/40% Chart reviewed discussed with RN Discussed with pharmacy regarding elevated liver function test (we think it might be her statin or even perhaps the Cardene drip) We currently have her fentanyl off and she is starting to wake up a little bit Getting OG feeds Getting IV Keppra Not moving her right side but the left leg moves a little She is becoming quite edematous 03/22/2020 Patient seen and examined She is mechanically ventilated Assist-control/500/20 4/40% with 7 of PEEP On IV nicardipine On IV Keppra Sedated with propofol She has an NG to suction Chart reviewed Discussed with 03/21/2020 Patient seen and examined in the ICU again She apparently decompensated overnight and had to be placed on several sedatives and had to increase her PEEP Chart reviewed Discussed with RN She remains critically ill Mechanically ventilated AC/14/03 100/60% 03/20/2020 Patient seen and examined in the ICU She is still mechanically ventilated Assist-control/04/02 50/30% Dr. Patel just arrived he is removing the intracranial pressure monitor tube right now She remains critically ill Chart reviewed Discussed with RN We hope to change her sedation regimen as she gets agitated and then her blood pressure climbs If we can get her pressures under control then we can extubate hopefully? 03/19/2020 Patient seen and examined in the ICU She remains mechanically ventilated Assist-control/04/02 50/30% with 5 of PEEP She still has an intracranial pressure monitor current pressure is 10 On nicardipine drip She has SCDs She has a Batista to bedside drainage Has an art line Chart reviewed Discussed with RN She is still critically ill 03/18/2020 Patient seen and examined in the ICU She is on the vent Assist-control/04/02 100/30% Sedated with propofol Intracranial pressure monitor still in with an ICP of 13 Discussed with RN Chart reviewed Ms Mathew is a 64 yo F w/ PMHx HLD who was brought here by EMS from local [facility] due to altered mental status around 1030 on 03/15/2020. noted that they were out shopping when she became unresponsive and fell to the ground, though he was able to catch her and guide her down on the floor. Patient did not hit her head. stated that patient has been having a headache for the last 2-3 days. He is sure that she is not on any blood thinner. Patient's stated that she is on multiple medications but he is not sure what they are.. EMS stated that she was able to protect her airway but her GCS was about [address] head revealed a left frontal lobe 5.5 x 6.0 x 3.0 cm large parenchymal hematoma and surrounding edema involving both the superior and middle frontal cortical gyri as well as extensive involvement of the white matter, with mass effect and 10 mm midline shift. Neurosurgery was urgently contacted. She underwent RSI with ED with etomidate and succinylcholine with 7.5 ET tube and went urgently to OR for craniotomy and hematoma evacuation which was large and invaded the ventricular and she is transferred to ICU for closer monitoring. I was able to evaluated patient prior to intubation and after surgery. 03/16: Patient seen and examined in the ICU, She is mechanically ventilated, Assist-control/450/16/30 percent, Has an OG to suction, Her pupils are reactive 03/17: Seen in ICU, sedated, intubated, on ICP monitoring and cardene GTT. Na 130. Hb 9.1. Moving left arm, posturing on pain response on right. Vitals/I&O Vitals/I&O: Vital Signs Date Time Temp Pulse Resp B/P (MAP) Pulse Ox O2 Delivery O2 Flow Rate FiO2 03/24/20 08:10 93 16 167/65 (99) 100 Ventilator 03/24/20 07:31 99.9 99.9 I & O 03/23/20 03/23/20 03/24/20 15:00 23:00 07:00 Intake Total 535 ml 2558.1 ml 894 ml Output Total 860 ml 610 ml 750 ml Balance -325 ml 1948.1 ml 144 ml Physical Exam General: Other (on vent, sedated) Heart: Regular rate, Normal S1 Lungs: Other (rhonchi) Abdomen: Normal bowel sounds, Soft, No tenderness, No hepatosplenomegaly, No masses Extremities: No clubbing, No cyanosis, No edema, Normal pulses, No tenderness/swelling Skin: Other (dressing C,D,I) Labs Labs: Laboratory Tests Test 03/23/20 09:50 Prothrombin Time 13.3 SEC (11.7-14.0) Prothromb Time International Ratio 1.1 (0.8-1.1) Assessment and Plan Assessmemt and Plan Problems Medical Problems: (1) Cerebral parenchymal hemorrhage Status: Acute (2) HTN (hypertension) Status: Acut Postop day 9 craniotomy 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 Marissa Acute encephalopathy - due to intracranial hemorrhage Syncope and collapse - 2/2 intraparenchymal bleed Left front intracranial hemorrhage Hyperlipidemia Respiratory failure - likely 2/2 intracranial bleed Leukocytosis - likely 2/2 bleed. Hypokalemia and hypomagnesemia Hyponatremia Plan ICU monitoring Vent weaning Trying to wean off the IV nicardipine Repeat CT head today per Dr. Strong Wound care IV Keppra We are in the process of lifting her sedation NG suctioning/feeds Trend labs DVT prophylaxis Prognosis extremely guarded She remains critically ill Total time 32 Comment Review of Relevant I have reviewed the following items wang (where applicable) has been applied. Medications: Current Medications Medications (Trade) Dose Ordered Sig/Arnel Route PRN Reason Start Time Stop Time Status Last Admin Dose Admin Ceftriaxone Sodium (Rocephin) 1 gm Q24H IVP 03/23/20 12:00 03/23/20 12:22 Amlodipine Besylate (Norvasc) 5 mg DAILY PO 03/23/20 12:00 03/23/20 12:22 Labetalol HCl (Normodyne Iv Push) 20 mg PRN Q4HRS PRN IVP HYPERTENSION 03/23/20 15:15 6/2/20 23:32 Acetaminophen (Tylenol) 650 mg PRN Q6HRS PRN PEG MILD PAIN / TEMP > 100.3'F 03/23/20 16:30 03/23/20 16:31 Justicifation of Admission Dx: Justifications for Admission: Justification of Admission Dx: Yes Acute Hemorrhagic Stroke: Acute Hemorrhagic Stroke QASIM BAILEY III DO Mar 24, 2020 08:16
[2020-03-24] MEDS: FAMOTIDINE 20 MG/2 ML VIAL IVP SCH ×2 (08:19→22:55)
[2020-03-24] MEDS: amLODIPine BESYLATE 5 MG TABLET PO SCH (08:20)
[2020-03-24] MEDS: PSYLLIUM HUSK (SUGAR FREE) 1 PKT PACKET PO SCH (08:20)
[2020-03-24 08:21] LABS: BASE EXCESS ABG 0 mmol/L (-3-3); HCO3 ABG 23 mmol/L (21-28); PCO2 ABG 32 mmHg (35-46); PO2 ABG 146 mmHg (65-108); SAT O2 ABG 98 % (92-99)
[2020-03-24 08:31] LABS: FIO2 ABG 40% VENT
[2020-03-24 09:05] LABS: BASO % 0 % (0-3); EOS # 0.1 x10^3/uL (0.0-0.7); EOS % 1 % (0-3); HEMATOCRIT 22.1 % (36.0-47.0); HEMOGLOBIN 7.6 g/dL (12.0-15.5); LYMPH # 1.7 x10^3/uL (1.0-4.8); LYMPH % 17 % (24-48); MEAN CORPUSCULAR HEMOGLOBIN 31 pg (25-35); MEAN CORPUSCULAR HGB CONC 35 g/dL (31-37); MEAN CORPUSCULAR VOLUME 90 fL (79-100); MONO % 10 % (0-9); NEUT # 7.4 x10^3/uL (1.8-7.7); NEUT % 73 % (31-73); PLATELET COUNT 376 x10^3/uL (140-400); RED BLOOD COUNT 2.46 x10^6/uL (3.50-5.40); RED CELL DISTRIBUTION WIDTH 13.2 % (11.5-14.5); WHITE BLOOD COUNT 10.2 x10^3/uL (4.0-11.0)
[2020-03-24 09:16] LABS: CALCIUM 7.8 mg/dL (8.5-10.1); CREATININE 0.6 mg/dL (0.6-1.0); GFR 101.3; POTASSIUM 4.4 mmol/L (3.5-5.1)
[2020-03-24 10:01] LABS: % LYMPHS 10 % (24-48); % MONOS 16 % (0-10); % MYELOS 2 % (0-0); % SEGS 72 % (35-66); PLT ESTIMATE ADEQUATE (ADEQUATE)
--- NOTE | 2020-03-24 10:19 | PDOC ---
PROGRESS NOTES Assessment Problems Medical Problems: (1) Cerebral parenchymal hemorrhage Status: Acute (2) HTN (hypertension) Status: Acute Large left intraparenchymal hemorrhage status-post evacuation CTA negative for aneurysm or AVM EVD out, no hydrocephalus on followup CT Plan I discussed with , he says that patient would never want to be in a vegetative state on machines. I discussed that we could give her a chance but it would take several weeks to see any improvement and she would have to have a tracheostomy and PEG. He does not think she would want that type of trial even for a few weeks with a low chance of meaningful recovery so he is leaning for comfort care. He's going to discuss with family. He does agree to changing code status to do not resuscitate. Levetiracetam Subjective none Objective Vital Signs Date Time Temp Pulse Resp B/P (MAP) Pulse Ox O2 Delivery O2 Flow Rate FiO2 03/24/20 09:58 73 16 169/65 (99) 100 Ventilator 03/24/20 07:31 99.9 99.9 Intake and Output 03/24/20 07:00 Intake Total 3987.1 ml Output Total 2220 ml Balance 1767.1 ml IV Total 1699.1 ml Tube Feeding 1749 ml Other 539 ml Output Urine Total 2220 ml PHYSICAL EXAM Off sedation PERRL. No spontaneous extraocular movements CN: no focal findings. Muscle tone: normal. Muscle strength: no withdrawal to pain DTR: 2+ Plantar reflex: extensor bilaterally Gait: not examined Sensory exam: not cooperative. Cerebellar: not cooperative Review of Relevant I have reviewed the following items wang (where applicable) has been applied. Labs Laboratory Tests Test 03/22/20 16:24 03/23/20 00:07 03/23/20 07:33 03/23/20 08:00 O2 Saturation 97 % (92-99) 98 % (92-99) Arterial Blood pH 7.44 (7.35-7.45) 7.43 (7.35-7.45) Arterial Blood pCO2 at Patient Temp 36 mmHg (35-46) 37 mmHg (35-46) Arterial Blood pO2 at Patient Temp 102 mmHg (65-108) 116 mmHg (65-108) Arterial Blood HCO3 24 mmol/L (21-28) 24 mmol/L (21-28) Arterial Blood Base Excess 0 mmol/L (-3-3) 0 mmol/L (-3-3) FiO2 40 40% vent Glucose (Fingerstick) 105 mg/dL (70-99) White Blood Count 9.0 x10^3/uL (4.0-11.0) Red Blood Count 2.69 x10^6/uL (3.50-5.40) Hemoglobin 8.2 g/dL (12.0-15.5) Hematocrit 24.1 % (36.0-47.0) Mean Corpuscular Volume 90 fL (79-100) Mean Corpuscular Hemoglobin 31 pg (25-35) Mean Corpuscular Hemoglobin Concent 34 g/dL (31-37) Red Cell Distribution Width 13.1 % (11.5-14.5) Platelet Count 365 x10^3/uL (140-400) Sodium Level 142 mmol/L (136-145) Potassium Level 3.9 mmol/L (3.5-5.1) Chloride Level 108 mmol/L (98-107) Carbon Dioxide Level 24 mmol/L (21-32) Anion Gap 10 (6-14) Blood Urea Nitrogen 22 mg/dL (7-20) Creatinine 0.6 mg/dL (0.6-1.0) Estimated GFR (Cockcroft-Gault) 101.3 BUN/Creatinine Ratio 37 (6-20) Glucose Level 105 mg/dL (70-99) Calcium Level 7.8 mg/dL (8.5-10.1) Total Bilirubin 0.4 mg/dL (0.2-1.0) Aspartate Amino Transf (AST/SGOT) 284 U/L (15-37) Alanine Aminotransferase (ALT/SGPT) 352 U/L (14-59) Alkaline Phosphatase 178 U/L (46-116) Total Protein 5.9 g/dL (6.4-8.2) Albumin 1.7 g/dL (3.4-5.0) Albumin/Globulin Ratio 0.4 (1.0-1.7) Test 03/23/20 09:50 03/24/20 08:05 03/24/20 08:45 Prothrombin Time 13.3 SEC (11.7-14.0) Prothromb Time International Ratio 1.1 (0.8-1.1) O2 Saturation 98 % (92-99) Arterial Blood pH 7.47 (7.35-7.45) Arterial Blood pCO2 at Patient Temp 32 mmHg (35-46) Arterial Blood pO2 at Patient Temp 146 mmHg (65-108) Arterial Blood HCO3 23 mmol/L (21-28) Arterial Blood Base Excess 0 mmol/L (-3-3) FiO2 40% vent White Blood Count 10.2 x10^3/uL (4.0-11.0) Red Blood Count 2.46 x10^6/uL (3.50-5.40) Hemoglobin 7.6 g/dL (12.0-15.5) Hematocrit 22.1 % (36.0-47.0) Mean Corpuscular Volume 90 fL (79-100) Mean Corpuscular Hemoglobin 31 pg (25-35) Mean Corpuscular Hemoglobin Concent 35 g/dL (31-37) Red Cell Distribution Width 13.2 % (11.5-14.5) Platelet Count 376 x10^3/uL (140-400) Neutrophils (%) (Auto) 73 % (31-73) Lymphocytes (%) (Auto) 17 % (24-48) Monocytes (%) (Auto) 10 % (0-9) Eosinophils (%) (Auto) 1 % (0-3) Basophils (%) (Auto) 0 % (0-3) Neutrophils # (Auto) 7.4 x10^3/uL (1.8-7.7) Lymphocytes # (Auto) 1.7 x10^3/uL (1.0-4.8) Monocytes # (Auto) 1.0 x10^3/uL (0.0-1.1) Eosinophils # (Auto) 0.1 x10^3/uL (0.0-0.7) Basophils # (Auto) 0.0 x10^3/uL (0.0-0.2) Segmented Neutrophils % 72 % (35-66) Lymphocytes % 10 % (24-48) Monocytes % 16 % (0-10) Myelocytes % 2 % (0-0) Platelet Estimate Adequate (ADEQUATE) Sodium Level 139 mmol/L (136-145) Potassium Level 4.4 mmol/L (3.5-5.1) Chloride Level 104 mmol/L (98-107) Carbon Dioxide Level 25 mmol/L (21-32) Anion Gap 10 (6-14) Blood Urea Nitrogen 18 mg/dL (7-20) Creatinine 0.6 mg/dL (0.6-1.0) Estimated GFR (Cockcroft-Gault) 101.3 Glucose Level 113 mg/dL (70-99) Calcium Level 7.8 mg/dL (8.5-10.1) Laboratory Tests Test 03/24/20 08:05 03/24/20 08:45 O2 Saturation 98 % (92-99) Arterial Blood pH 7.47 (7.35-7.45) Arterial Blood pCO2 at Patient Temp 32 mmHg (35-46) Arterial Blood pO2 at Patient Temp 146 mmHg (65-108) Arterial Blood HCO3 23 mmol/L (21-28) Arterial Blood Base Excess 0 mmol/L (-3-3) FiO2 40% vent White Blood Count 10.2 x10^3/uL (4.0-11.0) Red Blood Count 2.46 x10^6/uL (3.50-5.40) Hemoglobin 7.6 g/dL (12.0-15.5) Hematocrit 22.1 % (36.0-47.0) Mean Corpuscular Volume 90 fL (79-100) Mean Corpuscular Hemoglobin 31 pg (25-35) Mean Corpuscular Hemoglobin Concent 35 g/dL (31-37) Red Cell Distribution Width 13.2 % (11.5-14.5) Platelet Count 376 x10^3/uL (140-400) Neutrophils (%) (Auto) 73 % (31-73) Lymphocytes (%) (Auto) 17 % (24-48) Monocytes (%) (Auto) 10 % (0-9) Eosinophils (%) (Auto) 1 % (0-3) Basophils (%) (Auto) 0 % (0-3) Neutrophils # (Auto) 7.4 x10^3/uL (1.8-7.7) Lymphocytes # (Auto) 1.7 x10^3/uL (1.0-4.8) Monocytes # (Auto) 1.0 x10^3/uL (0.0-1.1) Eosinophils # (Auto) 0.1 x10^3/uL (0.0-0.7) Basophils # (Auto) 0.0 x10^3/uL (0.0-0.2) Segmented Neutrophils % 72 % (35-66) Lymphocytes % 10 % (24-48) Monocytes % 16 % (0-10) Myelocytes % 2 % (0-0) Platelet Estimate Adequate (ADEQUATE) Sodium Level 139 mmol/L (136-145) Potassium Level 4.4 mmol/L (3.5-5.1) Chloride Level 104 mmol/L (98-107) Carbon Dioxide Level 25 mmol/L (21-32) Anion Gap 10 (6-14) Blood Urea Nitrogen 18 mg/dL (7-20) Creatinine 0.6 mg/dL (0.6-1.0) Estimated GFR (Cockcroft-Gault) 101.3 Glucose Level 113 mg/dL (70-99) Calcium Level 7.8 mg/dL (8.5-10.1) Microbiology 03/21/20 Gram Stain Evaluation - Final, Resulted 03/21/20 Respiratory Culture - Preliminary, Resulted Medications Current Medications Propofol (Diprivan) 200 mg 1X ONCE IV Last administered on 03/15/20at 11:47; Start 03/15/20 at 11:30; Stop 03/15/20 at 11:31; Status DC Propofol 50 ml @ As Directed STK-MED ONCE IV ; Start 03/15/20 at 11:45; Stop 03/15/20 at 11:45; Status DC Propofol 20 ml @ 0 mls/hr 1X ONCE IV Last administered on 03/15/20at 11:52; Start 03/15/20 at 11:45; Stop 03/15/20 at 11:50; Status DC Potassium Chloride 40 meq/ Dextrose 1,020 ml @ 75 mls/hr [id number] PRN IV 0 Last administered on 03/17/20at 03:08; Start 03/15/20 at 12:00; Stop 03/17/20 at 09:39; Status DC Etomidate (Amidate) 20 mg 1X ONCE IV Last administered on 03/15/20at 12:12; Start 03/15/20 at 11:40; Stop 03/15/20 at 12:00; Status DC Succinylcholine Chloride (Anectine) 100 mg 1X ONCE IV Last administered on 03/15/20at 12:12; Start 03/15/20 at 11:40; Stop 03/15/20 at 12:00; Status DC Bacitracin [id number] unit/Sodium Chloride 1,000 ml @ 1,000 mls/hr 1X ONCE IRR Last administered on 03/15/20at 14:50; Start 03/15/20 at 13:00; Stop 03/15/20 at 14:07; Status DC Cefazolin Sodium/ Dextrose 50 ml @ 100 mls/hr 1X PREOP PRN IV PRIOR TO PROCEDURE Last administered on 03/15/20at 13:25; Start 03/15/20 at 13:00; Stop 03/16/20 at 12:59; Status DC Propofol (Diprivan) 200 mg STK-MED ONCE IV ; Start 03/15/20 at 12:33; Stop 03/15/20 at 12:33; Status DC Phenylephrine HCl (PHENYLEPHRINE in 0.9% NACL PF) 1 mg STK-MED ONCE IV ; Start 03/15/20 at 12:33; Stop 03/15/20 at 12:33; Status DC Rocuronium [place] (Zemuron) 50 mg STK-MED ONCE .ROUTE ; Start 03/15/20 at 12: 33; Stop 03/15/20 at 12:33; Status DC Dexamethasone Sodium Phosphate (Decadron) 20 mg STK-MED ONCE .ROUTE ; Start 03/15/20 at 12:36; Stop 03/15/20 at 12:36; Status DC Gelatin (Gelfoam Size 100) 1 each STK-MED ONCE .ROUTE Last administered on 03/15/20at 13:49; Start 03/15/20 at 12:42; Stop 03/15/20 at 12:42; Status DC Bupivacaine HCl/ Epinephrine Bitart (Sensorcain-Epi 0.5%-1:445621 Mpf) 30 ml STK-MED ONCE .ROUTE ; Start 03/15/20 at 12:42; Stop 03/15/20 at 12:42; Status DC Mannitol (Mannitol) 12.5 g STK-MED ONCE .ROUTE Last administered on 03/15/20at 14:41; Start 03/15/20 at 12:42; Stop 03/15/20 at 12:42; Status DC Cellulose (Surgicel Hemostat 4x8) 1 each STK-MED ONCE .ROUTE Last administered on 03/15/20at 15:08; Start 03/15/20 at 12:42; Stop 03/15/20 at 12:43; Status DC Thrombin 20,000 unit STK-MED ONCE TP Last administered on 03/15/20at 13:49; Start 03/15/20 at 12:42; Stop 03/15/20 at 12:43; Status DC Bupivacaine HCl/ Epinephrine Bitart (Sensorcain-Epi 0.5%-1:133335 Mpf) 30 ml STK-MED ONCE .ROUTE Last administered on 03/15/20at 13:48; Start 03/15/20 at 12:44; Stop 03/15/20 at 12:45; Status DC Bupivacaine HCl/ Epinephrine Bitart (Sensorcain-Epi 0.5%-1:865996 Mpf) 30 ml 1X ONCE INJ ; Start 03/15/20 at 13:00; Stop 03/15/20 at 13:01; Status DC Ondansetron HCl (Zofran) 4 mg PRN Q6HRS PRN IV NAUSEA/VOMITING; Start 03/15/20 at 13:45; Stop 03/15/20 at 16:35; Status DC Fentanyl Citrate (Fentanyl 2ml Vial) 25 mcg PRN Q5MIN PRN IV MILD PAIN 1-3; Start 03/15/20 at 13:45; Stop 03/16/20 at 13:44; Status DC Fentanyl Citrate (Fentanyl 2ml Vial) 50 mcg PRN Q5MIN PRN IV MODERATE TO SEVERE PAIN; Start 03/15/20 at 13:45; Stop 03/16/20 at 13:44; Status DC Morphine Sulfate (Morphine Sulfate) 1 mg PRN Q10MIN PRN IV SEVERE PAIN 7-10; Start 03/15/20 at 13:45; Stop 03/16/20 at 13:44; Status DC Ringer's Solution 1,000 ml @ 30 mls/hr Q24H IV ; Start 03/15/20 at 13:31; Stop 03/16/20 at 01:30; Status DC Hydromorphone HCl (Dilaudid) 0.5 mg PRN Q10MIN PRN IV SEV PAIN, Second choice; Start 03/15/20 at 13:45; Stop 03/16/20 at 13:44; Status DC Prochlorperazine Edisylate (Compazine) 5 mg PACU PRN PRN IV NAUSEA, MRX1; Start 03/15/20 at 13:45; Stop 03/16/20 at 13:44; Status DC Mannitol (Mannitol) 12.5 g STK-MED ONCE .ROUTE Last administered on 03/15/20at 14:41; Start 03/15/20 at 14:28; Stop 03/15/20 at 14:28; Status DC Phenylephrine HCl (Diego-Synephrine Inj) 10 mg STK-MED ONCE .ROUTE ; Start 03/15/20 at 14:43; Stop 03/15/20 at 14:43; Status DC Fentanyl Citrate (Fentanyl 2ml Vial) 100 mcg STK-MED ONCE .ROUTE ; Start 03/15/20 at 15:08; Stop 03/15/20 at 15:09; Status DC Rocuronium [place] (Zemuron) 50 mg STK-MED ONCE .ROUTE ; Start 03/15/20 at 15:34; Stop 03/15/20 at 15:34; Status DC Sevoflurane (Ultane) 90 ml STK-MED ONCE IH ; Start 03/15/20 at 15:44; Stop 03/15/20 at 15:44; Status DC Propofol 50 ml @ As Directed STK-MED ONCE IV ; Start 03/15/20 at 16:02; Stop 03/15/20 at 16:02; Status DC Nicardipine HCl 50 mg/Sodium Chloride 250 ml @ 25 mls/hr TITRATE PRN IV HYPERTENSION Last administered on 03/23/20at 11:15; Start 03/15/20 at 16:30; Stop 03/23/20 at 11:51; Status DC Levetiracetam 500 mg/Sodium Chloride 105 ml @ 400 mls/hr Q12HR IV Last administered on 03/24/20at 08:20; Start 03/15/20 at 21:00 Sodium Chloride (Normal Saline Flush) 3 ml QSHIFT PRN IV AFTER MEDS AND BLOOD DRAWS; Start 03/15/20 at 16:30 Potassium Chloride/Dextrose/ Sod Cl 1,000 ml @ 80 mls/hr [id number] IV ; Start 03/15/20 at 16:19; Stop 03/15/20 at 18:36; Status DC Dextrose (Dextrose 50%-Water Syringe) 12.5 gm PRN Q15MIN PRN IV SEE COMMENTS; Start 03/15/20 at 16:30 Cefazolin Sodium (Ancef) 1 gm Q8HRS IVP Last administered on 03/16/20at 14:52; Start 03/15/20 at 22:00; Stop 03/16/20 at 14:01; Status DC Ondansetron HCl (Zofran) 4 mg PRN Q4HRS PRN IV NAUSEA/VOMITING; Start 03/15/20 at 16:45 Atorvastatin Calcium (Lipitor) 40 mg DAILY PO Last administered on 03/23/20at 08:02; Start 03/16/20 at 09:00; Stop 03/23/20 at 09:23; Status DC Acetaminophen (Tylenol Supp) 650 mg PRN Q6HRS PRN MD MILD PAIN / TEMP > 100.3'F Last administered on 03/20/20at 18:27; Start 03/15/20 at 16:45 Docusate Sodium (Enemeez) 283 mg PRN DAILY PRN MD CONSTIPATION; Start 03/15/20 at 16:45 Magnesium Sulfate 50 ml @ 25 mls/hr 1X ONCE IV Last administered on 03/15/20at 17:23; Start 03/15/20 at 17:00; Stop 03/15/20 at 18:59; Status DC Propofol 100 ml @ As Directed STK-MED ONCE IV ; Start 03/15/20 at 19:37; Stop 03/15/20 at 19:38; Status DC Propofol 100 ml @ 0.837 mls/ hr CONT PRN IV SEE I/O RECORD Last administered on 03/23/20at 05:44; Start 03/15/20 at 19:45 Iohexol (Omnipaque 300 Mg/ml) 75 ml 1X ONCE IV Last administered on 03/16/20at 07:45; Start 03/16/20 at 07:45; Stop 03/16/20 at 07:50; Status DC Info (CONTRAST GIVEN -- Rx MONITORING) 1 each PRN DAILY PRN MC SEE COMMENTS; Start 03/16/20 at 08:00; Stop 03/18/20 at 07:59; Status DC Potassium Chloride/Dextrose/ Sod Cl 1,000 ml @ 75 mls/hr 1X ONCE IV Last administered on 03/17/20at 10:15; Start 03/17/20 at 09:45; Stop 03/17/20 at 23:04; Status DC Psyllium Hydrophilic Mucilloid (Metamucil Fiber Packet) 1 pkt DAILY PO Last administered on 03/24/20 08:20; Start 03/17/20 at 11:00 Potassium Chloride/Dextrose/ Sod Cl 1,000 ml @ 75 mls/hr [id number] IV Last administered on 03/23/20at 21:17; Start 03/17/20 at 23:00 Famotidine (Pepcid Vial) 20 mg BID IVP Last administered on 03/24/20at 08:19; Start 03/18/20 at 21:00 Multi-Ingred Cream/Lotion/Oil/ Oint (Artificial Tears Eye Ointment) 1 ayala PRN Q1HR PRN OU DRY EYE Last administered on 03/20/20at 18:23; Start 03/19/20 at 16:15 Fentanyl Citrate (Fentanyl 2ml Vial) 50 mcg PRN Q2HR PRN IVP PAIN Last administered on 03/20/20at 22:12; Start 03/20/20 at 18:00 Fentanyl Citrate 30 ml @ 0 mls/hr CONT PRN IV SEE PROTOCOL Last administered on 03/22/20at 19:15; Start 03/20/20 at 23:15 Dexmedetomidine HCl 400 mcg/ Sodium Chloride 100 ml @ 0 mls/hr CONT PRN IV PER PROTOCOL Last administered on 03/21/20at 00:38; Start 03/20/20 at 23:15 Furosemide (Lasix) 20 mg 1X ONCE IVP Last administered on 03/20/20at 23:20; Start 03/20/20 at 23:15; Stop 03/20/20 at 23:16; Status DC Furosemide (Lasix) 20 mg 1X ONCE IVP Last administered on 03/21/20at 01:20; Start 03/21/20 at 01:00; Stop 03/21/20 at 01:01; Status DC Methylprednisolone Sodium Succinate (SOLU-Medrol 125MG VIAL) 125 mg 1X ONCE IV Last administered on 03/21/20at 01:20; Start 03/21/20 at 01:00; Stop 03/21/20 at 01:01; Status DC Albuterol/ Ipratropium (Duoneb) 3 ml Q4HRS NEB Last administered on 03/24/20at 08:08; Start 03/21/20 at 01:15 Piperacillin Sod/ Tazobactam Sod (Zosyn Per Pharmacy) 1 each PRN DAILY PRN MC SEE COMMENTS; Start 03/21/20 at 12:00; Stop 03/23/20 at 11:10; Status DC Piperacillin Sod/ Tazobactam Sod 4.5 gm/Sodium Chloride 100 ml @ 200 mls/hr Q6HRS IV Last administered on 03/23/20at 05:42; Start 03/21/20 at 12:00; Stop 03/23/20 at 11:11; Status DC Furosemide (Lasix) 40 mg 1X ONCE IVP Last administered on 03/22/20at 12:03; Start 03/22/20 at 11:45; Stop 03/22/20 at 11:46; Status DC Potassium Bicarbonate (Potassium Effervescent Tablet) 40 meq 1X ONCE PEG Last administered on 03/22/20at 14:00; Start 03/22/20 at 14:00; Stop 03/22/20 at 14:01; Status DC Ceftriaxone Sodium (Rocephin) 1 gm Q24H IVP Last administered on 03/23/20at 12:22; Start 03/23/20 at 12:00 Amlodipine Besylate (Norvasc) 5 mg DAILY PO Last administered on 03/24/20at 08:20; Start 03/23/20 at 12:00 Labetalol HCl (Normodyne Iv Push) 20 mg PRN Q4HRS PRN IVP HYPERTENSION Last administered on 03/23/20at 23:32; Start 03/23/20 at 15:15 Acetaminophen (Tylenol) 650 mg PRN Q6HRS PRN PEG MILD PAIN / TEMP > 100.3'F Last administered on 03/23/20at 16:31; Start 03/23/20 at 16:30 Active Scripts Active Reported Oxybutynin Chloride Er (Oxybutynin Chloride) 10 Mg Tab.er.24 1 Tab PO DAILY Elmiron (Pentosan Polysulfate Sodium) 100 Mg Capsule 1 Cap PO TID 30 Days Atorvastatin Calcium 40 Mg Tablet 1 Tab PO DAILY Fluoxetine Hcl 40 Mg Capsule 40 Mg PO DAILY Premarin (Estrogens, Conjugated) 0.625 Mg Tablet 1 Tab PO DAILY Vitals/I & O Vital Sign - Last 24 Hours 03/23/20 03/23/20 03/23/20 03/23/20 11:00 12:00 12:00 12:00 Temp 100.5 100.5 Pulse 86 82 Resp 20 20 B/P (MAP) 144/56 (85) 156/58 (90) Pulse Ox 100 100 O2 Delivery Ventilator Mechanical Ventilator Ventilator 03/23/20 03/23/20 03/23/20 03/23/20 12:02 12:22 13:00 13:45 Pulse 86 83 Resp 20 B/P (MAP) 161/60 159/61 (93) Pulse Ox 97 100 100 O2 Delivery Ventilator Ventilator Ventilator 03/23/20 03/23/20 03/23/20 03/23/20 14:00 15:00 15:26 15:39 Pulse 82 83 83 Resp 20 20 B/P (MAP) 159/62 (94) 158/61 (93) 158/61 Pulse Ox 100 100 100 O2 Delivery Ventilator Ventilator Ventilator 03/23/20 03/23/20 03/23/20 03/23/20 16:00 16:00 16:00 17:00 Temp 100.9 100.9 Pulse 81 82 Resp 20 15 B/P (MAP) 159/64 (95) 135/57 (83) Pulse Ox 100 99 O2 Delivery Ventilator Mechanical Ventilator Ventilator 03/23/20 03/23/20 03/23/20 03/23/20 17:41 18:00 19:00 19:39 Pulse 79 74 Resp 20 16 B/P (MAP) 142/57 (85) 147/59 (88) Pulse Ox 100 100 99 99 O2 Delivery Ventilator Ventilator Ventilator Ventilator 03/23/20 03/23/20 03/23/20 03/23/20 20:00 20:00 20:00 21:00 Temp 98.9 98.9 Pulse 74 72 Resp 16 16 B/P (MAP) 155/62 (93) 168/65 (99) Pulse Ox 97 97 O2 Delivery Ventilator Mechanical Ventilator Ventilator 03/23/20 03/23/20 03/23/20 03/23/20 21:05 22:00 23:00 23:11 Pulse 72 79 Resp 16 16 B/P (MAP) 174/69 (104) 176/69 (104) Pulse Ox 100 97 100 100 O2 Delivery Ventilator Ventilator Ventilator Ventilator 03/23/20 03/23/20 03/24/20 03/24/20 23:32 23:59 00:00 00:00 Temp 99.0 99.0 Pulse 76 70 Resp 16 B/P (MAP) 175/67 164/64 (97) Pulse Ox 100 O2 Delivery Mechanical Ventilator Ventilator 03/24/20 03/24/20 03/24/20 03/24/20 01:00 01:00 02:00 02:48 Pulse 77 77 Resp 16 16 B/P (MAP) 158/63 (94) 157/69 (98) Pulse Ox 100 100 100 100 O2 Delivery Ventilator Ventilator Ventilator Ventilator 03/24/20 03/24/20 03/24/20 03/24/20 03:00 04:00 04:00 04:00 Temp 99.4 99.4 Pulse 74 60 Resp 16 16 B/P (MAP) 165/65 (98) 150/47 (81) Pulse Ox 100 97 O2 Delivery Ventilator Mechanical Ventilator Ventilator 03/24/20 03/24/20 03/24/20 03/24/20 05:00 05:30 06:00 07:31 Temp 99.9 99.9 Pulse 77 78 75 Resp 16 15 16 B/P (MAP) 158/60 (92) 169/67 (101) 176/68 (104) Pulse Ox 100 100 100 100 O2 Delivery Ventilator Ventilator Ventilator Ventilator 03/24/20 03/24/20 03/24/20 03/24/20 08:00 08:02 08:10 08:13 Pulse 93 Resp 16 B/P (MAP) 167/65 (99) Pulse Ox 100 100 O2 Delivery Mechanical Ventilator Ventilator Ventilator 03/24/20 03/24/20 03/24/20 08:20 09:53 09:58 Pulse 93 75 73 Resp 16 16 B/P (MAP) 167/65 173/66 (101) 169/65 (99) Pulse Ox 100 100 O2 Delivery Ventilator Ventilator Intake and Output 03/23/20 03/23/20 03/24/20 15:00 23:00 07:00 Intake Total 535 ml 2558.1 ml 894 ml Output Total 860 ml 610 ml 750 ml Balance -325 ml 1948.1 ml 144 ml Justicifation of Admission Dx: Justifications for Admission: Justification of Admission Dx: Yes Acute Hemorrhagic Stroke: Acute Hemorrhagic Stroke SON PHAM MD Mar 24, 2020 10:19
[2020-03-24] MEDS: POTASSIUM CL 20MEQ D5-0.45NACL 1,000 ML IV SCH (11:06)
--- NOTE | 2020-03-24 11:21 | PDOC ---
PULMONARY PROGRESS NOTES Subjective remains intubated/ sedated, off propofol,, off fentanyl, does not follow commands, icp monitor dced cxr improved. positive secretions Vitals Vital Signs Date Time Temp Pulse Resp B/P (MAP) Pulse Ox O2 Delivery O2 Flow Rate FiO2 03/24/20 11:07 78 16 170/63 (98) 100 Ventilator 03/24/20 07:31 99.9 99.9 Comments ros unable to obtain , not responsive HEENT: Other (nc at perrl nose clear orally intubated neck no lad no thyromegaly) Lungs: Other (rhonchi) Cardiovascular: S1, S2 Abdomen: Soft, Non-tender, Other (no mass) Extremities: No Edema Skin: Warm Labs Laboratory Tests Test 03/22/20 16:24 03/23/20 00:07 03/23/20 07:33 03/23/20 08:00 O2 Saturation 97 % (92-99) 98 % (92-99) Arterial Blood pH 7.44 (7.35-7.45) 7.43 (7.35-7.45) Arterial Blood pCO2 at Patient Temp 36 mmHg (35-46) 37 mmHg (35-46) Arterial Blood pO2 at Patient Temp 102 mmHg (65-108) 116 mmHg (65-108) Arterial Blood HCO3 24 mmol/L (21-28) 24 mmol/L (21-28) Arterial Blood Base Excess 0 mmol/L (-3-3) 0 mmol/L (-3-3) FiO2 40 40% vent Glucose (Fingerstick) 105 mg/dL (70-99) White Blood Count 9.0 x10^3/uL (4.0-11.0) Red Blood Count 2.69 x10^6/uL (3.50-5.40) Hemoglobin 8.2 g/dL (12.0-15.5) Hematocrit 24.1 % (36.0-47.0) Mean Corpuscular Volume 90 fL (79-100) Mean Corpuscular Hemoglobin 31 pg (25-35) Mean Corpuscular Hemoglobin Concent 34 g/dL (31-37) Red Cell Distribution Width 13.1 % (11.5-14.5) Platelet Count 365 x10^3/uL (140-400) Sodium Level 142 mmol/L (136-145) Potassium Level 3.9 mmol/L (3.5-5.1) Chloride Level 108 mmol/L (98-107) Carbon Dioxide Level 24 mmol/L (21-32) Anion Gap 10 (6-14) Blood Urea Nitrogen 22 mg/dL (7-20) Creatinine 0.6 mg/dL (0.6-1.0) Estimated GFR (Cockcroft-Gault) 101.3 BUN/Creatinine Ratio 37 (6-20) Glucose Level 105 mg/dL (70-99) Calcium Level 7.8 mg/dL (8.5-10.1) Total Bilirubin 0.4 mg/dL (0.2-1.0) Aspartate Amino Transf (AST/SGOT) 284 U/L (15-37) Alanine Aminotransferase (ALT/SGPT) 352 U/L (14-59) Alkaline Phosphatase 178 U/L (46-116) Total Protein 5.9 g/dL (6.4-8.2) Albumin 1.7 g/dL (3.4-5.0) Albumin/Globulin Ratio 0.4 (1.0-1.7) Test 03/23/20 09:50 03/24/20 08:05 03/24/20 08:45 Prothrombin Time 13.3 SEC (11.7-14.0) Prothromb Time International Ratio 1.1 (0.8-1.1) O2 Saturation 98 % (92-99) Arterial Blood pH 7.47 (7.35-7.45) Arterial Blood pCO2 at Patient Temp 32 mmHg (35-46) Arterial Blood pO2 at Patient Temp 146 mmHg (65-108) Arterial Blood HCO3 23 mmol/L (21-28) Arterial Blood Base Excess 0 mmol/L (-3-3) FiO2 40% vent White Blood Count 10.2 x10^3/uL (4.0-11.0) Red Blood Count 2.46 x10^6/uL (3.50-5.40) Hemoglobin 7.6 g/dL (12.0-15.5) Hematocrit 22.1 % (36.0-47.0) Mean Corpuscular Volume 90 fL (79-100) Mean Corpuscular Hemoglobin 31 pg (25-35) Mean Corpuscular Hemoglobin Concent 35 g/dL (31-37) Red Cell Distribution Width 13.2 % (11.5-14.5) Platelet Count 376 x10^3/uL (140-400) Neutrophils (%) (Auto) 73 % (31-73) Lymphocytes (%) (Auto) 17 % (24-48) Monocytes (%) (Auto) 10 % (0-9) Eosinophils (%) (Auto) 1 % (0-3) Basophils (%) (Auto) 0 % (0-3) Neutrophils # (Auto) 7.4 x10^3/uL (1.8-7.7) Lymphocytes # (Auto) 1.7 x10^3/uL (1.0-4.8) Monocytes # (Auto) 1.0 x10^3/uL (0.0-1.1) Eosinophils # (Auto) 0.1 x10^3/uL (0.0-0.7) Basophils # (Auto) 0.0 x10^3/uL (0.0-0.2) Segmented Neutrophils % 72 % (35-66) Lymphocytes % 10 % (24-48) Monocytes % 16 % (0-10) Myelocytes % 2 % (0-0) Platelet Estimate Adequate (ADEQUATE) Sodium Level 139 mmol/L (136-145) Potassium Level 4.4 mmol/L (3.5-5.1) Chloride Level 104 mmol/L (98-107) Carbon Dioxide Level 25 mmol/L (21-32) Anion Gap 10 (6-14) Blood Urea Nitrogen 18 mg/dL (7-20) Creatinine 0.6 mg/dL (0.6-1.0) Estimated GFR (Cockcroft-Gault) 101.3 Glucose Level 113 mg/dL (70-99) Calcium Level 7.8 mg/dL (8.5-10.1) Laboratory Tests Test 03/24/20 08:05 03/24/20 08:45 O2 Saturation 98 % (92-99) Arterial Blood pH 7.47 (7.35-7.45) Arterial Blood pCO2 at Patient Temp 32 mmHg (35-46) Arterial Blood pO2 at Patient Temp 146 mmHg (65-108) Arterial Blood HCO3 23 mmol/L (21-28) Arterial Blood Base Excess 0 mmol/L (-3-3) FiO2 40% vent White Blood Count 10.2 x10^3/uL (4.0-11.0) Red Blood Count 2.46 x10^6/uL (3.50-5.40) Hemoglobin 7.6 g/dL (12.0-15.5) Hematocrit 22.1 % (36.0-47.0) Mean Corpuscular Volume 90 fL (79-100) Mean Corpuscular Hemoglobin 31 pg (25-35) Mean Corpuscular Hemoglobin Concent 35 g/dL (31-37) Red Cell Distribution Width 13.2 % (11.5-14.5) Platelet Count 376 x10^3/uL (140-400) Neutrophils (%) (Auto) 73 % (31-73) Lymphocytes (%) (Auto) 17 % (24-48) Monocytes (%) (Auto) 10 % (0-9) Eosinophils (%) (Auto) 1 % (0-3) Basophils (%) (Auto) 0 % (0-3) Neutrophils # (Auto) 7.4 x10^3/uL (1.8-7.7) Lymphocytes # (Auto) 1.7 x10^3/uL (1.0-4.8) Monocytes # (Auto) 1.0 x10^3/uL (0.0-1.1) Eosinophils # (Auto) 0.1 x10^3/uL (0.0-0.7) Basophils # (Auto) 0.0 x10^3/uL (0.0-0.2) Segmented Neutrophils % 72 % (35-66) Lymphocytes % 10 % (24-48) Monocytes % 16 % (0-10) Myelocytes % 2 % (0-0) Platelet Estimate Adequate (ADEQUATE) Sodium Level 139 mmol/L (136-145) Potassium Level 4.4 mmol/L (3.5-5.1) Chloride Level 104 mmol/L (98-107) Carbon Dioxide Level 25 mmol/L (21-32) Anion Gap 10 (6-14) Blood Urea Nitrogen 18 mg/dL (7-20) Creatinine 0.6 mg/dL (0.6-1.0) Estimated GFR (Cockcroft-Gault) 101.3 Glucose Level 113 mg/dL (70-99) Calcium Level 7.8 mg/dL (8.5-10.1) Medications Active Scripts Medications Dose Route/Sig Max Daily Dose Days Date Category Oxybutynin Chloride Er (Oxybutynin Chloride) 10 Mg Tab.er.24 1 Tab PO DAILY 03/15/20 Reported Elmiron (Pentosan Polysulfate Sodium) 100 Mg Capsule 1 Cap PO TID 30 03/15/20 Reported Atorvastatin Calcium 40 Mg Tablet 1 Tab PO DAILY 03/15/20 Reported Fluoxetine Hcl 40 Mg Capsule 40 Mg PO DAILY 03/15/20 Reported Premarin (Estrogens, Conjugated) 0.625 Mg Tablet 1 Tab PO DAILY 03/15/20 Reported Comments cxrs reviewed 03/23 resolved infiltrates Impression . IMPRESSION: 1. Acute respiratory failure multifactorial in etiology 2. large cerebral hematoma requiring emergent evacuation.ct with Large left intraparenchymal hemorrhage status-post evacuation CTA negative for aneurysm or AVM 2. Encephalopathy secondary to large left intraparenchymal hematoma. 3. leukocytosis 4. HTN, off cardene 5. abnl cxr, suspect acute pulm edema/acute diastolic chf, ? pneumonia, has low grade fever, cxr better w lasix repeat cxr 03/23, resolved infiltrates 6. Increase LFT. NO recent h/o hypotension.? drug induced. will dc Zosyn, change to rocephin. Plan . 1. Continue with present assist control mode. vent setting reviewed, now on fio2 40%, and PEEP to 5 , off propofol , not responsive 2. Follow Neurosurgery recommendations. weaning until awake and resp status better. repeat ct head reviewed. May need Trach 3. Optimization of blood pressure per Neurosurgery 4. SCDs for DVT prophylaxis. 5. Once mental status improves, then we will consider a weaning trial. 6. enteral nutrition. 7. Discussed with RN. We will follow along with you. 8. off zosyn, added rocephin 03/23 9. Monitor LFT, GI consult Had long discussion with 03/23. d/w him option of trach.next week. He does not want to leave her on chronic vent, if no hope of recovery. discussed w rn critically ill, cc time 30 min no overlap ADRIANA ULLOA MD Mar 24, 2020 11:21
--- NOTE | 2020-03-24 12:38 | NUR ---
Patient's request their 3 sons, Jonnie Lilly, and Adam be able to visit and have the chance to say goodbye to their mom, the patient. Also their brother in law. This is the only family they have. [facility] [employer] agreed if they want to come up in two different groups. said the Woody, brother in law will come up with patient's sister, Shazia Lopes. Sons probably tomorrow. Then said he will probably switch to comfort care. This RN explained what is involved with comfort care,medications used, procedure with extubation and discontinue all other medication and tube feed. Patient's acknowledged that he understood. He wanted to make sure that patient would be comfortable and not suffer. He reiterated that patient did not want to be a kept on life support and that he told Dr. Beckman to change her to a DNR. Continuing care for patient as well as family. Addendum: 03/24/20 at 1320 by BONNIE GASTELUM RN As patient's was leaving, he told this RN that their 46th anniversary is this 03/26/20. He said he may wait till after that to switch her to comfort care.
[2020-03-24] MEDS: cefTRIAXone IV Push 1 GM VIAL. IVP SCH (13:06)
[2020-03-24] MEDS: LABETALOL 20 MG/4 ML DISP.SYRIN. IVP PRN ×2 (13:06→18:43)
--- NOTE | 2020-03-24 14:09 | PDOC ---
PROGRESS NOTES Subjective Subjective POD #9 s/p craniotomy and removal of Large left intraparenchymal hemorrhage, likely AVM off sedation since yesterday afternoon Objective Objective Vital Signs Date Time Temp Pulse Resp B/P (MAP) Pulse Ox O2 Delivery O2 Flow Rate FiO2 03/24/20 13:08 78 16 168/65 (99) 100 Ventilator 03/24/20 12:29 99.7 99.7 Intake and Output 03/24/20 07:00 Intake Total 3987.1 ml Output Total 2220 ml Balance 1767.1 ml IV Total 1699.1 ml Tube Feeding 1749 ml Other 539 ml Output Urine Total 2220 ml Physical Exam General: Other (on vent, no sedation) Neuro: Other (equal and reactive, no withdrawl to pain) Skin: Other (dressing C,D,I) Assessment Assessment Problems Medical Problems: (1) Cerebral parenchymal hemorrhage Status: Acute (2) HTN (hypertension) Status: Acute Plan Plan of Care family leaning towards comfort care made DNR Comment Review of Relevant I have reviewed the following items wang (where applicable) has been applied. Labs Laboratory Tests Test 03/22/20 16:24 03/23/20 00:07 03/23/20 07:33 03/23/20 08:00 O2 Saturation 97 % (92-99) 98 % (92-99) Arterial Blood pH 7.44 (7.35-7.45) 7.43 (7.35-7.45) Arterial Blood pCO2 at Patient Temp 36 mmHg (35-46) 37 mmHg (35-46) Arterial Blood pO2 at Patient Temp 102 mmHg (65-108) 116 mmHg (65-108) Arterial Blood HCO3 24 mmol/L (21-28) 24 mmol/L (21-28) Arterial Blood Base Excess 0 mmol/L (-3-3) 0 mmol/L (-3-3) FiO2 40 40% vent Glucose (Fingerstick) 105 mg/dL (70-99) White Blood Count 9.0 x10^3/uL (4.0-11.0) Red Blood Count 2.69 x10^6/uL (3.50-5.40) Hemoglobin 8.2 g/dL (12.0-15.5) Hematocrit 24.1 % (36.0-47.0) Mean Corpuscular Volume 90 fL (79-100) Mean Corpuscular Hemoglobin 31 pg (25-35) Mean Corpuscular Hemoglobin Concent 34 g/dL (31-37) Red Cell Distribution Width 13.1 % (11.5-14.5) Platelet Count 365 x10^3/uL (140-400) Sodium Level 142 mmol/L (136-145) Potassium Level 3.9 mmol/L (3.5-5.1) Chloride Level 108 mmol/L (98-107) Carbon Dioxide Level 24 mmol/L (21-32) Anion Gap 10 (6-14) Blood Urea Nitrogen 22 mg/dL (7-20) Creatinine 0.6 mg/dL (0.6-1.0) Estimated GFR (Cockcroft-Gault) 101.3 BUN/Creatinine Ratio 37 (6-20) Glucose Level 105 mg/dL (70-99) Calcium Level 7.8 mg/dL (8.5-10.1) Total Bilirubin 0.4 mg/dL (0.2-1.0) Aspartate Amino Transf (AST/SGOT) 284 U/L (15-37) Alanine Aminotransferase (ALT/SGPT) 352 U/L (14-59) Alkaline Phosphatase 178 U/L (46-116) Total Protein 5.9 g/dL (6.4-8.2) Albumin 1.7 g/dL (3.4-5.0) Albumin/Globulin Ratio 0.4 (1.0-1.7) Test 03/23/20 09:50 03/24/20 08:05 03/24/20 08:45 Prothrombin Time 13.3 SEC (11.7-14.0) Prothromb Time International Ratio 1.1 (0.8-1.1) O2 Saturation 98 % (92-99) Arterial Blood pH 7.47 (7.35-7.45) Arterial Blood pCO2 at Patient Temp 32 mmHg (35-46) Arterial Blood pO2 at Patient Temp 146 mmHg (65-108) Arterial Blood HCO3 23 mmol/L (21-28) Arterial Blood Base Excess 0 mmol/L (-3-3) FiO2 40% vent White Blood Count 10.2 x10^3/uL (4.0-11.0) Red Blood Count 2.46 x10^6/uL (3.50-5.40) Hemoglobin 7.6 g/dL (12.0-15.5) Hematocrit 22.1 % (36.0-47.0) Mean Corpuscular Volume 90 fL (79-100) Mean Corpuscular Hemoglobin 31 pg (25-35) Mean Corpuscular Hemoglobin Concent 35 g/dL (31-37) Red Cell Distribution Width 13.2 % (11.5-14.5) Platelet Count 376 x10^3/uL (140-400) Neutrophils (%) (Auto) 73 % (31-73) Lymphocytes (%) (Auto) 17 % (24-48) Monocytes (%) (Auto) 10 % (0-9) Eosinophils (%) (Auto) 1 % (0-3) Basophils (%) (Auto) 0 % (0-3) Neutrophils # (Auto) 7.4 x10^3/uL (1.8-7.7) Lymphocytes # (Auto) 1.7 x10^3/uL (1.0-4.8) Monocytes # (Auto) 1.0 x10^3/uL (0.0-1.1) Eosinophils # (Auto) 0.1 x10^3/uL (0.0-0.7) Basophils # (Auto) 0.0 x10^3/uL (0.0-0.2) Segmented Neutrophils % 72 % (35-66) Lymphocytes % 10 % (24-48) Monocytes % 16 % (0-10) Myelocytes % 2 % (0-0) Platelet Estimate Adequate (ADEQUATE) Sodium Level 139 mmol/L (136-145) Potassium Level 4.4 mmol/L (3.5-5.1) Chloride Level 104 mmol/L (98-107) Carbon Dioxide Level 25 mmol/L (21-32) Anion Gap 10 (6-14) Blood Urea Nitrogen 18 mg/dL (7-20) Creatinine 0.6 mg/dL (0.6-1.0) Estimated GFR (Cockcroft-Gault) 101.3 Glucose Level 113 mg/dL (70-99) Calcium Level 7.8 mg/dL (8.5-10.1) Laboratory Tests Test 03/24/20 08:05 03/24/20 08:45 O2 Saturation 98 % (92-99) Arterial Blood pH 7.47 (7.35-7.45) Arterial Blood pCO2 at Patient Temp 32 mmHg (35-46) Arterial Blood pO2 at Patient Temp 146 mmHg (65-108) Arterial Blood HCO3 23 mmol/L (21-28) Arterial Blood Base Excess 0 mmol/L (-3-3) FiO2 40% vent White Blood Count 10.2 x10^3/uL (4.0-11.0) Red Blood Count 2.46 x10^6/uL (3.50-5.40) Hemoglobin 7.6 g/dL (12.0-15.5) Hematocrit 22.1 % (36.0-47.0) Mean Corpuscular Volume 90 fL (79-100) Mean Corpuscular Hemoglobin 31 pg (25-35) Mean Corpuscular Hemoglobin Concent 35 g/dL (31-37) Red Cell Distribution Width 13.2 % (11.5-14.5) Platelet Count 376 x10^3/uL (140-400) Neutrophils (%) (Auto) 73 % (31-73) Lymphocytes (%) (Auto) 17 % (24-48) Monocytes (%) (Auto) 10 % (0-9) Eosinophils (%) (Auto) 1 % (0-3) Basophils (%) (Auto) 0 % (0-3) Neutrophils # (Auto) 7.4 x10^3/uL (1.8-7.7) Lymphocytes # (Auto) 1.7 x10^3/uL (1.0-4.8) Monocytes # (Auto) 1.0 x10^3/uL (0.0-1.1) Eosinophils # (Auto) 0.1 x10^3/uL (0.0-0.7) Basophils # (Auto) 0.0 x10^3/uL (0.0-0.2) Segmented Neutrophils % 72 % (35-66) Lymphocytes % 10 % (24-48) Monocytes % 16 % (0-10) Myelocytes % 2 % (0-0) Platelet Estimate Adequate (ADEQUATE) Sodium Level 139 mmol/L (136-145) Potassium Level 4.4 mmol/L (3.5-5.1) Chloride Level 104 mmol/L (98-107) Carbon Dioxide Level 25 mmol/L (21-32) Anion Gap 10 (6-14) Blood Urea Nitrogen 18 mg/dL (7-20) Creatinine 0.6 mg/dL (0.6-1.0) Estimated GFR (Cockcroft-Gault) 101.3 Glucose Level 113 mg/dL (70-99) Calcium Level 7.8 mg/dL (8.5-10.1) Microbiology 03/21/20 Gram Stain Evaluation - Final, Complete 03/21/20 Respiratory Culture - Final, Complete Medications Current Medications Propofol (Diprivan) 200 mg 1X ONCE IV Last administered on 03/15/20at 11:47; Start 03/15/20 at 11:30; Stop 03/15/20 at 11:31; Status DC Propofol 50 ml @ As Directed STK-MED ONCE IV ; Start 03/15/20 at 11:45; Stop 03/15/20 at 11:45; Status DC Propofol 20 ml @ 0 mls/hr 1X ONCE IV Last administered on 03/15/20at 11:52; Start 03/15/20 at 11:45; Stop 03/15/20 at 11:50; Status DC Potassium Chloride 40 meq/ Dextrose 1,020 ml @ 75 mls/hr [id number] PRN IV 0 Last administered on 03/17/20at 03:08; Start 03/15/20 at 12:00; Stop 03/17/20 at 09:39; Status DC Etomidate (Amidate) 20 mg 1X ONCE IV Last administered on 03/15/20at 12:12; Start 03/15/20 at 11:40; Stop 03/15/20 at 12:00; Status DC Succinylcholine Chloride (Anectine) 100 mg 1X ONCE IV Last administered on 03/15/20at 12:12; Start 03/15/20 at 11:40; Stop 03/15/20 at 12:00; Status DC Bacitracin 52137 unit/Sodium Chloride 1,000 ml @ 1,000 mls/hr 1X ONCE IRR Last administered on 03/15/20at 14:50; Start 03/15/20 at 13:00; Stop 03/15/20 at 14:07; Status DC Cefazolin Sodium/ Dextrose 50 ml @ 100 mls/hr 1X PREOP PRN IV PRIOR TO PROCEDURE Last administered on 03/15/20at 13:25; Start 03/15/20 at 13:00; Stop 03/16/20 at 12:59; Status DC Propofol (Diprivan) 200 mg STK-MED ONCE IV ; Start 03/15/20 at 12:33; Stop 03/15/20 at 12:33; Status DC Phenylephrine HCl (PHENYLEPHRINE in 0.9% NACL PF) 1 mg STK-MED ONCE IV ; Start 03/15/20 at 12:33; Stop 03/15/20 at 12:33; Status DC Rocuronium [place] (Zemuron) 50 mg STK-MED ONCE .ROUTE ; Start 03/15/20 at 12:33; Stop 03/15/20 at 12:33; Status DC Dexamethasone Sodium Phosphate (Decadron) 20 mg STK-MED ONCE .ROUTE ; Start 03/15/20 at 12:36; Stop 03/15/20 at 12:36; Status DC Gelatin (Gelfoam Size 100) 1 each STK-MED ONCE .ROUTE Last administered on 03/15/20 13:49; Start 03/15/20 at 12:42; Stop 03/15/20 at 12:42; Status DC Bupivacaine HCl/ Epinephrine Bitart (Sensorcain-Epi 0.5%-1:087522 Mpf) 30 ml STK-MED ONCE .ROUTE ; Start 03/15/20 at 12:42; Stop 03/15/20 at 12:42; Status DC Mannitol (Mannitol) 12.5 g STK-MED ONCE .ROUTE Last administered on 03/15/20at 14:41; Start 03/15/20 at 12:42; Stop 03/15/20 at 12:42; Status DC Cellulose (Surgicel Hemostat 4x8) 1 each STK-MED ONCE .ROUTE Last administered on 03/15/20 15:08; Start 03/15/20 at 12:42; Stop 03/15/20 at 12:43; Status DC Thrombin 20,000 unit STK-MED ONCE TP Last administered on 03/15/20 13:49; Start 03/15/20 at 12:42; Stop 03/15/20 at 12:43; Status DC Bupivacaine HCl/ Epinephrine Bitart (Sensorcain-Epi 0.5%-1:313241 Mpf) 30 ml STK-MED ONCE .ROUTE Last administered on 03/15/20at 13:48; Start 03/15/20 at 12 :44; Stop 03/15/20 at 12:45; Status DC Bupivacaine HCl/ Epinephrine Bitart (Sensorcain-Epi 0.5%-1:897968 Mpf) 30 ml 1X ONCE INJ ; Start 03/15/20 at 13:00; Stop 03/15/20 at 13:01; Status DC Ondansetron HCl (Zofran) 4 mg PRN Q6HRS PRN IV NAUSEA/VOMITING; Start 03/15/20 at 13:45; Stop 03/15/20 at 16:35; Status DC Fentanyl Citrate (Fentanyl 2ml Vial) 25 mcg PRN Q5MIN PRN IV MILD PAIN 1-3; Start 03/15/20 at 13:45; Stop 03/16/20 at 13:44; Status DC Fentanyl Citrate (Fentanyl 2ml Vial) 50 mcg PRN Q5MIN PRN IV MODERATE TO SEVERE PAIN; Start 03/15/20 at 13:45; Stop 03/16/20 at 13:44; Status DC Morphine Sulfate (Morphine Sulfate) 1 mg PRN Q10MIN PRN IV SEVERE PAIN 7-10; Start 03/15/20 at 13:45; Stop 03/16/20 at 13:44; Status DC Ringer's Solution 1,000 ml @ 30 mls/hr Q24H IV ; Start 03/15/20 at 13:31; Stop 03/16/20 at 01:30; Status DC Hydromorphone HCl (Dilaudid) 0.5 mg PRN Q10MIN PRN IV SEV PAIN, Second choice; Start 03/15/20 at 13:45; Stop 03/16/20 at 13:44; Status DC Prochlorperazine Edisylate (Compazine) 5 mg PACU PRN PRN IV NAUSEA, MRX1; Start 03/15/20 at 13:45; Stop 03/16/20 at 13:44; Status DC Mannitol (Mannitol) 12.5 g STK-MED ONCE .ROUTE Last administered on 03/15/20at 14:41; Start 03/15/20 at 14:28; Stop 03/15/20 at 14:28; Status DC Phenylephrine HCl (Diego-Synephrine Inj) 10 mg STK-MED ONCE .ROUTE ; Start 03/15/20 at 14:43; Stop 03/15/20 at 14:43; Status DC Fentanyl Citrate (Fentanyl 2ml Vial) 100 mcg STK-MED ONCE .ROUTE ; Start 03/15/20 at 15:08; Stop 03/15/20 at 15:09; Status DC Rocuronium [place] (Zemuron) 50 mg STK-MED ONCE .ROUTE ; Start 03/15/20 at 15:34; Stop 03/15/20 at 15:34; Status DC Sevoflurane (Ultane) 90 ml STK-MED ONCE IH ; Start 03/15/20 at 15:44; Stop 03/15/20 at 15:44; Status DC Propofol 50 ml @ As Directed STK-MED ONCE IV ; Start 03/15/20 at 16:02; Stop 03/15/20 at 16:02; Status DC Nicardipine HCl 50 mg/Sodium Chloride 250 ml @ 25 mls/hr TITRATE PRN IV HYPERTENSION Last administered on 03/23/20at 11:15; Start 03/15/20 at 16:30; Stop 03/23/20 at 11:51; Status DC Levetiracetam 500 mg/Sodium Chloride 105 ml @ 400 mls/hr Q12HR IV Last administered on 03/24/20at 08:20; Start 03/15/20 at 21:00 Sodium Chloride (Normal Saline Flush) 3 ml QSHIFT PRN IV AFTER MEDS AND BLOOD DRAWS; Start 03/15/20 at 16:30 Potassium Chloride/Dextrose/ Sod Cl 1,000 ml @ 80 mls/hr [id number] IV ; Start 03/15/20 at 16:19; Stop 03/15/20 at 18:36; Status DC Dextrose (Dextrose 50%-Water Syringe) 12.5 gm PRN Q15MIN PRN IV SEE COMMENTS; Start 03/15/20 at 16:30 Cefazolin Sodium (Ancef) 1 gm Q8HRS IVP Last administered on 03/16/20at 14:52; Start 03/15/20 at 22:00; Stop 03/16/20 at 14:01; Status DC Ondansetron HCl (Zofran) 4 mg PRN Q4HRS PRN IV NAUSEA/VOMITING; Start 03/15/20 at 16:45 Atorvastatin Calcium (Lipitor) 40 mg DAILY PO Last administered on 03/23/20at 08 :02; Start 03/16/20 at 09:00; Stop 03/23/20 at 09:23; Status DC Acetaminophen (Tylenol Supp) 650 mg PRN Q6HRS PRN CA MILD PAIN / TEMP > 100.3'F Last administered on 03/20/20at 18:27; Start 03/15/20 at 16:45 Docusate Sodium (Enemeez) 283 mg PRN DAILY PRN CA CONSTIPATION; Start 03/15/20 at 16:45 Magnesium Sulfate 50 ml @ 25 mls/hr 1X ONCE IV Last administered on 03/15/20at 17:23; Start 03/15/20 at 17:00; Stop 03/15/20 at 18:59; Status DC Propofol 100 ml @ As Directed STK-MED ONCE IV ; Start 03/15/20 at 19:37; Stop 03/15/20 at 19:38; Status DC Propofol 100 ml @ 0.837 mls/ hr CONT PRN IV SEE I/O RECORD Last administered on 03/23/20at 05:44; Start 03/15/20 at 19:45 Iohexol (Omnipaque 300 Mg/ml) 75 ml 1X ONCE IV Last administered on 03/16/20at 07:45; Start 03/16/20 at 07:45; Stop 03/16/20 at 07:50; Status DC Info (CONTRAST GIVEN -- Rx MONITORING) 1 each PRN DAILY PRN MC SEE COMMENTS; Start 03/16/20 at 08:00; Stop 03/18/20 at 07:59; Status DC Potassium Chloride/Dextrose/ Sod Cl 1,000 ml @ 75 mls/hr 1X ONCE IV Last administered on 03/17/20at 10:15; Start 03/17/20 at 09:45; Stop 03/17/20 at 23:04; Status DC Psyllium Hydrophilic Mucilloid (Metamucil Fiber Packet) 1 pkt DAILY PO Last administered on 03/24/20at 08:20; Start 03/17/20 at 11:00 Potassium Chloride/Dextrose/ Sod Cl 1,000 ml @ 75 mls/hr [id number] IV Last administered on 03/24/20at 11:06; Start 03/17/20 at 23:00 Famotidine (Pepcid Vial) 20 mg BID IVP Last administered on 03/24/20at 08:19; Start 03/18/20 at 21:00 Multi-Ingred Cream/Lotion/Oil/ Oint (Artificial Tears Eye Ointment) 1 ayala PRN Q1HR PRN OU DRY EYE Last administered on 03/20/20at 18:23; Start 03/19/20 at 16:15 Fentanyl Citrate (Fentanyl 2ml Vial) 50 mcg PRN Q2HR PRN IVP PAIN Last administered on 03/20/20at 22:12; Start 03/20/20 at 18:00 Fentanyl Citrate 30 ml @ 0 mls/hr CONT PRN IV SEE PROTOCOL Last administered on 03/22/20at 19:15; Start 03/20/20 at 23:15 Dexmedetomidine HCl 400 mcg/ Sodium Chloride 100 ml @ 0 mls/hr CONT PRN IV PER PROTOCOL Last administered on 03/21/20at 00:38; Start 03/20/20 at 23:15 Furosemide (Lasix) 20 mg 1X ONCE IVP Last administered on 03/20/20at 23:20; Start 03/20/20 at 23:15; Stop 03/20/20 at 23:16; Status DC Furosemide (Lasix) 20 mg 1X ONCE IVP Last administered on 03/21/20at 01:20; Start 03/21/20 at 01:00; Stop 03/21/20 at 01:01; Status DC Methylprednisolone Sodium Succinate (SOLU-Medrol 125MG VIAL) 125 mg 1X ONCE IV Last administered on 03/21/20at 01:20; Start 03/21/20 at 01:00; Stop 03/21/20 at 01:01; Status DC Albuterol/ Ipratropium (Duoneb) 3 ml Q4HRS NEB Last administered on 03/24/20at 11:24; Start 03/21/20 at 01:15 Piperacillin Sod/ Tazobactam Sod (Zosyn Per Pharmacy) 1 each PRN DAILY PRN MC SEE COMMENTS; Start 03/21/20 at 12:00; Stop 03/23/20 at 11:10; Status DC Piperacillin Sod/ Tazobactam Sod 4.5 gm/Sodium Chloride 100 ml @ 200 mls/hr Q6HRS IV Last administered on 03/23/20at 05:42; Start 03/21/20 at 12:00; Stop 03/23/20 at 11:11; Status DC Furosemide (Lasix) 40 mg 1X ONCE IVP Last administered on 03/22/20at 12:03; Start 03/22/20 at 11:45; Stop 03/22/20 at 11:46; Status DC Potassium Bicarbonate (Potassium Effervescent Tablet) 40 meq 1X ONCE PEG Last administered on 03/22/20at 14:00; Start 03/22/20 at 14:00; Stop 03/22/20 at 14:01; Status DC Ceftriaxone Sodium (Rocephin) 1 gm Q24H IVP Last administered on 03/24/20at 13:06; Start 03/23/20 at 12:00 Amlodipine Besylate (Norvasc) 5 mg DAILY PO Last administered on 03/24/20at 08:20; Start 03/23/20 at 12:00 Labetalol HCl (Normodyne Iv Push) 20 mg PRN Q4HRS PRN IVP HYPERTENSION Last administered on 03/24/20at 13:06; Start 03/23/20 at 15:15 Acetaminophen (Tylenol) 650 mg PRN Q6HRS PRN PEG MILD PAIN / TEMP > 100.3'F Last administered on 03/23/20at 16:31; Start 03/23/20 at 16:30 Active Scripts Active Reported Oxybutynin Chloride Er (Oxybutynin Chloride) 10 Mg Tab.er.24 1 Tab PO DAILY Elmiron (Pentosan Polysulfate Sodium) 100 Mg Capsule 1 Cap PO TID 30 Days Atorvastatin Calcium 40 Mg Tablet 1 Tab PO DAILY Fluoxetine Hcl 40 Mg Capsule 40 Mg PO DAILY Premarin (Estrogens, Conjugated) 0.625 Mg Tablet 1 Tab PO DAILY Vitals/I & O Vital Sign - Last 24 Hours 03/23/20 03/23/20 03/23/20 03/23/20 15:00 15:26 15:39 16:00 Temp 100.9 100.9 Pulse 83 83 81 Resp 20 20 B/P (MAP) 158/61 (93) 158/61 159/64 (95) Pulse Ox 100 100 100 O2 Delivery Ventilator Ventilator Ventilator 03/23/20 03/23/20 03/23/20 03/23/20 16:00 16:00 17:00 17:41 Pulse 82 Resp 15 B/P (MAP) 135/57 (83) Pulse Ox 99 100 O2 Delivery Mechanical Ventilator Ventilator Ventilator 03/23/20 03/23/20 03/23/20 03/23/20 18:00 19:00 19:39 20:00 Temp 98.9 98.9 Pulse 79 74 74 Resp 20 16 16 B/P (MAP) 142/57 (85) 147/59 (88) 155/62 (93) Pulse Ox 100 99 99 97 O2 Delivery Ventilator Ventilator Ventilator Ventilator 03/23/20 03/23/20 03/23/20 03/23/20 20:00 20:00 21:00 21:05 Pulse 72 Resp 16 B/P (MAP) 168/65 (99) Pulse Ox 97 100 O2 Delivery Mechanical Ventilator Ventilator Ventilator 03/23/20 03/23/20 03/23/20 03/23/20 22:00 23:00 23:11 23:32 Pulse 72 79 76 Resp 16 16 B/P (MAP) 174/69 (104) 176/69 (104) 175/67 Pulse Ox 97 100 100 O2 Delivery Ventilator Ventilator Ventilator 03/23/20 03/24/20 03/24/20 03/24/20 23:59 00:00 00:00 01:00 Temp 99.0 99.0 Pulse 70 77 Resp 16 16 B/P (MAP) 164/64 (97) 158/63 (94) Pulse Ox 100 100 O2 Delivery Mechanical Ventilator Ventilator Ventilator 03/24/20 03/24/20 03/24/20 03/24/20 01:00 02:00 02:48 03:00 Pulse 77 74 Resp 16 16 B/P (MAP) 157/69 (98) 165/65 (98) Pulse Ox 100 100 100 100 O2 Delivery Ventilator Ventilator Ventilator Ventilator 03/24/20 03/24/20 03/24/20 03/24/20 04:00 04:00 04:00 05:00 Temp 99.4 99.4 Pulse 60 77 Resp 16 16 B/P (MAP) 150/47 (81) 158/60 (92) Pulse Ox 97 100 O2 Delivery Mechanical Ventilator Ventilator Ventilator 03/24/20 03/24/20 03/24/20 03/24/20 05:30 06:00 07:31 08:00 Temp 99.9 99.9 Pulse 78 75 Resp 15 16 B/P (MAP) 169/67 (101) 176/68 (104) Pulse Ox 100 100 100 O2 Delivery Ventilator Ventilator Ventilator Mechanical Ventilator 03/24/20 03/24/20 03/24/20 03/24/20 08:02 08:10 08:13 08:20 Pulse 93 93 Resp 16 B/P (MAP) 167/65 (99) 167/65 Pulse Ox 100 100 O2 Delivery Ventilator Ventilator 03/24/20 03/24/20 03/24/20 03/24/20 09:53 09:58 11:07 11:20 Pulse 75 73 78 Resp 16 16 16 B/P (MAP) 173/66 (101) 169/65 (99) 170/63 (98) Pulse Ox 100 100 100 100 O2 Delivery Ventilator Ventilator Ventilator Ventilator 03/24/20 03/24/20 03/24/20 03/24/20 12:00 12:29 12:30 12:33 Temp 99.7 99.7 Pulse 78 Resp 16 B/P (MAP) 179/68 (105) Pulse Ox 100 O2 Delivery Ventilator Mechanical Ventilator 03/24/20 03/24/20 13:06 13:08 Pulse 80 78 Resp 16 B/P (MAP) 184/71 168/65 (99) Pulse Ox 100 O2 Delivery Ventilator Intake and Output 03/23/20 03/23/20 03/24/20 15:00 23:00 07:00 Intake Total 535 ml 2558.1 ml 894 ml Output Total 860 ml 610 ml 750 ml Balance -325 ml 1948.1 ml 144 ml JOLENE BUTLER [employer] Mar 24, 2020 14:09
--- NOTE | 2020-03-24 15:59 | NUR ---
SS following up with discharge planning. SS reviewed pt chart and discussed with RN. Pt's family most likely to withdraw care on 03/25/2020. Sunday is pt's 46 anniversary. Pt is currently on the vent and IV Rocephin. SS will continue to follow for discharge planning.
--- NOTE | 2020-03-24 18:29 | NUR ---
Patient's sister had many questions while visiting today. She inquired if an EEG is going to be administered to patient. She also inquired the possibility of a video conference call with Dr. Beckman with the whole family to answer questions before switching to comfort care. I will pass on her requests to the night RN and ask her to report to 6/[address] Beckman.
[2020-03-25] VITALS (24 sets, daily range): BP systolic 160–190; BP diastolic 62–78
[2020-03-25] MEDS: POTASSIUM CL 20MEQ D5-0.45NACL 1,000 ML IV SCH ×2 (01:06→16:34)
[2020-03-25] MEDS: IPRATRPIUM/ALBUTEROL 0.5/2.5MG 3 ML NEBU. NEB SCH ×6 (04:00→19:59)
[2020-03-25] MEDS: LABETALOL 20 MG/4 ML DISP.SYRIN. IVP PRN ×3 (05:52→21:40)
[2020-03-25 07:40] LABS: BASE EXCESS ABG 3 mmol/L (-3-3); HCO3 ABG 27 mmol/L (21-28); PCO2 ABG 37 mmHg (35-46); PO2 ABG 142 mmHg (65-108); SAT O2 ABG 98 % (92-99)
[2020-03-25] MEDS: PSYLLIUM HUSK (SUGAR FREE) 1 PKT PACKET PO SCH (09:00)
[2020-03-25 09:13] LABS: FIO2 ABG 40
[2020-03-25] MEDS: amLODIPine BESYLATE 5 MG TABLET PO SCH (09:39)
[2020-03-25] MEDS: FAMOTIDINE 20 MG/2 ML VIAL IVP SCH ×2 (09:39→21:39)
--- NOTE | 2020-03-25 09:50 | PDOC ---
PROGRESS NOTES Assessment Problems Medical Problems: (1) Cerebral parenchymal hemorrhage Status: Acute (2) HTN (hypertension) Status: Acute Large left intraparenchymal hemorrhage status-post evacuation CTA negative for aneurysm or AVM EVD out, no hydrocephalus on followup CT Plan Do not resuscitate. Family considering comfort care, note patient's wedding anniversary is tomorrow Levetiracetam Subjective None Objective Vital Signs Date Time Temp Pulse Resp B/P (MAP) Pulse Ox O2 Delivery O2 Flow Rate FiO2 03/25/20 09:39 73 183/71 03/25/20 09:00 18 100 Ventilator 03/25/20 07:00 98.9 98.9 Intake and Output 03/25/20 07:00 Intake Total 2155 ml Output Total 4925 ml Balance -2770 ml Tube Feeding 1780 ml Other 375 ml Output Urine Total 4925 ml PHYSICAL EXAM Off sedation PERRL. No spontaneous extraocular movements Blinks eyes nonpurposefully, no response to visual threat CN: no focal findings. Muscle tone: normal. Muscle strength: no withdrawal to pain DTR: 2+ Plantar reflex: extensor bilaterally Gait: not examined Sensory exam: not cooperative. Cerebellar: not cooperative Review of Relevant I have reviewed the following items wang (where applicable) has been applied. Labs Laboratory Tests Test 03/23/20 09:50 03/24/20 08:05 03/24/20 08:45 03/25/20 07:30 Prothrombin Time 13.3 SEC (11.7-14.0) Prothromb Time International Ratio 1.1 (0.8-1.1) O2 Saturation 98 % (92-99) 98 % (92-99) Arterial Blood pH 7.47 (7.35-7.45) 7.47 (7.35-7.45) Arterial Blood pCO2 at Patient Temp 32 mmHg (35-46) 37 mmHg (35-46) Arterial Blood pO2 at Patient Temp 146 mmHg (65-108) 142 mmHg (65-108) Arterial Blood HCO3 23 mmol/L (21-28) 27 mmol/L (21-28) Arterial Blood Base Excess 0 mmol/L (-3-3) 3 mmol/L (-3-3) FiO2 40% vent 40 White Blood Count 10.2 x10^3/uL (4.0-11.0) Red Blood Count 2.46 x10^6/uL (3.50-5.40) Hemoglobin 7.6 g/dL (12.0-15.5) Hematocrit 22.1 % (36.0-47.0) Mean Corpuscular Volume 90 fL (79-100) Mean Corpuscular Hemoglobin 31 pg (25-35) Mean Corpuscular Hemoglobin Concent 35 g/dL (31-37) Red Cell Distribution Width 13.2 % (11.5-14.5) Platelet Count 376 x10^3/uL (140-400) Neutrophils (%) (Auto) 73 % (31-73) Lymphocytes (%) (Auto) 17 % (24-48) Monocytes (%) (Auto) 10 % (0-9) Eosinophils (%) (Auto) 1 % (0-3) Basophils (%) (Auto) 0 % (0-3) Neutrophils # (Auto) 7.4 x10^3/uL (1.8-7.7) Lymphocytes # (Auto) 1.7 x10^3/uL (1.0-4.8) Monocytes # (Auto) 1.0 x10^3/uL (0.0-1.1) Eosinophils # (Auto) 0.1 x10^3/uL (0.0-0.7) Basophils # (Auto) 0.0 x10^3/uL (0.0-0.2) Segmented Neutrophils % 72 % (35-66) Lymphocytes % 10 % (24-48) Monocytes % 16 % (0-10) Myelocytes % 2 % (0-0) Platelet Estimate Adequate (ADEQUATE) Sodium Level 139 mmol/L (136-145) Potassium Level 4.4 mmol/L (3.5-5.1) Chloride Level 104 mmol/L (98-107) Carbon Dioxide Level 25 mmol/L (21-32) Anion Gap 10 (6-14) Blood Urea Nitrogen 18 mg/dL (7-20) Creatinine 0.6 mg/dL (0.6-1.0) Estimated GFR (Cockcroft-Gault) 101.3 Glucose Level 113 mg/dL (70-99) Calcium Level 7.8 mg/dL (8.5-10.1) Laboratory Tests Test 03/25/20 07:30 O2 Saturation 98 % (92-99) Arterial Blood pH 7.47 (7.35-7.45) Arterial Blood pCO2 at Patient Temp 37 mmHg (35-46) Arterial Blood pO2 at Patient Temp 142 mmHg (65-108) Arterial Blood HCO3 27 mmol/L (21-28) Arterial Blood Base Excess 3 mmol/L (-3-3) FiO2 40 Microbiology 03/21/20 Gram Stain Evaluation - Final, Complete 03/21/20 Respiratory Culture - Final, Complete Medications Current Medications Propofol (Diprivan) 200 mg 1X ONCE IV Last administered on 03/15/20at 11:47; Start 03/15/20 at 11:30; Stop 03/15/20 at 11:31; Status DC Propofol 50 ml @ As Directed STK-MED ONCE IV ; Start 03/15/20 at 11:45; Stop 03/15/20 at 11:45; Status DC Propofol 20 ml @ 0 mls/hr 1X ONCE IV Last administered on 03/15/20at 11:52; Start 03/15/20 at 11:45; Stop 03/15/20 at 11:50; Status DC Potassium Chloride 40 meq/ Dextrose 1,020 ml @ 75 mls/hr [id number] PRN IV 0 Last administered on 03/17/20at 03:08; Start 03/15/20 at 12:00; Stop 03/17/20 at 09:39; Status DC Etomidate (Amidate) 20 mg 1X ONCE IV Last administered on 03/15/20at 12:12; Start 03/15/20 at 11:40; Stop 03/15/20 at 12:00; Status DC Succinylcholine Chloride (Anectine) 100 mg 1X ONCE IV Last administered on 03/15/20at 12:12; Start 03/15/20 at 11:40; Stop 03/15/20 at 12:00; Status DC Bacitracin 25650 unit/Sodium Chloride 1,000 ml @ 1,000 mls/hr 1X ONCE IRR Last administered on 03/15/20at 14:50; Start 03/15/20 at 13:00; Stop 03/15/20 at 14:07; Status DC Cefazolin Sodium/ Dextrose 50 ml @ 100 mls/hr 1X PREOP PRN IV PRIOR TO PROCEDURE Last administered on 03/15/20at 13:25; Start 03/15/20 at 13:00; Stop 03/16/20 at 12:59; Status DC Propofol (Diprivan) 200 mg STK-MED ONCE IV ; Start 03/15/20 at 12:33; Stop 03/15/20 at 12:33; Status DC Phenylephrine HCl (PHENYLEPHRINE in 0.9% NACL PF) 1 mg STK-MED ONCE IV ; Start 03/15/20 at 12:33; Stop 03/15/20 at 12:33; Status DC Rocuronium [place] (Zemuron) 50 mg STK-MED ONCE .ROUTE ; Start 03/15/20 at 12:33; Stop 03/15/20 at 12:33; Status DC Dexamethasone Sodium Phosphate (Decadron) 20 mg STK-MED ONCE .ROUTE ; Start 03/15/20 at 12:36; Stop 03/15/20 at 12:36; Status DC Gelatin (Gelfoam Size 100) 1 each STK-MED ONCE .ROUTE Last administered on 03/15/20 13:49; Start 03/15/20 at 12:42; Stop 03/15/20 at 12:42; Status DC Bupivacaine HCl/ Epinephrine Bitart (Sensorcain-Epi 0.5%-1:234301 Mpf) 30 ml STK-MED ONCE .ROUTE ; Start 03/15/20 at 12:42; Stop 03/15/20 at 12:42; Status DC Mannitol (Mannitol) 12.5 g STK-MED ONCE .ROUTE Last administered on 03/15/20at 14:41; Start 03/15/20 at 12:42; Stop 03/15/20 at 12:42; Status DC Cellulose (Surgicel Hemostat 4x8) 1 each STK-MED ONCE .ROUTE Last administered on 03/15/20 15:08; Start 03/15/20 at 12:42; Stop 03/15/20 at 12:43; Status DC Thrombin 20,000 unit STK-MED ONCE TP Last administered on 03/15/20at 13:49; Start 03/15/20 at 12:42; Stop 03/15/20 at 12:43; Status DC Bupivacaine HCl/ Epinephrine Bitart (Sensorcain-Epi 0.5%-1:957515 Mpf) 30 ml STK-MED ONCE .ROUTE Last administered on 03/15/20at 13:48; Start 03/15/20 at 12:44; Stop 03/15/20 at 12:45; Status DC Bupivacaine HCl/ Epinephrine Bitart (Sensorcain-Epi 0.5%-1:628477 Mpf) 30 ml 1X ONCE INJ ; Start 03/15/20 at 13:00; Stop 03/15/20 at 13:01; Status DC Ondansetron HCl (Zofran) 4 mg PRN Q6HRS PRN IV NAUSEA/VOMITING; Start 03/15/20 at 13:45; Stop 03/15/20 at 16:35; Status DC Fentanyl Citrate (Fentanyl 2ml Vial) 25 mcg PRN Q5MIN PRN IV MILD PAIN 1-3; Start 03/15/20 at 13:45; Stop 03/16/20 at 13:44; Status DC Fentanyl Citrate (Fentanyl 2ml Vial) 50 mcg PRN Q5MIN PRN IV MODERATE TO SEVERE PAIN; Start 03/15/20 at 13:45; Stop 03/16/20 at 13:44; Status DC Morphine Sulfate (Morphine Sulfate) 1 mg PRN Q10MIN PRN IV SEVERE PAIN 7-10; S tart 03/15/20 at 13:45; Stop 03/16/20 at 13:44; Status DC Ringer's Solution 1,000 ml @ 30 mls/hr Q24H IV ; Start 03/15/20 at 13:31; Stop 03/16/20 at 01:30; Status DC Hydromorphone HCl (Dilaudid) 0.5 mg PRN Q10MIN PRN IV SEV PAIN, Second choice; Start 03/15/20 at 13:45; Stop 03/16/20 at 13:44; Status DC Prochlorperazine Edisylate (Compazine) 5 mg PACU PRN PRN IV NAUSEA, MRX1; Start 03/15/20 at 13:45; Stop 03/16/20 at 13:44; Status DC Mannitol (Mannitol) 12.5 g STK-MED ONCE .ROUTE Last administered on 03/15/20at 14:41; Start 03/15/20 at 14:28; Stop 03/15/20 at 14:28; Status DC Phenylephrine HCl (Diego-Synephrine Inj) 10 mg STK-MED ONCE .ROUTE ; Start 03/15/20 at 14:43; Stop 03/15/20 at 14:43; Status DC Fentanyl Citrate (Fentanyl 2ml Vial) 100 mcg STK-MED ONCE .ROUTE ; Start 03/15/20 at 15:08; Stop 03/15/20 at 15:09; Status DC Rocuronium [place] (Zemuron) 50 mg STK-MED ONCE .ROUTE ; Start 03/15/20 at 15:34; Stop 03/15/20 at 15:34; Status DC Sevoflurane (Ultane) 90 ml STK-MED ONCE IH ; Start 03/15/20 at 15:44; Stop 03/15/20 at 15:44; Status DC Propofol 50 ml @ As Directed STK-MED ONCE IV ; Start 03/15/20 at 16:02; Stop 03/15/20 at 16:02; Status DC Nicardipine HCl 50 mg/Sodium Chloride 250 ml @ 25 mls/hr TITRATE PRN IV HYPERTENSION Last administered on 03/23/20at 11:15; Start 03/15/20 at 16:30; Stop 03/23/20 at 11:51; Status DC Levetiracetam 500 mg/Sodium Chloride 105 ml @ 400 mls/hr Q12HR IV Last administered on 03/25/20at 09:39; Start 03/15/20 at 21:00 Sodium Chloride (Normal Saline Flush) 3 ml QSHIFT PRN IV AFTER MEDS AND BLOOD DRAWS; Start 03/15/20 at 16:30 Potassium Chloride/Dextrose/ Sod Cl 1,000 ml @ 80 mls/hr [id number] IV ; Start 03/15/20 at 16:19; Stop 03/15/20 at 18:36; Status DC Dextrose (Dextrose 50%-Water Syringe) 12.5 gm PRN Q15MIN PRN IV SEE COMMENTS; Start 03/15/20 at 16:30 Cefazolin Sodium (Ancef) 1 gm Q8HRS IVP Last administered on 03/16/20at 14:52; Start 03/15/20 at 22:00; Stop 03/16/20 at 14:01; Status DC Ondansetron HCl (Zofran) 4 mg PRN Q4HRS PRN IV NAUSEA/VOMITING; Start 03/15/20 at 16:45 Atorvastatin Calcium (Lipitor) 40 mg DAILY PO Last administered on 03/23/20at 08:02; Start 03/16/20 at 09:00; Stop 03/23/20 at 09:23; Status DC Acetaminophen (Tylenol Supp) 650 mg PRN Q6HRS PRN OK MILD PAIN / TEMP > 100.3'F Last administered on 03/20/20at 18:27; Start 03/15/20 at 16:45 Docusate Sodium (Enemeez) 283 mg PRN DAILY PRN OK CONSTIPATION; Start 03/15/20 at 16:45 Magnesium Sulfate 50 ml @ 25 mls/hr 1X ONCE IV Last administered on 03/15/20at 17:23; Start 03/15/20 at 17:00; Stop 03/15/20 at 18:59; Status DC Propofol 100 ml @ As Directed STK-MED ONCE IV ; Start 03/15/20 at 19:37; Stop 03/15/20 at 19:38; Status DC Propofol 100 ml @ 0.837 mls/ hr CONT PRN IV SEE I/O RECORD Last administered on 03/23/20at 05:44; Start 03/15/20 at 19:45 Iohexol (Omnipaque 300 Mg/ml) 75 ml 1X ONCE IV Last administered on 03/16/20at 07:45; Start 03/16/20 at 07:45; Stop 03/16/20 at 07:50; Status DC Info (CONTRAST GIVEN -- Rx MONITORING) 1 each PRN DAILY PRN MC SEE COMMENTS; Start 03/16/20 at 08:00; Stop 03/18/20 at 07:59; Status DC Potassium Chloride/Dextrose/ Sod Cl 1,000 ml @ 75 mls/hr 1X ONCE IV Last administered on 03/17/20at 10:15; Start 03/17/20 at 09:45; Stop 03/17/20 at 23:04; Status DC Psyllium Hydrophilic Mucilloid (Metamucil Fiber Packet) 1 pkt DAILY PO Last administered on 03/24/20at 08:20; Start 03/17/20 at 11:00 Potassium Chloride/Dextrose/ Sod Cl 1,000 ml @ 75 mls/hr [id number] IV Last administered on 03/25/20at 01:06; Start 03/17/20 at 23:00 Famotidine (Pepcid Vial) 20 mg BID IVP Last administered on 03/25/20at 09:39; Start 03/18/20 at 21:00 Multi-Ingred Cream/Lotion/Oil/ Oint (Artificial Tears Eye Ointment) 1 ayala PRN Q1HR PRN OU DRY EYE Last administered on 03/20/20at 18:23; Start 03/19/20 at 16:15 Fentanyl Citrate (Fentanyl 2ml Vial) 50 mcg PRN Q2HR PRN IVP PAIN Last administered on 03/20/20at 22:12; Start 03/20/20 at 18:00 Fentanyl Citrate 30 ml @ 0 mls/hr CONT PRN IV SEE PROTOCOL Last administered on 03/22/20at 19:15; Start 03/20/20 at 23:15 Dexmedetomidine HCl 400 mcg/ Sodium Chloride 100 ml @ 0 mls/hr CONT PRN IV PER PROTOCOL Last administered on 03/21/20at 00:38; Start 03/20/20 at 23:15 Furosemide (Lasix) 20 mg 1X ONCE IVP Last administered on 03/20/20at 23:20; Start 03/20/20 at 23:15; Stop 03/20/20 at 23:16; Status DC Furosemide (Lasix) 20 mg 1X ONCE IVP Last administered on 03/21/20at 01:20; Start 03/21/20 at 01:00; Stop 03/21/20 at 01:01; Status DC Methylprednisolone Sodium Succinate (SOLU-Medrol 125MG VIAL) 125 mg 1X ONCE IV Last administered on 03/21/20at 01:20; Start 03/21/20 at 01:00; Stop 03/21/20 at 01:01; Status DC Albuterol/ Ipratropium (Duoneb) 3 ml Q4HRS NEB Last administered on 03/25/20at 07:30; Start 03/21/20 at 01:15 Piperacillin Sod/ Tazobactam Sod (Zosyn Per Pharmacy) 1 each PRN DAILY PRN MC SEE COMMENTS; Start 03/21/20 at 12:00; Stop 03/23/20 at 11:10; Status DC Piperacillin Sod/ Tazobactam Sod 4.5 gm/Sodium Chloride 100 ml @ 200 mls/hr Q6HRS IV Last administered on 03/23/20at 05:42; Start 03/21/20 at 12:00; Stop 03/23/20 at 11:11; Status DC Furosemide (Lasix) 40 mg 1X ONCE IVP Last administered on 03/22/20at 12:03; Start 03/22/20 at 11:45; Stop 03/22/20 at 11:46; Status DC Potassium Bicarbonate (Potassium Effervescent Tablet) 40 meq 1X ONCE PEG Last administered on 03/22/20at 14:00; Start 03/22/20 at 14:00; Stop 03/22/20 at 14:01; Status DC Ceftriaxone Sodium (Rocephin) 1 gm Q24H IVP Last administered on 03/24/20at 13:06; Start 03/23/20 at 12:00 Amlodipine Besylate (Norvasc) 5 mg DAILY PO Last administered on 03/25/20at 09:39; Start 03/23/20 at 12:00 Labetalol HCl (Normodyne Iv Push) 20 mg PRN Q4HRS PRN IVP HYPERTENSION Last administered on 03/25/20at 05:52; Start 03/23/20 at 15:15 Acetaminophen (Tylenol) 650 mg PRN Q6HRS PRN PEG MILD PAIN / TEMP > 100.3'F Last administered on 03/23/20at 16:31; Start 03/23/20 at 16:30 Active Scripts Active Reported Oxybutynin Chloride Er (Oxybutynin Chloride) 10 Mg Tab.er.24 1 Tab PO DAILY Elmiron (Pentosan Polysulfate Sodium) 100 Mg Capsule 1 Cap PO TID 30 Days Atorvastatin Calcium 40 Mg Tablet 1 Tab PO DAILY Fluoxetine Hcl 40 Mg Capsule 40 Mg PO DAILY Premarin (Estrogens, Conjugated) 0.625 Mg Tablet 1 Tab PO DAILY Vitals/I & O Vital Sign - Last 24 Hours 03/24/20 03/24/20 03/24/20 03/24/20 09:53 09:58 11:07 11:20 Pulse 75 73 78 Resp 16 16 16 B/P (MAP) 173/66 (101) 169/65 (99) 170/63 (98) Pulse Ox 100 100 100 100 O2 Delivery Ventilator Ventilator Ventilator Ventilator 03/24/20 03/24/20 03/24/20 03/24/20 12:00 12:29 12:30 12:33 Temp 99.7 99.7 Pulse 78 Resp 16 B/P (MAP) 179/68 (105) Pulse Ox 100 O2 Delivery Ventilator Mechanical Ventilator 03/24/20 03/24/20 03/24/20 03/24/20 13:06 13:08 14:00 15:00 Pulse 80 78 76 78 Resp 16 16 16 B/P (MAP) 184/71 168/65 (99) 172/64 (100) 164/62 (96) Pulse Ox 100 100 100 O2 Delivery Ventilator Ventilator Ventilator 03/24/20 03/24/20 03/24/20 03/24/20 16:00 16:00 16:01 16:39 Pulse 74 Resp 16 B/P (MAP) 172/64 (100) Pulse Ox 100 100 O2 Delivery Ventilator Ventilator Mechanical Ventilator 03/24/20 03/24/20 03/24/20 03/24/20 17:39 18:08 18:43 19:00 Pulse 77 77 77 72 Resp 16 16 16 B/P (MAP) 179/65 (103) 177/65 (102) 177/65 170/64 (99) Pulse Ox 100 100 100 O2 Delivery Ventilator Ventilator Ventilator 03/24/20 03/24/20 03/24/20 03/24/20 20:00 20:00 20:00 20:07 Temp 99.6 99.6 Pulse 74 Resp 16 B/P (MAP) 168/60 (96) 168/60 (96) Pulse Ox 100 100 O2 Delivery Mechanical Ventilator Ventilator Ventilator 03/24/20 03/24/20 03/24/20 03/24/20 21:00 22:00 23:00 23:59 Pulse 76 75 74 Resp 18 18 18 B/P (MAP) 171/62 (98) 173/63 (99) 160/62 (94) Pulse Ox 100 100 100 O2 Delivery Ventilator Ventilator Ventilator Mechanical Ventilator 03/25/20 03/25/20 03/25/20 03/25/20 00:01 00:01 00:10 01:00 Temp 97.1 97.1 Pulse 76 74 Resp 18 18 B/P (MAP) 169/62 (97) 169/62 (97) 160/62 (94) Pulse Ox 100 100 100 O2 Delivery Ventilator Ventilator Ventilator 03/25/20 03/25/20 03/25/20 03/25/20 02:00 03:00 04:00 04:00 Temp 99.0 99.0 Pulse 72 73 72 Resp 17 17 18 B/P (MAP) 160/62 (94) 160/62 (94) 178/62 (100) 169/62 (97) Pulse Ox 100 100 100 O2 Delivery Ventilator Ventilator Ventilator 03/25/20 03/25/20 03/25/20 03/25/20 04:00 04:04 05:00 05:37 Pulse 79 Resp 17 B/P (MAP) 188/78 (114) Pulse Ox 100 100 100 O2 Delivery Mechanical Ventilator Ventilator Ventilator Ventilator 03/25/20 03/25/20 03/25/20 03/25/20 05:52 06:00 07:00 07:30 Temp 98.9 98.9 Pulse 79 73 74 Resp 18 18 B/P (MAP) 188/78 175/70 (105) 180/70 (106) Pulse Ox 100 100 100 O2 Delivery Ventilator Ventilator Ventilator 03/25/20 03/25/20 03/25/20 03/25/20 08:00 08:00 08:00 09:00 Pulse 70 73 Resp 18 18 B/P (MAP) 185/71 (109) 186/74 (111) 183/71 (108) Pulse Ox 100 100 O2 Delivery Ventilator Mechanical Ventilator Ventilator 03/25/20 09:39 Pulse 73 B/P (MAP) 183/71 Intake and Output 03/24/20 03/24/20 03/25/20 15:00 23:00 07:00 Intake Total 420 ml 1047 ml 688 ml Output Total 1800 ml 1725 ml 1400 ml Balance -1380 ml -678 ml -712 ml Justicifation of Admission Dx: Justifications for Admission: Justification of Admission Dx: Yes Acute Hemorrhagic Stroke: Acute Hemorrhagic Stroke SON PHAM MD Mar 25, 2020 09:50
--- NOTE | 2020-03-25 09:55 | PDOC ---
PULMONARY PROGRESS NOTES Subjective remains intubated not on sedation does not follow commands, A/C vent at 40 % Nursing reports family is considering Comfort care Vitals Vital Signs Date Time Temp Pulse Resp B/P (MAP) Pulse Ox O2 Delivery O2 Flow Rate FiO2 03/25/20 09:39 73 183/71 03/25/20 09:00 18 100 Ventilator 03/25/20 07:00 98.9 98.9 Comments ros unable to obtain , not responsive HEENT: Other (nc at perrl nose clear orally intubated neck no lad no thyromegaly) Lungs: Other (rhonchi) Cardiovascular: S1, S2 Abdomen: Soft, Non-tender, Other (no mass) Extremities: No Edema Skin: Warm Labs Laboratory Tests Test 03/24/20 08:05 03/24/20 08:45 03/25/20 07:30 O2 Saturation 98 % (92-99) 98 % (92-99) Arterial Blood pH 7.47 (7.35-7.45) 7.47 (7.35-7.45) Arterial Blood pCO2 at Patient Temp 32 mmHg (35-46) 37 mmHg (35-46) Arterial Blood pO2 at Patient Temp 146 mmHg (65-108) 142 mmHg (65-108) Arterial Blood HCO3 23 mmol/L (21-28) 27 mmol/L (21-28) Arterial Blood Base Excess 0 mmol/L (-3-3) 3 mmol/L (-3-3) FiO2 40% vent 40 White Blood Count 10.2 x10^3/uL (4.0-11.0) Red Blood Count 2.46 x10^6/uL (3.50-5.40) Hemoglobin 7.6 g/dL (12.0-15.5) Hematocrit 22.1 % (36.0-47.0) Mean Corpuscular Volume 90 fL (79-100) Mean Corpuscular Hemoglobin 31 pg (25-35) Mean Corpuscular Hemoglobin Concent 35 g/dL (31-37) Red Cell Distribution Width 13.2 % (11.5-14.5) Platelet Count 376 x10^3/uL (140-400) Neutrophils (%) (Auto) 73 % (31-73) Lymphocytes (%) (Auto) 17 % (24-48) Monocytes (%) (Auto) 10 % (0-9) Eosinophils (%) (Auto) 1 % (0-3) Basophils (%) (Auto) 0 % (0-3) Neutrophils # (Auto) 7.4 x10^3/uL (1.8-7.7) Lymphocytes # (Auto) 1.7 x10^3/uL (1.0-4.8) Monocytes # (Auto) 1.0 x10^3/uL (0.0-1.1) Eosinophils # (Auto) 0.1 x10^3/uL (0.0-0.7) Basophils # (Auto) 0.0 x10^3/uL (0.0-0.2) Segmented Neutrophils % 72 % (35-66) Lymphocytes % 10 % (24-48) Monocytes % 16 % (0-10) Myelocytes % 2 % (0-0) Platelet Estimate Adequate (ADEQUATE) Sodium Level 139 mmol/L (136-145) Potassium Level 4.4 mmol/L (3.5-5.1) Chloride Level 104 mmol/L (98-107) Carbon Dioxide Level 25 mmol/L (21-32) Anion Gap 10 (6-14) Blood Urea Nitrogen 18 mg/dL (7-20) Creatinine 0.6 mg/dL (0.6-1.0) Estimated GFR (Cockcroft-Gault) 101.3 Glucose Level 113 mg/dL (70-99) Calcium Level 7.8 mg/dL (8.5-10.1) Laboratory Tests Test 03/25/20 07:30 O2 Saturation 98 % (92-99) Arterial Blood pH 7.47 (7.35-7.45) Arterial Blood pCO2 at Patient Temp 37 mmHg (35-46) Arterial Blood pO2 at Patient Temp 142 mmHg (65-108) Arterial Blood HCO3 27 mmol/L (21-28) Arterial Blood Base Excess 3 mmol/L (-3-3) FiO2 40 Medications Active Scripts Medications Dose Route/Sig Max Daily Dose Days Date Category Oxybutynin Chloride Er (Oxybutynin Chloride) 10 Mg Tab.er.24 1 Tab PO DAILY 03/15/20 Reported Elmiron (Pentosan Polysulfate Sodium) 100 Mg Capsule 1 Cap PO TID 30 03/15/20 Reported Atorvastatin Calcium 40 Mg Tablet 1 Tab PO DAILY 03/15/20 Reported Fluoxetine Hcl 40 Mg Capsule 40 Mg PO DAILY 03/15/20 Reported Premarin (Estrogens, Conjugated) 0.625 Mg Tablet 1 Tab PO DAILY 03/15/20 Reported Impression . IMPRESSION: 1. Acute respiratory failure multifactorial in etiology 2. large cerebral hematoma requiring emergent evacuation.ct with Large left intraparenchymal hemorrhage status-post evacuation CTA negative for aneurysm or AVM 2. Encephalopathy secondary to large left intraparenchymal hematoma. 3. leukocytosis 4. HTN, off cardene 5. abnl cxr, suspect acute pulm edema/acute diastolic chf, ? pneumonia, has low grade fever, cxr better w lasix repeat cxr 03/23, resolved infiltrates 6. Increase LFT. NO recent h/o hypotension.? drug induced. -----cont. rocephin. Plan . Continue with present assist control mode. ABG reviewed, fio2 40%, and PEEP to 5, not ready for weaning as she is unresponsive Follow Neurosurgery recommendations Optimization of blood pressure per Neurosurgery Follow GI recommendations Cont. enteral nutrition. Cont. 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
--- NOTE | 2020-03-25 11:02 | PDOC ---
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 Keppra Acute encephalopathy - due to intracranial hemorrhage Syncope and collapse - 2/2 intraparenchymal bleed Left front intracranial hemorrhage Hyperlipidemia Respiratory failure - likely 2/2 intracranial bleed Leukocytosis - likely 2/2 bleed. Hypokalemia and hypomagnesemia Hyponatremia History of Present Illness History of Present Illness 03/25/2020 Patient seen and examined in the ICU She is on the vent Assist-control/02/02 50/40% with 5 of PEEP Has Batista to bedside drainage Chart reviewed She remains critically ill 03/24/2020 Patient seen and examined in the ICU she remains intubated and mechanically ventilated AC 100/40% with 5 of PEEP Has OG feeds Chart reviewed Discussed with RN She remains critically ill 03/23/2020 Patient seen and examined in the ICU She is mechanically ventilated Assist-control/06/03 100/40% Chart reviewed discussed with RN Discussed with pharmacy regarding elevated liver function test (we think it might be her statin or even perhaps the Cardene drip) We currently have her fentanyl off and she is starting to wake up a little bit Getting OG feeds Getting IV Keppra Not moving her right side but the left leg moves a little She is becoming quite edematous 03/22/2020 Patient seen and examined She is mechanically ventilated Assist-control/500/20 4/40% with 7 of PEEP On IV nicardipine On IV Keppra Sedated with propofol She has an NG to suction Chart reviewed Discussed with 03/21/2020 Patient seen and examined in the ICU again She apparently decompensated overnight and had to be placed on several sedatives and had to increase her PEEP Chart reviewed Discussed with RN She remains critically ill Mechanically ventilated AC/14/03 100/60% 03/20/2020 Patient seen and examined in the ICU She is still mechanically ventilated Assist-control/04/02 50/30% Dr. Patel just arrived he is removing the intracranial pressure monitor tube right now She remains critically ill Chart reviewed Discussed with RN We hope to change her sedation regimen as she gets agitated and then her blood pressure climbs If we can get her pressures under control then we can extubate hopefully? 03/19/2020 Patient seen and examined in the ICU She remains mechanically ventilated Assist-control/04/02 50/30% with 5 of PEEP She still has an intracranial pressure monitor current pressure is 10 On nicardipine drip She has SCDs She has a Batista to bedside drainage Has an art line Chart reviewed Discussed with RN She is still critically ill 03/18/2020 Patient seen and examined in the ICU She is on the vent Assist-control/04/02 100/30% Sedated with propofol Intracranial pressure monitor still in with an ICP of 13 Discussed with RN Chart reviewed Ms Mathew is a 64 yo F w/ PMHx HLD who was brought here by EMS from local [facility] due to altered mental status around 1030 on 03/15/2020. noted that they were out shopping when she became unresponsive and fell to the ground, though he was able to catch her and guide her down on the floor. Patient did not hit her head. stated that patient has been having a headache for the last 2-3 days. He is sure that she is not on any blood thinner. Patient's stated that she is on multiple medications but he is not sure what they are.. EMS stated that she was able to protect her airway but her GCS was about [address] head revealed a left frontal lobe 5.5 x 6.0 x 3.0 cm large parenchymal hematoma and surrounding edema involving both the superior and middle frontal cortical gyri as well as extensive involvement of the white matter, with mass effect and 10 mm midline shift. Neurosurgery was urgently contacted. She underwent RSI with ED with etomidate and succinylcholine with 7.5 ET tube and went urgently to OR for craniotomy and hematoma evacuation which was large and invaded the ventricular and she is transferred to ICU for closer monitoring. I was able to evaluated patient prior to intubation and after surgery. 03/16: Patient seen and examined in the ICU, She is mechanically ventilated, Assist-control/450/16/30 percent, Has an OG to suction, Her pupils are reactive 03/17: Seen in ICU, sedated, intubated, on ICP monitoring and cardene GTT. Na 130. Hb 9.1. Moving left arm, posturing on pain response on right. Vitals/I&O Vitals/I&O: Vital Signs Date Time Temp Pulse Resp B/P (MAP) Pulse Ox O2 Delivery O2 Flow Rate FiO2 03/25/20 10:00 73 18 179/72 (107) 100 Ventilator 03/25/20 07:00 98.9 98.9 I & O 03/24/20 03/24/20 03/25/20 15:00 23:00 07:00 Intake Total 420 ml 1047 ml 688 ml Output Total 1800 ml 1725 ml 1400 ml Balance -1380 ml -678 ml -712 ml Physical Exam General: Other (on vent, no sedation) Heart: Regular rate, Normal S1 Lungs: Other (rhonchi) Abdomen: Normal bowel sounds, Soft, No tenderness, No hepatosplenomegaly, No masses Extremities: No clubbing, No cyanosis, No edema, Normal pulses, No tenderness/swelling Skin: Other (dressing C,D,I) Labs Labs: Laboratory Tests Test 03/25/20 07:30 O2 Saturation 98 % (92-99) Arterial Blood pH 7.47 (7.35-7.45) Arterial Blood pCO2 at Patient Temp 37 mmHg (35-46) Arterial Blood pO2 at Patient Temp 142 mmHg (65-108) Arterial Blood HCO3 27 mmol/L (21-28) Arterial Blood Base Excess 3 mmol/L (-3-3) FiO2 40 Assessment and Plan Assessmemt and Plan Problems Medical Problems: (1) Cerebral parenchymal hemorrhage Status: Acute (2) HTN (hypertension) Status: Acute Postop day 9 craniotomy [employer] 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 Keppra Acute encephalopathy - due to intracranial hemorrhage Syncope and collapse - 2/2 intraparenchymal bleed Left front intracranial hemorrhage Hyperlipidemia Respiratory failure - likely 2/2 intracranial bleed Leukocytosis - likely 2/2 bleed. Hypokalemia and hypomagnesemia Hyponatremia Plan ICU monitoring Vent weaning Wound care IV Keppra NG Trend labs DVT prophylaxis Prognosis extremely guarded She remains critically ill Total time 33 Comment Review of Relevant I have reviewed the following items wang (where applicable) has been applied. Justicifation of Admission Dx: Justifications for Admission: Justification of Admission Dx: Yes Acute Hemorrhagic Stroke: Acute Hemorrhagic Stroke QASIM BAILEY III, DO Mar 25, 2020 11:02
[2020-03-25] MEDS: cefTRIAXone IV Push 1 GM VIAL. IVP SCH (13:34)
--- NOTE | 2020-03-25 15:03 | NUR ---
SS following up with discharge planning. SS reviewed pt chart and discussed with pt RN. Pt remains on the vent at this time. Pt's family withdrawing care on 03/26/2020 on pt's 46 anniversary. SS will continue to follow as needed.
[2020-03-26] VITALS (24 sets, daily range): BP systolic 159–191; BP diastolic 66–76
[2020-03-26] MEDS: IPRATRPIUM/ALBUTEROL 0.5/2.5MG 3 ML NEBU. NEB SCH ×4 (00:16→19:49)
[2020-03-26] MEDS: POTASSIUM CL 20MEQ D5-0.45NACL 1,000 ML IV SCH ×2 (06:47→21:07)
[2020-03-26 08:06] LABS: BASE EXCESS ABG 1 mmol/L (-3-3); HCO3 ABG 24 mmol/L (21-28); PCO2 ABG 32 mmHg (35-46); PO2 ABG 148 mmHg (65-108); SAT O2 ABG 99 % (92-99)
[2020-03-26 08:07] LABS: FIO2 ABG 40
[2020-03-26] MEDS: FAMOTIDINE 20 MG/2 ML VIAL IVP SCH ×2 (08:55→21:07)
[2020-03-26] MEDS: amLODIPine BESYLATE 5 MG TABLET PO SCH (08:55)
[2020-03-26] MEDS: PSYLLIUM HUSK (SUGAR FREE) 1 PKT PACKET PO SCH (08:55)
[2020-03-26] MEDS: LABETALOL 20 MG/4 ML DISP.SYRIN. IVP PRN (08:58)
--- NOTE | 2020-03-26 09:14 | PDOC ---
PROGRESS NOTES Assessment Problems Medical Problems: (1) Cerebral parenchymal hemorrhage Status: Acute (2) HTN (hypertension) Status: Acute Large left intraparenchymal hemorrhage status-post evacuation CTA negative for aneurysm or AVM EVD out, no hydrocephalus on followup CT Plan Do not resuscitate. Family considering comfort care, note patient's wedding anniversary is today Levetiracetam Subjective none Objective Vital Signs Date Time Temp Pulse Resp B/P (MAP) Pulse Ox O2 Delivery O2 Flow Rate FiO2 03/26/20 09:00 78 20 182/72 (108) 100 Ventilator 03/26/20 08:00 99.5 99.5 Intake and Output 03/26/20 07:00 Intake Total 2781 ml Output Total 3500 ml Balance -719 ml IV Total 975 ml Tube Feeding 1431 ml Other 375 ml Output Urine Total 3500 ml Gastric Drainage Total 0 ml PHYSICAL EXAM Off sedation PERRL. No spontaneous extraocular movements Blinks eyes nonpurposefully, no response to visual threat CN: no focal findings. Muscle tone: normal. Muscle strength: no withdrawal to pain DTR: 2+ Plantar reflex: extensor bilaterally Gait: not examined Sensory exam: not cooperative. Cerebellar: not cooperative Review of Relevant I have reviewed the following items wang (where applicable) has been applied. Labs Laboratory Tests Test 03/25/20 07:30 03/26/20 08:01 O2 Saturation 98 % (92-99) 99 % (92-99) Arterial Blood pH 7.47 (7.35-7.45) 7.49 (7.35-7.45) Arterial Blood pCO2 at Patient Temp 37 mmHg (35-46) 32 mmHg (35-46) Arterial Blood pO2 at Patient Temp 142 mmHg (65-108) 148 mmHg (65-108) Arterial Blood HCO3 27 mmol/L (21-28) 24 mmol/L (21-28) Arterial Blood Base Excess 3 mmol/L (-3-3) 1 mmol/L (-3-3) FiO2 40 40 Laboratory Tests Test 03/26/20 08:01 O2 Saturation 99 % (92-99) Arterial Blood pH 7.49 (7.35-7.45) Arterial Blood pCO2 at Patient Temp 32 mmHg (35-46) Arterial Blood pO2 at Patient Temp 148 mmHg (65-108) Arterial Blood HCO3 24 mmol/L (21-28) Arterial Blood Base Excess 1 mmol/L (-3-3) FiO2 40 Microbiology 03/21/20 Gram Stain Evaluation - Final, Complete 03/21/20 Respiratory Culture - Final, Complete Medications Current Medications Propofol (Diprivan) 200 mg 1X ONCE IV Last administered on 03/15/20at 11:47; Start 03/15/20 at 11:30; Stop 03/15/20 at 11:31; Status DC Propofol 50 ml @ As Directed STK-MED ONCE IV ; Start 03/15/20 at 11:45; Stop 03/15/20 at 11:45; Status DC Propofol 20 ml @ 0 mls/hr 1X ONCE IV Last administered on 03/15/20at 11:52; Start 03/15/20 at 11:45; Stop 03/15/20 at 11:50; Status DC Potassium Chloride 40 meq/ Dextrose 1,020 ml @ 75 mls/hr [id number] PRN IV 0 Last administered on 03/17/20at 03:08; Start 03/15/20 at 12:00; Stop 03/17/20 at 09:39; Status DC Etomidate (Amidate) 20 mg 1X ONCE IV Last administered on 03/15/20at 12:12; Start 03/15/20 at 11:40; Stop 03/15/20 at 12:00; Status DC Succinylcholine Chloride (Anectine) 100 mg 1X ONCE IV Last administered on 03/15/20at 12:12; Start 03/15/20 at 11:40; Stop 03/15/20 at 12:00; Status DC Bacitracin 13636 unit/Sodium Chloride 1,000 ml @ 1,000 mls/hr 1X ONCE IRR Last administered on 03/15/20at 14:50; Start 03/15/20 at 13:00; Stop 03/15/20 at 14:07; Status DC Cefazolin Sodium/ Dextrose 50 ml @ 100 mls/hr 1X PREOP PRN IV PRIOR TO PROCEDURE Last administered on 03/15/20at 13:25; Start 03/15/20 at 13:00; Stop 03/16/20 at 12:59; Status DC Propofol (Diprivan) 200 mg STK-MED ONCE IV ; Start 03/15/20 at 12:33; Stop 03/15/20 at 12:33; Status DC Phenylephrine HCl (PHENYLEPHRINE in 0.9% NACL PF) 1 mg STK-MED ONCE IV ; Start 03/15/20 at 12:33; Stop 03/15/20 at 12:33; Status DC Rocuronium Austin (Zemuron) 50 mg STK-MED ONCE .ROUTE ; Start 03/15/20 at 12:33; Stop 03/15/20 at 12:33; Status DC Dexamethasone Sodium Phosphate (Decadron) 20 mg STK-MED ONCE .ROUTE ; Start 03/15/20 at 12:36; Stop 03/15/20 at 12:36; Status DC Gelatin (Gelfoam Size 100) 1 each STK-MED ONCE .ROUTE Last administered on 03/15/20at 13:49; Start 03/15/20 at 12:42; Stop 03/15/20 at 12:42; Status DC Bupivacaine HCl/ Epinephrine Bitart (Sensorcain-Epi 0.5%-1:684475 Mpf) 30 ml STK-MED ONCE .ROUTE ; Start 03/15/20 at 12:42; Stop 03/15/20 at 12:42; Status DC Mannitol (Mannitol) 12.5 g STK-MED ONCE .ROUTE Last administered on 03/15/20at 14:41; Start 03/15/20 at 12:42; Stop 03/15/20 at 12:42; Status DC Cellulose (Surgicel Hemostat 4x8) 1 each STK-MED ONCE .ROUTE Last administered on 03/15/20at 15:08; Start 03/15/20 at 12:42; Stop 03/15/20 at 12:43; Status DC Thrombin 20,000 unit STK-MED ONCE TP Last administered on 03/15/20at 13:49; Start 03/15/20 at 12:42; Stop 03/15/20 at 12:43; Status DC Bupivacaine HCl/ Epinephrine Bitart (Sensorcain-Epi 0.5%-1:124267 Mpf) 30 ml STK-MED ONCE .ROUTE Last administered on 03/15/20at 13:48; Start 03/15/20 at 12:44; Stop 03/15/20 at 12:45; Status DC Bupivacaine HCl/ Epinephrine Bitart (Sensorcain-Epi 0.5%-1:212999 Mpf) 30 ml 1X ONCE INJ ; Start 03/15/20 at 13:00; Stop 03/15/20 at 13:01; Status DC Ondansetron HCl (Zofran) 4 mg PRN Q6HRS PRN IV NAUSEA/VOMITING; Start 03/15/20 at 13:45; Stop 03/15/20 at 16:35; Status DC Fentanyl Citrate (Fentanyl 2ml Vial) 25 mcg PRN Q5MIN PRN IV MILD PAIN 1-3; Start 03/15/20 at 13:45; Stop 03/16/20 at 13:44; Status DC Fentanyl Citrate (Fentanyl 2ml Vial) 50 mcg PRN Q5MIN PRN IV MODERATE TO SEVERE PAIN; Start 03/15/20 at 13:45; Stop 03/16/20 at 13:44; Status DC Morphine Sulfate (Morphine Sulfate) 1 mg PRN Q10MIN PRN IV SEVERE PAIN 7-10; Start 03/15/20 at 13:45; Stop 03/16/20 at 13:44; Status DC Ringer's Solution 1,000 ml @ 30 mls/hr Q24H IV ; Start 03/15/20 at 13:31; Stop 03/16/20 at 01:30; Status DC Hydromorphone HCl (Dilaudid) 0.5 mg PRN Q10MIN PRN IV SEV PAIN, Second choice; Start 03/15/20 at 13:45; Stop 03/16/20 at 13:44; Status DC Prochlorperazine Edisylate (Compazine) 5 mg PACU PRN PRN IV NAUSEA, MRX1; Start 03/15/20 at 13:45; Stop 03/16/20 at 13:44; Status DC Mannitol (Mannitol) 12.5 g STK-MED ONCE .ROUTE Last administered on 03/15/20at 14:41; Start 03/15/20 at 14:28; Stop 03/15/20 at 14:28; Status DC Phenylephrine HCl (Diego-Synephrine Inj) 10 mg STK-MED ONCE .ROUTE ; Start 03/15/20 at 14:43; Stop 03/15/20 at 14:43; Status DC Fentanyl Citrate (Fentanyl 2ml Vial) 100 mcg STK-MED ONCE .ROUTE ; Start 03/15/20 at 15:08; Stop 03/15/20 at 15:09; Status DC Rocuronium Austin (Zemuron) 50 mg STK-MED ONCE .ROUTE ; Start 03/15/20 at 15:34; Stop 03/15/20 at 15:34; Status DC Sevoflurane (Ultane) 90 ml STK-MED ONCE IH ; Start 03/15/20 at 15:44; Stop 03/15/20 at 15:44; Status DC Propofol 50 ml @ As Directed STK-MED ONCE IV ; Start 03/15/20 at 16:02; Stop 03/15/20 at 16:02; Status DC Nicardipine HCl 50 mg/Sodium Chloride 250 ml @ 25 mls/hr TITRATE PRN IV HYPERTENSION Last administered on 03/23/20at 11:15; Start 03/15/20 at 16:30; Stop 03/23/20 at 11:51; Status DC Levetiracetam 500 mg/Sodium Chloride 105 ml @ 400 mls/hr Q12HR IV Last administered on 03/26/20at 08:55; Start 03/15/20 at 21:00 Sodium Chloride (Normal Saline Flush) 3 ml QSHIFT PRN IV AFTER MEDS AND BLOOD DRAWS; Start 03/15/20 at 16:30 Potassium Chloride/Dextrose/ Sod Cl 1,000 ml @ 80 mls/hr [id number] IV ; Start 03/15/20 at 16:19; Stop 03/15/20 at 18:36; Status DC Dextrose (Dextrose 50%-Water Syringe) 12.5 gm PRN Q15MIN PRN IV SEE COMMENTS; Start 03/15/20 at 16:30 Cefazolin Sodium (Ancef) 1 gm Q8HRS IVP Last administered on 03/16/20at 14:52; Start 03/15/20 at 22:00; Stop 03/16/20 at 14:01; Status DC Ondansetron HCl (Zofran) 4 mg PRN Q4HRS PRN IV NAUSEA/VOMITING; Start 03/15/20 at 16:45 Atorvastatin Calcium (Lipitor) 40 mg DAILY PO Last administered on 03/23/20at 08:02; Start 03/16/20 at 09:00; Stop 03/23/20 at 09:23; Status DC Acetaminophen (Tylenol Supp) 650 mg PRN Q6HRS PRN AR MILD PAIN / TEMP > 100.3'F Last administered on 03/20/20at 18:27; Start 03/15/20 at 16:45 Docusate Sodium (Enemeez) 283 mg PRN DAILY PRN AR CONSTIPATION; Start 03/15/20 at 16:45 Magnesium Sulfate 50 ml @ 25 mls/hr 1X ONCE IV Last administered on 03/15/20at 17:23; Start 03/15/20 at 17:00; Stop 03/15/20 at 18:59; Status DC Propofol 100 ml @ As Directed STK-MED ONCE IV ; Start 03/15/20 at 19:37; Stop 03/15/20 at 19:38; Status DC Propofol 100 ml @ 0.837 mls/ hr CONT PRN IV SEE I/O RECORD Last administered on 03/23/20at 05:44; Start 03/15/20 at 19:45 Iohexol (Omnipaque 300 Mg/ml) 75 ml 1X ONCE IV Last administered on 03/16/20at 07:45; Start 03/16/20 at 07:45; Stop 03/16/20 at 07:50; Status DC Info (CONTRAST GIVEN -- Rx MONITORING) 1 each PRN DAILY PRN MC SEE COMMENTS; Start 03/16/20 at 08:00; Stop 03/18/20 at 07:59; Status DC Potassium Chloride/Dextrose/ Sod Cl 1,000 ml @ 75 mls/hr 1X ONCE IV Last administered on 03/17/20at 10:15; Start 03/17/20 at 09:45; Stop 03/17/20 at 23:04; Status DC Psyllium Hydrophilic Mucilloid (Metamucil Fiber Packet) 1 pkt DAILY PO Last administered on 03/24/20at 08:20; Start 03/17/20 at 11:00 Potassium Chloride/Dextrose/ Sod Cl 1,000 ml @ 75 mls/hr [id number] IV Last administered on 03/26/20at 06:47; Start 03/17/20 at 23:00 Famotidine (Pepcid Vial) 20 mg BID IVP Last administered on 03/26/20at 08:55; Start 03/18/20 at 21:00 Multi-Ingred Cream/Lotion/Oil/ Oint (Artificial Tears Eye Ointment) 1 ayala PRN Q1HR PRN OU DRY EYE Last administered on 03/20/20at 18:23; Start 03/19/20 at 16:15 Fentanyl Citrate (Fentanyl 2ml Vial) 50 mcg PRN Q2HR PRN IVP PAIN Last administered on 03/20/20at 22:12; Start 03/20/20 at 18:00 Fentanyl Citrate 30 ml @ 0 mls/hr CONT PRN IV SEE PROTOCOL Last administered on 03/22/20at 19:15; Start 03/20/20 at 23:15 Dexmedetomidine HCl 400 mcg/ Sodium Chloride 100 ml @ 0 mls/hr CONT PRN IV PER PROTOCOL Last administered on 03/21/20at 00:38; Start 03/20/20 at 23:15 Furosemide (Lasix) 20 mg 1X ONCE IVP Last administered on 03/20/20at 23:20; Start 03/20/20 at 23:15; Stop 03/20/20 at 23:16; Status DC Furosemide (Lasix) 20 mg 1X ONCE IVP Last administered on 03/21/20at 01:20; Start 03/21/20 at 01:00; Stop 03/21/20 at 01:01; Status DC Methylprednisolone Sodium Succinate (SOLU-Medrol 125MG VIAL) 125 mg 1X ONCE IV Last administered on 03/21/20at 01:20; Start 03/21/20 at 01:00; Stop 03/21/20 at 01:01; Status DC Albuterol/ Ipratropium (Duoneb) 3 ml Q4HRS NEB Last administered on 03/26/20at 07:57; Start 03/21/20 at 01:15 Piperacillin Sod/ Tazobactam Sod (Zosyn Per Pharmacy) 1 each PRN DAILY PRN MC SEE COMMENTS; Start 03/21/20 at 12:00; Stop 03/23/20 at 11:10; Status DC Piperacillin Sod/ Tazobactam Sod 4.5 gm/Sodium Chloride 100 ml @ 200 mls/hr Q6HRS IV Last administered on 03/23/20at 05:42; Start 03/21/20 at 12:00; Stop 03/23/20 at 11:11; Status DC Furosemide (Lasix) 40 mg 1X ONCE IVP Last administered on 03/22/20at 12:03; Start 03/22/20 at 11:45; Stop 03/22/20 at 11:46; Status DC Potassium Bicarbonate (Potassium Effervescent Tablet) 40 meq 1X ONCE PEG Last administered on 03/22/20at 14:00; Start 03/22/20 at 14:00; Stop 03/22/20 at 14:01; Status DC Ceftriaxone Sodium (Rocephin) 1 gm Q24H IVP Last administered on 03/25/20at 13:34; Start 03/23/20 at 12:00 Amlodipine Besylate (Norvasc) 5 mg DAILY PO Last administered on 03/26/20at 08:55; Start 03/23/20 at 12:00 Labetalol HCl (Normodyne Iv Push) 20 mg PRN Q4HRS PRN IVP HYPERTENSION Last administered on 03/26/20 08:58; Start 03/23/20 at 15:15 Acetaminophen (Tylenol) 650 mg PRN Q6HRS PRN PEG MILD PAIN / TEMP > 100.3'F Last administered on 03/23/20at 16:31; Start 03/23/20 at 16:30 Active Scripts Active Reported Oxybutynin Chloride Er (Oxybutynin Chloride) 10 Mg Tab.er.24 1 Tab PO DAILY Elmiron (Pentosan Polysulfate Sodium) 100 Mg Capsule 1 Cap PO TID 30 Days Atorvastatin Calcium 40 Mg Tablet 1 Tab PO DAILY Fluoxetine Hcl 40 Mg Capsule 40 Mg PO DAILY Premarin (Estrogens, Conjugated) 0.625 Mg Tablet 1 Tab PO DAILY Vitals/I & O Vital Sign - Last 24 Hours 03/25/20 03/25/20 03/25/20 03/25/20 09:39 10:00 11:00 11:29 Pulse 73 73 74 Resp 18 16 B/P (MAP) 183/71 179/72 (107) 183/70 (107) Pulse Ox 100 100 99 O2 Delivery Ventilator Ventilator Ventilator 03/25/20 03/25/20 03/25/20 03/25/20 12:00 12:00 12:00 13:00 Temp 99.3 99.3 Pulse 78 78 Resp 18 16 B/P (MAP) 174/66 (102) 180/68 (105) Pulse Ox 100 99 O2 Delivery Ventilator Mechanical Ventilator Ventilator 03/25/20 03/25/20 03/25/20 03/25/20 14:00 15:00 15:11 16:00 Pulse 76 76 Resp 16 17 B/P (MAP) 190/70 (110) 175/70 (105) Pulse Ox 100 99 100 O2 Delivery Ventilator Ventilator Ventilator Mechanical Ventilator 03/25/20 03/25/20 03/25/20 03/25/20 16:00 16:00 16:33 17:00 Temp 99.7 99.7 Pulse 75 79 78 Resp 16 16 B/P (MAP) 180/72 (108) 211/78 182/72 (108) Pulse Ox 100 100 O2 Delivery Ventilator Ventilator 03/25/20 03/25/20 03/25/20 03/25/20 17:57 18:00 19:00 19:56 Temp 100.2 100.2 Pulse 76 82 Resp 18 B/P (MAP) 190/74 (112) 182/68 (106) Pulse Ox 100 100 100 100 O2 Delivery Ventilator Ventilator Ventilator Ventilator 03/25/20 03/25/20 03/25/20 03/25/20 20:00 20:00 20:00 21:00 Temp 99.0 99.0 Pulse 82 82 Resp 20 20 B/P (MAP) 181/71 (107) 187/69 (108) Pulse Ox 100 100 O2 Delivery Ventilator Mechanical Ventilator Ventilator 03/25/20 03/25/20 03/25/20 03/25/20 21:40 22:00 23:00 23:42 Pulse 78 76 81 Resp 24 24 B/P (MAP) 190/69 185/69 (107) 183/70 (107) Pulse Ox 100 100 100 O2 Delivery Ventilator Ventilator Ventilator 03/25/20 03/26/20 03/26/20 03/26/20 23:59 00:00 00:00 01:00 Temp 99.6 99.6 Pulse 80 76 Resp 24 24 B/P (MAP) 183/69 (107) 184/68 (106) Pulse Ox 100 100 O2 Delivery Mechanical Ventilator Ventilator Ventilator 03/26/20 03/26/20 03/26/20 03/26/20 02:00 03:00 03:52 04:00 Pulse 78 77 Resp 20 20 B/P (MAP) 186/69 (108) 191/70 (110) Pulse Ox 100 100 100 O2 Delivery Ventilator Ventilator Ventilator Mechanical Ventilator 03/26/20 03/26/20 03/26/20 03/26/20 04:00 04:00 05:00 06:00 Temp 99.6 99.6 Pulse 80 80 80 Resp 20 20 20 B/P (MAP) 188/68 (108) 188/68 (108) 188/68 (108) Pulse Ox 100 100 100 O2 Delivery Ventilator Ventilator Ventilator 03/26/20 03/26/20 03/26/20 03/26/20 07:00 07:57 08:00 08:00 Pulse 82 Resp 20 B/P (MAP) 182/66 (104) Pulse Ox 100 100 O2 Delivery Ventilator Ventilator Mechanical Ventilator 03/26/20 03/26/20 03/26/20 03/26/20 08:00 08:55 08:58 09:00 Temp 99.5 99.5 Pulse 80 83 80 78 Resp 20 20 B/P (MAP) 188/71 (110) 195/74 195/74 182/72 (108) Pulse Ox 100 100 O2 Delivery Ventilator Ventilator Intake and Output 03/25/20 03/25/20 03/26/20 15:00 23:00 07:00 Intake Total 355 ml 1828 ml 598 ml Output Total 1475 ml 1075 ml 950 ml Balance -1120 ml 753 ml -352 ml Justicifation of Admission Dx: Justifications for Admission: Justification of Admission Dx: Yes Acute Hemorrhagic Stroke: Acute Hemorrhagic Stroke OSN PHAM MD Mar 26, 2020 09:14
--- NOTE | 2020-03-26 09:29 | PDOC ---
PULMONARY PROGRESS NOTES Subjective remains intubated not on sedation does not follow commands, A/C vent at 40 % Plan for comfort care today Vitals Vital Signs Date Time Temp Pulse Resp B/P (MAP) Pulse Ox O2 Delivery O2 Flow Rate FiO2 03/26/20 09:00 78 20 182/72 (108) 100 Ventilator 03/26/20 08:00 99.5 99.5 Comments ros unable to obtain , not responsive HEENT: Other (nc at perrl nose clear orally intubated neck no lad no thyromegaly) Lungs: Other (DS in bases ) Cardiovascular: S1, S2 Abdomen: Soft, Non-tender, Other (no mass) Extremities: No Edema Skin: Warm Labs Laboratory Tests Test 03/25/20 07:30 03/26/20 08:01 O2 Saturation 98 % (92-99) 99 % (92-99) Arterial Blood pH 7.47 (7.35-7.45) 7.49 (7.35-7.45) Arterial Blood pCO2 at Patient Temp 37 mmHg (35-46) 32 mmHg (35-46) Arterial Blood pO2 at Patient Temp 142 mmHg (65-108) 148 mmHg (65-108) Arterial Blood HCO3 27 mmol/L (21-28) 24 mmol/L (21-28) Arterial Blood Base Excess 3 mmol/L (-3-3) 1 mmol/L (-3-3) FiO2 40 40 Laboratory Tests Test 03/26/20 08:01 O2 Saturation 99 % (92-99) Arterial Blood pH 7.49 (7.35-7.45) Arterial Blood pCO2 at Patient Temp 32 mmHg (35-46) Arterial Blood pO2 at Patient Temp 148 mmHg (65-108) Arterial Blood HCO3 24 mmol/L (21-28) Arterial Blood Base Excess 1 mmol/L (-3-3) FiO2 40 Medications Active Scripts Medications Dose Route/Sig Max Daily Dose Days Date Category Oxybutynin Chloride Er (Oxybutynin Chloride) 10 Mg Tab.er.24 1 Tab PO DAILY 03/15/20 Reported Elmiron (Pentosan Polysulfate Sodium) 100 Mg Capsule 1 Cap PO TID 30 03/15/20 Reported Atorvastatin Calcium 40 Mg Tablet 1 Tab PO DAILY 03/15/20 Reported Fluoxetine Hcl 40 Mg Capsule 40 Mg PO DAILY 03/15/20 Reported Premarin (Estrogens, Conjugated) 0.625 Mg Tablet 1 Tab PO DAILY 03/15/20 Reported Impression . IMPRESSION: 1. Acute respiratory failure multifactorial in etiology 2. large cerebral hematoma requiring emergent evacuation.ct with Large left intraparenchymal hemorrhage status-post evacuation CTA negative for aneurysm or AVM 2. Encephalopathy secondary to large left intraparenchymal hematoma. 3. leukocytosis 4. HTN, off cardene 5. abnl cxr, suspect acute pulm edema/acute diastolic chf, ? pneumonia, has low grade fever, cxr better w lasix repeat cxr 03/23, resolved infiltrates 6. Increase LFT. NO recent h/o hypotension.? drug induced. -----cont. rocephin. Plan . Continue with present assist control mode. ABG reviewed, fio2 40%, and PEEP to 5, not ready for weaning as she is unresponsive - reduce rate to 12 Follow Neurosurgery recommendations Optimization of blood pressure per Neurosurgery Follow GI recommendations Cont. enteral nutrition. Cont. rocephin GI PPX: roderick D/W RN Pt. is DNR, we are agree with decision to proceed with comfort care ADRIANA ULLOA MD Mar 26, 2020 09:29
--- NOTE | 2020-03-26 11:40 | PDOC ---
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 Keppra Acute encephalopathy - due to intracranial hemorrhage Syncope and collapse - 2/2 intraparenchymal bleed Left front intracranial hemorrhage Hyperlipidemia Respiratory failure - likely 2/2 intracranial bleed Leukocytosis - likely 2/2 bleed. Hypokalemia and hypomagnesemia Hyponatremia History of Present Illness History of Present Illness 03/25/2020 Patient seen and examined in the ICU She remains intubated and mechanically ventilated Assist-control/ with 40% FiO2 with 5 of PEEP Discussed with RN Chart reviewed Discussed with case management Her is considering withdrawing care 03/25/2020 Patient seen and examined in the ICU She is on the vent Assist-control/02/02 50/40% with 5 of PEEP Has Batista to bedside drainage Chart reviewed She remains critically ill 03/24/2020 Patient seen and examined in the ICU she remains intubated and mechanically ventilated AC/06/03 100/40% with 5 of PEEP Has OG feeds Chart reviewed Discussed with RN She remains critically ill 03/23/2020 Patient seen and examined in the ICU She is mechanically ventilated Assist-control/06/03 100/40% Chart reviewed discussed with RN Discussed with pharmacy regarding elevated liver function test (we think it might be her statin or even perhaps the Cardene drip) We currently have her fentanyl off and she is starting to wake up a little bit Getting OG feeds Getting IV Keppra Not moving her right side but the left leg moves a little She is becoming quite edematous 03/22/2020 Patient seen and examined She is mechanically ventilated Assist-control/500/20 4/40% with 7 of PEEP On IV nicardipine On IV Keppra Sedated with propofol She has an NG to suction Chart reviewed Discussed with 03/21/2020 Patient seen and examined in the ICU again She apparently decompensated overnight and had to be placed on several sedatives and had to increase her PEEP Chart reviewed Discussed with RN She remains critically ill Mechanically ventilated AC/24/ 100/60% 03/20/2020 Patient seen and examined in the ICU She is still mechanically ventilated Assist-control/16 50/30% Dr. Patel just arrived he is removing the intracranial pressure monitor tube right now She remains critically ill Chart reviewed Discussed with RN We hope to change her sedation regimen as she gets agitated and then her blood pressure climbs If we can get her pressures under control then we can extubate hopefully? 03/19/2020 Patient seen and examined in the ICU She remains mechanically ventilated Assist-control/16/4 50/30% with 5 of PEEP She still has an intracranial pressure monitor current pressure is 10 On nicardipine drip She has SCDs She has a Batista to bedside drainage Has an art line Chart reviewed Discussed with RN She is still critically ill 03/18/2020 Patient seen and examined in the ICU She is on the vent Assist-control/16/4 100/30% Sedated with propofol Intracranial pressure monitor still in with an ICP of 13 Discussed with RN Chart reviewed Ms Mathew is a 64 yo F w/ PMHx HLD who was brought here by EMS from local [facility] due to altered mental status around 1030 on 03/15/2020. noted that they were out shopping when she became unresponsive and fell to the ground, though he was able to catch her and guide her down on the floor. Patient did not hit her head. stated that patient has been having a headache for the last 2-3 days. He is sure that she is not on any blood thinner. Patient's stated that she is on multiple medications but he is not sure what they are.. EMS stated that she was able to protect her airway but her GCS was about [address] head revealed a left frontal lobe 5.5 x 6.0 x 3.0 cm large parenchymal hematoma and surrounding edema involving both the superior and middle frontal cortical gyri as well as extensive involvement of the white matter, with mass effect and 10 mm midline shift. Neurosurgery was urgently contacted. She underwent RSI with ED with etomidate and succinylcholine with 7.5 ET tube and went urgently to OR for craniotomy and hematoma evacuation which was large and invaded the ventricular and she is transferred to ICU for closer monitoring. I was able to evaluated patient prior to intubation and after surgery. 03/16: Patient seen and examined in the ICU, She is mechanically ventilated, Assist-control/450/16/30 percent, Has an OG to suction, Her pupils are reactive 03/17: Seen in ICU, sedated, intubated, on ICP monitoring and cardene GTT. Na 130. Hb 9.1. Moving left arm, posturing on pain response on right. Vitals/I&O Vitals/I&O: Vital Signs Date Time Temp Pulse Resp B/P (MAP) Pulse Ox O2 Delivery O2 Flow Rate FiO2 03/26/20 11:25 100 Ventilator 03/26/20 11:00 80 20 178/72 (107) 03/26/20 08:00 99.5 99.5 I & O 03/25/20 03/25/20 03/26/20 15:00 23:00 07:00 Intake Total 355 ml 1828 ml 598 ml Output Total 1475 ml 1075 ml 950 ml Balance -1120 ml 753 ml -352 ml Physical Exam General: Other (on vent, no sedation) Heart: Regular rate, Normal S1 Lungs: Other (DS in bases ) Abdomen: Normal bowel sounds, Soft, No tenderness, No hepatosplenomegaly, No masses Extremities: No clubbing, No cyanosis, No edema, Normal pulses, No tenderness/swelling Skin: Other (dressing C,D,I) Labs Labs: Laboratory Tests Test 03/26/20 08:01 O2 Saturation 99 % (92-99) Arterial Blood pH 7.49 (7.35-7.45) Arterial Blood pCO2 at Patient Temp 32 mmHg (35-46) Arterial Blood pO2 at Patient Temp 148 mmHg (65-108) Arterial Blood HCO3 24 mmol/L (21-28) Arterial Blood Base Excess 1 mmol/L (-3-3) FiO2 40 Assessment and Plan Assessmemt and Plan Problems Medical Problems: (1) Cerebral parenchymal hemorrhage Status: Acute (2) HTN (hypertension) Status: Acute 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 Keppra Acute encephalopathy - due to intracranial hemorrhage Syncope and collapse - 2/2 intraparenchymal bleed Left front intracranial hemorrhage Hyperlipidemia Respiratory failure - likely 2/2 intracranial bleed Leukocytosis - likely 2/2 bleed. Hypokalemia and hypomagnesemia Hyponatremia Plan Her is considering withdrawing care but for now see the following: ICU monitoring Vent weaning Wound care IV Keppra NG Trend labs DVT prophylaxis Prognosis extremely guarded She remains critically ill Total time 31 Comment Review of Relevant I have reviewed the following items wang (where applicable) has been applied. Justicifation of Admission Dx: Justifications for Admission: Justification of Admission Dx: Yes Acute Hemorrhagic Stroke: Acute Hemorrhagic Stroke QASIM BAILEY III DO Mar 26, 2020 11:40
[2020-03-26] MEDS: cefTRIAXone IV Push 1 GM VIAL. IVP SCH (15:25)
--- NOTE | 2020-03-26 15:59 | NUR ---
SS following up with discharge planning. SS reviewed pt chart and discussed with pt RN. Pt remains on the vent at this time. Per RN, family will withdraw care on 03/27/2020 at 1200pm. [facility] being notified.
--- NOTE | 2020-03-26 17:44 | NUR ---
Call placed to [facility] by this RN, updated on pt status and notified of the family's decision to withdraw care at 12pm tomorrow 03/27/2020.
[2020-03-27] VITALS (14 sets, daily range): BP systolic 160–198; BP diastolic 64–75
[2020-03-27] MEDS: LABETALOL 20 MG/4 ML DISP.SYRIN. IVP PRN (03:06)
[2020-03-27] MEDS: IPRATRPIUM/ALBUTEROL 0.5/2.5MG 3 ML NEBU. NEB SCH ×6 (04:00→20:00)
[2020-03-27 06:24] LABS: CALCIUM 8.5 mg/dL (8.5-10.1); CREATININE 0.6 mg/dL (0.6-1.0); GFR 101.3; POTASSIUM 4.1 mmol/L (3.5-5.1)
[2020-03-27 07:58] LABS: BASE EXCESS ABG -1 mmol/L (-3-3); HCO3 ABG 21 mmol/L (21-28); PCO2 ABG 29 mmHg (35-46); PO2 ABG 149 mmHg (65-108); SAT O2 ABG 98 % (92-99)
[2020-03-27 07:59] LABS: FIO2 ABG 40
[2020-03-27] MEDS: PSYLLIUM HUSK (SUGAR FREE) 1 PKT PACKET PO SCH (09:00)
[2020-03-27] MEDS: FAMOTIDINE 20 MG/2 ML VIAL IVP SCH ×2 (09:04→20:32)
[2020-03-27] MEDS: amLODIPine BESYLATE 5 MG TABLET PO SCH (09:04)
[2020-03-27] MEDS: POTASSIUM CL 20MEQ D5-0.45NACL 1,000 ML IV SCH ×2 (09:05→23:00)
--- NOTE | 2020-03-27 09:30 | PDOC ---
PULMONARY PROGRESS NOTES Subjective remains intubated not on sedation does not follow commands, A/C vent at 40 % comfort care Vitals Vital Signs Date Time Temp Pulse Resp B/P (MAP) Pulse Ox O2 Delivery O2 Flow Rate FiO2 03/27/20 09:04 77 188/74 03/27/20 08:00 99.0 18 100 Ventilator 99.0 Comments ros unable to obtain , not responsive HEENT: Other (nc at perrl nose clear orally intubated neck no lad no thyromegaly) Lungs: Other (DS in bases ) Cardiovascular: S1, S2 Abdomen: Soft, Non-tender, Other (no mass) Extremities: No Edema Skin: Warm Labs Laboratory Tests Test 03/26/20 08:01 03/27/20 05:40 03/27/20 07:45 O2 Saturation 99 % (92-99) 98 % (92-99) Arterial Blood pH 7.49 (7.35-7.45) 7.49 (7.35-7.45) Arterial Blood pCO2 at Patient Temp 32 mmHg (35-46) 29 mmHg (35-46) Arterial Blood pO2 at Patient Temp 148 mmHg (65-108) 149 mmHg (65-108) Arterial Blood HCO3 24 mmol/L (21-28) 21 mmol/L (21-28) Arterial Blood Base Excess 1 mmol/L (-3-3) -1 mmol/L (-3-3) FiO2 40 40 Sodium Level 128 mmol/L (136-145) Potassium Level 4.1 mmol/L (3.5-5.1) Chloride Level 96 mmol/L (98-107) Carbon Dioxide Level 23 mmol/L (21-32) Anion Gap 9 (6-14) Blood Urea Nitrogen 14 mg/dL (7-20) Creatinine 0.6 mg/dL (0.6-1.0) Estimated GFR (Cockcroft-Gault) 101.3 Glucose Level 113 mg/dL (70-99) Calcium Level 8.5 mg/dL (8.5-10.1) Laboratory Tests Test 03/27/20 05:40 03/27/20 07:45 Sodium Level 128 mmol/L (136-145) Potassium Level 4.1 mmol/L (3.5-5.1) Chloride Level 96 mmol/L (98-107) Carbon Dioxide Level 23 mmol/L (21-32) Anion Gap 9 (6-14) Blood Urea Nitrogen 14 mg/dL (7-20) Creatinine 0.6 mg/dL (0.6-1.0) Estimated GFR (Cockcroft-Gault) 101.3 Glucose Level 113 mg/dL (70-99) Calcium Level 8.5 mg/dL (8.5-10.1) O2 Saturation 98 % (92-99) Arterial Blood pH 7.49 (7.35-7.45) Arterial Blood pCO2 at Patient Temp 29 mmHg (35-46) Arterial Blood pO2 at Patient Temp 149 mmHg (65-108) Arterial Blood HCO3 21 mmol/L (21-28) Arterial Blood Base Excess -1 mmol/L (-3-3) FiO2 40 Medications Active Scripts Medications Dose Route/Sig Max Daily Dose Days Date Category Oxybutynin Chloride Er (Oxybutynin Chloride) 10 Mg Tab.er.24 1 Tab PO DAILY 03/15/20 Reported Elmiron (Pentosan Polysulfate Sodium) 100 Mg Capsule 1 Cap PO TID 30 03/15/20 Reported Atorvastatin Calcium 40 Mg Tablet 1 Tab PO DAILY 03/15/20 Reported Fluoxetine Hcl 40 Mg Capsule 40 Mg PO DAILY 03/15/20 Reported Premarin (Estrogens, Conjugated) 0.625 Mg Tablet 1 Tab PO DAILY 03/15/20 Reported Impression . IMPRESSION: 1. Acute respiratory failure multifactorial in etiology 2. large cerebral hematoma requiring emergent evacuation.ct with Large left intraparenchymal hemorrhage status-post evacuation CTA negative for aneurysm or AVM 2. Encephalopathy secondary to large left intraparenchymal hematoma. 3. leukocytosis 4. HTN, off cardene 5. abnl cxr, suspect acute pulm edema/acute diastolic chf, ? pneumonia, has low grade fever, cxr better w lasix repeat cxr 03/23, resolved infiltrates 6. Increase LFT. NO recent h/o hypotension.? drug induced. -----cont. rocephin. Plan . Continue with present assist control mode, until family is ready to palliative extubate Follow Neurosurgery recommendations Optimization of blood pressure per Neurosurgery Follow GI recommendations Cont. enteral nutrition. Cont. rocephin GI PPX: pepcid D/W RN Pt. is DNR, we are agree with decision to proceed with comfort care ADRIANA ULLOA MD Mar 27, 2020 09:30
[2020-03-27] MEDS ORDERED: ACETAMINOPHEN 325 MG TABLET. PO PRN (10:15)
[2020-03-27] MEDS ORDERED: SCOPOLAMINE 1.5MG PATCH. TD PRN (10:15)
[2020-03-27] MEDS ORDERED: MORPHINE SULFATE 4 MG/ML VIAL. IVP PRN (10:15)
[2020-03-27] MEDS ORDERED: HALOPERIDOL LACTATE 5 MG/ML VIAL. IVP PRN ×3 (10:15)
[2020-03-27] MEDS ORDERED: MORPHINE SULFATE 20 MG/ML CONC SOLUTION. PO/SL PRN ×2 (10:15)
[2020-03-27] MEDS ORDERED: ACETAMINOPHEN 650 MG SUPP.RECT. PR PRN (10:15)
[2020-03-27] MEDS ORDERED: 0.9 % SODIUM CHLORIDE 10 ML DISP.SYRIN. IV PRN (10:15)
[2020-03-27] MEDS ORDERED: HYDROmorphone 2 MG/ML VIAL IVP PRN ×2 (10:15)
[2020-03-27] MEDS ORDERED: PROCHLORPERAZINE 10 MG/2 ML VIAL. IVP PRN (10:15)
[2020-03-27] MEDS ORDERED: SODIUM PHOSPHATES 19/7GM 133 ML ENEMA. PR PRN (10:15)
[2020-03-27] MEDS ORDERED: ATROPINE 1% OPHTH SOLUTION 5ML BOTTLE. SL PRN (10:15)
[2020-03-27] MEDS ORDERED: MORPHINE SULFATE 2 MG/ML VIAL. IVP PRN (10:15)
[2020-03-27] MEDS ORDERED: BISACODYL 10 MG SUPP.RECT. PR PRN (10:15)
[2020-03-27] MEDS ORDERED: fentaNYL PF VIAL 100 MCG/2 ML VIAL IVP PRN ×3 (10:15)
[2020-03-27] MEDS ORDERED: ONDANSETRON PF 4 MG/2 ML VIAL. IVP PRN (10:15)
[2020-03-27] MEDS ORDERED: ACETAMINOPHEN 650 MG/20.3 ML SOLUTION. PEG PRN (10:15)
[2020-03-27] MEDS: cefTRIAXone IV Push 1 GM VIAL. IVP SCH (11:19)
--- NOTE | 2020-03-27 11:21 | PDOC ---
GENERAL General: Patient examined chart reviewed discussed with nursing. 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 She was taken to the operating room emergently on the day of admission but unfortunately has not made any meaningful recovery since the evacuation of her clot. Nursing tells me that lengthy discussions have been had with family and the plan is for terminal extubation with comfort care today at noon. Orders have been written. I appreciate subspecialty support. Problems: (1) Cerebral parenchymal hemorrhage VITAL SIGNS Vital Signs/I&O: Vital Signs Date Time Temp Pulse Resp B/P (MAP) Pulse Ox O2 Delivery O2 Flow Rate FiO2 03/27/20 11:00 80 18 182/70 (107) 100 Ventilator 03/27/20 08:00 99.0 99.0 I & O 03/26/20 03/26/20 03/27/20 15:00 23:00 07:00 Intake Total 250 ml 355 ml 624 ml Output Total 1600 ml 1050 ml 1045 ml Balance -1350 ml -695 ml -421 ml In general the patient is intubated and sedated unresponsive on the ventilator Chest bilateral equal air entry anteriorly Heart S1-S2 normal regular rate and rhythm no murmurs or gallops are noted Abdomen soft nontender nondistended no masses organomegaly noted Extremity exam is unremarkable for acute abnormality ALLERGIES Allergies: Allergies Coded Allergies Type Severity Reaction Last Updated Verified No Known Drug Allergies 03/15/20 No MEDS Medications: Current Medications Medications (Trade) Dose Ordered Sig/Arnel Start Time Stop Time Status Last Admin Dose Admin Acetaminophen (Tylenol Supp) 650 mg PRN Q6HRS PRN 03/27/20 10:15 Acetaminophen (Tylenol) 650 mg PRN Q6HRS PRN 03/27/20 10:15 Albuterol/ Ipratropium (Duoneb) 3 ml Q4HRS 03/21/20 01:15 03/27/20 07:39 Amlodipine Besylate (Norvasc) 5 mg DAILY 03/23/20 12:00 03/27/20 09:04 Atorvastatin Calcium (Lipitor) 40 mg DAILY 03/16/20 09:00 03/23/20 09:23 DC 03/23/20 08:02 Atropine Sulfate (Isopto Atropine) 2 drop PRN Q4HRS PRN 03/27/20 10:15 Bacitracin 60392 unit/Sodium Chloride 1,000 ml @ 1,000 mls/hr 1X ONCE 03/15/20 13:00 03/15/20 14:07 DC 03/15/20 14:50 Bisacodyl (Dulcolax Supp) 10 mg PRN Q72HRS PRN 03/27/20 10:15 Bupivacaine HCl/ Epinephrine Bitart (Sensorcain-Epi 0.5%-1:[id number] Mpf) 30 ml 1X ONCE 03/15/20 13:00 03/15/20 13:01 DC Cefazolin Sodium (Ancef) 1 gm Q8HRS 03/15/20 22:00 03/16/20 14:01 DC 03/16/20 14:52 Cefazolin Sodium/ Dextrose 50 ml @ 100 mls/hr 1X PREOP PRN 03/15/20 13:00 03/16/20 12:59 DC 03/15/20 13:25 Ceftriaxone Sodium (Rocephin) 1 gm Q24H 03/23/20 12:00 03/26/20 15:25 Cellulose (Surgicel Hemostat 4x8) 1 each STK-MED ONCE 03/15/20 12:42 03/15/20 12:43 DC 03/15/20 15:08 Dexamethasone Sodium Phosphate (Decadron) 20 mg STK-MED ONCE 03/15/20 12:36 03/15/20 12:36 DC Dexmedetomidine HCl 400 mcg/ Sodium Chloride 100 ml @ 0 mls/hr CONT PRN 03/20/20 23:15 03/26/20 09:30 DC 03/21/20 00:38 Dextrose (Dextrose 50%-Water Syringe) 12.5 gm PRN Q15MIN PRN 03/15/20 16:30 Docusate Sodium (Enemeez) 283 mg PRN DAILY PRN 03/15/20 16:45 Etomidate (Amidate) 20 mg 1X ONCE 03/15/20 11:40 03/15/20 12:00 DC 03/15/20 12:12 Famotidine (Pepcid Vial) 20 mg BID 03/18/20 21:00 03/27/20 09:04 Fentanyl Citrate (Fentanyl 2ml Vial) 50 mcg PRN Q1HR PRN 03/27/20 10:15 Furosemide (Lasix) 40 mg 1X ONCE 03/22/20 11:45 03/22/20 11:46 DC 03/22/20 12:03 Gelatin (Gelfoam Size 100) 1 each STK-MED ONCE 03/15/20 12:42 03/15/20 12:42 DC 03/15/20 13:49 Haloperidol Lactate (Haldol Inj) 2 mg PRN Q2HRS PRN 03/27/20 10:15 Hydromorphone HCl (Dilaudid) 1 mg PRN Q2HRS PRN 03/27/20 10:15 Info (CONTRAST GIVEN -- Rx MONITORING) 1 each PRN DAILY PRN 03/16/20 08:00 03/18/20 07:59 DC Iohexol (Omnipaque 300 Mg/ml) 75 ml 1X ONCE 03/16/20 07:45 03/16/20 07:50 DC 03/16/20 07:45 Labetalol HCl (Normodyne Iv Push) 20 mg PRN Q4HRS PRN 03/23/20 15:15 03/27/20 03:06 Levetiracetam 500 mg/Sodium Chloride 105 ml @ 400 mls/hr Q12HR 03/15/20 21:00 03/27/20 09:04 Lorazepam (Ativan Inj) 2 mg PRN Q1HR PRN 03/27/20 10:15 03/31/20 08:00 Magnesium Sulfate 50 ml @ 25 mls/hr 1X ONCE 03/15/20 17:00 03/15/20 18:59 DC 03/15/20 17:23 Mannitol (Mannitol) 12.5 g STK-MED ONCE 03/15/20 14:28 03/15/20 14:28 DC 03/15/20 14:41 Methylprednisolone Sodium Succinate (SOLU-Medrol 125MG VIAL) 125 mg 1X ONCE 03/21/20 01:00 03/21/20 01:01 DC 03/21/20 01:20 Morphine Sulfate (Morphine Sulfate) 4 mg PRN Q2HR PRN 03/27/20 10:15 Morphine Sulfate (Roxanol Conc) 10 mg PRN Q2HRS PRN 03/27/20 10:15 Multi-Ingred Cream/Lotion/Oil/ Oint (Artificial Tears Eye Ointment) 1 ayala PRN Q1HR PRN 03/19/20 16:15 03/20/20 18:23 Nicardipine HCl 50 mg/Sodium Chloride 250 ml @ 25 mls/hr TITRATE PRN 03/15/20 16:30 03/23/20 11:51 DC 03/23/20 11:15 Ondansetron HCl (Zofran) 4 mg PRN Q6HRS PRN 03/27/20 10:15 Phenylephrine HCl (Diego-Synephrine Inj) 10 mg STK-MED ONCE 03/15/20 14:43 03/15/20 14:43 DC Phenylephrine HCl (PHENYLEPHRINE in 0.9% NACL PF) 1 mg STK-MED ONCE 03/15/20 12:33 03/15/20 12:33 DC Piperacillin Sod/ Tazobactam Sod (Zosyn Per Pharmacy) 1 each PRN DAILY PRN 03/21/20 12:00 03/23/20 11:10 DC Piperacillin Sod/ Tazobactam Sod 4.5 gm/Sodium Chloride 100 ml @ 200 mls/hr Q6HRS 03/21/20 12:00 03/23/20 11:11 DC 03/23/20 05:42 Potassium Bicarbonate (Potassium Effervescent Tablet) 40 meq 1X ONCE 03/22/20 14:00 03/22/20 14:01 DC 03/22/20 14:00 Potassium Chloride 40 meq/ Dextrose 1,020 ml @ 75 mls/hr [id number] PRN 03/15/20 12:00 03/17/20 09:39 DC 03/17/20 03:08 Potassium Chloride/Dextrose/ Sod Cl 1,000 ml @ 75 mls/hr [id number] 03/17/20 23:00 03/27/20 09:05 Prochlorperazine Edisylate (Compazine) 10 mg PRN Q6HRS PRN 03/27/20 10:15 Propofol 100 ml @ 0.837 mls/ hr CONT PRN 03/15/20 19:45 03/26/20 09:30 DC 03/23/20 05:44 Propofol (Diprivan) 200 mg STK-MED ONCE 03/15/20 12:33 03/15/20 12:33 DC Psyllium Hydrophilic Mucilloid (Metamucil Fiber Packet) 1 pkt DAILY 03/17/20 11:00 03/24/20 08:20 Ringer's Solution 1,000 ml @ 30 mls/hr Q24H 03/15/20 13:31 03/16/20 01:30 DC Rocuronium [place] (Zemuron) 50 mg STK-MED ONCE 03/15/20 15:34 03/15/20 15:34 DC Scopolamine (Transderm-Scop) 1 patch PRN Q72HRS PRN 03/27/20 10:15 Sevoflurane (Ultane) 90 ml STK-MED ONCE 03/15/20 15:44 03/15/20 15:44 DC Sodium Monofluorophosphate (Fleet Adult) 133 ml PRN Q72HRS PRN 03/27/20 10:15 Sodium Chloride (Normal Saline Flush) 10 ml QSHIFT PRN 03/27/20 10:15 Succinylcholine Chloride (Anectine) 100 mg 1X ONCE 03/15/20 11:40 03/15/20 12:00 DC 03/15/20 12:12 Thrombin 20,000 unit STK-MED ONCE 03/15/20 12:42 03/15/20 12:43 DC 03/15/20 13:49 LAB Lab: Laboratory Tests Test 03/27/20 05:40 03/27/20 07:45 Sodium Level 128 mmol/L (136-145) L Potassium Level 4.1 mmol/L (3.5-5.1) Chloride Level 96 mmol/L (98-107) L Carbon Dioxide Level 23 mmol/L (21-32) Anion Gap 9 (6-14) Blood Urea Nitrogen 14 mg/dL (7-20) Creatinine 0.6 mg/dL (0.6-1.0) Estimated GFR (Cockcroft-Gault) 101.3 Glucose Level 113 mg/dL (70-99) H Calcium Level 8.5 mg/dL (8.5-10.1) O2 Saturation 98 % (92-99) Arterial Blood pH 7.49 (7.35-7.45) H Arterial Blood pCO2 at Patient Temp 29 mmHg (35-46) L Arterial Blood pO2 at Patient Temp 149 mmHg (65-108) H Arterial Blood HCO3 21 mmol/L (21-28) Arterial Blood Base Excess -1 mmol/L (-3-3) FiO2 40 Laboratory Tests 03/27/20 05:40 ASSESSMENT & PLAN A&P Plan as noted above Dictation was created using 4INFO and there may be inconsistencies and errors due to the nature of real-time dictation Problem Qualifiers (1) Cerebral parenchymal hemorrhage: Intracerebral hemorrhage etiology: nontraumatic Cerebral hemorrhage location: other cerebral location Laterality: left Qualified Codes: I61.8 - Other nontraumatic intracerebral hemorrhage MARIUSZ VEGA MD Mar 27, 2020 11:21
--- NOTE | 2020-03-27 12:30 | NUR ---
Orders received for comfort care from Dr Ghotra whenever family wishes to palliatively extubate the patient. Family at bedside, in groups of 2, visiting patient before extubation.
--- NOTE | 2020-03-27 13:29 | NUR ---
Pt extubated at 1320. RT, RN at bedside. Family at bedside. Pt is on comfort measures only going forward. Family educated, understand situation. Pt currently on 2L NC for comfort, coughing/posturing with no purposeful movement. All VSS, family at bedside.
[2020-03-28] VITALS: BP 167/78
[2020-03-28 04:00] VITALS: BP 170/77
[2020-03-28] MEDS: IPRATRPIUM/ALBUTEROL 0.5/2.5MG 3 ML NEBU. NEB SCH ×6 (04:00→20:41)
[2020-03-28] MEDS: amLODIPine BESYLATE 5 MG TABLET PO SCH (07:22)
[2020-03-28] MEDS: PSYLLIUM HUSK (SUGAR FREE) 1 PKT PACKET PO SCH (07:22)
[2020-03-28] MEDS: FAMOTIDINE 20 MG/2 ML VIAL IVP SCH ×2 (07:22→21:09)
[2020-03-28 08:00] VITALS: BP 164/74
--- NOTE | 2020-03-28 08:54 | PDOC ---
PULMONARY PROGRESS NOTES Subjective PT was palliatively extubated 03/27/2020, now on room air now comfort care, appears comfortable on exam Vitals Vital Signs Date Time Temp Pulse Resp B/P (MAP) Pulse Ox O2 Delivery O2 Flow Rate FiO2 03/28/20 04:00 98.1 73 16 170/77 (108) 93 Room Air 98.1 Comments ros unable to obtain , not responsive HEENT: Other (nc at perrl nose clear orally intubated neck no lad no thyromegaly) Lungs: Other (DS in bases ) Cardiovascular: S1, S2 Abdomen: Soft, Non-tender, Other Extremities: No Edema Skin: Warm Labs Laboratory Tests Test 03/27/20 05:40 03/27/20 07:45 Sodium Level 128 mmol/L (136-145) Potassium Level 4.1 mmol/L (3.5-5.1) Chloride Level 96 mmol/L (98-107) Carbon Dioxide Level 23 mmol/L (21-32) Anion Gap 9 (6-14) Blood Urea Nitrogen 14 mg/dL (7-20) Creatinine 0.6 mg/dL (0.6-1.0) Estimated GFR (Cockcroft-Gault) 101.3 Glucose Level 113 mg/dL (70-99) Calcium Level 8.5 mg/dL (8.5-10.1) O2 Saturation 98 % (92-99) Arterial Blood pH 7.49 (7.35-7.45) Arterial Blood pCO2 at Patient Temp 29 mmHg (35-46) Arterial Blood pO2 at Patient Temp 149 mmHg (65-108) Arterial Blood HCO3 21 mmol/L (21-28) Arterial Blood Base Excess -1 mmol/L (-3-3) FiO2 40 Medications Active Scripts Medications Dose Route/Sig Max Daily Dose Days Date Category Oxybutynin Chloride Er (Oxybutynin Chloride) 10 Mg Tab.er.24 1 Tab PO DAILY 03/15/20 Reported Elmiron (Pentosan Polysulfate Sodium) 100 Mg Capsule 1 Cap PO TID 30 03/15/20 Reported Atorvastatin Calcium 40 Mg Tablet 1 Tab PO DAILY 03/15/20 Reported Fluoxetine Hcl 40 Mg Capsule 40 Mg PO DAILY 03/15/20 Reported Premarin (Estrogens, Conjugated) 0.625 Mg Tablet 1 Tab PO DAILY 03/15/20 Reported Impression . IMPRESSION: 1. Acute respiratory failure multifactorial in etiology 2. large cerebral hematoma requiring emergent evacuation.ct with Large left intraparenchymal hemorrhage status-post evacuation CTA negative for aneurysm or AVM 2. Encephalopathy secondary to large left intraparenchymal hematoma. 3. leukocytosis 4. HTN, off cardene 5. abnl cxr, suspect acute pulm edema/acute diastolic chf, ? pneumonia, has low grade fever, cxr better w lasix repeat cxr 03/23, resolved infiltrates 6. Increase LFT. NO recent h/o hypotension.? drug induced. -----cont. rocephin. Plan . Continue palliative care measure PRN morphine and Ativan Scopolamine patch Consult social media marketing manager for outpatient hospice house Pt. DNR Pt. can transfer upstairs ADRIANA ULLOA MD Mar 28, 2020 08:54
--- NOTE | 2020-03-28 11:46 | PDOC ---
GENERAL General: Patient examined chart reviewed discussed with nursing. Patient was palliative ly extubated yesterday. Her of 44 years is at her bedside. He tells me that they met when they were 14 years old and had their first child when they were 17. They have been devoted to each other all this time. He appears to be handling her terminal illness as well as can be expected. Patient does appear comfortable. We will have social work consult inpatient hospice tomorrow if she does survive. She is on a comfort care protocol. He does not feel that he can take her home with hospice home health and she is a candidate for inpatient hospice given a life expectancy of less than 2 weeks. Problems: (1) Cerebral parenchymal hemorrhage VITAL SIGNS Vital Signs/I&O: Vital Signs Date Time Temp Pulse Resp B/P (MAP) Pulse Ox O2 Delivery O2 Flow Rate FiO2 03/28/20 09:09 Room Air 03/28/20 08:00 98.0 73 20 164/74 (104) 94 98.0 I & O 03/27/20 03/27/20 03/28/20 15:00 23:00 07:00 Intake Total 250 ml 210 ml 0 ml Output Total 450 ml 1050 ml Balance -200 ml 210 ml -1050 ml Patient is unresponsive laying on her left side breathing comfortably. Chest bilateral equal air entry though diminished throughout no crackles or wheezes are noted Heart S1-S2 normal tachycardic no murmurs or gallops are noted Extremity exam is unchanged from prior ALLERGIES Allergies: Allergies Coded Allergies Type Severity Reaction Last Updated Verified No Known Drug Allergies 03/15/20 No MEDS Medications: Current Medications Medications (Trade) Dose Ordered Sig/Arnel Start Time Stop Time Status Last Admin Dose Admin Acetaminophen (Tylenol Supp) 650 mg PRN Q6HRS PRN 03/27/20 10:15 Cancel Acetaminophen (Tylenol) 650 mg PRN Q6HRS PRN 03/27/20 10:15 Cancel Albuterol/ Ipratropium (Duoneb) 3 ml Q4HRS 03/21/20 01:15 03/27/20 07:39 Amlodipine Besylate (Norvasc) 5 mg DAILY 03/23/20 12:00 03/27/20 09:04 Atorvastatin Calcium (Lipitor) 40 mg DAILY 03/16/20 09:00 03/23/20 09:23 DC 03/23/20 08:02 Atropine Sulfate (Isopto Atropine) 2 drop PRN Q4HRS PRN 03/27/20 10:15 Bacitracin 01352 unit/Sodium Chloride 1,000 ml @ 1,000 mls/hr 1X ONCE 03/15/20 13:00 03/15/20 14:07 DC 03/15/20 14:50 Bisacodyl (Dulcolax Supp) 10 mg PRN Q72HRS PRN 03/27/20 10:15 Bupivacaine HCl/ Epinephrine Bitart (Sensorcain-Epi 0.5%-1:575457 Mpf) 30 ml 1X ONCE 03/15/20 13:00 03/15/20 13:01 DC Cefazolin Sodium (Ancef) 1 gm Q8HRS 03/15/20 22:00 03/16/20 14:01 DC 03/16/20 14:52 Cefazolin Sodium/ Dextrose 50 ml @ 100 mls/hr 1X PREOP PRN 03/15/20 13:00 03/16/20 12:59 DC 03/15/20 13:25 Ceftriaxone Sodium (Rocephin) 1 gm Q24H 03/23/20 12:00 03/26/20 15:25 Cellulose (Surgicel Hemostat 4x8) 1 each STK-MED ONCE 03/15/20 12:42 03/15/20 12:43 DC 03/15/20 15:08 Dexamethasone Sodium Phosphate (Decadron) 20 mg STK-MED ONCE 03/15/20 12:36 03/15/20 12:36 DC Dexmedetomidine HCl 400 mcg/ Sodium Chloride 100 ml @ 0 mls/hr CONT PRN 03/20/20 23:15 03/26/20 09:30 DC 03/21/20 00:38 Dextrose (Dextrose 50%-Water Syringe) 12.5 gm PRN Q15MIN PRN 03/15/20 16:30 Docusate Sodium (Enemeez) 283 mg PRN DAILY PRN 03/15/20 16:45 Etomidate (Amidate) 20 mg 1X ONCE 03/15/20 11:40 03/15/20 12:00 DC 03/15/20 12:12 Famotidine (Pepcid Vial) 20 mg BID 03/18/20 21:00 03/27/20 09:04 Fentanyl Citrate (Fentanyl 2ml Vial) 50 mcg PRN Q1HR PRN 03/27/20 10:15 Furosemide (Lasix) 40 mg 1X ONCE 03/22/20 11:45 03/22/20 11:46 DC 03/22/20 12:03 Gelatin (Gelfoam Size 100) 1 each STK-MED ONCE 03/15/20 12:42 03/15/20 12:42 DC 03/15/20 13:49 Haloperidol Lactate (Haldol Inj) 2 mg PRN Q2HRS PRN 03/27/20 10:15 Hydromorphone HCl (Dilaudid) 1 mg PRN Q2HRS PRN 03/27/20 10:15 Info (CONTRAST GIVEN -- Rx MONITORING) 1 each PRN DAILY PRN 03/16/20 08:00 03/18/20 07:59 DC Iohexol (Omnipaque 300 Mg/ml) 75 ml 1X ONCE 03/16/20 07:45 03/16/20 07:50 DC 03/16/20 07:45 Labetalol HCl (Normodyne Iv Push) 20 mg PRN Q4HRS PRN 03/23/20 15:15 03/27/20 03:06 Levetiracetam 500 mg/Sodium Chloride 105 ml @ 400 mls/hr Q12HR 03/15/20 21:00 03/27/20 20:45 Lorazepam (Ativan Inj) 2 mg PRN Q1HR PRN 03/27/20 10:15 03/31/20 08:00 Magnesium Sulfate 50 ml @ 25 mls/hr 1X ONCE 03/15/20 17:00 03/15/20 18:59 DC 03/15/20 17:23 Mannitol (Mannitol) 12.5 g STK-MED ONCE 03/15/20 14:28 03/15/20 14:28 DC 03/15/20 14:41 Methylprednisolone Sodium Succinate (SOLU-Medrol 125MG VIAL) 125 mg 1X ONCE 03/21/20 01:00 03/21/20 01:01 DC 03/21/20 01:20 Morphine Sulfate (Morphine Sulfate) 4 mg PRN Q2HR PRN 03/27/20 10:15 03/27/20 13:14 Morphine Sulfate (Roxanol Conc) 10 mg PRN Q2HRS PRN 03/27/20 10:15 Multi-Ingred Cream/Lotion/Oil/ Oint (Artificial Tears Eye Ointment) 1 ayala PRN Q1HR PRN 03/19/20 16:15 03/20/20 18:23 Nicardipine HCl 50 mg/Sodium Chloride 250 ml @ 25 mls/hr TITRATE PRN 03/15/20 16:30 03/23/20 11:51 DC 03/23/20 11:15 Ondansetron HCl (Zofran) 4 mg PRN Q6HRS PRN 03/27/20 10:15 Phenylephrine HCl (Diego-Synephrine Inj) 10 mg STK-MED ONCE 03/15/20 14:43 03/15/20 14:43 DC Phenylephrine HCl (PHENYLEPHRINE in 0.9% NACL PF) 1 mg STK-MED ONCE 03/15/20 12:33 03/15/20 12:33 DC Piperacillin Sod/ Tazobactam Sod (Zosyn Per Pharmacy) 1 each PRN DAILY PRN 03/21/20 12:00 03/23/20 11:10 DC Piperacillin Sod/ Tazobactam Sod 4.5 gm/Sodium Chloride 100 ml @ 200 mls/hr Q6HRS 03/21/20 12:00 03/23/20 11:11 DC 03/23/20 05:42 Potassium Bicarbonate (Potassium Effervescent Tablet) 40 meq 1X ONCE 03/22/20 14:00 03/22/20 14:01 DC 03/22/20 14:00 Potassium Chloride 40 meq/ Dextrose 1,020 ml @ 75 mls/hr [id number] PRN 03/15/20 12:00 03/17/20 09:39 DC 03/17/20 03:08 Potassium Chloride/Dextrose/ Sod Cl 1,000 ml @ 75 mls/hr [id number] 03/17/20 23:00 03/27/20 09:05 Prochlorperazine Edisylate (Compazine) 10 mg PRN Q6HRS PRN 03/27/20 10:15 Propofol 100 ml @ 0.837 mls/ hr CONT PRN 03/15/20 19:45 03/26/20 09:30 DC 03/23/20 05:44 Propofol (Diprivan) 200 mg STK-MED ONCE 03/15/20 12:33 03/15/20 12:33 DC Psyllium Hydrophilic Mucilloid (Metamucil Fiber Packet) 1 pkt DAILY 03/17/20 11:00 03/24/20 08:20 Ringer's Solution 1,000 ml @ 30 mls/hr Q24H 03/15/20 13:31 03/16/20 01:30 DC Rocuronium [place] (Zemuron) 50 mg STK-MED ONCE 03/15/20 15:34 03/15/20 15:34 DC Scopolamine (Transderm-Scop) 1 patch PRN Q72HRS PRN 03/27/20 10:15 Sevoflurane (Ultane) 90 ml STK-MED ONCE 03/15/20 15:44 03/15/20 15:44 DC Sodium Monofluorophosphate (Fleet Adult) 133 ml PRN Q72HRS PRN 03/27/20 10:15 Sodium Chloride (Normal Saline Flush) 10 ml QSHIFT PRN 03/27/20 10:15 Succinylcholine Chloride (Anectine) 100 mg 1X ONCE 03/15/20 11:40 03/15/20 12:00 DC 03/15/20 12:12 Thrombin 20,000 unit STK-MED ONCE 03/15/20 12:42 03/15/20 12:43 DC 03/15/20 13:49 ASSESSMENT & PLAN A&P Plan as noted above This note was created using Karm[employer] and may have omissions and/or errors due to the nature of real-time voice nurse first aid. Problem Qualifiers (1) Cerebral parenchymal hemorrhage: Intracerebral hemorrhage etiology: nontraumatic Cerebral hemorrhage location: other cerebral location Laterality: left Qualified Codes: I61.8 - Other nontraumatic intracerebral hemorrhage MARIUSZ VEGA MD Mar 28, 2020 11:46
[2020-03-28] MEDS: cefTRIAXone IV Push 1 GM VIAL. IVP SCH (12:00)
[2020-03-28 12:05] VITALS: BP 164/74
[2020-03-28] MEDS: POTASSIUM CL 20MEQ D5-0.45NACL 1,000 ML IV SCH ×2 (12:20→19:11)
[2020-03-28 20:00] VITALS: BP 173/66
[2020-03-29 07:00] VITALS: BP 180/75
[2020-03-29] MEDS: POTASSIUM CL 20MEQ D5-0.45NACL 1,000 ML IV SCH (08:39)
[2020-03-29] MEDS: FAMOTIDINE 20 MG/2 ML VIAL IVP SCH (08:40)
[2020-03-29] MEDS: PSYLLIUM HUSK (SUGAR FREE) 1 PKT PACKET PO SCH (08:42)
[2020-03-29] MEDS: amLODIPine BESYLATE 5 MG TABLET PO SCH (08:42)
[2020-03-29] MEDS: LABETALOL 20 MG/4 ML DISP.SYRIN. IVP PRN (09:05)
--- NOTE | 2020-03-29 09:21 | PDOC ---
PROGRESS NOTES Assessment Problems Medical Problems: (1) Cerebral parenchymal hemorrhage Status: Acute (2) HTN (hypertension) Status: Acute Large left intraparenchymal hemorrhage status-post evacuation CTA negative for aneurysm or AVM EVD out, no hydrocephalus on followup CT Plan Do not resuscitate. Comfort care Levetiracetam Subjective None Objective Vital Signs Date Time Temp Pulse Resp B/P (MAP) Pulse Ox O2 Delivery O2 Flow Rate FiO2 03/29/20 09:05 86 180/75 03/29/20 07:40 Room Air 03/29/20 07:00 98.9 20 81 98.9 l Intake and Output 03/29/20 07:00 Output Total 1600 ml Balance -1600 ml Output Urine Total 1600 ml PHYSICAL EXAM Extubated Appears comfortable, regular respirations Review of Relevant I have reviewed the following items wang (where applicable) has been applied. Labs Microbiology 03/21/20 Gram Stain Evaluation - Final, Complete 03/21/20 Respiratory Culture - Final, Complete Medications Current Medications Propofol (Diprivan) 200 mg 1X ONCE IV Last administered on 03/15/20at 11:47; Start 03/15/20 at 11:30; Stop 03/15/20 at 11:31; Status DC Propofol 50 ml @ As Directed STK-MED ONCE IV ; Start 03/15/20 at 11:45; Stop 03/15/20 at 11:45; Status DC Propofol 20 ml @ 0 mls/hr 1X ONCE IV Last administered on 03/15/20at 11:52; Start 03/15/20 at 11:45; Stop 03/15/20 at 11:50; Status DC Potassium Chloride 40 meq/ Dextrose 1,020 ml @ 75 mls/hr [id number] PRN IV 0 Last administered on 03/17/20at 03:08; Start 03/15/20 at 12:00; Stop 03/17/20 at 09:39; Status DC Etomidate (Amidate) 20 mg 1X ONCE IV Last administered on 03/15/20at 12:12; Start 03/15/20 at 11:40; Stop 03/15/20 at 12:00; Status DC Succinylcholine Chloride (Anectine) 100 mg 1X ONCE IV Last administered on 03/15/20at 12:12; Start 03/15/20 at 11:40; Stop 5/25/20 at 12:00; Status DC Bacitracin 36921 unit/Sodium Chloride 1,000 ml @ 1,000 mls/hr 1X ONCE IRR Last administered on 03/15/20at 14:50; Start 03/15/20 at 13:00; Stop 03/15/20 at 14:07; Status DC Cefazolin Sodium/ Dextrose 50 ml @ 100 mls/hr 1X PREOP PRN IV PRIOR TO PROCED URE Last administered on 03/15/20at 13:25; Start 03/15/20 at 13:00; Stop 03/16/20 at 12:59; Status DC Propofol (Diprivan) 200 mg STK-MED ONCE IV ; Start 03/15/20 at 12:33; Stop 03/15/20 at 12:33; Status DC Phenylephrine HCl (PHENYLEPHRINE in 0.9% NACL PF) 1 mg STK-MED ONCE IV ; Start 03/15/20 at 12:33; Stop 03/15/20 at 12:33; Status DC Rocuronium [place] (Zemuron) 50 mg STK-MED ONCE .ROUTE ; Start 03/15/20 at 12:33; Stop 03/15/20 at 12:33; Status DC Dexamethasone Sodium Phosphate (Decadron) 20 mg STK-MED ONCE .ROUTE ; Start 03/15/20 at 12:36; Stop 03/15/20 at 12:36; Status DC Gelatin (Gelfoam Size 100) 1 each STK-MED ONCE .ROUTE Last administered on 03/15/20at 13:49; Start 03/15/20 at 12:42; Stop 03/15/20 at 12:42; Status DC Bupivacaine HCl/ Epinephrine Bitart (Sensorcain-Epi 0.5%-1:776911 Mpf) 30 ml STK-MED ONCE .ROUTE ; Start 03/15/20 at 12:42; Stop 03/15/20 at 12:42; Status DC Mannitol (Mannitol) 12.5 g STK-MED ONCE .ROUTE Last administered on 03/15/20at 14:41; Start 03/15/20 at 12:42; Stop 03/15/20 at 12:42; Status DC Cellulose (Surgicel Hemostat 4x8) 1 each STK-MED ONCE .ROUTE Last administered on 03/15/20at 15:08; Start 03/15/20 at 12:42; Stop 03/15/20 at 12:43; Status DC Thrombin 20,000 unit STK-MED ONCE TP Last administered on 03/15/20at 13:49; Start 03/15/20 at 12:42; Stop 03/15/20 at 12:43; Status DC Bupivacaine HCl/ Epinephrine Bitart (Sensorcain-Epi 0.5%-1:723141 Mpf) 30 ml STK-MED ONCE .ROUTE Last administered on 03/15/20at 13:48; Start 03/15/20 at 12:44; Stop 03/15/20 at 12:45; Status DC Bupivacaine HCl/ Epinephrine Bitart (Sensorcain-Epi 0.5%-1:642474 Mpf) 30 ml 1X ONCE INJ ; Start 03/15/20 at 13:00; Stop 03/15/20 at 13:01; Status DC Ondansetron HCl (Zofran) 4 mg PRN Q6HRS PRN IV NAUSEA/VOMITING; Start 03/15/20 at 13:45; Stop 03/15/20 at 16:35; Status DC Fentanyl Citrate (Fentanyl 2ml Vial) 25 mcg PRN Q5MIN PRN IV MILD PAIN 1-3; Start 03/15/20 at 13:45; Stop 03/16/20 at 13:44; Status DC Fentanyl Citrate (Fentanyl 2ml Vial) 50 mcg PRN Q5MIN PRN IV MODERATE TO SEVERE PAIN; Start 03/15/20 at 13:45; Stop 03/16/20 at 13:44; Status DC Morphine Sulfate (Morphine Sulfate) 1 mg PRN Q10MIN PRN IV SEVERE PAIN 7-10; Start 03/15/20 at 13:45; Stop 03/16/20 at 13:44; Status DC Ringer's Solution 1,000 ml @ 30 mls/hr Q24H IV ; Start 03/15/20 at 13:31; Stop 03/16/20 at 01:30; Status DC Hydromorphone HCl (Dilaudid) 0.5 mg PRN Q10MIN PRN IV SEV PAIN, Second choice; Start 03/15/20 at 13:45; Stop 03/16/20 at 13:44; Status DC Prochlorperazine Edisylate (Compazine) 5 mg PACU PRN PRN IV NAUSEA, MRX1; Start 03/15/20 at 13:45; Stop 03/16/20 at 13:44; Status DC Mannitol (Mannitol) 12.5 g STK-MED ONCE .ROUTE Last administered on 03/15/20at 14:41; Start 03/15/20 at 14:28; Stop 03/15/20 at 14:28; Status DC Phenylephrine HCl (Diego-Synephrine Inj) 10 mg STK-MED ONCE .ROUTE ; Start 03/15/20 at 14:43; Stop 03/15/20 at 14:43; Status DC Fentanyl Citrate (Fentanyl 2ml Vial) 100 mcg STK-MED ONCE .ROUTE ; Start 03/15/20 at 15:08; Stop 03/15/20 at 15:09; Status DC Rocuronium [place] (Zemuron) 50 mg STK-MED ONCE .ROUTE ; Start 03/15/20 at 15:34; Stop 03/15/20 at 15:34; Status DC Sevoflurane (Ultane) 90 ml STK-MED ONCE IH ; Start 03/15/20 at 15:44; Stop 03/15/20 at 15:44; Status DC Propofol 50 ml @ As Directed STK-MED ONCE IV ; Start 03/15/20 at 16:02; Stop 03/15/20 at 16:02; Status DC Nicardipine HCl 50 mg/Sodium Chloride 250 ml @ 25 mls/hr TITRATE PRN IV HYPERTENSION Last administered on 03/23/20at 11:15; Start 03/15/20 at 16:30; Stop 03/23/20 at 11:51; Status DC Levetiracetam 500 mg/Sodium Chloride 105 ml @ 400 mls/hr Q12HR IV Last administered on 03/29/20at 08:40; Start 03/15/20 at 21:00 Sodium Chloride (Normal Saline Flush) 3 ml QSHIFT PRN IV AFTER MEDS AND BLOOD DRAWS; Start 03/15/20 at 16:30 Potassium Chloride/Dextrose/ Sod Cl 1,000 ml @ 80 mls/hr [id number] IV ; Start 03/15/20 at 16:19; Stop 03/15/20 at 18:36; Status DC Dextrose (Dextrose 50%-Water Syringe) 12.5 gm PRN Q15MIN PRN IV SEE COMMENTS; Start 03/15/20 at 16:30 Cefazolin Sodium (Ancef) 1 gm Q8HRS IVP Last administered on 03/16/20at 14:52; Start 03/15/20 at 22:00; Stop 03/16/20 at 14:01; Status DC Ondansetron HCl (Zofran) 4 mg PRN Q4HRS PRN IV NAUSEA/VOMITING; Start 03/15/20 at 16:45 Atorvastatin Calcium (Lipitor) 40 mg DAILY PO Last administered on 03/23/20at 08:02; Start 03/16/20 at 09:00; Stop 03/23/20 at 09:23; Status DC Acetaminophen (Tylenol Supp) 650 mg PRN Q6HRS PRN CA MILD PAIN / TEMP > 100.3'F Last administered on 03/20/20at 18:27; Start 03/15/20 at 16:45 Docusate Sodium (Enemeez) 283 mg PRN DAILY PRN CA CONSTIPATION; Start 03/15/20 at 16:45 Magnesium Sulfate 50 ml @ 25 mls/hr 1X ONCE IV Last administered on 03/15/20at 17:23; Start 03/15/20 at 17:00; Stop 03/15/20 at 18:59; Status DC Propofol 100 ml @ As Directed STK-MED ONCE IV ; Start 03/15/20 at 19:37; Stop 03/15/20 at 19:38; Status DC Propofol 100 ml @ 0.837 mls/ hr CONT PRN IV SEE I/O RECORD Last administered on 03/23/20at 05:44; Start 03/15/20 at 19:45; Stop 03/26/20 at 09:30; Status DC Iohexol (Omnipaque 300 Mg/ml) 75 ml 1X ONCE IV Last administered on 03/16/20at 07:45; Start 03/16/20 at 07:45; Stop 03/16/20 at 07:50; Status DC Info (CONTRAST GIVEN -- Rx MONITORING) 1 each PRN DAILY PRN MC SEE COMMENTS; Start 03/16/20 at 08:00; Stop 03/18/20 at 07:59; Status DC Potassium Chloride/Dextrose/ Sod Cl 1,000 ml @ 75 mls/hr 1X ONCE IV Last administered on 03/17/20at 10:15; Start 03/17/20 at 09:45; Stop 03/17/20 at 23:04; Status DC Psyllium Hydrophilic Mucilloid (Metamucil Fiber Packet) 1 pkt DAILY PO Last administered on 03/24/20at 08:20; Start 03/17/20 at 11:00 Potassium Chloride/Dextrose/ Sod Cl 1,000 ml @ 75 mls/hr [id number] IV Last administered on 03/29/20at 08:39; Start 03/17/20 at 23:00 Famotidine (Pepcid Vial) 20 mg BID IVP Last administered on 03/29/20at 08:40; Start 03/18/20 at 21:00 Multi-Ingred Cream/Lotion/Oil/ Oint (Artificial Tears Eye Ointment) 1 ayala PRN Q1HR PRN OU DRY EYE Last administered on 03/20/20at 18:23; Start 03/19/20 at 16:15 Fentanyl Citrate (Fentanyl 2ml Vial) 50 mcg PRN Q2HR PRN IVP PAIN Last administered on 03/20/20at 22:12; Start 03/20/20 at 18:00; Stop 03/28/20 at 07:22; Status DC Fentanyl Citrate 30 ml @ 0 mls/hr CONT PRN IV SEE PROTOCOL Last administered on 03/22/20at 19:15; Start 03/20/20 at 23:15; Stop 03/26/20 at 09:30; Status DC Dexmedetomidine HCl 400 mcg/ Sodium Chloride 100 ml @ 0 mls/hr CONT PRN IV PER PROTOCOL Last administered on 03/21/20at 00:38; Start 03/20/20 at 23:15; Stop 03/26/20 at 09:30; Status DC Furosemide (Lasix) 20 mg 1X ONCE IVP Last administered on 03/20/20at 23:20; Start 03/20/20 at 23:15; Stop 03/20/20 at 23:16; Status DC Furosemide (Lasix) 20 mg 1X ONCE IVP Last administered on 03/21/20at 01:20; Start 03/21/20 at 01:00; Stop 03/21/20 at 01:01; Status DC Methylprednisolone Sodium Succinate (SOLU-Medrol 125MG VIAL) 125 mg 1X ONCE IV Last administered on 03/21/20at 01:20; Start 03/21/20 at 01:00; Stop 03/21/20 at 01:01; Status DC Albuterol/ Ipratropium (Duoneb) 3 ml Q4HRS NEB Last administered on 03/28/20at 20:41; Start 03/21/20 at 01:15; Stop 03/28/20 at 22:02; Status DC Piperacillin Sod/ Tazobactam Sod (Zosyn Per Pharmacy) 1 each PRN DAILY PRN MC SEE COMMENTS; Start 03/21/20 at 12:00; Stop 03/23/20 at 11:10; Status DC Piperacillin Sod/ Tazobactam Sod 4.5 gm/Sodium Chloride 100 ml @ 200 mls/hr Q6HRS IV Last administered on 03/23/20at 05:42; Start 03/21/20 at 12:00; Stop 03/23/20 at 11:11; Status DC Furosemide (Lasix) 40 mg 1X ONCE IVP Last administered on 03/22/20at 12:03; Start 03/22/20 at 11:45; Stop 03/22/20 at 11:46; Status DC Potassium Bicarbonate (Potassium Effervescent Tablet) 40 meq 1X ONCE PEG Last administered on 03/22/20at 14:00; Start 03/22/20 at 14:00; Stop 03/22/20 at 14:01; Status DC Ceftriaxone Sodium (Rocephin) 1 gm Q24H IVP Last administered on 03/26/20at 15:25; Start 03/23/20 at 12:00 Amlodipine Besylate (Norvasc) 5 mg DAILY PO Last administered on 03/27/20at 09:04; Start 03/23/20 at 12:00 Labetalol HCl (Normodyne Iv Push) 20 mg PRN Q4HRS PRN IVP HYPERTENSION Last administered on 03/29/20at 09:05; Start 03/23/20 at 15:15 Acetaminophen (Tylenol) 650 mg PRN Q6HRS PRN PEG MILD PAIN / TEMP > 100.3'F Last administered on 03/23/20at 16:31; Start 03/23/20 at 16:30 Morphine Sulfate (Roxanol Conc) 5 mg PRN Q2HRS PRN PO/SL MODERATE PAIN OR DYSPNEA; Start 03/27/20 at 10:15 Morphine Sulfate (Roxanol Conc) 10 mg PRN Q2HRS PRN PO/SL MODERATE PAIN OR DYSPNEA; Start 03/27/20 at 10:15 Morphine Sulfate (Morphine Sulfate) 2 mg PRN Q2HR PRN IVP PAIN OR DYSPNEA,1st CHOICE Last administered on 03/28/20at 12:34; Start 03/27/20 at 10:15 Morphine Sulfate (Morphine Sulfate) 4 mg PRN Q2HR PRN IVP PAIN OR DYSPNEA,1st CHOICE Last administered on 03/27/20at 13:14; Start 03/27/20 at 10:15 Fentanyl Citrate (Fentanyl 2ml Vial) 12.5 mcg PRN Q1HR PRN IVP PAIN OR DYSPNEA,2nd CHOICE; Start 03/27/20 at 10:15 Fentanyl Citrate (Fentanyl 2ml Vial) 25 mcg PRN Q1HR PRN IVP PAIN OR DYSPNEA,2nd CHOICE; Start 03/27/20 at 10:15 Fentanyl Citrate (Fentanyl 2ml Vial) 50 mcg PRN Q1HR PRN IVP PAIN OR DYSPNEA,2nd CHOICE; Start 03/27/20 at 10:15 Hydromorphone HCl (Dilaudid) 0.5 mg PRN Q2HRS PRN IVP PAIN OR DYSPNEA,3rd CHOICE; Start 03/27/20 at 10:15 Hydromorphone HCl (Dilaudid) 1 mg PRN Q2HRS PRN IVP PAIN OR DYSPNEA,3rd CHOICE; Start 03/27/20 at 10:15 Lorazepam (Ativan Inj) 2 mg PRN Q4HRS PRN IVP ANXIETY / AGITATION; Start 03/27/20 at 10:15 Haloperidol Lactate (Haldol Inj) 1 mg PRN Q2HRS PRN IVP AGITATION, 2nd CHOICE; Start 03/27/20 at 10:15; Status Cancel Scopolamine (Transderm-Scop) 1 patch PRN Q72HRS PRN TD SECRETIONS; Start 03/27/20 at 10:15 Atropine Sulfate (Isopto Atropine) 2 drop PRN Q4HRS PRN SL SECRETIONS; Start 03/27/20 at 10:15 Haloperidol Lactate (Haldol Inj) 1 mg PRN Q2HRS PRN IVP SEVERE DELIRIUM; Start 03/27/20 at 10:15 Haloperidol Lactate (Haldol Inj) 2 mg PRN Q2HRS PRN IVP SEVERE DELIRIUM; Start 03/27/20 at 10:15 Ondansetron HCl (Zofran) 4 mg PRN Q6HRS PRN IVP NAUSEA/VOMITING, 1st CHOICE; Start 03/27/20 at 10:15 Prochlorperazine Edisylate (Compazine) 10 mg PRN Q6HRS PRN IVP NAUSEA/VOMITING, 2nd CHOICE; Start 03/27/20 at 10:15 Bisacodyl (Dulcolax Supp) 10 mg PRN Q72HRS PRN CA CONSTIPATION, 1st CHOICE; Start 03/27/20 at 10:15 Sodium Monofluorophosphate (Fleet Adult) 133 ml PRN Q72HRS PRN CA CONSTIPATION, 2nd CHOICE; Start 03/27/20 at 10:15 Acetaminophen (Tylenol) 650 mg PRN Q6HRS PRN PO MILD PAIN/TEMP >100.4; Start 03/27/20 at 10:15 Acetaminophen (Tylenol) 650 mg PRN Q6HRS PRN PEG MILD PAIN/TEMP >100.4; Start 03/27/20 at 10:15; Status Cancel Acetaminophen (Tylenol Supp) 650 mg PRN Q6HRS PRN CA MILD PAIN/TEMP >100.4; Start 03/27/20 at 10:15; Status Cancel Lorazepam (Ativan Inj) 2 mg PRN Q1HR PRN IVP AGITATION; Start 03/27/20 at 10:15; Stop 03/31/20 at 08:00 Sodium Chloride (Normal Saline Flush) 10 ml QSHIFT PRN IV AFTER MEDS AND BLOOD DRAWS; Start 03/27/20 at 10:15 Active Scripts Active Reported Oxybutynin Chloride Er (Oxybutynin Chloride) 10 Mg Tab.er.24 1 Tab PO DAILY Elmiron (Pentosan Polysulfate Sodium) 100 Mg Capsule 1 Cap PO TID 30 Days Atorvastatin Calcium 40 Mg Tablet 1 Tab PO DAILY Fluoxetine Hcl 40 Mg Capsule 40 Mg PO DAILY Premarin (Estrogens, Conjugated) 0.625 Mg Tablet 1 Tab PO DAILY Vitals/I & O Vital Sign - Last 24 Hours 03/28/20 03/28/20 03/28/20 03/28/20 12:05 12:34 20:00 20:00 Temp 98.0 98.8 98.0 98.8 Pulse 73 65 Resp 20 24 B/P (MAP) 164/74 (104) 173/66 (101) Pulse Ox 86 86 90 O2 Delivery Room Air Room Air Room Air Room Air 03/28/20 03/29/20 03/29/20 03/29/20 20:48 07:00 07:40 09:05 Temp 98.9 98.9 Pulse 86 86 Resp 20 B/P (MAP) 180/75 (110) 180/75 Pulse Ox 95 81 O2 Delivery Room Air Room Air Intake and Output 03/28/20 03/28/20 03/29/20 15:00 23:00 07:00 Output Total 1000 ml 600 ml Balance -1000 ml -600 ml Justicifation of Admission Dx: Justifications for Admission: Justification of Admission Dx: Yes Acute Hemorrhagic Stroke: Acute Hemorrhagic Stroke SON PHAM MD Mar 29, 2020 09:21
--- NOTE | 2020-03-29 10:51 | PDOC ---
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 Hypokalemia and hypomagnesemia Hyponatremia Plan Do not resuscitate. Comfort care Levetiracetam History of Present Illness History of Present Illness 03/29/2020 No acute events reported overnight, case discussed with nursing staff patient in no acute distress no complaints during my visit 03/26/2020 Patient seen and examined in the ICU She remains intubated and mechanically ventilated Assist-control/ with 40% FiO2 with 5 of PEEP Discussed with RN Chart reviewed Discussed with case management Her is considering withdrawing care 03/25/2020 Patient seen and examined in the ICU She is on the vent Assist-control/14/ 50/40% with 5 of PEEP Has Batista to bedside drainage Chart reviewed She remains critically ill 03/24/2020 Patient seen and examined in the ICU she remains intubated and mechanically ventilated AC/16 100/40% with 5 of PEEP Has OG feeds Chart reviewed Discussed with RN She remains critically ill 03/23/2020 Patient seen and examined in the ICU She is mechanically ventilated Assist-control/16/5 100/40% Chart reviewed discussed with RN Discussed with pharmacy regarding elevated liver function test (we think it might be her statin or even perhaps the Cardene drip) We currently have her fentanyl off and she is starting to wake up a little bit Getting OG feeds Getting IV Keppra Not moving her right side but the left leg moves a little She is becoming quite edematous 03/22/2020 Patient seen and examined She is mechanically ventilated Assist-control/500/20 4/40% with 7 of PEEP On IV nicardipine On IV Keppra Sedated with propofol She has an NG to suction Chart reviewed Discussed with 03/21/2020 Patient seen and examined in the ICU again She apparently decompensated overnight and had to be placed on several sedatives and had to increase her PEEP Chart reviewed Discussed with RN She remains critically ill Mechanically ventilated AC/24/5 100/60% 03/20/2020 Patient seen and examined in the ICU She is still mechanically ventilated Assist-control/16/4 50/30% Dr. Patel just arrived he is removing the intracranial pressure monitor tube right now She remains critically ill Chart reviewed Discussed with RN We hope to change her sedation regimen as she gets agitated and then her blood pressure climbs If we can get her pressures under control then we can extubate hopefully? 03/19/2020 Patient seen and examined in the ICU She remains mechanically ventilated Assist-control/04/02 50/30% with 5 of PEEP She still has an intracranial pressure monitor current pressure is 10 On nicardipine drip She has SCDs She has a Batista to bedside drainage Has an art line Chart reviewed Discussed with RN She is still critically ill 03/18/2020 Patient seen and examined in the ICU She is on the vent Assist-control/04/02 100/30% Sedated with propofol Intracranial pressure monitor still in with an ICP of 13 Discussed with RN Chart reviewed Ms Mathew is a 64 yo F w/ PMHx HLD who was brought here by EMS from local [facility] due to altered mental status around 1030 on 03/15/2020. noted that they were out shopping when she became unresponsive and fell to the ground, though he was able to catch her and guide her down on the floor. Patient did not hit her head. stated that patient has been having a headache for the last 2-3 days. He is sure that she is not on any blood thinner. Patient's stated that she is on multiple medications but he is not sure what they are.. EMS stated that she was able to protect her airway but her GCS was about [address] head revealed a left frontal lobe 5.5 x 6.0 x 3.0 cm large parenchymal hematoma and surrounding edema involving both the superior and middle frontal cortical gyri as well as extensive involvement of the white matter, with mass effect and 10 mm midline shift. Neurosurgery was urgently contacted. She underwent RSI with ED with etomidate and succinylcholine with 7.5 ET tube and went urgently to OR for craniotomy and hematoma evacuation which was large and invaded the ventricular and she is transferred to ICU for closer monitoring. I was able to evaluated patient prior to intubation and after surgery. 03/16: Patient seen and examined in the ICU, She is mechanically ventilated, A ssist-control/450/16/30 percent, Has an OG to suction, Her pupils are reactive 03/17: Seen in ICU, sedated, intubated, on ICP monitoring and cardene GTT. Na 130. Hb 9.1. Moving left arm, posturing on pain response on right. Vitals Vitals Vital Signs Date Time Temp Pulse Resp B/P (MAP) Pulse Ox O2 Delivery O2 Flow Rate FiO2 03/29/20 09:05 86 180/75 03/29/20 07:40 Room Air 03/29/20 07:00 98.9 20 81 98.9 Physical Exam General: Other (on vent, no sedation) Heart: Regular rate, Normal S1 Lungs: Other (DS in bases ) Abdomen: Normal bowel sounds, Soft, No tenderness, No hepatosplenomegaly, No masses Extremities: No clubbing, No cyanosis, No edema, Normal pulses, No tenderness/swelling Skin: Other (dressing C,D,I) Review of Systems Review of Systems Unable to assess due to current condition Assessment and Plan Assessmemt and Plan Problems Medical Problems: (1) Cerebral parenchymal hemorrhage Status: Acute (2) HTN (hypertension) Status: Acute Comment Review of Relevant I have reviewed the following items wang (where applicable) has been applied. Labs Microbiology 03/21/20 Gram Stain Evaluation - Final, Complete 03/21/20 Respiratory Culture - Final, Complete Medications Current Medications Propofol (Diprivan) 200 mg 1X ONCE IV Last administered on 03/15/20at 11:47; Start 03/15/20 at 11:30; Stop 03/15/20 at 11:31; Status DC Propofol 50 ml @ As Directed STK-MED ONCE IV ; Start 03/15/20 at 11:45; Stop 03/15/20 at 11:45; Status DC Propofol 20 ml @ 0 mls/hr 1X ONCE IV Last administered on 03/15/20at 11:52; Start 03/15/20 at 11:45; Stop 03/15/20 at 11:50; Status DC Potassium Chloride 40 meq/ Dextrose 1,020 ml @ 75 mls/hr [id number] PRN IV 0 Last administered on 03/17/20at 03:08; Start 03/15/20 at 12:00; Stop 03/17/20 at 09:39; Status DC Etomidate (Amidate) 20 mg 1X ONCE IV Last administered on 03/15/20at 12:12; Start 03/15/20 at 11:40; Stop 03/15/20 at 12:00; Status DC Succinylcholine Chloride (Anectine) 100 mg 1X ONCE IV Last administered on 03/15/20at 12:12; Start 03/15/20 at 11:40; Stop 03/15/20 at 12:00; Status DC Bacitracin 39160 unit/Sodium Chloride 1,000 ml @ 1,000 mls/hr 1X ONCE IRR Last administered on 03/15/20at 14:50; Start 03/15/20 at 13:00; Stop 03/15/20 at 14:07; Status DC Cefazolin Sodium/ Dextrose 50 ml @ 100 mls/hr 1X PREOP PRN IV PRIOR TO PROCEDURE Last administered on 03/15/20at 13:25; Start 03/15/20 at 13:00; Stop 03/16/20 at 12:59; Status DC Propofol (Diprivan) 200 mg STK-MED ONCE IV ; Start 03/15/20 at 12:33; Stop 03/15/20 at 12:33; Status DC Phenylephrine HCl (PHENYLEPHRINE in 0.9% NACL PF) 1 mg STK-MED ONCE IV ; Start 03/15/20 at 12:33; Stop 03/15/20 at 12:33; Status DC Rocuronium [place] (Zemuron) 50 mg STK-MED ONCE .ROUTE ; Start 03/15/20 at 12:33; Stop 03/15/20 at 12:33; Status DC Dexamethasone Sodium Phosphate (Decadron) 20 mg STK-MED ONCE .ROUTE ; Start 03/15/20 at 12:36; Stop 03/15/20 at 12:36; Status DC Gelatin (Gelfoam Size 100) 1 each STK-MED ONCE .ROUTE Last administered on 03/15/20at 13:49; Start 03/15/20 at 12:42; Stop 03/15/20 at 12:42; Status DC Bupivacaine HCl/ Epinephrine Bitart (Sensorcain-Epi 0.5%-1:409978 Mpf) 30 ml STK-MED ONCE .ROUTE ; Start 03/15/20 at 12:42; Stop 03/15/20 at 12:42; Status DC Mannitol (Mannitol) 12.5 g STK-MED ONCE .ROUTE Last administered on 03/15/20at 14:41; Start 03/15/20 at 12:42; Stop 03/15/20 at 12:42; Status DC Cellulose (Surgicel Hemostat 4x8) 1 each STK-MED ONCE .ROUTE Last administered on 03/15/20at 15:08; Start 03/15/20 at 12:42; Stop 03/15/20 at 12:43; Status DC Thrombin 20,000 unit STK-MED ONCE TP Last administered on 03/15/20at 13:49; Start 03/15/20 at 12:42; Stop 03/15/20 at 12:43; Status DC Bupivacaine HCl/ Epinephrine Bitart (Sensorcain-Epi 0.5%-1:618713 Mpf) 30 ml STK-MED ONCE .ROUTE Last administered on 03/15/20at 13:48; Start 03/15/20 at 12:44; Stop 03/15/20 at 12:45; Status DC Bupivacaine HCl/ Epinephrine Bitart (Sensorcain-Epi 0.5%-1:543647 Mpf) 30 ml 1X ONCE INJ ; Start 03/15/20 at 13:00; Stop 03/15/20 at 13:01; Status DC Ondansetron HCl (Zofran) 4 mg PRN Q6HRS PRN IV NAUSEA/VOMITING; Start 03/15/20 at 13:45; Stop 03/15/20 at 16:35; Status DC Fentanyl Citrate (Fentanyl 2ml Vial) 25 mcg PRN Q5MIN PRN IV MILD PAIN 1-3; S tart 03/15/20 at 13:45; Stop 03/16/20 at 13:44; Status DC Fentanyl Citrate (Fentanyl 2ml Vial) 50 mcg PRN Q5MIN PRN IV MODERATE TO SEVERE PAIN; Start 03/15/20 at 13:45; Stop 03/16/20 at 13:44; Status DC Morphine Sulfate (Morphine Sulfate) 1 mg PRN Q10MIN PRN IV SEVERE PAIN 7-10; Start 03/15/20 at 13:45; Stop 03/16/20 at 13:44; Status DC Ringer's Solution 1,000 ml @ 30 mls/hr Q24H IV ; Start 03/15/20 at 13:31; Stop 03/16/20 at 01:30; Status DC Hydromorphone HCl (Dilaudid) 0.5 mg PRN Q10MIN PRN IV SEV PAIN, Second choice; Start 03/15/20 at 13:45; Stop 03/16/20 at 13:44; Status DC Prochlorperazine Edisylate (Compazine) 5 mg PACU PRN PRN IV NAUSEA, MRX1; Start 03/15/20 at 13:45; Stop 03/16/20 at 13:44; Status DC Mannitol (Mannitol) 12.5 g STK-MED ONCE .ROUTE Last administered on 03/15/20at 14:41; Start 03/15/20 at 14:28; Stop 03/15/20 at 14:28; Status DC Phenylephrine HCl (Diego-Synephrine Inj) 10 mg STK-MED ONCE .ROUTE ; Start 03/15/20 at 14:43; Stop 03/15/20 at 14:43; Status DC Fentanyl Citrate (Fentanyl 2ml Vial) 100 mcg STK-MED ONCE .ROUTE ; Start 03/15/20 at 15:08; Stop 03/15/20 at 15:09; Status DC Rocuronium [place] (Zemuron) 50 mg STK-MED ONCE .ROUTE ; Start 03/15/20 at 15:34; Stop 03/15/20 at 15:34; Status DC Sevoflurane (Ultane) 90 ml STK-MED ONCE IH ; Start 03/15/20 at 15:44; Stop 03/15/20 at 15:44; Status DC Propofol 50 ml @ As Directed STK-MED ONCE IV ; Start 03/15/20 at 16:02; Stop 03/15/20 at 16:02; Status DC Nicardipine HCl 50 mg/Sodium Chloride 250 ml @ 25 mls/hr TITRATE PRN IV HYPER TENSION Last administered on 03/23/20at 11:15; Start 03/15/20 at 16:30; Stop 03/23/20 at 11:51; Status DC Levetiracetam 500 mg/Sodium Chloride 105 ml @ 400 mls/hr Q12HR IV Last administered on 03/29/20at 08:40; Start 03/15/20 at 21:00 Sodium Chloride (Normal Saline Flush) 3 ml QSHIFT PRN IV AFTER MEDS AND BLOOD DRAWS; Start 03/15/20 at 16:30 Potassium Chloride/Dextrose/ Sod Cl 1,000 ml @ 80 mls/hr [id number] IV ; Start 03/15/20 at 16:19; Stop 03/15/20 at 18:36; Status DC Dextrose (Dextrose 50%-Water Syringe) 12.5 gm PRN Q15MIN PRN IV SEE COMMENTS; Start 03/15/20 at 16:30 Cefazolin Sodium (Ancef) 1 gm Q8HRS IVP Last administered on 03/16/20at 14:52; Start 03/15/20 at 22:00; Stop 03/16/20 at 14:01; Status DC Ondansetron HCl (Zofran) 4 mg PRN Q4HRS PRN IV NAUSEA/VOMITING; Start 03/15/20 at 16:45 Atorvastatin Calcium (Lipitor) 40 mg DAILY PO Last administered on 03/23/20at 08:02; Start 03/16/20 at 09:00; Stop 03/23/20 at 09:23; Status DC Acetaminophen (Tylenol Supp) 650 mg PRN Q6HRS PRN [place] MILD PAIN / TEMP > 100.3'F Last administered on 03/20/20at 18:27; Start 03/15/20 at 16:45 Docusate Sodium (Enemeez) 283 mg PRN DAILY PRN [place] CONSTIPATION; Start 03/15/20 at 16:45 Magnesium Sulfate 50 ml @ 25 mls/hr 1X ONCE IV Last administered on 03/15/20at 17:23; Start 03/15/20 at 17:00; Stop 03/15/20 at 18:59; Status DC Propofol 100 ml @ As Directed STK-MED ONCE IV ; Start 03/15/20 at 19:37; Stop 03/15/20 at 19:38; Status DC Propofol 100 ml @ 0.837 mls/ hr CONT PRN IV SEE I/O RECORD Last administered on 03/23/20at 05:44; Start 03/15/20 at 19:45; Stop 03/26/20 at 09:30; Status DC Iohexol (Omnipaque 300 Mg/ml) 75 ml 1X ONCE IV Last administered on 03/16/20at 07:45; Start 03/16/20 at 07:45; Stop 03/16/20 at 07:50; Status DC Info (CONTRAST GIVEN -- Rx MONITORING) 1 each PRN DAILY PRN MC SEE COMMENTS; Start 03/16/20 at 08:00; Stop 03/18/20 at 07:59; Status DC Potassium Chloride/Dextrose/ Sod Cl 1,000 ml @ 75 mls/hr 1X ONCE IV Last administered on 03/17/20at 10:15; Start 03/17/20 at 09:45; Stop 03/17/20 at 23:04; Status DC Psyllium Hydrophilic Mucilloid (Metamucil Fiber Packet) 1 pkt DAILY PO Last administered on 03/24/20at 08:20; Start 03/17/20 at 11:00 Potassium Chloride/Dextrose/ Sod Cl 1,000 ml @ 75 mls/hr [id number] IV Last administered on 03/29/20at 08:39; Start 03/17/20 at 23:00 Famotidine (Pepcid Vial) 20 mg BID IVP Last administered on 03/29/20at 08:40; Start 03/18/20 at 21:00 Multi-Ingred Cream/Lotion/Oil/ Oint (Artificial Tears Eye Ointment) 1 ayala PRN Q1HR PRN OU DRY EYE Last administered on 03/20/20at 18:23; Start 03/19/20 at 16:15 Fentanyl Citrate (Fentanyl 2ml Vial) 50 mcg PRN Q2HR PRN IVP PAIN Last administered on 03/20/20at 22:12; Start 03/20/20 at 18:00; Stop 03/28/20 at 07:22; Status DC Fentanyl Citrate 30 ml @ 0 mls/hr CONT PRN IV SEE PROTOCOL Last administered on 03/22/20at 19:15; Start 03/20/20 at 23:15; Stop 03/26/20 at 09:30; Status DC Dexmedetomidine HCl 400 mcg/ Sodium Chloride 100 ml @ 0 mls/hr CONT PRN IV PER PROTOCOL Last administered on 03/21/20at 00:38; Start 03/20/20 at 23:15; Stop 03/26/20 at 09:30; Status DC Furosemide (Lasix) 20 mg 1X ONCE IVP Last administered on 03/20/20at 23:20; Start 03/20/20 at 23:15; Stop 03/20/20 at 23:16; Status DC Furosemide (Lasix) 20 mg 1X ONCE IVP Last administered on 03/21/20at 01:20; Start 03/21/20 at 01:00; Stop 03/21/20 at 01:01; Status DC Methylprednisolone Sodium Succinate (SOLU-Medrol 125MG VIAL) 125 mg 1X ONCE IV Last administered on 03/21/20at 01:20; Start 03/21/20 at 01:00; Stop 03/21/20 at 01:01; Status DC Albuterol/ Ipratropium (Duoneb) 3 ml Q4HRS NEB Last administered on 03/28/20at 20:41; Start 03/21/20 at 01:15; Stop 03/28/20 at 22:02; Status DC Piperacillin Sod/ Tazobactam Sod (Zosyn Per Pharmacy) 1 each PRN DAILY PRN MC SEE COMMENTS; Start 03/21/20 at 12:00; Stop 03/23/20 at 11:10; Status DC Piperacillin Sod/ Tazobactam Sod 4.5 gm/Sodium Chloride 100 ml @ 200 mls/hr Q6HRS IV Last administered on 03/23/20at 05:42; Start 03/21/20 at 12:00; Stop 03/23/20 at 11:11; Status DC Furosemide (Lasix) 40 mg 1X ONCE IVP Last administered on 03/22/20at 12:03; Start 03/22/20 at 11:45; Stop 03/22/20 at 11:46; Status DC Potassium Bicarbonate (Potassium Effervescent Tablet) 40 meq 1X ONCE PEG Last administered on 03/22/20at 14:00; Start 03/22/20 at 14:00; Stop 03/22/20 at 14:01; Status DC Ceftriaxone Sodium (Rocephin) 1 gm Q24H IVP Last administered on 03/26/20at 15:25; Start 03/23/20 at 12:00 Amlodipine Besylate (Norvasc) 5 mg DAILY PO Last administered on 03/27/20at 09:04; Start 03/23/20 at 12:00 Labetalol HCl (Normodyne Iv Push) 20 mg PRN Q4HRS PRN IVP HYPERTENSION Last administered on 03/29/20at 09:05; Start 03/23/20 at 15:15 Acetaminophen (Tylenol) 650 mg PRN Q6HRS PRN PEG MILD PAIN / TEMP > 100.3'F La st administered on 03/23/20at 16:31; Start 03/23/20 at 16:30 Morphine Sulfate (Roxanol Conc) 5 mg PRN Q2HRS PRN PO/SL MODERATE PAIN OR DYSPNEA; Start 03/27/20 at 10:15 Morphine Sulfate (Roxanol Conc) 10 mg PRN Q2HRS PRN PO/SL MODERATE PAIN OR DYSPNEA; Start 03/27/20 at 10:15 Morphine Sulfate (Morphine Sulfate) 2 mg PRN Q2HR PRN IVP PAIN OR DYSPNEA,1st CHOICE Last administered on 03/28/20at 12:34; Start 03/27/20 at 10:15 Morphine Sulfate (Morphine Sulfate) 4 mg PRN Q2HR PRN IVP PAIN OR DYSPNEA,1st CHOICE Last administered on 03/27/20at 13:14; Start 03/27/20 at 10:15 Fentanyl Citrate (Fentanyl 2ml Vial) 12.5 mcg PRN Q1HR PRN IVP PAIN OR DYS PNEA,2nd CHOICE; Start 03/27/20 at 10:15 Fentanyl Citrate (Fentanyl 2ml Vial) 25 mcg PRN Q1HR PRN IVP PAIN OR DYSPNEA,2nd CHOICE; Start 03/27/20 at 10:15 Fentanyl Citrate (Fentanyl 2ml Vial) 50 mcg PRN Q1HR PRN IVP PAIN OR DYSPNEA,2nd CHOICE; Start 03/27/20 at 10:15 Hydromorphone HCl (Dilaudid) 0.5 mg PRN Q2HRS PRN IVP PAIN OR DYSPNEA,3rd CHOICE; Start 03/27/20 at 10:15 Hydromorphone HCl (Dilaudid) 1 mg PRN Q2HRS PRN IVP PAIN OR DYSPNEA,3rd CHOICE; Start 03/27/20 at 10:15 Lorazepam (Ativan Inj) 2 mg PRN Q4HRS PRN IVP ANXIETY / AGITATION; Start 03/27/20 at 10:15 Haloperidol Lactate (Haldol Inj) 1 mg PRN Q2HRS PRN IVP AGITATION, 2nd CHOICE; Start 03/27/20 at 10:15; Status Cancel Scopolamine (Transderm-Scop) 1 patch PRN Q72HRS PRN TD SECRETIONS; Start 03/27/20 at 10:15 Atropine Sulfate (Isopto Atropine) 2 drop PRN Q4HRS PRN SL SECRETIONS; Start 03/27/20 at 10:15 Haloperidol Lactate (Haldol Inj) 1 mg PRN Q2HRS PRN IVP SEVERE DELIRIUM; Start 03/27/20 at 10:15 Haloperidol Lactate (Haldol Inj) 2 mg PRN Q2HRS PRN IVP SEVERE DELIRIUM; Start 03/27/20 at 10:15 Ondansetron HCl (Zofran) 4 mg PRN Q6HRS PRN IVP NAUSEA/VOMITING, 1st CHOICE; Start 03/27/20 at 10:15 Prochlorperazine Edisylate (Compazine) 10 mg PRN Q6HRS PRN IVP NAUSEA/VOMITING, 2nd CHOICE; Start 03/27/20 at 10:15 Bisacodyl (Dulcolax Supp) 10 mg PRN Q72HRS PRN [place] CONSTIPATION, 1st CHOICE; Start 03/27/20 at 10:15 Sodium Monofluorophosphate (Fleet Adult) 133 ml PRN Q72HRS PRN [place] CONSTIPATION, 2nd CHOICE; Start 03/27/20 at 10:15 Acetaminophen (Tylenol) 650 mg PRN Q6HRS PRN PO MILD PAIN/TEMP >100.4; Start 03/27/20 at 10:15 Acetaminophen (Tylenol) 650 mg PRN Q6HRS PRN PEG MILD PAIN/TEMP >100.4; Start 03/27/20 at 10:15; Status Cancel Acetaminophen (Tylenol Supp) 650 mg PRN Q6HRS PRN [place] MILD PAIN/TEMP >100.4; Start 03/27/20 at 10:15; Status Cancel Lorazepam (Ativan Inj) 2 mg PRN Q1HR PRN IVP AGITATION; Start 03/27/20 at 10:15; Stop 03/31/20 at 08:00 Sodium Chloride (Normal Saline Flush) 10 ml QSHIFT PRN IV AFTER MEDS AND BLOOD DRAWS; Start 03/27/20 at 10:15 Active Scripts Active Reported Oxybutynin Chloride Er (Oxybutynin Chloride) 10 Mg Tab.er.24 1 Tab PO DAILY Elmiron (Pentosan Polysulfate Sodium) 100 Mg Capsule 1 Cap PO TID 30 Days Atorvastatin Calcium 40 Mg Tablet 1 Tab PO DAILY Fluoxetine Hcl 40 Mg Capsule 40 Mg PO DAILY Premarin (Estrogens, Conjugated) 0.625 Mg Tablet 1 Tab PO DAILY Vitals/I & O Vital Sign - Last 24 Hours 03/28/20 03/28/20 03/28/20 03/28/20 12:05 12:34 20:00 20:00 Temp 98.0 98.8 98.0 98.8 Pulse 73 65 Resp 20 24 B/P (MAP) 164/74 (104) 173/66 (101) Pulse Ox 86 86 90 O2 Delivery Room Air Room Air Room Air Room Air 03/28/20 03/29/20 03/29/20 03/29/20 20:48 07:00 07:40 09:05 Temp 98.9 98.9 Pulse 86 86 Resp 20 B/P (MAP) 180/75 (110) 180/75 Pulse Ox 95 81 O2 Delivery Room Air Room Air Intake and Output 03/28/20 03/28/20 03/29/20 15:00 23:00 07:00 Output Total 1000 ml 600 ml Balance -1000 ml -600 ml NICKOLAS CERDA MD Mar 29, 2020 10:51
[2020-03-29 11:20] VITALS: BP 177/83
[2020-03-29] MEDS: cefTRIAXone IV Push 1 GM VIAL. IVP SCH (11:48)
--- NOTE | 2020-03-29 12:15 | NUR ---
AVINASH following. Discussed with RN, pt from home with , extubated and comfort care measures. SW consult for inpatient hospice/ hospice house. AVINASH met with pt's , Minh at bedside to discuss hospice options. Minh agreeable to referral being sent to [facility] for inpatient hospice and for AVINASH to send a referral to a hospice house to determine eligibility. Minh stated he does not feel as though he can take care of pt at home, and does not have the funds or desire to place pt in a prison. AVINASH faxed inpatient hospice referral to [facility], awaiting confirmation of whether pt meets inpatient status. AVINASH did advise Minh, not all pt's meet inpatient status, and even if they do, if pt's have not passed within 5 days, secondary plans are made to transfer to home or a prison, and sometimes a hospice house. Minh verbalized understanding. RN notified. Addendum: 03/29/20 at 1421 by KAITLYN DA SILVA [email or web address] meet with Minh and pt. Pt appropriate for inpatient hospice. Pt will transition to inpatient hospice. AVINASH will continue to follow.
[2020-03-29 15:00] VITALS: BP 147/67
--- NOTE | 2020-03-30 11:03 | PDOC3 ---
Discharge Summary Visit Information Date of Admission: March 15, 2020 Date of Discharge: Mar 29, 2020 Admitting Diagnosis Comment: Acute encephalopathy - due to intracranial hemorrhage Syncope and collapse - 2/2 intraparenchymal bleed Left front intracranial hemorrhage - awaiting biopsy results. per d/w neurosurgery likely aneursymal, possibly bleeding prior to presentation. left frontal lobe 5.5 x 6.0 x 3.0 cm large parenchymal hematoma and surrounding edema. S/p craniotomy. BP monitoring with a-line, cardene gtt. Marissa HLD - on statin Respiratory failure - likely 2/2 intracranial bleed. Pulm to see in AM for vent management Leukocytosis - likely 2/2 bleed. will monitor Hypokalemia and hypomagnesemia - will replace IV. monitor Final Diagnosis Problems Medical Problems: (1) Cerebral parenchymal hemorrhage Status: Acute (2) HTN (hypertension) Status: Acute Brief Hospital Course Allergies Allergies Coded Allergies Type Severity Reaction Last Updated Verified No Known Drug Allergies 03/15/20 No Vital Signs Vital Signs Date Time Temp Pulse Resp B/P (MAP) Pulse Ox O2 Delivery O2 Flow Rate FiO2 03/29/20 15:54 24 03/29/20 15:00 99.5 81 147/67 (93) 90 Room Air 99.5 Brief Hospital Course History and Physical Date of Admission Date of Admission DATE: 03/15/20 TIME: 12:10 Identification/Chief Complaint Chief Complaint Syncope and collapse Source Source: Caregiver, Chart review History of Present Illness History of Present Illness Ms Mathew is a 64 yo F w/ PMHx HLD who was brought here by EMS from local [facility] due to altered mental status around 1030 on 03/15/2020. noted that they were out shopping when she became unresponsive and fell to the ground, though he was able to catch her and guide her down on the floor. Patient did not hit her head. stated that patient has been having a headache for the last 2-3 days. He is sure that she is not on any blood thinner. Patient's stated that she is on multiple medications but he is not sure what they are.. EMS stated that she was able to protect her airway but her GCS was about [address] head revealed a left frontal lobe 5.5 x 6.0 x 3.0 cm large parenchymal hematoma and surrounding edema involving both the superior and middle frontal cortical gyri as well as extensive involvement of the white matter, with mass effect and 10 mm midline shift. Neurosurgery was urgently contacted. She underwent RSI with ED with etomidate and succinylcholine with 7.5 ET tube and went urgently to OR for craniotomy and hematoma evacuation which was large a nd invaded the ventricular and she is transferred to ICU for closer monitoring. I was able to evaluated patient prior to intubation and after surgery. 03/29/2020 No acute events reported overnight, case discussed with nursing staff patient in no acute distress no complaints during my visit 03/26/2020 Patient seen and examined in the ICU She remains intubated and mechanically ventilated Assist-control/ with 40% FiO2 with 5 of PEEP Discussed with RN Chart reviewed Discussed with case management Her is considering withdrawing care 03/25/2020 Patient seen and examined in the ICU She is on the vent Assist-control/02/02 50/40% with 5 of PEEP Has Batista to bedside drainage Chart reviewed She remains critically ill 03/24/2020 Patient seen and examined in the ICU she remains intubated and mechanically ventilated AC/06/03 100/40% with 5 of PEEP Has OG feeds Chart reviewed Discussed with RN She remains critically ill 03/23/2020 Patient seen and examined in the ICU She is mechanically ventilated Assist-control/16 100/40% Chart reviewed discussed with RN Discussed with pharmacy regarding elevated liver function test (we think it migh t be her statin or even perhaps the Cardene drip) We currently have her fentanyl off and she is starting to wake up a little bit Getting OG feeds Getting IV Keppra Not moving her right side but the left leg moves a little She is becoming quite edematous 03/22/2020 Patient seen and examined She is mechanically ventilated Assist-control/500/20 4/40% with 7 of PEEP On IV nicardipine On IV Keppra Sedated with propofol She has an NG to suction Chart reviewed Discussed with 03/21/2020 Patient seen and examined in the ICU again She apparently decompensated overnight and had to be placed on several sedatives and had to increase her PEEP Chart reviewed Discussed with RN She remains critically ill Mechanically ventilated AC/24/5 100/60% 03/20/2020 Patient seen and examined in the ICU She is still mechanically ventilated Assist-control/16/ 50/30% Dr. Patel just arrived he is removing the intracranial pressure monitor tube right now She remains critically ill Chart reviewed Discussed with RN We hope to change her sedation regimen as she gets agitated and then her blood pressure climbs If we can get her pressures under control then we can extubate hopefully? 03/19/2020 Patient seen and examined in the ICU She remains mechanically ventilated Assist-control/16/4 50/30% with 5 of PEEP She still has an intracranial pressure monitor current pressure is 10 On nicardipine drip She has SCDs She has a Batista to bedside drainage Has an art line Chart reviewed Discussed with RN She is still critically ill 03/18/2020 Patient seen and examined in the ICU She is on the vent Assist-control/16 100/30% Sedated with propofol Intracranial pressure monitor still in with an ICP of 13 Discussed with RN Chart reviewed Ms Mathew is a 64 yo F w/ PMHx HLD who was brought here by EMS from local [facility] due to altered mental status around 1030 on 03/15/2020. noted that they were out shopping when she became unresponsive and fell to the ground, though he was able to catch her and guide her down on the floor. Patient did not hit her head. stated that patient has been having a headache for the last 2-3 days. He is sure that she is not on any blood thinner. Patient's stated that she is on multiple medications but he is not sure what they are.. EMS stated that she was able to protect her airway but her GCS was about [address] head revealed a left frontal lobe 5.5 x 6.0 x 3.0 cm large p arenchymal hematoma and surrounding edema involving both the superior and middle frontal cortical gyri as well as extensive involvement of the white matter, with mass effect and 10 mm midline shift. Neurosurgery was urgently contacted. She underwent RSI with ED with etomidate and succinylcholine with 7.5 ET tube and went urgently to OR for craniotomy and hematoma evacuation which was large and invaded the ventricular and she is transferred to ICU for closer monitoring. I was able to evaluated patient prior to intubation and after surgery. 03/16: Patient seen and examined in the ICU, She is mechanically ventilated, Assist-control/450/16/30 percent, Has an OG to suction, Her pupils are reactive 03/17: Seen in ICU, sedated, intubated, on ICP monitoring and cardene GTT. Na 130. Hb 9.1. Moving left arm, posturing on pain response on right. Assessment Assessment Lungs with coarse breath sounds Cardiovascular S1-S2 regular rhythm Discharge Information Condition at Discharge: Stable Follow Up: Weeks Disposition/Orders: Other (hospice) Scheduled Atorvastatin Calcium (Atorvastatin Calcium) 40 Mg Tablet, 1 TAB PO DAILY, #30 Ref 5 (Reported) Entered as Reported by: ERICA SALCIDO on 03/15/201218 Last Action: Continued on 03/15/201634 by GRAY REECE MD Estrogens, Conjugated (Premarin) 0.625 Mg Tablet, 1 TAB PO DAILY, #30 Ref 11 (Reported) Entered as Reported by: ERICA SALCIDO on 03/15/201218 Last Action: New Order on 03/15/201218 by ERICA SALCIDO Fluoxetine Hcl (Fluoxetine Hcl) 40 Mg Capsule, 40 MG PO DAILY, (Reported) Entered as Reported by: ERICA SALCIDO on 03/15/201218 Last Action: New Order on 03/15/201218 by ERICA SALCIDO Oxybutynin Chloride (Oxybutynin Chloride Er) 10 Mg Tab.er.24, 1 TAB PO DAILY, #30 Ref 5 (Reported) Entered as Reported by: ERICA SALCIDO on 03/15/201218 Last Action: New Order on 03/15/201218 by ERICA SALCIDO Pentosan Polysulfate Sodium (Elmiron) 100 Mg Capsule, 1 CAP PO TID for 30 Days, #90 Ref 0 (Reported) Entered as Reported by: ERICA SALCIDO on 03/15/201218 Last Action: New Order on 03/15/201218 by ERICA SALCIDO Justicifation of Admission Dx: Justifications for Admission: Justification of Admission Dx: Yes Acute Hemorrhagic Stroke: Acute Hemorrhagic Stroke NICKOLAS CERDA MD Mar 30, 2020 11:03
== END 2020-03-29 18:37 | disposition hospice, inpatient (51) | DRG 25 ==
LOC: ER 11:16 → CVICU 11:55 → 1 WEST ICU 03-24 15:37 → 4 NORTH 03-28 14:28
PROVIDERS: ADMIT Internal Medicine; ATTEND Internal Medicine
PROC: 00C20ZZ Extirpation of Matter from Dura Mater, Open Approach (ICD-10-PCS; 2020-03-15)
PROC: 00C40ZZ Extirpation of Matter from Intracranial Subdural Space, Open Approach (ICD-10-PCS; principal; 2020-03-15 13:00)
PROC: 5A1955Z Respiratory Ventilation, Greater than 96 Consecutive Hours (ICD-10-PCS; 2020-03-18)
PROC: 0BH17EZ Insertion of Endotracheal Airway into Trachea, Via Natural or Artificial Opening (ICD-10-PCS; 2020-03-18)
DX: S06.2X9A Diffuse traumatic brain injury with loss of consciousness of unspecified duration, initial encounter (principal); J96.00 Acute respiratory failure, unspecified whether with hypoxia or hypercapnia; J18.9 Pneumonia, unspecified organism; G93.40 Encephalopathy, unspecified; E87.1 Hypo-osmolality and hyponatremia; Q27.30 Arteriovenous malformation, site unspecified; G93.89 Other specified disorders of brain; E78.5 Hyperlipidemia, unspecified; E87.6 Hypokalemia; E83.42 Hypomagnesemia; I10 Essential (primary) hypertension; Z51.5 Encounter for palliative care; W19.XXXA Unspecified fall, initial encounter; Y93.89 Activity, other specified; Y92.89 Other specified places as the place of occurrence of the external cause; Y99.8 Other external cause status; Z79.899 Other long term (current) drug therapy
CPT/HCPCS: 31500; 36415; 36600; 70450; 70496; 71045; 74018; 80048; 80053; 80307; 81001; 82805; 82962; 83036; 83735; 83880; 84443; 84478; 84484; 85007; 85025; 85027; 85610; 85730; 87070; 87205; 88304; 93005; 94002; 94003; 94640; 96374; 96375; C1713; G0480; J0330; J0690; J0696; J1100; J1940; J1953; J2150; J2270; J2370; J2543; J2704; J2930; J3010; J3475; J3480; J3490; J7050; J7060; J7120; Q9967; 99285-25; G0378; J7030

== ENCOUNTER 2020-03-29 18:32 | Inpatient (IN) | payer OTHER ==
[~2020-03-29] VITALS: Ht 162.6 cm; Wt 62.5 kg
[~2020-03-29 18:32] MED LIST: ATOR40TA59 PO; ESTR0.62 PO; FLUO40CA2 PO; OXYB10TA26 PO; PENT100C PO
[2020-03-29 19:00] VITALS: BP 156/70
[2020-03-29] MEDS ORDERED: ONDANSETRON PF 4 MG/2 ML VIAL. IVP PRN (19:45)
[2020-03-29] MEDS ORDERED: MORPHINE SULFATE 4 MG/ML VIAL. IV PRN (19:45)
[2020-03-29] MEDS ORDERED: BISACODYL 10 MG SUPP.RECT. PR PRN (19:45)
[2020-03-29] MEDS: SCOPOLAMINE 1.5MG PATCH. TD SCH (21:19)
[2020-03-29 23:00] VITALS: BP 156/70
[2020-03-30 03:00] VITALS: BP 179/81
[2020-03-30 07:05] VITALS: BP 152/62
--- NOTE | 2020-03-30 11:08 | PDOC1 ---
History and Physical Date of Admission Date of Admission 03/30/2020 Identification/Chief Complaint Chief Complaint Hospice care Source Source: Chart review, Patient History of Present Illness History of Present Illness Ms Mathew is a 64 yo F w/ PMHx HLD who was brought here by EMS from local [facility] due to altered mental status around 1030 on 03/15/2020. noted that they were out shopping when she became unresponsive and fell to the ground, though he was able to catch her and guide her down on the floor. Patient did not hit her head. stated that patient has been having a headache for the last 2-3 days. He is sure that she is not on any blood thinner. Patient's stated that she is on multiple medications but he is not sure what they are.. EMS stated that she was able to protect her airway but her GCS was about [address] head revealed a left frontal lobe 5.5 x 6.0 x 3.0 cm large parenchymal hematoma and surrounding edema involving both the superior and middle frontal cortical gyri as well as extensive involvement of the white matter, with mass effect and 10 mm midline shift. Neurosurgery was urgently contacted. She underwent RSI with ED with etomidate and succinylcholine with 7.5 ET tube and went urgently to OR for craniotomy and hematoma evacuation which was large and invaded the ventricular and she is transferred to ICU for closer monitoring. She was extubated and moved to normal floor once was determined that the patient unfortunately was not going to recover from this insult. She was transition to a comfort care measures treatment plan on 03/28/2020, she was discharged on 03/29/2022 hospice which will be done inpatient since her life expectancy is less than 2 weeks. At the time of my evaluation patient is in no acute distress discussed with nursing staff no concerns voiced at this time Past Medical History Cardiovascular: HTN Past Surgical History Past Surgical History: Other Family History Family History: Family History Unknown Social History ALCOHOL: none Drugs: None Current Medications Current Medications Current Medications Medications (Trade) Dose Ordered Sig/Arnel Start Time Stop Time Status Last Admin Dose Admin Atropine Sulfate (Isopto Atropine) 2 drop PRN Q2HR PRN 03/29/20 19:45 Bisacodyl (Dulcolax Supp) 10 mg PRN DAILY PRN 03/29/20 19:45 Lorazepam (Ativan Inj) 1 mg PRN Q1HR PRN 03/29/20 19:45 Morphine Sulfate (Morphine Sulfate) 4 mg PRN Q2HR PRN 03/29/20 19:45 03/29/20 19:48 DC Ondansetron HCl (Zofran) 4 mg PRN Q4HRS PRN 03/29/20 19:45 Scopolamine (Transderm-Scop) 1 patch Q3DAYS 03/29/20 19:47 03/29/20 21:19 1 PATCH Allergies Allergies Allergies Coded Allergies Type Severity Reaction Last Updated Verified No Known Drug Allergies 03/15/20 No ROS Review of System Unable to assess secondary to obtundation Physical Exam Physical Exam GEN.: No apparent distress. Obtunded HEENT: Head is normocephalic, atraumatic NECK: Supple. LUNGS: Clear to auscultation. HEART: RRR, S1, S2 present. Peripheral pulses intact ABDOMEN: Soft. Positive bowel sounds. EXTREMITIES: Without any cyanosis. NEUROLOGIC: Obtunded, moves all extremities PSYCHIATRIC: Obtunded. SKIN: No ulcerations Vitals Vitals Vital Signs Date Time Temp Pulse Resp B/P (MAP) Pulse Ox O2 Delivery O2 Flow Rate FiO2 03/30/20 07:30 Nasal Cannula 2.0 03/30/20 07:05 97.8 52 20 152/62 (92) 96 97.8 VTE Prophylaxis Ordered VTE Prophylaxis Devices: No VTE Pharmacological Prophylaxi: No Assessment/Plan Assessment/Plan Acute encephalopathy - due to intracranial hemorrhage Syncope and collapse - 2/2 intraparenchymal bleed Left front intracranial hemorrhage - awaiting biopsy results. per d/w neurosurgery likely aneursymal, possibly bleeding prior to presentation. left frontal lobe 5.5 x 6.0 x 3.0 cm large parenchymal hematoma and surrounding edema. S/p craniotomy. BP monitoring with a-line, cardene gtt. Ketaonra HLD - Plan Continue with hospice inpatient Secretion management Pain management Further recommendations based on the clinical course Justicifation of Admission Dx: Justifications for Admission: Justification of Admission Dx: Yes Acute Hemorrhagic Stroke: Acute Hemorrhagic Stroke NICKOLAS CERDA MD Mar 30, 2020 11:08
[2020-03-30] MEDS: MORPHINE SULFATE 4 MG/ML VIAL. IV PRN ×4 (12:58→17:01)
[2020-03-30] MEDS: ATROPINE 1% OPHTH SOLUTION 5ML BOTTLE. SL PRN ×3 (13:00→17:02)
[2020-03-30 13:50] VITALS: BP 135/77
[2020-03-30 19:00] VITALS: BP 133/63
[2020-03-30 23:00] VITALS: BP 128/62
[2020-03-31 07:00] VITALS: BP 161/58
--- NOTE | 2020-03-31 10:28 | PDOC ---
PROGRESS NOTES Chief Complaint Chief Complaint Acute encephalopathy - due to intracranial hemorrhage Syncope and collapse - 2/2 intraparenchymal bleed Left front intracranial hemorrhage - awaiting biopsy results. per d/w neurosurgery likely aneursymal, possibly bleeding prior to presentation. left frontal lobe 5.5 x 6.0 x 3.0 cm large parenchymal hematoma and surrounding edema. S/p craniotomy. BP monitoring with a-line, cardene gtt. Marissa HLD - Plan Continue with hospice inpatient Secretion management Pain management Further recommendations based on the clinical course History of Present Illness History of Present Illness No acute events reported overnight, case discussed with nursing staff patient in no acute distress no complaints during my visit Vitals Vitals Vital Signs Date Time Temp Pulse Resp B/P (MAP) Pulse Ox O2 Delivery O2 Flow Rate FiO2 03/31/20 07:58 Room Air 03/31/20 07:00 98.9 63 20 161/58 (92) 96 98.9 03/30/20 07:30 2.0 Physical Exam Physical Exam GEN.: No apparent distress. Obtunded HEENT: Head is normocephalic, atraumatic NECK: Supple. LUNGS: Clear to auscultation. HEART: RRR, S1, S2 present. Peripheral pulses intact ABDOMEN: Soft. Positive bowel sounds. EXTREMITIES: Without any cyanosis. NEUROLOGIC: Obtunded, moves all extremities PSYCHIATRIC: Obtunded. SKIN: No ulcerations Lungs: Other Comment Review of Relevant I have reviewed the following items wang (where applicable) has been applied. Medications Current Medications Lorazepam (Ativan Inj) 1 mg PRN Q1HR PRN IVP ANXIETY / AGITATION; Start 03/29/20 at 19:45 Atropine Sulfate (Isopto Atropine) 2 drop PRN Q2HR PRN SL SECRETIONS Last administered on 03/30/20at 17:02; Start 03/29/20 at 19:45 Scopolamine (Transderm-Scop) 1 patch Q3DAYS TD Last administered on 03/29/20at 21:19; Start 03/29/20 at 19:47 Bisacodyl (Dulcolax Supp) 10 mg PRN DAILY PRN MA CONSTIPATION; Start 03/29/20 at 19:45 Morphine Sulfate (Morphine Sulfate) 4 mg PRN Q1HR PRN IV PAIN Last administered on 03/30/20at 17:01; Start 03/29/20 at 19:45 Morphine Sulfate (Morphine Sulfate) 4 mg PRN Q2HR PRN IV PAIN; Start 03/29/20 at 19:45; Stop 03/29/20 at 19:48; Status DC Ondansetron HCl (Zofran) 4 mg PRN Q4HRS PRN IVP NAUSEA/VOMITING; Start 03/29/20 at 19:45 Active Scripts Active Reported Oxybutynin Chloride Er (Oxybutynin Chloride) 10 Mg Tab.er.24 1 Tab PO DAILY Elmiron (Pentosan Polysulfate Sodium) 100 Mg Capsule 1 Cap PO TID 30 Days Atorvastatin Calcium 40 Mg Tablet 1 Tab PO DAILY Fluoxetine Hcl 40 Mg Capsule 40 Mg PO DAILY Premarin (Estrogens, Conjugated) 0.625 Mg Tablet 1 Tab PO DAILY Vitals/I & O Vital Sign - Last 24 Hours 03/30/20 03/30/20 03/30/20 03/30/20 12:58 13:35 13:50 14:02 Temp 98.2 98.2 Pulse 92 Resp 24 30 28 B/P (MAP) 135/77 (96) Pulse Ox 89 O2 Delivery Room Air Room Air Room Air Room Air 03/30/20 03/30/20 03/30/20 03/30/20 14:54 15:19 15:56 17:01 Resp 24 O2 Delivery Room Air Room Air Room Air 03/30/20 03/30/20 03/30/20 03/30/20 17:55 19:00 19:55 23:00 Temp 99.3 99.0 99.3 99.0 Pulse 107 55 Resp B/P (MAP) 133/63 (86) 128/62 (84) Pulse Ox 90 89 O2 Delivery Room Air Room Air Room Air Room Air 03/31/20 03/31/20 07:00 07:58 Temp 98.9 98.9 Pulse 63 Resp 20 B/P (MAP) 161/58 (92) Pulse Ox 96 O2 Delivery Room Air Room Air Intake and Output 03/30/20 03/30/20 03/31/20 15:00 23:00 07:00 Intake Total 200 ml 200 ml Output Total 500 ml Balance -500 ml 200 ml 200 ml NICKOLAS CERDA MD Mar 31, 2020 10:28
[2020-03-31 19:26] VITALS: BP 138/70
[2020-03-31] MEDS: ATROPINE 1% OPHTH SOLUTION 5ML BOTTLE. SL PRN (21:38)
[2020-04-01] MEDS: SCOPOLAMINE 1.5MG PATCH. TD SCH (07:32)
[2020-04-01 08:03] VITALS: BP 162/80
--- NOTE | 2020-04-01 10:20 | PDOC ---
PROGRESS NOTES Chief Complaint Chief Complaint Acute encephalopathy - due to intracranial hemorrhage Syncope and collapse - 2/2 intraparenchymal bleed Left front intracranial hemorrhage - awaiting biopsy results. per d/w neurosurgery likely aneursymal, possibly bleeding prior to presentation. left frontal lobe 5.5 x 6.0 x 3.0 cm large parenchymal hematoma and surrounding edema. S/p craniotomy. BP monitoring with a-line, cardene gtt. Marissa HLD - Continue with hospice inpatient Secretion management Pain management Further recommendations based on the clinical course History of Present Illness History of Present Illness her and sister is here this AM, doing well, appears calm No acute events reported overnight, case discussed with nursing staff patient in no acute distress no complaints during my visit Vitals Vitals Vital Signs Date Time Temp Pulse Resp B/P (MAP) Pulse Ox O2 Delivery O2 Flow Rate FiO2 04/01/20 08:03 97.5 106 19 162/80 (107) 97 97.5 04/01/20 07:36 Room Air Physical Exam Physical Exam GEN.: No apparent distress. Obtunded HEENT: Head is normocephalic, atraumatic NECK: Supple. LUNGS: Clear to auscultation. HEART: RRR, S1, S2 present. Peripheral pulses intact ABDOMEN: Soft. Positive bowel sounds. EXTREMITIES: Without any cyanosis. NEUROLOGIC: Obtunded, moves all extremities PSYCHIATRIC: Obtunded. SKIN: No ulcerations Lungs: Other Comment Review of Relevant I have reviewed the following items wang (where applicable) has been applied. Medications Current Medications Lorazepam (Ativan Inj) 1 mg PRN Q1HR PRN IVP ANXIETY / AGITATION; Start 03/29/20 at 19:45 Atropine Sulfate (Isopto Atropine) 2 drop PRN Q2HR PRN SL SECRETIONS Last administered on 03/31/20at 21:38; Start 03/29/20 at 19:45 Scopolamine (Transderm-Scop) 1 patch Q3DAYS TD Last administered on 04/01/20at 07:32; Start 03/29/20 at 19:47 Bisacodyl (Dulcolax Supp) 10 mg PRN DAILY PRN SD CONSTIPATION; Start 03/29/20 at 19:45 Morphine Sulfate (Morphine Sulfate) 4 mg PRN Q1HR PRN IV PAIN Last administered on 03/30/20at 17:01; Start 03/29/20 at 19:45 Morphine Sulfate (Morphine Sulfate) 4 mg PRN Q2HR PRN IV PAIN; Start 03/29/20 at 19:45; Stop 03/29/20 at 19:48; Status DC Ondansetron HCl (Zofran) 4 mg PRN Q4HRS PRN IVP NAUSEA/VOMITING; Start 03/29/20 at 19:45 Active Scripts Active Reported Oxybutynin Chloride Er (Oxybutynin Chloride) 10 Mg Tab.er.24 1 Tab PO DAILY Elmiron (Pentosan Polysulfate Sodium) 100 Mg Capsule 1 Cap PO TID 30 Days Atorvastatin Calcium 40 Mg Tablet 1 Tab PO DAILY Fluoxetine Hcl 40 Mg Capsule 40 Mg PO DAILY Premarin (Estrogens, Conjugated) 0.625 Mg Tablet 1 Tab PO DAILY Vitals/I & O Vital Sign - Last 24 Hours 03/31/20 03/31/20 04/01/20 04/01/20 19:26 20:00 07:36 08:03 Temp 97.8 97.5 97.8 97.5 Pulse 109 106 Resp 24 19 B/P (MAP) 138/70 (92) 162/80 (107) Pulse Ox 92 97 O2 Delivery Room Air Room Air Room Air Intake and Output 03/31/20 03/31/20 04/01/20 15:00 23:00 07:00 Output Total 500 ml 200 ml 400 ml Balance -500 ml -200 ml -400 ml LAUREL DUNNE MD Apr 01, 2020 10:20
[2020-04-01 19:00] VITALS: BP 163/84
[2020-04-02 07:00] VITALS: BP 155/84
--- NOTE | 2020-04-02 10:57 | PDOC ---
[facility] [facility] PROGRESS NOTE Chief Complaint Chief Complaint Acute encephalopathy - due to intracranial hemorrhage Syncope and collapse - 2/2 intraparenchymal bleed Left front intracranial hemorrhage - awaiting biopsy results. per d/w neurosurgery likely aneursymal, possibly bleeding prior to presentation. left frontal lobe 5.5 x 6.0 x 3.0 cm large parenchymal hematoma and surrounding edema. S/p craniotomy. BP monitoring with a-line, cardene gtt. Marissa KEEND - History of Present Illness History of Present Illness 04/02/2020 Patient seen and examined She opens her eyes and tries to make some kind of eye contact but is nonverbal Smacking her lips a little bit Has made no meaningful neurologic interaction and clot is present at bedside Chart reviewed Discussed with onsite case manager Vitals/I&O Vitals/I&O: Vital Signs Date Time Temp Pulse Resp B/P (MAP) Pulse Ox O2 Delivery O2 Flow Rate FiO2 04/02/20 08:00 Room Air 04/02/20 07:00 98.8 99 19 155/84 (107) 95 98.8 I & O 04/01/20 04/01/20 04/02/20 15:00 23:00 07:00 Intake Total 0 ml Output Total 350 ml Balance 0 ml -350 ml Physical Exam Physical Exam: GEN.: No apparent distress. Obtunded HEENT: Head is normocephalic, atraumatic NECK: Supple. LUNGS: Clear to auscultation. HEART: RRR, S1, S2 present. Peripheral pulses intact ABDOMEN: Soft. Positive bowel sounds. EXTREMITIES: Without any cyanosis. NEUROLOGIC: Obtunded, moves all extremities PSYCHIATRIC: Obtunded. 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 Justicifation of Admission Dx: Justifications for Admission: Justification of Admission Dx: Yes Acute Hemorrhagic Stroke: Acute Hemorrhagic Stroke QASIM BAILEY III DO Apr 02, 2020 10:57
[2020-04-02] MEDS: ATROPINE 1% OPHTH SOLUTION 5ML BOTTLE. SL PRN ×2 (11:03→21:01)
[2020-04-02 19:00] VITALS: BP 144/80
[2020-04-02] MEDS: MORPHINE SULFATE 4 MG/ML VIAL. IV PRN (21:03)
[2020-04-03] MEDS: MORPHINE SULFATE 4 MG/ML VIAL. IV PRN (03:26)
[2020-04-03 07:10] VITALS: BP 167/88
--- NOTE | 2020-04-03 11:37 | PDOC ---
[facility] [facility] PROGRESS NOTE Chief Complaint Chief Complaint Acute encephalopathy - due to intracranial hemorrhage Syncope and collapse - 2/2 intraparenchymal bleed Left front intracranial hemorrhage - awaiting biopsy results. per d/w neurosurgery likely aneursymal, possibly bleeding prior to presentation. left frontal lobe 5.5 x 6.0 x 3.0 cm large parenchymal hematoma and surrounding edema. S/p craniotomy. BP monitoring with a-line, cardene gtt. Mairssa HLD - History of Present Illness History of Present Illness 04/03/2020 Patient seen and examined She has near agonal respirations Discussed with 4 different family members Review chart Spoke with nurse 04/02/2020 Patient seen and examined She opens her eyes and tries to make some kind of eye contact but is nonverbal Smacking her lips a little bit Has made no meaningful neurologic interaction and clot is present at bedside Chart reviewed Discussed with case management associate Vitals/I&O Vitals/I&O: Vital Signs Date Time Temp Pulse Resp B/P (MAP) Pulse Ox O2 Delivery O2 Flow Rate FiO2 04/03/20 08:00 Room Air 04/03/20 07:10 97.5 94 20 167/88 (114) 94 97.5 I & O 04/02/20 04/02/20 04/03/20 15:00 23:00 07:00 Intake Total 0 ml 0 ml Output Total 200 ml 100 ml Balance -200 ml 0 ml -100 ml Physical Exam Physical Exam: GEN.: No apparent distress. Obtunded HEENT: Head is normocephalic, atraumatic NECK: Supple. LUNGS: Has some upper airway gurgling (mild) HEART: RRR, S1, S2 present. Peripheral pulses intact ABDOMEN: Soft. Positive bowel sounds. EXTREMITIES: Without any cyanosis. NEUROLOGIC: Obtunded, near agonal respiration PSYCHIATRIC: Obtunded. SKIN: No ulcerations Lungs: Other Assessment and Plan Assessmemt and Plan Severe brain injury after intracranial hemorrhage Plan Comfort care Comment Review of Relevant I have reviewed the following items wang (where applicable) has been applied. Justicifation of Admission Dx: Justifications for Admission: Justification of Admission Dx: Yes Acute Hemorrhagic Stroke: Acute Hemorrhagic Stroke QASIM BAILEY III DO Apr 03, 2020 11:37
--- NOTE | 2020-04-03 12:45 | NUR ---
Patient followed commands x 3 from family, x1 for nurse to raise left arm. Sister, and another family at bedside, relating that this was a change, and appear anxious. Left pupil appears to have slightly more reaction than this am. Paged Dr Brown via answering service.
[2020-04-03] MEDS ORDERED: AMINO AC 3%/ELECTROLYTE/GLYCER 1,000 ML IV SCH (15:30)
[2020-04-03] MEDS: AMINO AC 3%/ELECTROLYTE/GLYCER 1,000 ML IV SCH (18:00)
--- NOTE | 2020-04-03 18:30 | NUR ---
Nurse with [facility] has related to this nurse that the procalamine has been approved for right now, situation will be re-evaluated.
[2020-04-03 19:00] VITALS: BP_SYST 109; BP_SYST 146; BP_DIAS 53; BP_DIAS 89
[2020-04-04] MEDS: MORPHINE SULFATE 4 MG/ML VIAL. IV PRN (00:50)
--- NOTE | 2020-04-04 03:41 | NUR ---
PPN was being administered when I started my shift.
[2020-04-04 07:14] VITALS: BP 135/72
[2020-04-04] MEDS: SCOPOLAMINE 1.5MG PATCH. TD SCH (09:39)
--- NOTE | 2020-04-04 11:17 | PDOC ---
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 per d/w neurosurgery likely aneursymal, possibly bleeding prior to presentation. left frontal lobe 5.5 x 6.0 x 3.0 cm large parenchymal hematoma and surrounding edema. S/p craniotomy. BP monitoring with a-line, cardene gtt. Marissa KEEND - History of Present Illness History of Present Illness 04/04/2020 Patient seen and examined She has her eyes open but does not make eye contact She does not make any meaningful movement (although her family last night thought she might be) I went ahead and started her on some ProcalAmine last night because the family was concerned that she was making meaningful movements Discussed with RN Chart reviewed Prognosis still appears terminal 04/03/2020 Patient seen and examined She has near agonal respirations Discussed with 4 different family members Review chart Spoke with nurse 04/02/2020 Patient seen and examined She opens her eyes and tries to make some kind of eye contact but is nonverbal Smacking her lips a little bit Has made no meaningful neurologic interaction and clot is present at bedside Chart reviewed Discussed with outpatient case manager Vitals/I&O Vitals/I&O: Vital Signs Date Time Temp Pulse Resp B/P (MAP) Pulse Ox O2 Delivery O2 Flow Rate FiO2 04/04/20 07:14 98.4 104 20 135/72 (93) 94 Room Air 98.4 I & O 04/03/20 04/03/20 04/04/20 15:00 23:00 07:00 Intake Total 0 ml 0 ml 0 ml Output Total 300 ml Balance 0 ml -300 ml 0 ml Physical Exam Physical Exam: GEN.: No apparent distress. Obtunded HEENT: Head is normocephalic, atraumatic NECK: Supple. LUNGS: Has some upper airway gurgling (mild) HEART: RRR, S1, S2 present. Peripheral pulses intact ABDOMEN: Soft. Positive bowel sounds. EXTREMITIES: Without any cyanosis. NEUROLOGIC: Obtunded, near agonal respiration PSYCHIATRIC: Obtunded. 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 per d/w neurosurgery likely aneursymal, possibly bleeding prior to presentation. left frontal lobe 5.5 x 6.0 x 3.0 cm large parenchymal hematoma and surrounding edema. S/p craniotomy. BP monitoring with a-line, hugh Ann HLD - Plan Basically we are doing comfort care, but I did add in PPN due to family's c oncerns that she might be making some kind of slight recovery (I doubt this, but I am trying to meet the family mcc) Discussed with RN and she is going to call me if she sees any meaningful movement Comment Review of Relevant I have reviewed the following items wang (where applicable) has been applied. Justicifation of Admission Dx: Justifications for Admission: Justification of Admission Dx: Yes Acute Hemorrhagic Stroke: Acute Hemorrhagic Stroke QASIM BAILEY III DO Apr 04, 2020 11:17
[2020-04-04] MEDS: AMINO AC 3%/ELECTROLYTE/GLYCER 1,000 ML IV SCH (12:33)
[2020-04-04 19:00] VITALS: BP 135/79
[2020-04-05 07:00] VITALS: BP 137/77
[2020-04-05] MEDS: AMINO AC 3%/ELECTROLYTE/GLYCER 1,000 ML IV SCH (08:01)
--- NOTE | 2020-04-05 10:01 | PDOC ---
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 per d/w neurosurgery likely aneursymal, possibly bleeding prior to presentation. left frontal lobe 5.5 x 6.0 x 3.0 cm large parenchymal hematoma and surrounding edema. S/p craniotomy. BP monitoring with a-line, cardene gtt. Marissa HLD - History of Present Illness History of Present Illness 04/05/2020 Patient seen and examined again Her Minh is present Patient's pupils are very large and nonreactive She does not blink if I flinch my fingers in front of her eyes She is moving her left arm but it appears to be just reflexive She stares to the left at times but again this appears to be just reflexive No true meaningful eye contact or movements Minh and I had a long chat and decided to go ahead and stop the PPN after this bottle 04/04/2020 Patient seen and examined She has her eyes open but does not make eye contact She does not make any meaningful movement (although her family last night thought she might be) I went ahead and started her on some ProcalAmine last night because the family was concerned that she was making meaningful movements Discussed with RN Chart reviewed Prognosis still appears terminal 04/03/2020 Patient seen and examined She has near agonal respirations Discussed with 4 different family members Review chart Spoke with nurse 04/02/2020 Patient seen and examined She opens her eyes and tries to make some kind of eye contact but is nonverbal Smacking her lips a little bit Has made no meaningful neurologic interaction and clot is present at bedside Chart reviewed Discussed with caser up Vitals/I&O Vitals/I&O: Vital Signs Date Time Temp Pulse Resp B/P (MAP) Pulse Ox O2 Delivery O2 Flow Rate FiO2 04/05/20 08:00 Room Air 04/05/20 07:00 97.7 101 19 137/77 (97) 96 97.7 I & O 04/04/20 04/04/20 04/05/20 15:00 23:00 07:00 Intake Total 0 ml 0 ml 0 ml Output Total 250 ml 200 ml Balance 0 ml -250 ml -200 ml Physical Exam Physical Exam: GEN.: No apparent distress. Obtunded HEENT: Head is normocephalic, atraumatic NECK: Supple. LUNGS: Has some upper airway gurgling (mild) HEART: RRR, S1, S2 present. Peripheral pulses intact ABDOMEN: Soft. Positive bowel sounds. EXTREMITIES: Without any cyanosis. NEUROLOGIC: Obtunded, near agonal respiration PSYCHIATRIC: Obtunded. 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 per d/w neurosurgery likely aneursymal, possibly bleeding prior to presentation. left frontal lobe 5.5 x 6.0 x 3.0 cm large parenchymal hematoma and surrounding edema. S/p craniotomy. BP monitoring with a-line, hugh Ann HLD - Plan Comfort care Prognosis terminal Comment Review of Relevant I have reviewed the following items wang (where applicable) has been applied. Justicifation of Admission Dx: Justifications for Admission: Justification of Admission Dx: Yes Acute Hemorrhagic Stroke: Acute Hemorrhagic Stroke QASIM BAILEY III DO Apr 05, 2020 10:01
--- NOTE | 2020-04-05 10:29 | NUR ---
AVINASH following. Discussed with RN, PPN will DC when current bottle finishes. AVINASH spoke with Ana Hardy RN, she is planning on speaking with pt's about revoking hospice, if they are wanting aggressive care. Ana advised she would notify AVINASH afterwards of decision. If wants to continue with hospice, the plan is for pt to discharge home with and [facility]. AVINASH will continue to follow. Addendum: 04/05/20 at 1135 by KAITLYN DA SILVA AVINASH spoke with Ana Hardy RN - will take pt home - needs a day or so to get house ready, and help to move things around. Plan for discharge home with [facility] tomorrow (04/06/2020). Pt will remain on inpatient hospice until discharge. JUDD aware.
[2020-04-05] MEDS: MORPHINE SULFATE 4 MG/ML VIAL. IV PRN ×2 (11:33→18:36)
--- NOTE | 2020-04-05 11:38 | NUR ---
[facility] Nurse requested pt to get pain medicine. Morphine IV given. Resp. 24. Family at bedside. Cont. Monitor.
[2020-04-05 19:00] VITALS: BP 148/75
[2020-04-06] MEDS: AMINO AC 3%/ELECTROLYTE/GLYCER 1,000 ML IV SCH (06:00)
[2020-04-06 07:00] VITALS: BP 179/96
[2020-04-06] MEDS: MORPHINE SULFATE 4 MG/ML VIAL. IV PRN ×5 (08:56→17:50)
--- NOTE | 2020-04-06 09:00 | NUR ---
Still opens eyes when touched. Resp 24 and breath sounds diminished. Morphine IV given. Cont. monitor.
[2020-04-06 12:30] VITALS: BP 135/75
--- NOTE | 2020-04-06 12:36 | PDOC ---
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 per d/w neurosurgery likely aneursymal, possibly bleeding prior to presentation. left frontal lobe 5.5 x 6.0 x 3.0 cm large parenchymal hematoma and surrounding edema. S/p craniotomy. BP monitoring with a-line, cardene gtt. Marissa HLD - History of Present Illness History of Present Illness 04/06/2020 Patient seen and examined She is unresponsive but has her eyes open but pupils are fixed and dilated Labored breathing pattern Discussed with her daughter 04/05/2020 Patient seen and examined again Her Minh is present Patient's pupils are very large and nonreactive She does not blink if I flinch my fingers in front of her eyes She is moving her left arm but it appears to be just reflexive She stares to the left at times but again this appears to be just reflexive No true meaningful eye contact or movements Minh and I had a long chat and decided to go ahead and stop the PPN after this bottle 04/04/2020 Patient seen and examined She has her eyes open but does not make eye contact She does not make any meaningful movement (although her family last night thought she might be) I went ahead and started her on some ProcalAmine last night because the family was concerned that she was making meaningful movements Discussed with RN Chart reviewed Prognosis still appears terminal 04/03/2020 Patient seen and examined She has near agonal respirations Discussed with 4 different family members Review chart Spoke with nurse 04/02/2020 Patient seen and examined She opens her eyes and tries to make some kind of eye contact but is nonverbal Smacking her lips a little bit Has made no meaningful neurologic interaction and clot is present at bedside Chart reviewed Discussed with business case analyst Vitals/I&O Vitals/I&O: Vital Signs Date Time Temp Pulse Resp B/P (MAP) Pulse Ox O2 Delivery O2 Flow Rate FiO2 04/06/20 08:56 28 Room Air 04/06/20 07:00 97.3 107 179/96 (123) 100 97.3 I & O 04/05/20 04/05/20 04/06/20 15:00 23:00 07:00 Intake Total 0 ml Output Total 400 ml 175 ml Balance -400 ml -175 ml Physical Exam Physical Exam: GEN.: No apparent distress. Obtunded HEENT: Head is normocephalic, atraumatic NECK: Supple. LUNGS: Has some upper airway gurgling (mild) HEART: RRR, S1, S2 present. Peripheral pulses intact ABDOMEN: Soft. Positive bowel sounds. EXTREMITIES: Without any cyanosis. NEUROLOGIC: Obtunded, near agonal respiration PSYCHIATRIC: Obtunded. 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 per d/w neurosurgery likely aneursymal, possibly bleeding prior to presentation. left frontal lobe 5.5 x 6.0 x 3.0 cm large parenchymal hematoma and surrounding edema. S/p craniotomy. BP monitoring with a-line, cardene gtt. Marissa HLD - Plan Comfort care Prognosis terminal She is scheduled to go home with hospice tomorrow if she does not survive the night Comment Review of Relevant I have reviewed the following items wang (where applicable) has been applied. Justicifation of Admission Dx: Justifications for Admission: Justification of Admission Dx: Yes Acute Hemorrhagic Stroke: Acute Hemorrhagic Stroke QASIM BAILEY III DO Apr 06, 2020 12:36
--- NOTE | 2020-04-06 13:00 | NUR ---
Resp still 24, even after Morphine IV given prior. Spouse at bedside. Cont. monitor.
--- NOTE | 2020-04-06 15:21 | NUR ---
SW following. Discussed with RN, pt discharging home with [facility] tomorrow (04/07/2020) at 10am via [facility]. RN and [facility] notified of transport time.
[2020-04-06 19:50] VITALS: BP 136/66
[2020-04-07 07:00] VITALS: BP 139/76
--- NOTE | 2020-04-07 09:00 | SNU/HH DC ---
DISCHARGE ORDERS DISCHARGE INFORMATION: CONDITION ON DISCHARGE: Guarded CODE STATUS: Code Status: DNR/DNI RETIREMENT: SNF STAY <30 DAYS: No HOSPICE: HOSPICE: Yes HOSPICE EVAL & TREAT: Yes LTAC: ADMIT TO LTAC: No POST DISCHARGE ORDERS: DIET AFTER DISCHARGE: NPO DISCHARGE MEDICATIONS: Home Meds Discontinued Reported Medications Oxybutynin Chloride (OXYBUTYNIN CHLORIDE ER) 10 Mg Tab.er.24, 1 TAB PO DAILY, #30 TAB 5 Refills 03/15/20 Pentosan Polysulfate Sodium (ELMIRON) 100 Mg Capsule, 1 CAP PO TID for 30 Days, #90 CAP 0 Refills 03/15/ Atorvastatin Calcium (ATORVASTATIN CALCIUM) 40 Mg Tablet, 1 TAB PO DAILY, #30 TAB 5 Refills 03/15/20 Fluoxetine Hcl (FLUOXETINE HCL) 40 Mg Capsule, 40 MG PO DAILY, CAP 25/20 Estrogens, Conjugated (PREMARIN) 0.625 Mg Tablet, 1 TAB PO DAILY, #30 TAB 11 Refills 20 QASIM BAILEY III DO Apr 07, 2020 09:00
[2020-04-07] MEDS: SCOPOLAMINE 1.5MG PATCH. TD SCH (09:11)
--- NOTE | 2020-04-07 10:32 | NUR ---
SW following. Reviewed chart and spoke with RN. SW met with pt and family at bedside and they are agreeable to discharge home today with hospice. SW called and spoke with [facility], and they have the paperwork they need and will admit this patient today with hospice in the home. AVINASH phoned and faxed completed Certificate of Medical Necessity form to [facility], , (fax). [facility] transport arranged for 12pm. SW notified [facility] and RN of change in transport time from 10am to noon per availability from [facility] and [facility]. No additional SW needs at this time.
--- NOTE | 2020-04-07 13:09 | DS ---
DATE OF DISCHARGE: 04/07/2020 ADMISSION DIAGNOSIS: Intracranial hemorrhage. DISCHARGE DIAGNOSIS: Postoperative hematoma evacuation of central nervous system hemorrhage. 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 She was taken to the OR by Dr. Kearney. He did evacuate the hematoma and cauterized did well, but postoperatively, she just really never responded. She has been unresponsive, not eating. Her pupils are very large and nonreactive. Her prognosis is terminal. She has now been placed on hospice. I have seen her each day for the past week and today when I saw her, she was still terminal. Heart tones are normal. Lungs were clear, but her SERVICE WRITER status is extremely poor. She is not making an eye contact. Her pupils are large. No meaningful movements. She cannot eat. Basically, the plan is to get her home with continued hospice. DISPOSITION: Home with hospice. ACTIVITY: Bed rest. DIET: N.p.o. MEDICATIONS: Please see the MRAD. TOTAL TIME: 31 minutes. QASIM BAILEY DO DR: JIN/alana JOB#: [id number] / [id number]
== END 2020-04-07 10:55 | disposition hospice, home (50) | DRG 65 ==
LOC: 4 NORTH 18:32
PROVIDERS: ADMIT Internal Medicine; ATTEND Internal Medicine
DX: I61.9 Nontraumatic intracerebral hemorrhage, unspecified (principal); G93.40 Encephalopathy, unspecified; E78.5 Hyperlipidemia, unspecified; I10 Essential (primary) hypertension; Z51.5 Encounter for palliative care; Z66 Do not resuscitate; Z79.899 Other long term (current) drug therapy
CPT/HCPCS: J2060; J2270; J3490; G0378